=== PATIENT | male | born 1960 | race American Indian/Alaskan Native ===

== ENCOUNTER 2016-12-24 23:03 | Emergency (ER) | payer MEDICAID ==
[2016-12-24 23:25] VITALS: BP 157/84
== END 2016-12-25 01:58 | disposition left against medical advice (07) ==
LOC: DL.ED 23:03
DX: Z53.21 Procedure and treatment not carried out due to patient leaving prior to being seen by health care provider (principal)

== ENCOUNTER 2017-05-01 16:17 | Emergency (ER) | payer MEDICAID ==
[2017-05-01 17:50] VITALS: BP 141/90
[2017-05-01] MEDS ORDERED: Doxycycline 100 MG Cap PO ONE (19:47)
--- NOTE | 2017-05-01 19:51 | EDM.PDOC ---
ED HPI GENERAL MEDICAL PROBLEM - General Chief Complaint: Upper Extremity Injury/Pain Stated Complaint: POSSIBLE BROKEN FINGERS [id number] Time Seen by Provider: 05/01/17 19:15 Source of Information: Reports: Patient - History of Present Illness INITIAL COMMENTS - FREE TEXT/NARRATIVE: hit end of right 3rd finger with hammer 4 days ago and has increased swelling and redness, poked with tack today and "got a lot of fluid from finger". Right 3-Middle finger Pain Score (Numeric/FACES): 8 - Related Data Allergies Allergy/AdvReac Type Severity Reaction Status Date / Time No Known Allergies Allergy Verified 07/22/16 02:54 Home Meds: Home Meds Diclofenac Sodium [Voltaren 1% Gel] 100 gm TOP BID 03/13/15 [History] Ibuprofen 800 mg PO ASDIRECTED 03/13/15 [History] Insuln Asp Prot/Insulin Aspart [NovoLOG Mix 70-30] 30 unit SUBCUT TIDMEALS 03/13 [History] Lisinopril 5 mg PO DAILY 03/13/15 [History] atorvaSTATin [Lipitor] 10 mg PO DAILY 03/13/15 [History] glyBURIDE [Glyburide] 5 mg PO DAILY 03/13/15 [History] Past Medical History Cardiovascular History: Reports: High Cholesterol, Hypertension Genitourinary History: Reports: Diabetic Nephropathy Musculoskeletal History: Reports: Arthritis, Back Pain, Chronic Endocrine/Metabolic History: Reports: Diabetes, Type II, IDDM Dermatologic History: Reports: Cellulitis - Infectious Disease History Infectious Disease History: Reports: Chicken Pox, Measles, Mumps Social & Family History - Family History Family Medical History: Noncontributory - Tobacco Use Smoking Status *Q: Current Every Day Smoker Years of Tobacco use: 30 Packs/Tins Daily: 0.2 Used Tobacco, but Quit: Yes Month Tobacco Last Used: May, Second Hand Smoke Exposure: Yes - Caffeine Use Caffeine Use: Reports: None - Alcohol Use Days Per Week of Alcohol Use: 1 Number of Drinks Per Day: 1 Total Drinks Per Week: 1 - Recreational Drug Use Recreational Drug Use: Yes Drug Use in Last 12 Months: Yes Recreational Drug Type: Reports: Methamphetamine Recreational Drug Use Frequency: Weekly Review of Systems - Review of Systems Review Of Systems: ROS reveals no pertinent complaints other than HPI. Constitutional: Denies: Chills Skin: Reports: Erythema ED EXAM, GENERAL - Physical Exam Exam: See Below Exam Limited By: No Limitations General Appearance: Alert, No Apparent Distress Eye Exam: Bilateral Eye: EOMI Ears: Normal External Exam Nose: Normal Inspection Throat/Mouth: Other (poor dentation) Respiratory/Chest: No Respiratory Distress, Lungs Clear Cardiovascular: Normal Peripheral Pulses, Regular Rate, Rhythm Extremities: Increased Warmth, Redness, Other (right 3rd finger, crusted area distal DIP proximal redness, swelling, tender to palpation) Neurological: Alert, Oriented Psychiatric: Normal Affect Skin Exam: Warm, Dry, Erythema, Increased Warmth Course - Vital Signs Last Recorded V/S: Last Vital Signs Temp 97.8 F 05/01/17 17:23 Pulse 99 05/01/17 17:23 Resp 16 05/01/17 17:23 BP 141/90 H 05/01/17 17:23 Pulse Ox 99 05/01/17 17:23 - Orders/Labs/Meds Meds: Medications Discontinued Medications Generic Name Dose Route Start Last Admin Trade Name Freq PRN Reason Stop Dose Admin Doxycycline Hyclate 100 mg 05/01/17 19:47 05/01/17 19:53 Vibramycin PO 05/01/17 19:48 100 mg ONETIME ONE Administration - Radiology Interpretation Free Text/Narrative:: right 3rd finger negative for fracture. Departure - Departure Time of Disposition: 19:49 Disposition: Home, Self-Care 01 Condition: Fair Clinical Impression: Cellulitis Qualifiers: Site of cellulitis: extremity Site of cellulitis of extremity: finger Laterality: right Qualified Code(s): L03.011 - Cellulitis of right finger - Discharge Information Instructions: Cellulitis, Adult, [id number] Forms: ED Department Discharge Additional Instructions: warm soak to finger 4 times daily elevate doxycycline 100mg one twice daily for one week recheck in clinic in one week, sooner if increased redness and swelling
== END 2017-05-01 19:57 | disposition home or self-care (01) ==
LOC: DL.ED 16:17
DX: L03.011 Cellulitis of right finger (principal); I10 Essential (primary) hypertension; E78.00 Pure hypercholesterolemia, unspecified; E11.40 Type 2 diabetes mellitus with diabetic neuropathy, unspecified; F17.210 Nicotine dependence, cigarettes, uncomplicated; Z79.4 Long term (current) use of insulin; Z79.899 Other long term (current) drug therapy
CPT/HCPCS: 73140; 99283; A9270

== ENCOUNTER 2017-06-27 12:03 | Inpatient (IN) | payer MEDICAID ==
[2017-06-27] MEDS ORDERED: Sodium Chloride 0.9% 1,000 ML IV ONE ×3 (12:05→14:27)
[2017-06-27] MEDS: Sodium Chloride 0.9% 10 ML Syringe FLUSH PRN (12:20)
--- NOTE | 2017-06-27 12:44 | CR ---
Clinical history: 56-year-old diabetic male (glucose in the 500's) with fever and cough. Interpretation: Abnormal. *Dense left parahilar and lingular pneumonic consolidation (infiltrate/atelectasis) new since Apr comparison. Chronic bronchitic "cuffing". Normal cardiac silhouette without signs of alveolar edema or dependent effusion. No lung mass or other focal lobar consolidation. CONCLUSION: Lingular and left upper lobe pneumonia.
--- NOTE | 2017-06-27 13:16 | EDM.PDOC ---
ED HPI GENERAL MEDICAL PROBLEM - General Chief Complaint: Fever Stated Complaint: FROM CLINIC ELEVATED BLOOD SUGAR AND WHITE COUNT Time Seen by Provider: 06/27/17 12:20 Source of Information: Reports: Patient, RN, RN Notes Reviewed History Limitations: Reports: Other (patient very sleepy, arouses easily) - History of Present Illness INITIAL COMMENTS - FREE TEXT/NARRATIVE: Pt presents to the ER from [facility]. Pt states he was to see Ry Fragoso NP today for a "check-up". He had labs completed, in which many were abnormal and he was sent to the ER. Pt states he has not been feeling well for the past few days. Admits to fever, chills, generalized weakness, cough for the past "couple of weeks". He states he has not been taking his medication for "quite some time", including his insulin. Onset: Gradual, Unknown/Unsure (Pt states he began not feeling well "a few weeks ago") Duration: Getting Worse headache Pain Score (Numeric/FACES): 5 - Related Data Allergies Allergy/AdvReac Type Severity Reaction Status Date / Time No Known Allergies Allergy Verified 06/27/17 15:19 Home Meds: Home Meds Ibuprofen 800 mg PO ASDIRECTED PRN 03/13/15 [History] Insuln Asp Prot/Insulin Aspart [NovoLOG Mix 70-30] 40 unit SUBCUT BID 03/13/15 [ History] Acetaminophen [Tylenol Extra Strength] 2 tab PO TID 06/27/17 [History] Past Medical History Cardiovascular History: Reports: High Cholesterol, Hypertension Genitourinary History: Reports: Diabetic Nephropathy Musculoskeletal History: Reports: Arthritis, Back Pain, Chronic Endocrine/Metabolic History: Reports: Diabetes, Type II, IDDM Dermatologic History: Reports: Cellulitis - Infectious Disease History Infectious Disease History: Reports: Chicken Pox, Measles, Mumps Social & Family History - Family History Family Medical History: Noncontributory - Tobacco Use Smoking Status *Q: Current Every Day Smoker Years of Tobacco use: 30 Packs/Tins Daily: 0.2 Used Tobacco, but Quit: Yes Month Tobacco Last Used: May, Second Hand Smoke Exposure: Yes - Caffeine Use Caffeine Use: Reports: None - Alcohol Use Days Per Week of Alcohol Use: 1 Number of Drinks Per Day: 1 Total Drinks Per Week: 1 - Recreational Drug Use Recreational Drug Use: Yes Drug Use in Last 12 Months: Yes Recreational Drug Type: Reports: Methamphetamine Recreational Drug Use Frequency: Weekly ED ROS GENERAL - Review of Systems Review Of Systems: ROS reveals no pertinent complaints other than HPI. ED EXAM, SEPSIS - Physical Exam Exam: See Below Exam Limited By: Other (lethargic) General Appearance: WD/WN, Lethargic, Mild Distress Eye Exam: Bilateral Eye: EOMI, Normal Inspection Ears: Normal External Exam, Hearing Grossly Normal Nose: Nasal Deformity Throat/Mouth: Normal Inspection, Normal Voice, No Airway Compromise Head: Atraumatic, Normocephalic Neck: Normal Inspection, Supple, Non-Tender, Full Range of Motion Respiratory/Chest: No Respiratory Distress, No Accessory Muscle Use, Chest Non- Tender, Crackles (throughout) Cardiovascular: Normal Peripheral Pulses, Regular Rate, Rhythm, No Edema, No Gallop, No JVD, No Murmur, No Rub Peripheral Pulses: 2+: Radial (L), Radial (R) GI/Abdominal Exam: Normal Bowel Sounds, Soft, Non-Tender, No Organomegaly, No Distention, No Abnormal Bruit, No Mass (Male) Exam: Deferred Rectal (Males) Exam: Deferred Back: Normal Inspection, Full Range of Motion Extremities: Normal Inspection, Normal Range of Motion, Non-Tender, No Pedal Edema, Normal Capillary Refill Neurological: Alert, Oriented, Slow to Respond Psychiatric: Flat Affect Skin: Warm, Dry, Intact, Normal Color Lymphatic: Bilateral: No Adenopathy Course - Vital Signs Last Recorded V/S: Last Vital Signs Temp 99.2 F 06/28/17 07:59 Pulse 90 06/28/17 07:59 Resp 20 06/28/17 07:59 BP 121/61 06/28/17 07:59 Pulse Ox 96 06/28/17 07:59 - Orders/Labs/Meds Orders: Active Orders 24 hr Category Date Time Status CULTURE BLOOD [BC] Stat Lab 06/27/17 12:24 Received CULTURE BLOOD [BC] Stat Lab 06/27/17 12:29 Received Sodium Chloride 0.9% [Saline Flush] Med 06/27/17 12:03 Active 10 ml FLUSH ASDIRECTED PRN Blood Culture x2 Reflex Set [OM.PC] Stat Oth 06/27/17 12:03 Ordered Peripheral IV Insertion Adult [OM.PC] Stat Oth 06/27/17 12:03 Ordered Medication Orders Acetaminophen (Tylenol) 650 mg PO Q4H PRN PRN Reason: Pain (mild 1-3 )/fever Last Admin: 06/28/17 07:02 Dose: 650 mg Admin: 06/27/17 20:14 Dose: 650 mg Bisacodyl (Dulcolax) 10 mg RECTAL DAILY PRN PRN Reason: Constipation Enoxaparin Sodium (Lovenox) 40 mg SUBCUT DAILY COUNT INCLUDES THE [facility] Last Admin: 06/28/17 09:05 Dose: 40 mg Azithromycin 500 mg/ Sodium (Chloride) 250 mls @ 250 mls/hr IV Q24H COUNT INCLUDES THE [facility] Last Admin: 06/27/17 18:23 Dose: 250 mls/hr Ceftriaxone Sodium 1 gm/ (Sodium Chloride) 50 mls @ 100 mls/hr IV Q24H COUNT INCLUDES THE [facility] Last Admin: 06/28/17 09:05 Dose: 100 mls/hr Insulin Aspart (Novolog) 0 unit SUBCUT QID COUNT INCLUDES THE [facility] PRN Reason: Protocol Last Admin: 06/28/17 08:55 Dose: Admin: 06/27/17 22:17 Dose: 2 units Admin: 06/27/17 18:22 Dose: 4 units Insulin Human Isoph/Insulin Regular (Novolin 70-30) 40 unit SUBCUT 0730,1700 COUNT INCLUDES THE [facility] Last Admin: 06/28/17 08:15 Dose: 40 units Magnesium Hydroxide (Milk Of Magnesia) 30 ml PO DAILY PRN PRN Reason: Constipation Sodium Chloride (Saline Flush) 10 ml FLUSH ASDIRECTED PRN PRN Reason: Keep Vein Open Last Admin: 06/28/17 09:06 Dose: 10 ml Admin: 06/27/17 12:20 Dose: 10 ml Labs: Laboratory Tests 06/27/17 06/27/17 06/27/17 Range/Units 12:24 12:24 14:00 POC Glucose 319 H (70-105) mg/dl Lactic Acid 1.7 (0.5-2.2) mmol/L Magnesium 1.8 (1.8-2.5) mg/dL Urine Color (YELLOW) Urine Appearance (CLEAR) Urine pH (5.0-9.0) Ur Specific Tillman (1.005-1.030) Urine Protein (NEGATIVE) Urine Glucose (UA) (NEGATIVE) Urine Ketones (NEGATIVE) Urine Occult Blood (NEGATIVE) Urine Nitrite (NEGATIVE) Urine Bilirubin (NEGATIVE) Urine Urobilinogen (0.2-1.0) mg/dL Ur Leukocyte Esterase (NEGATIVE) Urine RBC /HPF Urine WBC (0-5/HPF) /HPF Ur Epithelial Cells /HPF Urine Mucus /LPF Urine Yeast (0/HPF) /HPF Urine Opiates Screen (NEGATIVE) Ur Oxycodone Screen (NEGATIVE) Urine Methadone Screen (NEGATIVE) Ur Barbiturates Screen (NEGATIVE) U Tricyclic Antidepress (NEGATIVE) Ur Phencyclidine Scrn (NEGATIVE) Ur Amphetamine Screen (NEGATIVE) U Methamphetamines Scrn (NEGATIVE) Urine MDMA Screen (NEGATIVE) U Benzodiazepines Scrn (NEGATIVE) Urine Cocaine Screen (NEGATIVE) U Marijuana (THC) Screen (NEGATIVE) Ethyl Alcohol < 5 mg/dL Ketones Negative 06/27/17 06/27/17 Range/Units 14:40 14:40 POC Glucose (70-105) mg/dl Lactic Acid (0.5-2.2) mmol/L Magnesium (1.8-2.5) mg/dL Urine Color Dark yellow (YELLOW) Urine Appearance Cloudy (CLEAR) Urine pH 6.0 (5.0-9.0) Ur Specific Tillman 1.020 (1.005-1.030) Urine Protein >=300 H (NEGATIVE) Urine Glucose (UA) 500 H (NEGATIVE) Urine Ketones Negative (NEGATIVE) Urine Occult Blood Moderate H (NEGATIVE) Urine Nitrite Negative (NEGATIVE) Urine Bilirubin Negative (NEGATIVE) Urine Urobilinogen 1.0 (0.2-1.0) mg/dL Ur Leukocyte Esterase Negative (NEGATIVE) Urine RBC 5-10 H /HPF Urine WBC 0-5 (0-5/HPF) /HPF Ur Epithelial Cells Rare /HPF Urine Mucus Rare /LPF Urine Yeast Rare H (0/HPF) /HPF Urine Opiates Screen Negative (NEGATIVE) Ur Oxycodone Screen Negative (NEGATIVE) Urine Methadone Screen Negative (NEGATIVE) Ur Barbiturates Screen Negative (NEGATIVE) U Tricyclic Antidepress Negative (NEGATIVE) Ur Phencyclidine Scrn Negative (NEGATIVE) Ur Amphetamine Screen Negative (NEGATIVE) U Methamphetamines Scrn Positive H (NEGATIVE) Urine MDMA Screen Negative (NEGATIVE) U Benzodiazepines Scrn Negative (NEGATIVE) Urine Cocaine Screen Negative (NEGATIVE) U Marijuana (THC) Screen Negative (NEGATIVE) Ethyl Alcohol mg/dL Ketones Meds: Medications Generic Name Dose Route Start Last Admin Trade Name Freq PRN Reason Stop Dose Admin Acetaminophen 650 mg 06/27/17 16:19 06/28/17 07:02 Tylenol PO 650 mg Q4H PRN Administration Pain (mild 1-3 )/fever Bisacodyl 10 mg 06/27/17 16:19 Dulcolax RECTAL DAILY PRN Constipation Enoxaparin Sodium 40 mg 06/28/17 09:00 06/28/17 09:05 Lovenox SUBCUT 40 mg DAILY MEGHAN Administration Azithromycin 500 mg/ Sodium 250 mls @ 250 mls/hr 06/27/17 18:00 06/27/17 18: 23 Chloride IV 250 mls/hr Q24H MEGHAN Administration Ceftriaxone Sodium 1 gm/ 50 mls @ 100 mls/hr 06/28/17 09:00 06/28/17 09:05 Sodium Chloride IV 100 mls/hr Q24H MEGHAN Administration Insulin Aspart 0 unit 06/27/17 17:00 06/28/17 08:55 Novolog SUBCUT Not Given QID COUNT INCLUDES THE [facility] Protocol Insulin Human Isoph/Insulin Regular 40 unit 06/28/17 07:30 06/28/17 08:15 Novolin 70-30 SUBCUT 40 units 0730,1700 COUNT INCLUDES THE [facility] Administration Magnesium Hydroxide 30 ml 06/27/17 16:19 Milk Of Magnesia PO DAILY PRN Constipation Sodium Chloride 10 ml 06/27/17 12:03 06/28/17 09:06 Saline Flush FLUSH 10 ml ASDIRECTED PRN Administration Keep Vein Open Discontinued Medications Generic Name Dose Route Start Last Admin Trade Name Jenny PRN Reason Stop Dose Admin Acetaminophen 650 mg 06/27/17 13:32 06/27/17 13:56 Tylenol PO 06/27/17 13:33 650 mg NOW ONE Administration Furosemide 20 mg 06/27/17 18:00 06/27/17 18:23 Lasix IVPUSH 06/27/17 18:01 20 mg ONETIME ONE Administration Sodium Chloride 1,000 mls @ 999 mls/hr 06/27/17 12:05 06/27/17 12:31 Normal Saline IV 06/27/17 13:05 999 mls/hr .BOLUS ONE Administration Sodium Chloride 1,000 mls @ 999 mls/hr 06/27/17 13:26 06/27/17 13:30 Normal Saline IV 06/27/17 14:26 999 mls/hr .BOLUS ONE Administration Sodium Chloride 1,000 mls @ 100 mls/hr 06/27/17 14:27 06/27/17 14:43 Normal Saline IV 06/28/17 00:26 100 mls/hr .BOLUS ONE Administration Ceftriaxone Sodium 1 gm/ 50 mls @ 100 mls/hr 06/27/17 14:47 06/27/17 14:58 Sodium Chloride IV 06/27/17 15:16 100 mls/hr ONETIME ONE Administration Insulin Human Isoph/Insulin Regular 40 unit 06/27/17 17:00 06/27/17 18:21 Novolin 70-30 SUBCUT 40 units BIDAC MEGHAN Administration - Radiology Interpretation Free Text/Narrative:: chest xray: Lingular and left upper lobe pneumonia See rad report Departure - Departure Time of Disposition: 15:00 Disposition: Admitted As Inpatient 66 Condition: Poor Clinical Impression: Pneumonia Qualifiers: Pneumonia type: due to unspecified organism Laterality: right Lung location: upper lobe of lung Qualified Code(s): J18.9 - Pneumonia, unspecified organism - Discharge Information - My Orders Last 24 Hours: My Active Orders 06/27/17 12:03 Sodium Chloride 0.9% [Saline Flush] 10 ml FLUSH ASDIRECTED PRN Blood Culture x2 Reflex Set [OM.PC] Stat Peripheral IV Insertion Adult [OM.PC] Stat 06/27/17 12:24 CULTURE BLOOD [BC] Stat 06/27/17 12:29 CULTURE BLOOD [BC] Stat - Assessment/Plan Last 24 Hours: My Active Orders 06/27/17 12:03 Sodium Chloride 0.9% [Saline Flush] 10 ml FLUSH ASDIRECTED PRN Blood Culture x2 Reflex Set [OM.PC] Stat Peripheral IV Insertion Adult [OM.PC] Stat 06/27/17 12:24 CULTURE BLOOD [BC] Stat 06/27/17 12:29 CULTURE BLOOD [BC] Stat
[2017-06-27] MEDS ORDERED: Acetaminophen 325 MG Tab PO ONE (13:32)
[2017-06-27] MEDS ORDERED: cefTRIAXone 1 GM in Sodium Chloride 0.9% 50 ML IV ONE (14:47)
[2017-06-27] MEDS ORDERED: Magnesium Hydroxide 400 MG/5 ML Susp 30 ML Cup PO PRN (16:19)
[2017-06-27] MEDS ORDERED: Bisacodyl 10 MG Supp RECTAL PRN (16:19)
[2017-06-27] MEDS ORDERED: Insulin NPH/Insulin Regular,Human 70-30 100 Units/ML 10 ML Vial SUBCUT SCH (17:00)
[2017-06-27] MEDS ORDERED: Furosemide 20 MG/2 ML VIAL IVPUSH ONE (18:00)
[2017-06-27] MEDS: Insulin Aspart 100 Units/ML 3 ML Pen SUBCUT SCH ×2 (18:22→22:17)
[2017-06-27] MEDS: Azithromycin 500 MG in Sodium Chloride 0.9% 250 ML IV SCH (18:23)
[2017-06-27] MEDS: Acetaminophen 325 MG Tab PO PRN (20:14)
[2017-06-28] MEDS: Acetaminophen 325 MG Tab PO PRN ×2 (07:02→15:48)
[2017-06-28] MEDS: Insulin NPH/Insulin Regular,Human 70-30 100 Units/ML 10 ML Vial SUBCUT SCH ×2 (08:15→17:23)
[2017-06-28] MEDS: Insulin Aspart 100 Units/ML 3 ML Pen SUBCUT SCH ×4 (08:55→21:30)
[2017-06-28] MEDS: cefTRIAXone 1 GM in Sodium Chloride 0.9% 50 ML IV SCH (09:05)
[2017-06-28] MEDS: Enoxaparin 40 MG/0.4 ML Syringe SUBCUT SCH (09:05)
[2017-06-28] MEDS: Sodium Chloride 0.9% 10 ML Syringe FLUSH PRN ×2 (09:06→17:44)
[2017-06-28 11:18] LABS: CHLORIDE,CL 99 mmol/L (101-111); SODIUM,NA 132 mmol/L (135-145)
--- NOTE | 2017-06-28 12:57 | HP ---
REASON FOR ADMISSION: Fever and cough as well as hyperglycemia. BRIEF HISTORY OF PRESENT ILLNESS: Mr. Vargas is a 56-year-old male, who was due to be seen in clinic yesterday. Apparently, he had lab work done and based on lab work alone the provider called the ER for potential admission. Mr. Vargas's blood sugar was 511. Hemoglobin A1c was 11.7%. Sodium was 123. BUN and creatinine 18 and 1.4. White count was 22,600 with left shift, and he was referred to the ER. In the Emergency Department, he was found to have an abnormal chest x-ray with infiltrate in the lingular and left upper lobe, and he was admitted for further management. PAST MEDICAL HISTORY: 1. Type 2 diabetes with poor compliance. 2. Degenerative disc disease of the lumbosacral spine with compression fractures and disc disease as well as mild lumbar stenosis. 3. Peripheral neuropathy. 4. Chronic hepatitis C. 5. Essential hypertension. PAST SURGICAL HISTORY: Appendectomy. SOCIAL HISTORY: He is current smoker, who started smoking at the age of 15 to 16 years old, and smokes at least a half a pack of cigarettes a day, for an approximate 20-pack year history of smoking. He also drinks alcohol. He is a daily smoker, and occasional drinker. He is unemployed. FAMILY HISTORY: He has a brother and a sister, who are both diabetics. He has a strong family history of diabetes. He has 5 children, one of his son is diabetic. IMMUNIZATION HISTORY: He did not have this year's flu vaccine. PCV13; 03/17/2011. PPV23; 06/30/2016. Tdap; 02/08/2017. REVIEW OF SYSTEMS: He said he has been sick for the last 2 weeks. Blood sugars have been high "400, 500, 600." He ran out of insulin 2 weeks ago and has not gone to get more. He also missed an appointment that he had in clinic. He states he has been coughing for about a week. He has had chills. No vomiting or diarrhea. Family members are well and he has been exposed to any illness. He denies any recent falls or injuries. No blood by mouth or rectum. No change in bowel or bladder habits. No change in appetite or weight. He has never had a heart attack or a stroke. Denies any head injury. MEDICATIONS: Reviewed. At this time, he takes; 1. Novolin 70/30, 4 units twice a day. 2. Ibuprofen 800 mg p.r.n. 3. Tylenol Extra Strength tabs 3 times a day. We will check with pharmacy, no other prescriptions have been filled. He had been on multiple other medications including; JASSI inhibitor, gabapentin, simvastatin, aspirin, glyburide and he has taken none of these medications for some time now. ALLERGIES: No known allergies. PHYSICAL EXAMINATION: General: He is lying in bed, huddled deeply under blankets stating that it was cold. He was a poor historian. Vital Signs: Blood pressure 106/70 on the left, 102/62 on the right, pulse 104, respiratory rate 20, oxygen saturation is 96% on room air, and temperature was 97.7. Temperature had been 101.6 in the Emergency Department. HEENT: Unremarkable. No JVDs or bruits. Chest: Showed diminished bilateral breath sounds with coarse wheezes. Heart: Showed regular rate and rhythm. Abdomen: Benign. Extremities: Showed the calves to be soft and nontender. Neurological: He is intact. LABORATORY DATA: Initial labs have been performed in clinic. BUN and creatinine were 18 and 1.4 with a GFR of 52. Sodium was 123, glucose 511. Hemoglobin A1c was 11.7%. CBC showed a white count of 22.6 with a left shift. Hemoglobin and hematocrit 14 and 42. Additional labs were performed in the Emergency Department. Lactic acid was normal at 1.7. Magnesium was normal at 1.8. Repeat blood sugar was 327. Urinalysis showed a large amount of protein, 5 to 10 rbc's, 0 to 5 wbc's, and no bacteria. Urine toxicology was performed and was positive for methamphetamines. Blood alcohol was not detected and serum ketones were negative. IMPRESSION: 1. A 56-year-old diabetic with history of noncompliance, now presents with acute respiratory illness. He is admitted for further management. Chest x- ray shows lingular and left upper lobe pneumonia. He was started on IV Rocephin and IV azithromycin. He was also placed on IV fluids. In the Emergency Department, he had been given 3 of normal saline in a short amount of time, and he was given 20 mg of IV Lasix when he reached the floor. 2. Type 2 diabetes, uncontrolled. He was placed back on his Novolin 70/30, as well as a low dose on NovoLog sliding scale. 3. He is placed on enoxaparin and MILANA hose for VTE prophylaxis. 4. Two sets of blood cultures were drawn in the ER will be followed. 5. Methamphetamine abuse. He admits to smoking methamphetamine. He also has a history of being positive for hepatitis C. 6. Voluntary medical noncompliance. The patient was strongly urged to stay on his medications and avoid complications and hospitalizations due to consequences of not dealing with his diabetes. CONDITION AT TIME OF ADMISSION: Stable. CODE STATUS: Full code. [facility] /[id number] MTDD
[2017-06-28] MEDS ORDERED: Potassium Chloride 10 MEQ Tab.ER PO ONE (14:36)
[2017-06-28] MEDS: Azithromycin 500 MG in Sodium Chloride 0.9% 250 ML IV SCH (17:44)
--- NOTE | 2017-06-28 18:07 | PCM.PN ---
- General Info Date of Service: 06/28/17 Subjective Update: Patient is a 56 year old male admitted because of left sided pneumonia. able to tolerate diet, no nausea nor vomiting; feeling sleepy this morning. this afternoon, was eating take out fries from a local fast food. denies any pain. complaining of headache whenever he has the fever. - Patient Data Vitals - Most Recent: Last Vital Signs Temp 98.6 F 06/28/17 16:44 Pulse 87 06/28/17 15:37 Resp 20 06/28/17 15:37 BP 127/66 06/28/17 15:37 Pulse Ox 99 06/28/17 15:37 Weight - Most Recent: 150 lb 2 oz I&O - Last 24 Hours: Intake & Output 06/28/17 06/28/17 06/28/17 06:59 14:59 22:59 Intake Total 75 464 700 Balance 75 464 700 Lab Results Last 24 Hours: Laboratory Results - last 24 hr 06/27/17 06/28/17 06/28/17 Range/Units 20:50 07:44 10:50 WBC 13.5 H (5.0-10.0) 10^3/uL RBC 4.70 (4.6-6.2) 10^6/uL Hgb 11.8 L D (14.0-18.0) g/dL Hct 34.5 L (40.0-54.0) % MCV 73.4 L (80-100) fL MCH 25.1 L (27.0-34.0) pg MCHC 34.2 (33.0-35.0) g/dL Plt Count 155 D (150-450) 10^3/uL Neut % (Auto) 78.0 H (42.2-75.2) % Lymph % (Auto) 14.5 L (20.5-50.1) % [place] % (Auto) 6.6 (2-8) % Eos % (Auto) 0.7 L (1.0-3.0) % Baso % (Auto) 0.2 (0.0-1.0) % Sodium (135-145) mmol/L Potassium (3.6-5.0) mmol/L Chloride (101-111) mmol/L Carbon Dioxide (21.0-31.0) mmol/L Anion Gap BUN (7-18) mg/dL Creatinine (0.6-1.3) mg/dL Est Cr Clr Drug Dosing mL/min Estimated GFR (MDRD) Glucose (74-105) mg/dL POC Glucose 201 H 126 H (70-105) mg/dl Calcium (8.4-10.2) mg/dl 06/28/17 06/28/17 06/28/17 Range/Units 10:50 11:24 16:51 WBC (5.0-10.0) 10^3/uL RBC (4.6-6.2) 10^6/uL Hgb (14.0-18.0) g/dL Hct (40.0-54.0) % MCV (80-100) fL MCH (27.0-34.0) pg MCHC (33.0-35.0) g/dL Plt Count (150-450) 10^3/uL Neut % (Auto) (42.2-75.2) % Lymph % (Auto) (20.5-50.1) % [place] % (Auto) (2-8) % Eos % (Auto) (1.0-3.0) % Baso % (Auto) (0.0-1.0) % Sodium 132 L (135-145) mmol/L Potassium 3.2 L (3.6-5.0) mmol/L Chloride 99 L (101-111) mmol/L Carbon Dioxide 27.0 (21.0-31.0) mmol/L Anion Gap 9.2 BUN 20 H (7-18) mg/dL Creatinine 0.7 (0.6-1.3) mg/dL Est Cr Clr Drug Dosing 110.17 mL/min Estimated GFR (MDRD) > 60 Glucose 126 H (74-105) mg/dL POC Glucose 98 253 H (70-105) mg/dl Calcium 8.5 (8.4-10.2) mg/dl Med Orders - Current: Current Medications Acetaminophen (Tylenol) 650 mg PO Q4H PRN PRN Reason: Pain (mild 1-3 )/fever Last Admin: 06/28/17 15:48 Dose: 650 mg Bisacodyl (Dulcolax) 10 mg RECTAL DAILY PRN PRN Reason: Constipation Enoxaparin Sodium (Lovenox) 40 mg SUBCUT DAILY [facility] Last Admin: 06/28/17 09:05 Dose: 40 mg Azithromycin 500 mg/ Sodium (Chloride) 250 mls @ 250 mls/hr IV Q24H [facility] Last Admin: 06/28/17 17:44 Dose: 250 mls/hr Ceftriaxone Sodium 1 gm/ (Sodium Chloride) 50 mls @ 100 mls/hr IV Q24H [facility] Last Admin: 06/28/17 09:05 Dose: 100 mls/hr Insulin Aspart (Novolog) 0 unit SUBCUT QID [facility] PRN Reason: Protocol Last Admin: 06/28/17 17:22 Dose: 3 units Insulin Human Isoph/Insulin Regular (Novolin 70-30) 40 unit SUBCUT 0730,1700 [facility] Last Admin: 06/28/17 17:23 Dose: 40 units Magnesium Hydroxide (Milk Of Magnesia) 30 ml PO DAILY PRN PRN Reason: Constipation Sodium Chloride (Saline Flush) 10 ml FLUSH ASDIRECTED PRN PRN Reason: Keep Vein Open Last Admin: 06/28/17 17:44 Dose: 10 ml Discontinued Medications Acetaminophen (Tylenol) 650 mg PO NOW ONE Stop: 06/27/17 13:33 Last Admin: 06/27/17 13:56 Dose: 650 mg Furosemide (Lasix) 20 mg IVPUSH ONETIME ONE Stop: 06/27/17 18:01 Last Admin: 06/27/17 18:23 Dose: 20 mg Sodium Chloride (Normal Saline) 1,000 mls @ 999 mls/hr IV .BOLUS ONE Stop: 06/27/17 13:05 Last Admin: 06/27/17 12:31 Dose: 999 mls/hr Sodium Chloride (Normal Saline) 1,000 mls @ 999 mls/hr IV .BOLUS ONE Stop: 06/27/17 14:26 Last Admin: 06/27/17 13:30 Dose: 999 mls/hr Sodium Chloride (Normal Saline) 1,000 mls @ 100 mls/hr IV .BOLUS ONE Stop: 06/28/17 00:26 Last Admin: 06/27/17 14:43 Dose: 100 mls/hr Ceftriaxone Sodium 1 gm/ (Sodium Chloride) 50 mls @ 100 mls/hr IV ONETIME ONE Stop: 06/27/17 15:16 Last Admin: 06/27/17 14:58 Dose: 100 mls/hr Insulin Human Isoph/Insulin Regular (Novolin 70-30) 40 unit SUBCUT [facility]IDAC MEGHAN Last Admin: 06/27/17 18:21 Dose: 40 units Potassium Chloride (Klor-Con 10) 40 meq PO ONETIME ONE Stop: 06/28/17 14:37 Last Admin: 06/28/17 15:26 Dose: 40 meq - Exam Lungs: Normal Respiratory Effort Cardiovascular: Regular Rate, Regular Rhythm GI/Abdominal Exam: Normal Bowel Sounds, Soft, Non-Tender Extremities: No Pedal Edema - Problem List Review Problem List Initiated/Reviewed/Updated: Yes - My Orders Last 24 Hours: My Active Orders 06/28/17 14:36 Intake and Output Strict [RC] ASDIRECTED 06/29/17 06:00 BASIC METABOLIC PANEL,BMP [CHEM] Routine CBC WITH AUTO DIFF [HEME] Routine - Plan Plan:: 1. community acquired pneumonia, left sided. - await blood cultures. - on Azithromycin and Ceftriaxone - still having episodes of fever, consider repeat CXR or Ct scan if with persistent fever. 2. hypokalemia - replaced - repeat BMP 3. hyponatremia - improving 4. DIabetes mellitus, uncontrolled - sugars not better due to non compliant with diabetic diet - on novolin BID and sliding scale - continue checking sugars premeals and at bedtime 5. DVT prophylaxis
[2017-06-28] MEDS ORDERED: Ibuprofen 600 MG Tab PO PRN (18:39)
[2017-06-29 07:05] LABS: CHLORIDE,CL 101 mmol/L (101-111); SODIUM,NA 133 mmol/L (135-145)
[2017-06-29] MEDS: Insulin NPH/Insulin Regular,Human 70-30 100 Units/ML 10 ML Vial SUBCUT SCH (07:48)
[2017-06-29] MEDS: cefTRIAXone 1 GM in Sodium Chloride 0.9% 50 ML IV SCH (08:00)
[2017-06-29] MEDS: Enoxaparin 40 MG/0.4 ML Syringe SUBCUT SCH (08:02)
[2017-06-29] MEDS: Insulin Aspart 100 Units/ML 3 ML Pen SUBCUT SCH (08:12)
[2017-06-29] MEDS ORDERED: FLU VAC QS 17-18(4YR UP)CEL/PF 60 MCG/0.5 ML Syringe IM ONE (10:53)
[2017-06-29 11:09] VITALS: BP 130/74
[2017-06-29] MEDS ORDERED: Insulin NPH/Insulin Regular,Human 70-30 100 Units/ML 10 ML Vial SUBCUT SCH (17:00)
--- NOTE | 2017-06-30 08:03 | DISCH ---
FINAL DIAGNOSES: 1. Community-acquired pneumonia. 2. Hypokalemia. 3. Hyponatremia. 4. Type 2 diabetes mellitus. 5. Hepatitis C. 6. Hypertension. SUMMARY OF HOSPITAL COURSE: Mr. Prabhu Vargas is a 56-year-old man who presented with cough, shortness of breath, and weakness. His serum sodium was found to be low at 123. Creatinine up to 1.4. Blood sugar was elevated at 511. He is known to have hepatitis C as well. The patient had an x-ray that suggested left upper lobe pneumonia. There is also pneumonia in the left lingular lobe. He was on intravenous Rocephin and azithromycin. With that, his symptoms improved. He is afebrile. Electrolyte abnormality has improved. Serum sodium is at 133 now. Blood sugar remains suboptimal and controlled. He is feeling better and will be discharged home. PHYSICAL EXAMINATION AT DISCHARGE: General: The patient is alert and oriented to place, time, and person. Head: Atraumatic and normocephalic. Ear, Nose, and Throat: Unremarkable. Neck: Supple. Chest: Clear to auscultation. Cardiovascular System: Regular rate and rhythm. Abdomen: Soft and nontender. Extremities: No pedal edema. No finger clubbing. [facility] /[id number]
== END 2017-06-29 11:04 | disposition home or self-care (01) | DRG 194 ==
LOC: DL.ED 12:03 → UNDOADMIN 15:05 → DL.MS 15:05
PROVIDERS: ADMIT Internal Medicine; ATTEND Internal Medicine
DX: J18.9 Pneumonia, unspecified organism (principal); E87.1 Hypo-osmolality and hyponatremia; E78.00 Pure hypercholesterolemia, unspecified; E87.6 Hypokalemia; E11.65 Type 2 diabetes mellitus with hyperglycemia; M19.90 Unspecified osteoarthritis, unspecified site; G89.29 Other chronic pain; M54.9 Dorsalgia, unspecified; E11.21 Type 2 diabetes mellitus with diabetic nephropathy; E11.42 Type 2 diabetes mellitus with diabetic polyneuropathy; Z79.4 Long term (current) use of insulin; M51.37 Other intervertebral disc degeneration, lumbosacral region; B18.2 Chronic viral hepatitis C; I10 Essential (primary) hypertension; F17.210 Nicotine dependence, cigarettes, uncomplicated; Z91.19 Patient's noncompliance with other medical treatment and regimen; F15.10 Other stimulant abuse, uncomplicated
CPT/HCPCS: 36415; 71020; 80305; 81001; 82009; 82962; 83605; 83735; 87040 ×2; 87081; 87430; 87804 ×2; 96361; 96365; 99285; A9270; G0480; J0696; J7030 ×3; J7050 ×2; 80048; 85025; 90674; J0456; J1650; J1815-GY; J1940

== ENCOUNTER 2017-10-24 19:38 | Emergency (ER) | payer MEDICAID ==
[2017-10-24 19:47] VITALS: BP 153/83
[2017-10-24] MEDS ORDERED: Sodium Chloride 0.9% 1,000 ML IV ONE ×2 (20:05→22:51)
[2017-10-24] MEDS ORDERED: Insulin Regular, Human 100 Units/ML 3 ML Vial IV ONE ×2 (20:05→22:51)
--- NOTE | 2017-10-24 20:07 | EDM.PDOC ---
ED HPI GENERAL MEDICAL PROBLEM - General Chief Complaint: General Stated Complaint: BY AMBULANCE Time Seen by Provider: 10/24/17 20:06 Source of Information: Reports: Patient History Limitations: Reports: No Limitations - History of Present Illness INITIAL COMMENTS - FREE TEXT/NARRATIVE: ran out of insulin past few days not feeling good dizziness weak no appetite nausea on-off. - Related Data Allergies Allergy/AdvReac Type Severity Reaction Status Date / Time No Known Allergies Allergy Verified 10/24/17 19:47 Home Meds: Home Meds Ibuprofen 800 mg PO ASDIRECTED PRN 03/13/15 [History] Acetaminophen [Tylenol Extra Strength] 2 tab PO TID 06/27/17 [History] Azithromycin 500 mg PO DAILY #5 tablet 06/29/17 [Rx] Cefdinir [Omnicef] 300 mg PO BID #20 cap 06/29/17 [Rx] Insuln Asp Prot/Insulin Aspart [NovoLOG Mix 70-30] 45 unit SUBCUT BID #1 pen [Rx] Past Medical History Cardiovascular History: Reports: High Cholesterol, Hypertension Other Gastrointestinal History: Spouse states client used to take medication for his stomach, but cannot recall why and cannot recall which medication. Genitourinary History: Reports: Diabetic Nephropathy Musculoskeletal History: Reports: Arthritis, Back Pain, Chronic Psychiatric History: Reports: Anxiety Endocrine/Metabolic History: Reports: Diabetes, Type II, IDDM Dermatologic History: Reports: Cellulitis - Infectious Disease History Infectious Disease History: Reports: Chicken Pox, Measles, Mumps Other Infectious Disease History: states client has hepatitis, but unable to recall which type. - Past Surgical History GI Surgical History: Reports: Appendectomy Social & Family History - Family History Family Medical History: Noncontributory Endocrine/Metabolic: Reports: Diabetes, type II Oncologic: Reports: Other (See Below) Other Oncologic Family History: spouse states HX of cancer in family, but unable to recall which type - Tobacco Use Smoking Status *Q: Current Every Day Smoker Years of Tobacco use: 25 Packs/Tins Daily: 20 Used Tobacco, but Quit: Yes Month/Year Tobacco Last Used: May, Second Hand Smoke Exposure: Yes - Caffeine Use Caffeine Use: Reports: Coffee, Soda - Alcohol Use Days Per Week of Alcohol Use: 1 Number of Drinks Per Day: 1 Total Drinks Per Week: 1 Date of Last Drink: 10/17/17 - Recreational Drug Use Recreational Drug Use: Yes Drug Use in Last 12 Months: Yes Recreational Drug Type: Reports: Methamphetamine Recreational Drug Use Frequency: Weekly ED ROS GENERAL - Review of Systems Review Of Systems: ROS reveals no pertinent complaints other than HPI. ED EXAM, GENERAL - Physical Exam Exam: See Below Exam Limited By: No Limitations General Appearance: Alert, WD/WN, Mild Distress, Other (general discomfort) Eye Exam: Bilateral Eye: PERRL (pupils ess ER @ 4mm) Ears: Hearing Grossly Normal Throat/Mouth: Normal Voice, No Airway Compromise Head: Atraumatic Neck: Non-Tender, Full Range of Motion Respiratory/Chest: No Respiratory Distress Cardiovascular: Regular Rate, Rhythm GI/Abdominal: Soft, Non-Tender Neurological: Alert, Oriented, Normal Cognition, Normal Gait, No Motor/Sensory Deficits Psychiatric: Normal Affect, Normal Mood Skin Exam: Warm, Dry, Normal Color Lymphatic: No Adenopathy Course - Vital Signs Last Recorded V/S: Last Vital Signs Temp 37.1 C 10/24/17 19:38 Pulse 90 10/24/17 19:38 Resp 18 10/24/17 19:38 BP 153/83 H 10/24/17 19:38 Pulse Ox 100 10/24/17 19:38 - Orders/Labs/Meds Orders: Active Orders 24 hr Category Date Time Status Blood Glucose Check, Bedside [RC] ONETIME Care 10/24/17 22:16 Active CULTURE BLOOD [BC] Stat Lab 10/24/17 20:02 Results Sodium Chloride 0.9% [Normal Saline] 1,000 ml Med 10/24/17 22:51 Active IV .BOLUS Medication Orders Sodium Chloride (Normal Saline) 1,000 mls @ 999 mls/hr IV .BOLUS ONE Stop: 10/24/17 23:51 Last Admin: 10/24/17 23:00 Dose: 999 mls/hr Labs: Laboratory Tests 10/24/17 10/24/17 10/24/17 Range/Units 20:01 20:02 20:02 WBC 6.5 (5.0-10.0) 10^3/uL RBC 5.39 (4.6-6.2) 10^6/uL Hgb 13.7 L D (14.0-18.0) g/dL Hct 40.3 (40.0-54.0) % MCV 74.8 L (80-100) fL MCH 25.4 L (27.0-34.0) pg MCHC 34.0 (33.0-35.0) g/dL Plt Count 232 (150-450) 10^3/uL Neut % (Auto) 51.4 (42.2-75.2) % Lymph % (Auto) 34.8 (20.5-50.1) % [place] % (Auto) 9.6 H (2-8) % Eos % (Auto) 3.6 H (1.0-3.0) % Baso % (Auto) 0.6 (0.0-1.0) % ABG pH (7.35-7.45) ABG pCO2 (35-45) mmHg ABG pO2 (70-100) mmHg ABG HCO3 (22-26) mmol/L ABG O2 Saturation (95-100) % ABG Base Excess ((-2)-(+3)) mmol/L Sarmad Test O2 Delivery Device Oxygen Flow Rate Sodium 121 L D (135-145) mmol/L Potassium 4.6 (3.6-5.0) mmol/L Chloride 89 L D (101-111) mmol/L Carbon Dioxide 23.0 (21.0-31.0) mmol/L Anion Gap 13.6 BUN 21 H (7-18) mg/dL Creatinine 0.9 (0.6-1.3) mg/dL Est Cr Clr Drug Dosing 85.69 mL/min Estimated GFR (MDRD) > 60 BUN/Creatinine Ratio 23.33 Glucose 780 H* (74-105) mg/dL POC Glucose > 500 H* (70-105) mg/dl Lactic Acid (0.5-2.2) mmol/L Calcium 8.5 (8.4-10.2) mg/dl Total Bilirubin 0.4 (0.2-1.0) mg/dL AST 73 H (10-42) IU/L ALT 97 H (10-60) IU/L Alkaline Phosphatase 161 H (42-121) IU/L Troponin I 0.02 (0.00-0.02) ng/ml Total Protein 6.9 (6.7-8.2) g/dl Albumin 2.8 L (3.2-5.5) g/dl Globulin 4.1 Albumin/Globulin Ratio 0.68 Urine Color (YELLOW) Urine Appearance (CLEAR) Urine pH (5.0-9.0) Ur Specific [place] (1.005-1.030) Urine Protein (NEGATIVE) Urine Glucose (UA) (NEGATIVE) Urine Ketones (NEGATIVE) Urine Occult Blood (NEGATIVE) Urine Nitrite (NEGATIVE) Urine Bilirubin (NEGATIVE) Urine Urobilinogen (0.2-1.0) mg/dL Ur Leukocyte Esterase (NEGATIVE) Urine RBC /HPF Urine WBC (0-5/HPF) /HPF Ur Epithelial Cells /HPF Urine Bacteria (0-FEW/HPF) /HPF Urine Mucus /LPF Urine Opiates Screen (NEGATIVE) Ur Oxycodone Screen (NEGATIVE) Urine Methadone Screen (NEGATIVE) Ur Barbiturates Screen (NEGATIVE) U Tricyclic Antidepress (NEGATIVE) Ur Phencyclidine Scrn (NEGATIVE) Ur Amphetamine Screen (NEGATIVE) U Methamphetamines Scrn (NEGATIVE) Urine MDMA Screen (NEGATIVE) U Benzodiazepines Scrn (NEGATIVE) Urine Cocaine Screen (NEGATIVE) U Marijuana (THC) Screen (NEGATIVE) Ketones Negative 10/24/17 10/24/17 10/24/17 Range/Units 20:02 20:05 20:11 WBC (5.0-10.0) 10^3/uL RBC (4.6-6.2) 10^6/uL Hgb (14.0-18.0) g/dL Hct (40.0-54.0) % MCV (80-100) fL MCH (27.0-34.0) pg MCHC (33.0-35.0) g/dL Plt Count (150-450) 10^3/uL Neut % (Auto) (42.2-75.2) % Lymph % (Auto) (20.5-50.1) % [place] % (Auto) (2-8) % Eos % (Auto) (1.0-3.0) % Baso % (Auto) (0.0-1.0) % ABG pH 7.38 (7.35-7.45) ABG pCO2 40 (35-45) mmHg ABG pO2 130 H (70-100) mmHg ABG HCO3 23.0 (22-26) mmol/L ABG O2 Saturation 97 (95-100) % ABG Base Excess -2 ((-2)-(+3)) mmol/L Sarmad Test rb O2 Delivery Device Room air Oxygen Flow Rate 0 Sodium (135-145) mmol/L Potassium (3.6-5.0) mmol/L Chloride (101-111) mmol/L Carbon Dioxide (21.0-31.0) mmol/L Anion Gap BUN (7-18) mg/dL Creatinine (0.6-1.3) mg/dL Est Cr Clr Drug Dosing mL/min Estimated GFR (MDRD) BUN/Creatinine Ratio Glucose (74-105) mg/dL POC Glucose (70-105) mg/dl Lactic Acid 3.5 H (0.5-2.2) mmol/L Calcium (8.4-10.2) mg/dl Total Bilirubin (0.2-1.0) mg/dL AST (10-42) IU/L ALT (10-60) IU/L Alkaline Phosphatase (42-121) IU/L Troponin I (0.00-0.02) ng/ml Total Protein (6.7-8.2) g/dl Albumin (3.2-5.5) g/dl Globulin Albumin/Globulin Ratio Urine Color Light yellow (YELLOW) Urine Appearance Clear (CLEAR) Urine pH 5.5 (5.0-9.0) Ur Specific [place] <= 1.005 (1.005-1.030) Urine Protein 100 H (NEGATIVE) Urine Glucose (UA) 500 H (NEGATIVE) Urine Ketones Negative (NEGATIVE) Urine Occult Blood Trace-intact H (NEGATIVE) Urine Nitrite Negative (NEGATIVE) Urine Bilirubin Negative (NEGATIVE) Urine Urobilinogen 0.2 (0.2-1.0) mg/dL Ur Leukocyte Esterase Negative (NEGATIVE) Urine RBC 0-5 /HPF Urine WBC 0-5 (0-5/HPF) /HPF Ur Epithelial Cells Rare /HPF Urine Bacteria Rare (0-FEW/HPF) /HPF Urine Mucus Rare /LPF Urine Opiates Screen (NEGATIVE) Ur Oxycodone Screen (NEGATIVE) Urine Methadone Screen (NEGATIVE) Ur Barbiturates Screen (NEGATIVE) U Tricyclic Antidepress (NEGATIVE) Ur Phencyclidine Scrn (NEGATIVE) Ur Amphetamine Screen (NEGATIVE) U Methamphetamines Scrn (NEGATIVE) Urine MDMA Screen (NEGATIVE) U Benzodiazepines Scrn (NEGATIVE) Urine Cocaine Screen (NEGATIVE) U Marijuana (THC) Screen (NEGATIVE) Ketones 03/26/18 03/26/18 03/26/18 Range/Units 20:11 20:59 22:28 WBC (5.0-10.0) 10^3/uL RBC (4.6-6.2) 10^6/uL Hgb (14.0-18.0) g/dL Hct (40.0-54.0) % MCV (80-100) fL MCH (27.0-34.0) pg MCHC (33.0-35.0) g/dL Plt Count (150-450) 10^3/uL Neut % (Auto) (42.2-75.2) % Lymph % (Auto) (20.5-50.1) % [place] % (Auto) (2-8) % Eos % (Auto) (1.0-3.0) % Baso % (Auto) (0.0-1.0) % ABG pH (7.35-7.45) ABG pCO2 (35-45) mmHg ABG pO2 (70-100) mmHg ABG HCO3 (22-26) mmol/L ABG O2 Saturation (95-100) % ABG Base Excess ((-2)-(+3)) mmol/L Sarmad Test O2 Delivery Device Oxygen Flow Rate Sodium (135-145) mmol/L Potassium (3.6-5.0) mmol/L Chloride (101-111) mmol/L Carbon Dioxide (21.0-31.0) mmol/L Anion Gap BUN (7-18) mg/dL Creatinine (0.6-1.3) mg/dL Est Cr Clr Drug Dosing mL/min Estimated GFR (MDRD) BUN/Creatinine Ratio Glucose (74-105) mg/dL POC Glucose 475 H* 415 H* (70-105) mg/dl Lactic Acid (0.5-2.2) mmol/L Calcium (8.4-10.2) mg/dl Total Bilirubin (0.2-1.0) mg/dL AST (10-42) IU/L ALT (10-60) IU/L Alkaline Phosphatase (42-121) IU/L Troponin I (0.00-0.02) ng/ml Total Protein (6.7-8.2) g/dl Albumin (3.2-5.5) g/dl Globulin Albumin/Globulin Ratio Urine Color (YELLOW) Urine Appearance (CLEAR) Urine pH (5.0-9.0) Ur Specific [place] (1.005-1.030) Urine Protein (NEGATIVE) Urine Glucose (UA) (NEGATIVE) Urine Ketones (NEGATIVE) Urine Occult Blood (NEGATIVE) Urine Nitrite (NEGATIVE) Urine Bilirubin (NEGATIVE) Urine Urobilinogen (0.2-1.0) mg/dL Ur Leukocyte Esterase (NEGATIVE) Urine RBC /HPF Urine WBC (0-5/HPF) /HPF Ur Epithelial Cells /HPF Urine Bacteria (0-FEW/HPF) /HPF Urine Mucus /LPF Urine Opiates Screen Negative (NEGATIVE) Ur Oxycodone Screen Negative (NEGATIVE) Urine Methadone Screen Negative (NEGATIVE) Ur Barbiturates Screen Negative (NEGATIVE) U Tricyclic Antidepress Negative (NEGATIVE) Ur Phencyclidine Scrn Negative (NEGATIVE) Ur Amphetamine Screen Negative (NEGATIVE) U Methamphetamines Scrn Negative (NEGATIVE) Urine MDMA Screen Negative (NEGATIVE) U Benzodiazepines Scrn Negative (NEGATIVE) Urine Cocaine Screen Negative (NEGATIVE) U Marijuana (THC) Screen Negative (NEGATIVE) Ketones 10/24/17 Range/Units 23:39 WBC (5.0-10.0) 10^3/uL RBC (4.6-6.2) 10^6/uL Hgb (14.0-18.0) g/dL Hct (40.0-54.0) % MCV (80-100) fL MCH (27.0-34.0) pg MCHC (33.0-35.0) g/dL Plt Count (150-450) 10^3/uL Neut % (Auto) (42.2-75.2) % Lymph % (Auto) (20.5-50.1) % [place] % (Auto) (2-8) % Eos % (Auto) (1.0-3.0) % Baso % (Auto) (0.0-1.0) % ABG pH (7.35-7.45) ABG pCO2 (35-45) mmHg ABG pO2 (70-100) mmHg ABG HCO3 (22-26) mmol/L ABG O2 Saturation (95-100) % ABG Base Excess ((-2)-(+3)) mmol/L Sramad Test O2 Delivery Device Oxygen Flow Rate Sodium (135-145) mmol/L Potassium (3.6-5.0) mmol/L Chloride (101-111) mmol/L Carbon Dioxide (21.0-31.0) mmol/L Anion Gap BUN (7-18) mg/dL Creatinine (0.6-1.3) mg/dL Est Cr Clr Drug Dosing mL/min Estimated GFR (MDRD) BUN/Creatinine Ratio Glucose (74-105) mg/dL POC Glucose 220 H (70-105) mg/dl Lactic Acid (0.5-2.2) mmol/L Calcium (8.4-10.2) mg/dl Total Bilirubin (0.2-1.0) mg/dL AST (10-42) IU/L ALT (10-60) IU/L Alkaline Phosphatase (42-121) IU/L Troponin I (0.00-0.02) ng/ml Total Protein (6.7-8.2) g/dl Albumin (3.2-5.5) g/dl Globulin Albumin/Globulin Ratio Urine Color (YELLOW) Urine Appearance (CLEAR) Urine pH (5.0-9.0) Ur Specific [place] (1.005-1.030) Urine Protein (NEGATIVE) Urine Glucose (UA) (NEGATIVE) Urine Ketones (NEGATIVE) Urine Occult Blood (NEGATIVE) Urine Nitrite (NEGATIVE) Urine Bilirubin (NEGATIVE) Urine Urobilinogen (0.2-1.0) mg/dL Ur Leukocyte Esterase (NEGATIVE) Urine RBC /HPF Urine WBC (0-5/HPF) /HPF Ur Epithelial Cells /HPF Urine Bacteria (0-FEW/HPF) /HPF Urine Mucus /LPF Urine Opiates Screen (NEGATIVE) Ur Oxycodone Screen (NEGATIVE) Urine Methadone Screen (NEGATIVE) Ur Barbiturates Screen (NEGATIVE) U Tricyclic Antidepress (NEGATIVE) Ur Phencyclidine Scrn (NEGATIVE) Ur Amphetamine Screen (NEGATIVE) U Methamphetamines Scrn (NEGATIVE) Urine MDMA Screen (NEGATIVE) U Benzodiazepines Scrn (NEGATIVE) Urine Cocaine Screen (NEGATIVE) U Marijuana (THC) Screen (NEGATIVE) Ketones Meds: Medications Generic Name Dose Route Start Last Admin Trade Name Freq PRN Reason Stop Dose Admin Sodium Chloride 1,000 mls @ 999 mls/hr 10/24/17 22:51 10/24/17 23:00 Normal Saline IV 10/24/17 23:51 999 mls/hr .BOLUS ONE Administration Discontinued Medications Generic Name Dose Route Start Last Admin Trade Name Freq PRN Reason Stop Dose Admin Sodium Chloride 1,000 mls @ 999 mls/hr 10/24/17 20:05 10/24/17 20:19 Normal Saline IV 10/24/17 21:05 999 mls/hr .BOLUS ONE Administration Insulin Human Regular 5 unit 10/24/17 20:05 10/24/17 20:18 Humulin R IV 10/24/17 20:06 5 unit ONETIME ONE Administration Insulin Human Regular 5 unit 10/24/17 22:51 10/24/17 23:00 Humulin R IV 10/24/17 22:52 5 unit ONETIME ONE Administration - Re-Assessments/Exams Free Text/Narrative Re-Assessment/Exam: 10/24/17 22:52 results discussed with pt who is feeling better presently 10/24/17 23:42 re-exam; feels fine ready to go home. Departure - Departure Time of Disposition: 23:43 Disposition: Home, Self-Care 01 Condition: Good Clinical Impression: Hyperglycemia - Discharge Information Instructions: Hyperglycemia, [id number] Forms: ED Department Discharge Additional Instructions: 1) monitor your blood sugar more closely 2) see clinic tomorrow for med refill - My Orders Last 24 Hours: My Active Orders 10/24/17 20:02 CULTURE BLOOD [BC] Stat 10/24/17 22:16 Blood Glucose Check, Bedside [RC] ONETIME 10/24/17 22:51 Sodium Chloride 0.9% [Normal Saline] 1,000 ml IV .BOLUS - Assessment/Plan Last 24 Hours: My Active Orders 10/24/17 20:02 CULTURE BLOOD [BC] Stat 10/24/17 22:16 Blood Glucose Check, Bedside [RC] ONETIME 10/24/17 22:51 Sodium Chloride 0.9% [Normal Saline] 1,000 ml IV .BOLUS
[2017-10-24 20:29] LABS: CHLORIDE,CL 89 mmol/L (101-111); SODIUM,NA 121 mmol/L (135-145)
[2017-10-24 21:10] LABS: BASE EXCESS ARTERIAL -2 mmol/L ((-2)-(+3)); O2 DELIVERY DEVICE ROOM AIR; O2 SATURATION ARTERIAL 97 % (95-100); PCO2 ARTERIAL 40 mmHg (35-45); PO2 ARTERIAL 130 mmHg (70-100)
[2017-10-24 21:12] LABS: ALLEN TEST rb
[2017-10-24 21:13] LABS: O2 FLOW RATE 0
== END 2017-10-24 23:55 | disposition home or self-care (01) ==
LOC: DL.ED 19:38
DX: E11.65 Type 2 diabetes mellitus with hyperglycemia (principal); E78.00 Pure hypercholesterolemia, unspecified; I10 Essential (primary) hypertension; E11.21 Type 2 diabetes mellitus with diabetic nephropathy; F17.210 Nicotine dependence, cigarettes, uncomplicated; Z79.899 Other long term (current) drug therapy; Z79.4 Long term (current) use of insulin
CPT/HCPCS: 36415; 36600; 80053; 80305; 81001; 82009; 82803; 82962; 83605; 84484; 85025; 87040; 96361; 96374; 96376; 99285; J1815; J7030

== ENCOUNTER 2017-12-11 20:44 | Emergency (ER) | payer MEDICAID, SELFPAY ==
--- NOTE | 2017-12-11 21:42 | EDM.PDOC ---
ED HPI GENERAL MEDICAL PROBLEM - General Chief Complaint: General Stated Complaint: [id number] NOT FEELING GOOD FOR ABOUT A WEEK Time Seen by Provider: 12/11/17 21:32 Source of Information: Reports: Patient History Limitations: Reports: No Limitations - History of Present Illness INITIAL COMMENTS - FREE TEXT/NARRATIVE: This 57 yo male patient reports to the ED with a 1 week history of increased weakness and shortness of breath. The patient report that last week he had nausea/vomiting and diarrhea and has been feeling weak since that time. The patient reports he sleeps a lot and just does not have the energy to get up. The patient reports his last normal meal was 1 1/2 days ago due to not feeling well. The patient denies any drug or ETOH use. The patient reports he gets short of breath with any exertion. Duration: Week(s): (1), Constant Location: Reports: Generalized Quality: Reports: Other Severity: Moderate Improves with: Reports: None Worsens with: Reports: None Associated Symptoms: Reports: Shortness of Breath, Weakness Right Shoulder Pain Score (Numeric/FACES): 5 - Related Data Allergies Allergy/AdvReac Type Severity Reaction Status Date / Time No Known Allergies Allergy Verified 10/24/17 19:47 Home Meds: Home Meds Ibuprofen 800 mg PO ASDIRECTED PRN 03/13/15 [History] Acetaminophen [Tylenol Extra Strength] 2 tab PO Q4H PRN 06/27/17 [History] Insuln Asp Prot/Insulin Aspart [NovoLOG Mix 70-30] 45 unit SUBCUT BID #1 pen [Rx] Past Medical History Cardiovascular History: Reports: High Cholesterol, Hypertension Other Gastrointestinal History: Spouse states client used to take medication for his stomach, but cannot recall why and cannot recall which medication. Genitourinary History: Reports: Diabetic Nephropathy Musculoskeletal History: Reports: Arthritis, Back Pain, Chronic Psychiatric History: Reports: Anxiety Endocrine/Metabolic History: Reports: Diabetes, Type II, IDDM Dermatologic History: Reports: Cellulitis - Infectious Disease History Infectious Disease History: Reports: Chicken Pox, Measles, Mumps Other Infectious Disease History: states client has hepatitis, but unable to recall which type. - Past Surgical History GI Surgical History: Reports: Appendectomy Social & Family History - Family History Family Medical History: Noncontributory Endocrine/Metabolic: Reports: Diabetes, type II Oncologic: Reports: Other (See Below) Other Oncologic Family History: spouse states HX of cancer in family, but unable to recall which type - Tobacco Use Smoking Status *Q: Current Some Day Smoker Years of Tobacco use: 20 Packs/Tins Daily: 0.5 - Caffeine Use Caffeine Use: Reports: Coffee - Recreational Drug Use Recreational Drug Use: No ED ROS GENERAL - Review of Systems Review Of Systems: ROS reveals no pertinent complaints other than HPI. ED EXAM, GENERAL - Physical Exam Exam: See Below Exam Limited By: No Limitations General Appearance: Alert, WD/WN, Moderate Distress Eye Exam: Bilateral Eye: EOMI, Normal Inspection, PERRL Ears: Normal External Exam, Normal Canal, Hearing Grossly Normal, Normal TMs Nose: Normal Inspection, Normal Mucosa, No Blood Throat/Mouth: Normal Inspection, Normal Lips, Normal Teeth, Normal Gums, Normal Oropharynx, Normal Voice, No Airway Compromise Head: Atraumatic, Normocephalic Neck: Normal Inspection, Supple, Non-Tender, Full Range of Motion Respiratory/Chest: No Respiratory Distress, Lungs Clear, Normal Breath Sounds, No Accessory Muscle Use, Chest Non-Tender Cardiovascular: Normal Peripheral Pulses, Regular Rate, Rhythm, No Edema, No Gallop, No JVD, No Murmur, No Rub GI/Abdominal: Normal Bowel Sounds, Soft, Non-Tender, No Organomegaly, No Distention, No Abnormal Bruit, No Mass (Male) Exam: Deferred Rectal (Males) Exam: Deferred Back Exam: Normal Inspection, Full Range of Motion, NT Extremities: Normal Inspection, Normal Range of Motion, Non-Tender, Normal Capillary Refill, No Pedal Edema Neurological: Alert, Oriented, CN II-XII Intact, Normal Cognition, Normal Gait, Normal Reflexes, No Motor/Sensory Deficits Psychiatric: Normal Affect, Normal Mood Skin Exam: Warm, Dry, Intact, Normal Color, No Rash Lymphatic: No Adenopathy Course - Vital Signs Last Recorded V/S: Last Vital Signs Temp 37.8 C 12/11/17 21:08 Pulse 87 12/11/17 21:08 Resp 12 12/11/17 21:08 BP 158/85 H 12/11/17 21:08 Pulse Ox 99 12/11/17 21:08 - Orders/Labs/Meds Orders: Active Orders 24 hr Category Date Time Status Chest 2V [CR] Urgent Exams 12/11/17 21:30 Taken Fingers Thumb Lt FA [CR] Urgent Exams 12/11/17 22:16 Stop Req DRUG SCREEN URINE BIORAD [URCHEM] Stat Lab 12/11/17 21:38 Ordered INFLUENZA A+B AG SCREEN [RM] Stat Lab 12/11/17 21:43 Ordered Sodium Chloride 0.9% [Normal Saline] 1,000 ml Med 12/11/17 21:45 Active IV ASDIRECTED Medication Orders Sodium Chloride (Normal Saline) 1,000 mls @ 125 mls/hr IV ASDIRECTED MEGHAN Last Admin: 12/11/17 22:02 Dose: 125 mls/hr Labs: Laboratory Tests 12/11/17 12/11/17 12/11/17 Range/Units 21:35 21:35 21:35 WBC 7.2 (5.0-10.0) 10^3/uL RBC 5.04 (4.6-6.2) 10^6/uL Hgb 12.8 L (14.0-18.0) g/dL Hct 37.3 L (40.0-54.0) % MCV 74.0 L (80-100) fL MCH 25.4 L (27.0-34.0) pg MCHC 34.3 (33.0-35.0) g/dL Plt Count 207 (150-450) 10^3/uL Neut % (Auto) 55.1 (42.2-75.2) % Lymph % (Auto) 29.1 (20.5-50.1) % [place] % (Auto) 11.6 H (2-8) % Eos % (Auto) 3.2 H (1.0-3.0) % Baso % (Auto) 1.0 (0.0-1.0) % PT 10.1 (9.0-12.0) SEC INR 1.0 (0.9-1.2) D-Dimer, Quantitative 126 (0-400) ng/mL Sodium 122 L (135-145) mmol/L Potassium 4.2 (3.6-5.0) mmol/L Chloride 90 L (101-111) mmol/L Carbon Dioxide 24.0 (21.0-31.0) mmol/L Anion Gap 12.2 BUN 16 (7-18) mg/dL Creatinine 1.0 (0.6-1.3) mg/dL Est Cr Clr Drug Dosing 76.20 mL/min Estimated GFR (MDRD) > 60 BUN/Creatinine Ratio 16.00 Glucose 461 H* (74-105) mg/dL Calcium 8.6 (8.4-10.2) mg/dl Total Bilirubin 0.4 (0.2-1.0) mg/dL AST 47 H (10-42) IU/L ALT 61 H (10-60) IU/L Alkaline Phosphatase 192 H (42-121) IU/L Troponin I 0.02 (0.00-0.02) ng/ml B-Natriuretic Peptide 26 (0-100) pg/ml Total Protein 6.8 (6.7-8.2) g/dl Albumin 2.6 L (3.2-5.5) g/dl Globulin 4.2 Albumin/Globulin Ratio 0.62 Urine Opiates Screen (NEGATIVE) Ur Oxycodone Screen (NEGATIVE) Urine Methadone Screen (NEGATIVE) Ur Barbiturates Screen (NEGATIVE) U Tricyclic Antidepress (NEGATIVE) Ur Phencyclidine Scrn (NEGATIVE) Ur Amphetamine Screen (NEGATIVE) U Methamphetamines Scrn (NEGATIVE) Urine MDMA Screen (NEGATIVE) U Benzodiazepines Scrn (NEGATIVE) Urine Cocaine Screen (NEGATIVE) U Marijuana (THC) Screen (NEGATIVE) Ethyl Alcohol < 5 mg/dL Ketones 12/11/17 12/11/17 Range/Units 21:35 21:38 WBC (5.0-10.0) 10^3/uL RBC (4.6-6.2) 10^6/uL Hgb (14.0-18.0) g/dL Hct (40.0-54.0) % MCV (80-100) fL MCH (27.0-34.0) pg MCHC (33.0-35.0) g/dL Plt Count (150-450) 10^3/uL Neut % (Auto) (42.2-75.2) % Lymph % (Auto) (20.5-50.1) % [place] % (Auto) (2-8) % Eos % (Auto) (1.0-3.0) % Baso % (Auto) (0.0-1.0) % PT (9.0-12.0) SEC INR (0.9-1.2) D-Dimer, Quantitative (0-400) ng/mL Sodium (135-145) mmol/L Potassium (3.6-5.0) mmol/L Chloride (101-111) mmol/L Carbon Dioxide (21.0-31.0) mmol/L Anion Gap BUN (7-18) mg/dL Creatinine (0.6-1.3) mg/dL Est Cr Clr Drug Dosing mL/min Estimated GFR (MDRD) BUN/Creatinine Ratio Glucose (74-105) mg/dL Calcium (8.4-10.2) mg/dl Total Bilirubin (0.2-1.0) mg/dL AST (10-42) IU/L ALT (10-60) IU/L Alkaline Phosphatase (42-121) IU/L Troponin I (0.00-0.02) ng/ml B-Natriuretic Peptide (0-100) pg/ml Total Protein (6.7-8.2) g/dl Albumin (3.2-5.5) g/dl Globulin Albumin/Globulin Ratio Urine Opiates Screen Negative (NEGATIVE) Ur Oxycodone Screen Negative (NEGATIVE) Urine Methadone Screen Negative (NEGATIVE) Ur Barbiturates Screen Negative (NEGATIVE) U Tricyclic Antidepress Negative (NEGATIVE) Ur Phencyclidine Scrn Negative (NEGATIVE) Ur Amphetamine Screen Negative (NEGATIVE) U Methamphetamines Scrn Negative (NEGATIVE) Urine MDMA Screen Negative (NEGATIVE) U Benzodiazepines Scrn Negative (NEGATIVE) Urine Cocaine Screen Negative (NEGATIVE) U Marijuana (THC) Screen Negative (NEGATIVE) Ethyl Alcohol mg/dL Ketones Negative Meds: Medications Generic Name Dose Route Start Last Admin Trade Name Freq PRN Reason Stop Dose Admin Sodium Chloride 1,000 mls @ 125 mls/hr 12/11/17 21:45 12/11/17 22:02 Normal Saline IV 125 mls/hr ASDIRECTED MEGHAN Administration Departure - Departure Time of Disposition: 23:00 Disposition: Home, Self-Care 01 Condition: Fair Clinical Impression: Dehydration, Hyponatremia - Discharge Information Instructions: Hyponatremia, Dehydration, Adult, [id number] Referrals: PCP,None [Primary Care Provider] - Forms: ED Department Discharge Care Plan Goals: The patient was advised of the examination, lab, EKG and x-ray results during the visit. The patient was given a liter of IV fluids while in the ED. The patient was encouraged to eat a well balanced diet and take his insulin as directed. If the patient has any additional symptoms or concerns, the patient should follow-up with his primary care facility or return to the emergency department. - My Orders Last 24 Hours: My Active Orders 12/11/17 21:30 Chest 2V [CR] Urgent 12/11/17 21:38 DRUG SCREEN URINE BIORAD [URCHEM] Stat 12/11/17 21:43 INFLUENZA A+B AG SCREEN [RM] Stat 12/11/17 21:45 Sodium Chloride 0.9% [Normal Saline] 1,000 ml IV ASDIRECTED 12/11/17 22:16 Fingers Thumb Lt FA [CR] Urgent - Assessment/Plan Last 24 Hours: My Active Orders 12/11/17 21:30 Chest 2V [CR] Urgent 12/11/17 21:38 DRUG SCREEN URINE BIORAD [URCHEM] Stat 12/11/17 21:43 INFLUENZA A+B AG SCREEN [RM] Stat 12/11/17 21:45 Sodium Chloride 0.9% [Normal Saline] 1,000 ml IV ASDIRECTED 12/11/17 22:16 Fingers Thumb Lt FA [CR] Urgent
[2017-12-11] MEDS ORDERED: Sodium Chloride 0.9% 1,000 ML IV SCH (21:45)
[2017-12-11 22:02] LABS: CHLORIDE,CL 90 mmol/L (101-111); SODIUM,NA 122 mmol/L (135-145)
[2017-12-11 23:32] VITALS: BP 157/80
--- NOTE | 2017-12-13 14:03 | EKG ---
12/11/2017 - ABHILASH SAHA - FINDINGS: A 12-lead EKG shows normal sinus rhythm with heart rate of 83, OH interval of 180. No significant ST elevation or ST depression noted on this 12- lead EKG except for nonspecific ST-T wave changes noted on leads V1, V2, and V3. [facility] /[id number]
== END 2017-12-11 23:16 | disposition home or self-care (01) ==
LOC: DL.ED 20:44
DX: E87.1 Hypo-osmolality and hyponatremia (principal); E86.0 Dehydration; E78.00 Pure hypercholesterolemia, unspecified; I10 Essential (primary) hypertension; E11.21 Type 2 diabetes mellitus with diabetic nephropathy; F17.210 Nicotine dependence, cigarettes, uncomplicated; Z79.4 Long term (current) use of insulin
CPT/HCPCS: 36415; 71046; 80053; 80305; 82009; 83880; 84484; 85025; 85379; 85610; 87804; 93005; 99284; G0480; J7030

== ENCOUNTER 2018-01-09 22:42 | Emergency (ER) | payer MEDICAID ==
[2018-01-09 21:24] VITALS: BP 140/88
[2018-01-09 21:46] LABS: BASE EXCESS ARTERIAL 1 mmol/L ((-2)-(+3)); BICARBONATE,ARTERIAL 25.5 mmol/L (22-26); O2 DELIVERY DEVICE ROOM AIR; O2 SATURATION ARTERIAL 99 % (95-100); PCO2 ARTERIAL 42 mmHg (35-45); PO2 ARTERIAL 92 mmHg (70-100)
[2018-01-09 22:00] LABS: CHLORIDE,CL 92 mmol/L (101-111); SODIUM,NA 128 mmol/L (135-145)
[~2018-01-09 22:42] MED LIST: Insulin Regular, Human 100 Units/ML 3 ML Vial IV ONE; Sodium Chloride 0.9% 1,000 ML IV ONE
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
== END 2018-01-09 23:42 | disposition home or self-care (01) ==
LOC: DL.ED 22:42
DX: E11.65 Type 2 diabetes mellitus with hyperglycemia (principal); E11.21 Type 2 diabetes mellitus with diabetic nephropathy; F17.210 Nicotine dependence, cigarettes, uncomplicated; E78.00 Pure hypercholesterolemia, unspecified; I10 Essential (primary) hypertension; Z79.4 Long term (current) use of insulin
CPT/HCPCS: 36415; 36600; 80053; 80305; 81001; 82009; 82803; 82962; 85025; 96365; 96375; 99285; G0480; J1815; J7030

== ENCOUNTER 2018-03-29 18:33 | Emergency (ER) | payer MEDICAID ==
[2018-03-29 18:48] VITALS: BP 158/81
[2018-03-29 19:30] LABS: ANION GAP 9.4; CHLORIDE,CL 96 mmol/L (101-111); SODIUM,NA 129 mmol/L (135-145)
--- NOTE | 2018-03-29 20:17 | EDM.PDOC ---
ED HPI GENERAL MEDICAL PROBLEM - General Chief Complaint: General Stated Complaint: LEG SWOLLEN [id number] Time Seen by Provider: 03/29/18 20:09 Source of Information: Reports: Patient History Limitations: Reports: No Limitations - History of Present Illness INITIAL COMMENTS - FREE TEXT/NARRATIVE: right leg swollen past week and left finger red and swollen x 3 days from a wire brush. also BS been high in the 400s. Right Leg Pain Score (Numeric/FACES): 8 - Related Data Allergies Allergy/AdvReac Type Severity Reaction Status Date / Time No Known Allergies Allergy Verified 03/29/18 18:53 Home Meds: Home Meds Ibuprofen 800 mg PO ASDIRECTED PRN 03/13/15 [History] Acetaminophen [Tylenol Extra Strength] 2 tab PO Q4H PRN 06/27/17 [History] Insuln Asp Prot/Insulin Aspart [NovoLOG Mix 70-30] 45 unit SUBCUT BID #1 pen [Rx] Past Medical History Cardiovascular History: Reports: High Cholesterol, Hypertension Other Gastrointestinal History: Spouse states client used to take medication for his stomach, but cannot recall why and cannot recall which medication. Genitourinary History: Reports: Diabetic Nephropathy Musculoskeletal History: Reports: Arthritis, Back Pain, Chronic Psychiatric History: Reports: Addiction, Anxiety Endocrine/Metabolic History: Reports: Diabetes, Type II, IDDM Dermatologic History: Reports: Cellulitis - Infectious Disease History Infectious Disease History: Reports: Chicken Pox, Measles, Mumps Other Infectious Disease History: states client has hepatitis, but unable to recall which type. - Past Surgical History GI Surgical History: Reports: Appendectomy Social & Family History - Family History Family Medical History: Noncontributory Endocrine/Metabolic: Reports: Diabetes, type II Oncologic: Reports: Other (See Below) Other Oncologic Family History: spouse states HX of cancer in family, but unable to recall which type - Tobacco Use Smoking Status *Q: Current Every Day Smoker Years of Tobacco use: 45 Packs/Tins Daily: 0.5 - Caffeine Use Caffeine Use: Reports: Coffee, Soda - Recreational Drug Use Recreational Drug Use: No ED ROS GENERAL - Review of Systems Review Of Systems: ROS reveals no pertinent complaints other than HPI. ED EXAM, GENERAL - Physical Exam Exam: See Below Exam Limited By: No Limitations General Appearance: Alert, WD/WN, No Apparent Distress Ears: Hearing Grossly Normal Throat/Mouth: Normal Voice, No Airway Compromise Neck: Non-Tender, Full Range of Motion Respiratory/Chest: No Respiratory Distress Cardiovascular: Regular Rate, Rhythm GI/Abdominal: Soft, Non-Tender Extremities: Other (right leg swollen mildly tender non erythematous no lymphangitis, NV wnl. left finger swollen erythematous) Neurological: Alert, Oriented, Normal Cognition, No Motor/Sensory Deficits Psychiatric: Normal Affect, Normal Mood Skin Exam: Warm, Dry, Normal Color Lymphatic: No Adenopathy Course - Vital Signs Last Recorded V/S: Last Vital Signs Temp 37.4 C 03/29/18 18:46 Pulse 92 03/29/18 18:46 Resp 15 03/29/18 18:46 BP 158/81 H 03/29/18 18:46 Pulse Ox 98 03/29/18 18:46 - Orders/Labs/Meds Orders: Active Orders 24 hr Category Date Time Status Blood Glucose Check, Bedside [RC] ONETIME Care 03/29/18 21:32 Active Hand 2V Lt [CR] Urgent Exams 03/29/18 20:46 Taken Tibia Fibula Rt [CR] Urgent Exams 03/29/18 20:46 Taken CULTURE BLOOD [BC] Stat Lab 03/29/18 19:03 Received Labs: Laboratory Tests 03/29/18 03/29/18 03/29/18 Range/Units 19:03 19:03 19:03 WBC 10.3 H (5.0-10.0) 10^3/uL RBC 4.46 L (4.6-6.2) 10^6/uL Hgb 10.8 L D (14.0-18.0) g/dL Hct 32.7 L (40.0-54.0) % MCV 73.3 L (80-100) fL MCH 24.2 L (27.0-34.0) pg MCHC 33.0 (33.0-35.0) g/dL Plt Count 266 (150-450) 10^3/uL Neut % (Auto) 66.1 (42.2-75.2) % Lymph % (Auto) 20.7 (20.5-50.1) % [place] % (Auto) 10.4 H (2-8) % Eos % (Auto) 2.4 (1.0-3.0) % Baso % (Auto) 0.4 (0.0-1.0) % Sodium 129 L (135-145) mmol/L Potassium 3.4 L (3.6-5.0) mmol/L Chloride 96 L (101-111) mmol/L Carbon Dioxide 27.0 (21.0-31.0) mmol/L Anion Gap 9.4 BUN 22 H (7-18) mg/dL Creatinine 1.0 (0.6-1.3) mg/dL Est Cr Clr Drug Dosing 67.98 mL/min Estimated GFR (MDRD) > 60 BUN/Creatinine Ratio 22.00 Glucose 412 H* (74-105) mg/dL POC Glucose (70-105) mg/dl Lactic Acid 1.8 (0.5-2.2) mmol/L Calcium 8.0 L (8.4-10.2) mg/dl Total Bilirubin 0.2 (0.2-1.0) mg/dL AST 36 (10-42) IU/L ALT 35 (10-60) IU/L Alkaline Phosphatase 153 H (42-121) IU/L Total Protein 6.9 (6.7-8.2) g/dl Albumin 2.2 L (3.2-5.5) g/dl Globulin 4.7 Albumin/Globulin Ratio 0.47 08/29/18 Range/Units 21:27 WBC (5.0-10.0) 10^3/uL RBC (4.6-6.2) 10^6/uL Hgb (14.0-18.0) g/dL Hct (40.0-54.0) % MCV (80-100) fL MCH (27.0-34.0) pg MCHC (33.0-35.0) g/dL Plt Count (150-450) 10^3/uL Neut % (Auto) (42.2-75.2) % Lymph % (Auto) (20.5-50.1) % [place] % (Auto) (2-8) % Eos % (Auto) (1.0-3.0) % Baso % (Auto) (0.0-1.0) % Sodium (135-145) mmol/L Potassium (3.6-5.0) mmol/L Chloride (101-111) mmol/L Carbon Dioxide (21.0-31.0) mmol/L Anion Gap BUN (7-18) mg/dL Creatinine (0.6-1.3) mg/dL Est Cr Clr Drug Dosing mL/min Estimated GFR (MDRD) BUN/Creatinine Ratio Glucose (74-105) mg/dL POC Glucose 144 H (70-105) mg/dl Lactic Acid (0.5-2.2) mmol/L Calcium (8.4-10.2) mg/dl Total Bilirubin (0.2-1.0) mg/dL AST (10-42) IU/L ALT (10-60) IU/L Alkaline Phosphatase (42-121) IU/L Total Protein (6.7-8.2) g/dl Albumin (3.2-5.5) g/dl Globulin Albumin/Globulin Ratio Meds: Medications Discontinued Medications Generic Name Dose Route Start Last Admin Trade Name Freq PRN Reason Stop Dose Admin Sodium Chloride 1,000 mls @ 500 mls/hr 03/29/18 20:30 03/29/18 20:28 Normal Saline IV 500 mls/hr ASDIRECTED MEGHAN Administration Clindamycin Phosphate 900 mg/ 106 mls @ 200 mls/hr 03/29/18 21:53 03/29/18 22 :04 Sodium Chloride IV 03/29/18 22:24 200 mls/hr ONETIME ONE Administration Insulin Human Regular 10 unit 03/29/18 20:11 03/29/18 20:29 Humulin R IV 03/29/18 20:12 10 units ONETIME ONE Administration - Re-Assessments/Exams Free Text/Narrative Re-Assessment/Exam: 03/29/18 21:54 results discussed with pt who prefers to go home and care for his grand- daughter. Departure - Departure Time of Disposition: 22:40 Disposition: Home, Self-Care 01 Condition: Fair Clinical Impression: Cellulitis Qualifiers: Site of cellulitis: extremity Site of cellulitis of extremity: lower extremity Laterality: right Qualified Code(s): L03.115 - Cellulitis of right lower limb - Discharge Information Instructions: Cellulitis, Adult, [id number] Forms: ED Department Discharge Additional Instructions: 1) elevate leg as much as possible 2) follow up at clinic rx given; clindamycin 150mg qid x 40 - My Orders Last 24 Hours: My Active Orders 03/29/18 20:46 Hand 2V Lt [CR] Urgent Tibia Fibula Rt [CR] Urgent 03/29/18 21:32 Blood Glucose Check, Bedside [RC] ONETIME - Assessment/Plan Last 24 Hours: My Active Orders 03/29/18 20:46 Hand 2V Lt [CR] Urgent Tibia Fibula Rt [CR] Urgent 03/29/18 21:32 Blood Glucose Check, Bedside [RC] ONETIME
[2018-03-29] MEDS: Sodium Chloride 0.9% 1,000 ML IV SCH (20:28)
[2018-03-29] MEDS: Insulin Regular, Human 100 Units/ML 3 ML Vial IV ONE (20:29)
[2018-03-29] MEDS: Clindamycin Phosphate 900 MG in Sodium Chloride 0.9% 100 ML IV ONE (22:04)
== END 2018-03-29 22:41 | disposition home or self-care (01) ==
LOC: DL.ED 18:33
DX: L03.115 Cellulitis of right lower limb (principal); I10 Essential (primary) hypertension; F17.210 Nicotine dependence, cigarettes, uncomplicated; E11.9 Type 2 diabetes mellitus without complications
CPT/HCPCS: 36415; 73120; 73590; 80053; 82962; 83605; 85025; 87040; 96365; 96366; 96368; 99283; J1815; J3490; J7030; J7050

== ENCOUNTER 2018-04-21 20:22 | Inpatient (IN) | payer MEDICAID ==
[2018-04-21] MEDS ORDERED: Sodium Chloride 0.9% 1,000 ML IV ONE (20:41)
[2018-04-21] MEDS ORDERED: Ketorolac 30 MG/ML SDV IVPUSH ONE (20:41)
--- NOTE | 2018-04-21 20:41 | EDM.PDOC ---
ED HPI GENERAL MEDICAL PROBLEM - General Chief Complaint: General Stated Complaint: BY AMBULANCE Time Seen by Provider: 04/21/18 20:40 Source of Information: Reports: Patient History Limitations: Reports: No Limitations - History of Present Illness INITIAL COMMENTS - FREE TEXT/NARRATIVE: c/o F/C past 2 days, coughing too. Treatments RAT POISONER: Reports: Acetaminophen Right Chest Pain Score (Numeric/FACES): 4 - Related Data Allergies Allergy/AdvReac Type Severity Reaction Status Date / Time No Known Allergies Allergy Verified 04/21/18 20:39 Home Meds: Home Meds Ibuprofen 800 mg PO ASDIRECTED PRN 03/13/15 [History] Acetaminophen [Tylenol Extra Strength] 2 tab PO Q4H PRN 06/27/17 [History] Insuln Asp Prot/Insulin Aspart [NovoLOG Mix 70-30] 45 unit SUBCUT BID #1 pen [Rx] Past Medical History Cardiovascular History: Reports: High Cholesterol, Hypertension Other Gastrointestinal History: Spouse states client used to take medication for his stomach, but cannot recall why and cannot recall which medication. Genitourinary History: Reports: Diabetic Nephropathy Musculoskeletal History: Reports: Arthritis, Back Pain, Chronic Psychiatric History: Reports: Addiction, Anxiety Endocrine/Metabolic History: Reports: Diabetes, Type II, IDDM Dermatologic History: Reports: Cellulitis - Infectious Disease History Infectious Disease History: Reports: Chicken Pox, Measles, Mumps Other Infectious Disease History: states client has hepatitis, but unable to recall which type. - Past Surgical History GI Surgical History: Reports: Appendectomy Social & Family History - Family History Family Medical History: Noncontributory Endocrine/Metabolic: Reports: Diabetes, type II Oncologic: Reports: Other (See Below) Other Oncologic Family History: spouse states HX of cancer in family, but unable to recall which type - Tobacco Use Smoking Status *Q: Current Every Day Smoker Years of Tobacco use: 40 Packs/Tins Daily: 4 - Caffeine Use Caffeine Use: Reports: Soda - Recreational Drug Use Recreational Drug Use: Yes Drug Use in Last 12 Months: Yes Recreational Drug Type: Reports: Methamphetamine Recreational Drug Use Frequency: Weekly ED ROS GENERAL - Review of Systems Review Of Systems: ROS reveals no pertinent complaints other than HPI. ED EXAM, GENERAL - Physical Exam Exam: See Below Exam Limited By: No Limitations General Appearance: Alert, WD/WN, Mild Distress, Other (DSICOMFORT) Ears: Hearing Grossly Normal Throat/Mouth: Normal Voice, No Airway Compromise Head: Atraumatic Neck: Non-Tender, Full Range of Motion Respiratory/Chest: No Respiratory Distress, No Accessory Muscle Use, Rhonchi Cardiovascular: Regular Rate, Rhythm GI/Abdominal: Soft, Non-Tender Neurological: Alert, Oriented, Normal Cognition, No Motor/Sensory Deficits Psychiatric: Flat Affect Skin Exam: Warm, Dry, Normal Color Lymphatic: No Adenopathy Course - Vital Signs Last Recorded V/S: Last Vital Signs Temp 38.4 C H 04/21/18 20:28 Pulse 111 H 04/21/18 20:28 Resp 21 H 04/21/18 20:28 BP 98/62 04/21/18 20:28 Pulse Ox 95 04/21/18 20:28 - Orders/Labs/Meds Orders: Active Orders 24 hr Category Date Time Status CULTURE BLOOD [BC] Stat Lab 04/21/18 20:30 Received Sodium Chloride 0.9% [Normal Saline] 1,000 ml Med 04/21/18 20:41 Active IV .BOLUS Medication Orders Sodium Chloride (Normal Saline) 1,000 mls @ 999 mls/hr IV .BOLUS ONE Stop: 04/21/18 21:41 Last Admin: 04/21/18 20:48 Dose: 999 mls/hr Labs: Laboratory Tests 04/21/18 04/21/18 04/21/18 Range/Units 20:30 20:30 20:30 WBC 24.7 H (5.0-10.0) 10^3/uL RBC 4.66 (4.6-6.2) 10^6/uL Hgb 11.5 L (14.0-18.0) g/dL Hct 33.9 L (40.0-54.0) % MCV 72.7 L (80-100) fL MCH 24.7 L (27.0-34.0) pg MCHC 33.9 (33.0-35.0) g/dL Plt Count 230 (150-450) 10^3/uL Neut % (Auto) 88.3 H (42.2-75.2) % Lymph % (Auto) 3.4 L (20.5-50.1) % [place] % (Auto) 8.1 H (2-8) % Eos % (Auto) 0.0 L (1.0-3.0) % Baso % (Auto) 0.2 (0.0-1.0) % Add Manual Diff Yes Neutrophils % (Manual) 65 (42-75) % Band Neutrophils % 20 % Lymphocytes % (Manual) 6 L (20-50) % Atypical Lymphs % 0 % Monocytes % (Manual) 7 (2-8) % Eosinophils % (Manual) 2 (1-3) % Basophils % (Manual) 0 Sodium 126 L (135-145) mmol/L Potassium 4.5 (3.6-5.0) mmol/L Chloride 93 L (101-111) mmol/L Carbon Dioxide 26.0 (21.0-31.0) mmol/L Anion Gap 11.5 BUN 18 (7-18) mg/dL Creatinine 1.2 (0.6-1.3) mg/dL Est Cr Clr Drug Dosing 63.50 mL/min Estimated GFR (MDRD) > 60 BUN/Creatinine Ratio 15.00 Glucose 390 H (74-105) mg/dL Lactic Acid 1.6 (0.5-2.2) mmol/L Calcium 8.2 L (8.4-10.2) mg/dl Total Bilirubin 1.0 (0.2-1.0) mg/dL AST 47 H (10-42) IU/L ALT 46 (10-60) IU/L Alkaline Phosphatase 103 (42-121) IU/L Total Protein 6.5 L (6.7-8.2) g/dl Albumin 2.3 L (3.2-5.5) g/dl Globulin 4.2 Albumin/Globulin Ratio 0.55 Ethyl Alcohol < 5 mg/dL Meds: Medications Generic Name Dose Route Start Last Admin Trade Name Freq PRN Reason Stop Dose Admin Sodium Chloride 1,000 mls @ 999 mls/hr 04/21/18 20:41 04/21/18 20:48 Normal Saline IV 04/21/18 21:41 999 mls/hr .BOLUS ONE Administration Discontinued Medications Generic Name Dose Route Start Last Admin Trade Name Freq PRN Reason Stop Dose Admin Ceftriaxone Sodium 1 gm 04/21/18 21:13 04/21/18 21:29 Rocephin IVPUSH 04/21/18 21:14 1 gm ONETIME ONE Administration Ketorolac Tromethamine 15 mg 04/21/18 20:41 04/21/18 20:48 Toradol IVPUSH 04/21/18 20:42 15 mg ONETIME ONE Administration - Re-Assessments/Exams Free Text/Narrative Re-Assessment/Exam: 04/21/18 21:[address] Martinez who kindly admitted pt. Departure - Departure Time of Disposition: 21:30 Disposition: Admitted As Inpatient 66 Condition: Fair Clinical Impression: Pneumonia - Discharge Information Forms: ED Department Discharge - My Orders Last 24 Hours: My Active Orders 04/21/18 20:30 CULTURE BLOOD [BC] Stat 04/21/18 20:41 Sodium Chloride 0.9% [Normal Saline] 1,000 ml IV .BOLUS - Assessment/Plan Last 24 Hours: My Active Orders 04/21/18 20:30 CULTURE BLOOD [BC] Stat 04/21/18 20:41 Sodium Chloride 0.9% [Normal Saline] 1,000 ml IV .BOLUS
[2018-04-21 20:57] LABS: ANION GAP 11.5; CHLORIDE,CL 93 mmol/L (101-111); SODIUM,NA 126 mmol/L (135-145)
[2018-04-21] MEDS ORDERED: cefTRIAXone 1 GM Vial IVPUSH ONE (21:13)
[2018-04-21] MEDS ORDERED: diphenhydrAMINE 25 MG Tab PO PRN (22:17)
[2018-04-21] MEDS ORDERED: Docusate Sodium 100 MG Cap PO PRN (22:18)
[2018-04-21] MEDS ORDERED: Ondansetron 4 MG/2 ML SDV IVPUSH PRN (22:18)
[2018-04-21] MEDS ORDERED: Sodium Chloride 0.9% 10 ML Syringe FLUSH PRN (22:18)
[2018-04-21] MEDS ORDERED: Insulin Aspart 100 Units/ML 3 ML Pen SUBCUT SCH (22:30)
[2018-04-21] MEDS: Azithromycin 500 MG in Sodium Chloride 0.9% 250 ML IV SCH (22:56)
[2018-04-21] MEDS: Sodium Chloride 0.9% 1,000 ML IV SCH (22:58)
[2018-04-21] MEDS ORDERED: INSULIN ASPART SUBCUT SCH (23:00)
[2018-04-21] MEDS ORDERED: INSULN ASP PROT SUBCUT SCH (23:00)
[2018-04-21] MEDS ORDERED: [UNRECOGNIZED DRUG - OTHER] SUBCUT SCH (23:00)
[2018-04-21] MEDS ORDERED: Insulin Aspart 100 Units/ML 3 ML Pen SUBCUT ONE (23:03)
--- NOTE | 2018-04-21 23:08 | PCM.HP ---
H&P History of Present Illness - General Date of Service: 04/21/18 Admit Problem/Dx: Admission Diagnosis/Problem Admission Diagnosis/Problem Pneumonia Source of Information: Patient - History of Present Illness Initial Comments - Free Text/Narative: She is a 57-year-old gentleman with a history of diabetes. His blood sugars are usually not well controlled at the run in the 3-400 range. The patient has no sick contact. The patient developed cough associated with right sided pleuritic chest pain. The cough is mostly dry very red that he has a secretions coming up. This is associated with fever at home he measured 100.8. He reports no diarrhea, abdominal pain, urinary burning. Right Chest Pain Score (Numeric/FACES): 4 - Related Data Allergies/Adverse Reactions: Allergies Allergy/AdvReac Type Severity Reaction Status Date / Time No Known Allergies Allergy Verified 04/21/18 21:55 Home Medications: Home Meds Ibuprofen 800 mg PO ASDIRECTED PRN 03/13/15 [History] Acetaminophen [Tylenol Extra Strength] 2 tab PO Q4H PRN 06/27/17 [History] Insuln Asp Prot/Insulin Aspart [NovoLOG Mix 70-30] 45 unit SUBCUT BID #1 pen [Rx] diphenhydrAMINE [Benadryl] 25 mg PO BEDTIME 04/21/18 [History] Past Medical History Cardiovascular History: Reports: High Cholesterol, Hypertension Other Gastrointestinal History: Spouse states client used to take medication for his stomach, but cannot recall why and cannot recall which medication. Genitourinary History: Reports: Diabetic Nephropathy Musculoskeletal History: Reports: Arthritis, Back Pain, Chronic Psychiatric History: Reports: Addiction, Anxiety Endocrine/Metabolic History: Reports: Diabetes, Type II, IDDM Dermatologic History: Reports: Cellulitis - Infectious Disease History Infectious Disease History: Reports: Chicken Pox, Measles, Mumps Other Infectious Disease History: states client has hepatitis, but unable to recall which type. - Past Surgical History GI Surgical History: Reports: Appendectomy Social & Family History - Family History Family Medical History: Noncontributory Endocrine/Metabolic: Reports: Diabetes, type II Oncologic: Reports: Other (See Below) Other Oncologic Family History: spouse states HX of cancer in family, but unable to recall which type - Tobacco Use Smoking Status *Q: Current Every Day Smoker Years of Tobacco use: 40 Packs/Tins Daily: 4 - Caffeine Use Caffeine Use: Reports: Soda - Recreational Drug Use Recreational Drug Use: Yes Drug Use in Last 12 Months: Yes Recreational Drug Type: Reports: Methamphetamine Recreational Drug Use Frequency: Weekly H&P Review of Systems - Review of Systems: Review Of Systems: See Below General: Reports: Fever, Chills Pulmonary: Reports: Pleuritic Chest Pain, Cough, Sputum (Occasional). Denies: Shortness of Breath, Wheezing Cardiovascular: Reports: Chest Pain (Right-sided with cough) Gastrointestinal: Denies: Abdominal Pain Genitourinary: Denies: Dysuria Musculoskeletal: Denies: Neck Pain Neurological: Denies: Confusion Exam - Exam Exam: See Below - Vital Signs Vital Signs: Last Vital Signs Temp 37.3 C 04/21/18 21:49 Pulse 97 04/21/18 21:49 Resp 18 04/21/18 21:49 BP 98/54 L 04/21/18 21:49 Pulse Ox 97 04/21/18 21:49 Weight: 66.769 kg - Exam Quality Assessment: No: Supplemental Oxygen General: Alert, Oriented Neck: Supple, Trachea Midline Lungs: Clear to Auscultation, Normal Respiratory Effort Cardiovascular: Regular Rate, Regular Rhythm, Tachycardia GI/Abdominal Exam: Normal Bowel Sounds, Soft, Non-Tender Extremities: No Pedal Edema Neuro Extensive - Mental Status: Alert, Oriented x3, Normal Mood/Affect - Patient Data Lab Results Last 24 hrs: Laboratory Results - last 24 hr 04/21/18 04/21/18 04/21/18 Range/Units 20:30 20:30 20:30 WBC 24.7 H (5.0-10.0) 10^3/uL RBC 4.66 (4.6-6.2) 10^6/uL Hgb 11.5 L (14.0-18.0) g/dL Hct 33.9 L (40.0-54.0) % MCV 72.7 L (80-100) fL MCH 24.7 L (27.0-34.0) pg MCHC 33.9 (33.0-35.0) g/dL Plt Count 230 (150-450) 10^3/uL Neut % (Auto) 88.3 H (42.2-75.2) % Lymph % (Auto) 3.4 L (20.5-50.1) % [place] % (Auto) 8.1 H (2-8) % Eos % (Auto) 0.0 L (1.0-3.0) % Baso % (Auto) 0.2 (0.0-1.0) % Add Manual Diff Yes Neutrophils % (Manual) 65 (42-75) % Band Neutrophils % 20 % Lymphocytes % (Manual) 6 L (20-50) % Atypical Lymphs % 0 % Monocytes % (Manual) 7 (2-8) % Eosinophils % (Manual) 2 (1-3) % Basophils % (Manual) 0 Sodium 126 L (135-145) mmol/L Potassium 4.5 (3.6-5.0) mmol/L Chloride 93 L (101-111) mmol/L Carbon Dioxide 26.0 (21.0-31.0) mmol/L Anion Gap 11.5 BUN 18 (7-18) mg/dL Creatinine 1.2 (0.6-1.3) mg/dL Est Cr Clr Drug Dosing 63.50 mL/min Estimated GFR (MDRD) > 60 BUN/Creatinine Ratio 15.00 Glucose 390 H (74-105) mg/dL Lactic Acid 1.6 (0.5-2.2) mmol/L Calcium 8.2 L (8.4-10.2) mg/dl Total Bilirubin 1.0 (0.2-1.0) mg/dL AST 47 H (10-42) IU/L ALT 46 (10-60) IU/L Alkaline Phosphatase 103 (42-121) IU/L Total Protein 6.5 L (6.7-8.2) g/dl Albumin 2.3 L (3.2-5.5) g/dl Globulin 4.2 Albumin/Globulin Ratio 0.55 Ethyl Alcohol < 5 mg/dL Result Diagrams: 04/21/18 20:30 04/21/18 20:30 [place] Results Last 24 hrs: Microbiology 04/21/18 20:35 Influenza Type A Antigen Screen - Final Nasal, Left NEGATIVE INFLUENZA A VIRUS AG Influenza Type B Antigen Screen - Final NEGATIVE INFLUENZA B VIRUS AG - Problem List (1) Diabetes SNOMED Code(s): 61678744 ICD Code: E11.9 - TYPE 2 DIABETES MELLITUS WITHOUT COMPLICATIONS Status: Acute Current Visit: Yes (2) Pneumonia SNOMED Code(s): 769272554 ICD Code: J18.9 - PNEUMONIA, UNSPECIFIED ORGANISM Status: Acute Current Visit: No Problem List Initiated/Reviewed/Updated: Yes Orders Last 24hrs: Active Orders 24 hr Category Date Time Status Patient Status [ADT] Routine ADT 04/21/18 22:18 Active Glucose [Blood Glucose Check, Bedside] [RC] QIDACANDBED Care 04/21/18 22:15 Active Oxygen Therapy [RC] PRN Care 04/21/18 22:18 Active Peripheral IV Care [RC] . DIRECTED Care 04/21/18 22:20 Active Up ad Olga [RC] ASDIRECTED Care 04/21/18 22:18 Active VTE/DVT Education [RC] PER UNIT ROUTINE Care 04/21/18 22:18 Active Vital Signs [RC] Q4H Care 04/21/18 22:18 Active Consistent Carbohydrate Diet [DIET] Diet 04/21/18 Breakfast Active BASIC METABOLIC PANEL,BMP [CHEM] AM Lab 04/22/18 05:15 Ordered CBC WITH AUTO DIFF [HEME] AM Lab 04/22/18 05:15 Ordered CULTURE BLOOD [BC] Stat Lab 04/21/18 20:30 Received CULTURE SPUTUM + SMEAR [RM] Routine Lab 04/21/18 22:15 Ordered Acetaminophen [Tylenol] Med 04/21/18 22:18 Active 650 mg PO Q4H PRN Azithromycin [Zithromax] 500 mg Med 04/21/18 23:00 Active Sodium Chloride 0.9% [Normal Saline] 250 ml IV Q24H Docusate Sodium [Colace] Med 04/21/18 22:18 Active 100 mg PO BID PRN Heparin Sodium Med 04/22/18 06:00 Active 5,000 units SUBCUT Q8HR Ibuprofen [Motrin] Med 04/21/18 22:18 Active 400 mg PO Q6H PRN Insulin Aspart [NovoLOG] Med 04/22/18 07:00 Active 0 unit SUBCUT QIDACANDBED Insulin Aspart [NovoLOG] Med 04/21/18 23:03 Once 15 unit SUBCUT ONETIME ONE Insulin NPH/Insulin Reg,Human [NovoLIN 70-30] Med 04/21/18 23:30 Ordered 30 unit SUBCUT BIDAC Ondansetron [Zofran] Med 04/21/18 22:18 Active 4 mg IVPUSH Q6H PRN Sodium Chloride 0.9% [Normal Saline] 1,000 ml Med 04/21/18 22:30 Active IV ASDIRECTED Sodium Chloride 0.9% [Saline Flush] Med 04/21/18 22:18 Active 10 ml FLUSH ASDIRECTED PRN cefTRIAXone [Rocephin] Med 04/22/18 22:30 Active 1 gm IVPUSH Q24H diphenhydrAMINE [Benadryl] Med 04/21/18 22:17 Active 25 mg PO BEDTIME PRN Antiembolic Hose [OM.PC] Per Unit Routine Oth 04/21/18 22:19 Ordered Peripheral IV Insertion Adult [OM.PC] Routine Oth 04/21/18 22:18 Ordered Resuscitation Status Routine Resus Stat 04/21/18 22:18 Ordered Medication Orders Acetaminophen (Tylenol) 650 mg PO Q4H PRN PRN Reason: Pain (Mild 1-3)/fever Ceftriaxone Sodium (Rocephin) 1 gm IVPUSH Q24H MEGHAN Diphenhydramine HCl (Benadryl) 25 mg PO BEDTIME PRN PRN Reason: Sleep Docusate Sodium (Colace) 100 mg PO BID PRN PRN Reason: Constipation Heparin Sodium (Porcine) (Heparin Sodium) 5,000 units SUBCUT Q8HR [facility] Azithromycin 500 mg/ Sodium (Chloride) 250 mls @ 250 mls/hr IV Q24H [facility] Last Admin: 04/21/18 22:56 Dose: 250 mls/hr Sodium Chloride (Normal Saline) 1,000 mls @ 100 mls/hr IV ASDIRECTED MEGHAN Last Admin: 04/21/18 22:58 Dose: 100 mls/hr Ibuprofen (Motrin) 400 mg PO Q6H PRN PRN Reason: Pain (Moderate) / fever Insulin Aspart (Novolog) 0 unit SUBCUT QIDACANDBED MEGHAN; Protocol Insulin Aspart (Novolog) 15 unit SUBCUT ONETIME ONE Stop: 04/21/18 23:04 Insulin Human Isoph/Insulin Regular (Novolin 70-30) 30 unit SUBCUT BIDAC MEGHAN Ondansetron HCl (Zofran) 4 mg IVPUSH Q6H PRN PRN Reason: Nausea/Vomiting Sodium Chloride (Saline Flush) 10 ml FLUSH ASDIRECTED PRN PRN Reason: Keep Vein Open Assessment/Plan Comment:: The patient is a 57-year-old gentleman who presented with cough, fever. The patient has a history of diabetes which is poorly controlled at home Pneumonia Obtain blood culture, sputum culture This appears community-acquired The patient received Rocephin in the emergency room, I will continue that daily. Will start on azithromycin as well Uncontrolled diabetes The patient has been using insulin 70/30 insulin at home. We will use NPH twice a day Add supplemental insulin short-acting as needed Pseudohyponatremia We'll controlled the elevated blood sugars IV hydration DVT prophylaxis with subcutaneous heparin .
[2018-04-21] MEDS ORDERED: Insulin NPH/Insulin Regular,Human 70-30 100 Units/ML 10 ML Vial SUBCUT SCH (23:30)
[2018-04-21] MEDS: Ibuprofen 400 MG Tab PO PRN (23:49)
[2018-04-22] MEDS: Ibuprofen 400 MG Tab PO PRN (06:06)
[2018-04-22] MEDS: Acetaminophen 325 MG Tab PO PRN ×2 (06:06→15:13)
[2018-04-22] MEDS: Heparin Sodium 5,000 Units/ML Vial SUBCUT SCH ×3 (06:14→21:57)
[2018-04-22 06:58] LABS: ANION GAP 8.8
[2018-04-22] MEDS: Insulin Aspart 100 Units/ML 3 ML Pen SUBCUT SCH ×4 (08:22→20:46)
[2018-04-22] MEDS: Sodium Chloride 0.9% 1,000 ML IV SCH ×2 (08:41→18:55)
[2018-04-22] MEDS: Insulin NPH/Insulin Regular,Human 70-30 100 Units/ML 10 ML Vial SUBCUT SCH ×2 (09:47→18:11)
--- NOTE | 2018-04-22 12:26 | PCM.PN ---
- General Info Date of Service: 04/22/18 Admission Dx/Problem (Free Text): Admission Diagnosis/Problem Admission Diagnosis/Problem Pneumonia Subjective Update: Remained stable overnight. Still has some cough with right-sided pleuritic Chest pain. No shortness of breath. Feeling better. Has remained on IV fluids. Had low-grade fever overnight. - Review of Systems General: Reports: Weakness Cardiovascular: Denies: Palpitations, Edema Gastrointestinal: Denies: Abdominal Pain Genitourinary: Denies: Dysuria Musculoskeletal: Denies: Neck Pain - Patient Data Vitals - Most Recent: Last Vital Signs Temp 36.9 C 04/22/18 06:11 Pulse 92 04/22/18 06:11 Resp 16 04/22/18 06:11 BP 95/72 04/22/18 06:11 Pulse Ox 98 04/22/18 06:11 Weight - Most Recent: 66.769 kg I&O - Last 24 Hours: Intake & Output 04/21/18 04/22/18 04/22/18 22:59 06:59 14:59 Intake Total 250 237 Balance 250 237 Lab Results Last 24 Hours: Laboratory Results - last 24 hr 04/21/18 04/21/18 04/21/18 Range/Units 20:30 20:30 20:30 WBC 24.7 H (5.0-10.0) 10^3/uL RBC 4.66 (4.6-6.2) 10^6/uL Hgb 11.5 L (14.0-18.0) g/dL Hct 33.9 L (40.0-54.0) % MCV 72.7 L (80-100) fL MCH 24.7 L (27.0-34.0) pg MCHC 33.9 (33.0-35.0) g/dL Plt Count 230 (150-450) 10^3/uL Neut % (Auto) 88.3 H (42.2-75.2) % Lymph % (Auto) 3.4 L (20.5-50.1) % [place] % (Auto) 8.1 H (2-8) % Eos % (Auto) 0.0 L (1.0-3.0) % Baso % (Auto) 0.2 (0.0-1.0) % Add Manual Diff Yes Neutrophils % (Manual) 65 (42-75) % Band Neutrophils % 20 % Lymphocytes % (Manual) 6 L (20-50) % Atypical Lymphs % 0 % Monocytes % (Manual) 7 (2-8) % Eosinophils % (Manual) 2 (1-3) % Basophils % (Manual) 0 Sodium 126 L (135-145) mmol/L Potassium 4.5 (3.6-5.0) mmol/L Chloride 93 L (101-111) mmol/L Carbon Dioxide 26.0 (21.0-31.0) mmol/L Anion Gap 11.5 BUN 18 (7-18) mg/dL Creatinine 1.2 (0.6-1.3) mg/dL Est Cr Clr Drug Dosing 63.50 mL/min Estimated GFR (MDRD) > 60 BUN/Creatinine Ratio 15.00 Glucose 390 H (74-105) mg/dL POC Glucose (70-105) mg/dl Lactic Acid 1.6 (0.5-2.2) mmol/L Calcium 8.2 L (8.4-10.2) mg/dl Total Bilirubin 1.0 (0.2-1.0) mg/dL AST 47 H (10-42) IU/L ALT 46 (10-60) IU/L Alkaline Phosphatase 103 (42-121) IU/L Total Protein 6.5 L (6.7-8.2) g/dl Albumin 2.3 L (3.2-5.5) g/dl Globulin 4.2 Albumin/Globulin Ratio 0.55 Ethyl Alcohol < 5 mg/dL 04/21/18 04/22/18 04/22/18 Range/Units 22:09 05:45 05:45 WBC 24.8 H (5.0-10.0) 10^3/uL RBC 4.79 (4.6-6.2) 10^6/uL Hgb 11.7 L (14.0-18.0) g/dL Hct 35.1 L (40.0-54.0) % MCV 73.3 L (80-100) fL MCH 24.4 L (27.0-34.0) pg MCHC 33.3 (33.0-35.0) g/dL Plt Count 234 (150-450) 10^3/uL Neut % (Auto) 89.3 H (42.2-75.2) % Lymph % (Auto) 4.2 L (20.5-50.1) % [place] % (Auto) 6.4 (2-8) % Eos % (Auto) 0.0 L (1.0-3.0) % Baso % (Auto) 0.1 (0.0-1.0) % Add Manual Diff Yes Neutrophils % (Manual) 83 H (42-75) % Band Neutrophils % % Lymphocytes % (Manual) 8 L (20-50) % Atypical Lymphs % % Monocytes % (Manual) 9 H (2-8) % Eosinophils % (Manual) (1-3) % Basophils % (Manual) Sodium 131 L (135-145) mmol/L Potassium 3.8 (3.6-5.0) mmol/L Chloride 100 L (101-111) mmol/L Carbon Dioxide 26.0 (21.0-31.0) mmol/L Anion Gap 8.8 BUN 26 H (7-18) mg/dL Creatinine 1.7 H (0.6-1.3) mg/dL Est Cr Clr Drug Dosing 44.82 mL/min Estimated GFR (MDRD) 42 BUN/Creatinine Ratio Glucose 93 (74-105) mg/dL POC Glucose 367 H (70-105) mg/dl Lactic Acid (0.5-2.2) mmol/L Calcium 7.9 L (8.4-10.2) mg/dl Total Bilirubin (0.2-1.0) mg/dL AST (10-42) IU/L ALT (10-60) IU/L Alkaline Phosphatase (42-121) IU/L Total Protein (6.7-8.2) g/dl Albumin (3.2-5.5) g/dl Globulin Albumin/Globulin Ratio Ethyl Alcohol mg/dL 04/22/18 Range/Units 07:37 WBC (5.0-10.0) 10^3/uL RBC (4.6-6.2) 10^6/uL Hgb (14.0-18.0) g/dL Hct (40.0-54.0) % MCV (80-100) fL MCH (27.0-34.0) pg MCHC (33.0-35.0) g/dL Plt Count (150-450) 10^3/uL Neut % (Auto) (42.2-75.2) % Lymph % (Auto) (20.5-50.1) % [place] % (Auto) (2-8) % Eos % (Auto) (1.0-3.0) % Baso % (Auto) (0.0-1.0) % Add Manual Diff Neutrophils % (Manual) (42-75) % Band Neutrophils % % Lymphocytes % (Manual) (20-50) % Atypical Lymphs % % Monocytes % (Manual) (2-8) % Eosinophils % (Manual) (1-3) % Basophils % (Manual) Sodium (135-145) mmol/L Potassium (3.6-5.0) mmol/L Chloride (101-111) mmol/L Carbon Dioxide (21.0-31.0) mmol/L Anion Gap BUN (7-18) mg/dL Creatinine (0.6-1.3) mg/dL Est Cr Clr Drug Dosing mL/min Estimated GFR (MDRD) BUN/Creatinine Ratio Glucose (74-105) mg/dL POC Glucose 104 (70-105) mg/dl Lactic Acid (0.5-2.2) mmol/L Calcium (8.4-10.2) mg/dl Total Bilirubin (0.2-1.0) mg/dL AST (10-42) IU/L ALT (10-60) IU/L Alkaline Phosphatase (42-121) IU/L Total Protein (6.7-8.2) g/dl Albumin (3.2-5.5) g/dl Globulin Albumin/Globulin Ratio Ethyl Alcohol mg/dL [place] Results Last 24 Hours: Microbiology 04/21/18 20:35 Influenza Type A Antigen Screen - Final Nasal, Left NEGATIVE INFLUENZA A VIRUS AG Influenza Type B Antigen Screen - Final NEGATIVE INFLUENZA B VIRUS AG Med Orders - Current: Current Medications Acetaminophen (Tylenol) 650 mg PO Q4H PRN PRN Reason: Pain (Mild 1-3)/fever Last Admin: 04/22/18 06:06 Dose: 650 mg Ceftriaxone Sodium (Rocephin) 1 gm IVPUSH Q24H [facility] Diphenhydramine HCl (Benadryl) 25 mg PO BEDTIME PRN PRN Reason: Sleep Last Admin: 04/21/18 23:49 Dose: 25 mg Docusate Sodium (Colace) 100 mg PO BID PRN PRN Reason: Constipation Heparin Sodium (Porcine) (Heparin Sodium) 5,000 units SUBCUT Q8HR [facility] Last Admin: 04/22/18 06:14 Dose: Not Given Azithromycin 500 mg/ Sodium (Chloride) 250 mls @ 250 mls/hr IV Q24H [facility] Last Admin: 04/21/18 22:56 Dose: 250 mls/hr Sodium Chloride (Normal Saline) 1,000 mls @ 100 mls/hr IV ASDIRECTED [facility] Last Admin: 04/22/18 08:41 Dose: 100 mls/hr Ibuprofen (Motrin) 400 mg PO Q6H PRN PRN Reason: Pain (Moderate) / fever Last Admin: 04/22/18 06:06 Dose: 400 mg Insulin Aspart (Novolog) 0 unit SUBCUT QIDACANDBED [facility]; Protocol Last Admin: 04/22/18 12:04 Dose: Not Given Insulin Human Isoph/Insulin Regular (Novolin 70-30) 30 unit SUBCUT BID@0800, 1800 [facility] Last Admin: 04/22/18 09:47 Dose: 30 units Ondansetron HCl (Zofran) 4 mg IVPUSH Q6H PRN PRN Reason: Nausea/Vomiting Sodium Chloride (Saline Flush) 10 ml FLUSH ASDIRECTED PRN PRN Reason: Keep Vein Open Discontinued Medications Ceftriaxone Sodium (Rocephin) 1 gm IVPUSH ONETIME ONE Stop: 04/21/18 21:14 Last Admin: 04/21/18 21:29 Dose: 1 gm Sodium Chloride (Normal Saline) 1,000 mls @ 999 mls/hr IV .BOLUS ONE Stop: 04/21/18 21:41 Last Admin: 04/21/18 20:48 Dose: 999 mls/hr Insulin Aspart (Novolog) 0 unit SUBCUT .QAC+HS [facility]; Protocol Insulin Aspart (Novolog) 15 unit SUBCUT ONETIME ONE Stop: 04/21/18 23:04 Last Admin: 04/21/18 23:41 Dose: 15 units Insulin Human Isoph/Insulin Regular (Novolin 70-30) 30 unit SUBCUT BIDAC [facility] Last Admin: 04/21/18 23:42 Dose: 30 units Ketorolac Tromethamine (Toradol) 15 mg IVPUSH ONETIME ONE Stop: 04/21/18 20:42 Last Admin: 04/21/18 20:48 Dose: 15 mg Non-Formulary Medication (Insuln Asp Prot/Insulin Aspart [Novolog Mix 70-30]) 45 unit SUBCUT BID [facility] Last Admin: 04/22/18 00:25 Dose: Not Given - Exam General: Alert, Oriented Neck: Supple Lungs: Rhonchi (Right sided) Cardiovascular: Regular Rate, Regular Rhythm GI/Abdominal Exam: Normal Bowel Sounds, Soft, Non-Tender Extremities: No Pedal Edema Skin: Warm Neurological: No New Focal Deficit Psy/Mental Status: Alert, Normal Affect, Normal Mood - Problem List & Annotations (1) Diabetes SNOMED Code(s): 52009051 Code(s): E11.9 - TYPE 2 DIABETES MELLITUS WITHOUT COMPLICATIONS Status: Acute Current Visit: Yes (2) Pneumonia SNOMED Code(s): 929692191 Code(s): J18.9 - PNEUMONIA, UNSPECIFIED ORGANISM Status: Acute Current Visit: No - Problem List Review Problem List Initiated/Reviewed/Updated: Yes - My Orders Last 24 Hours: My Active Orders 04/21/18 22:15 Glucose [Blood Glucose Check, Bedside] [RC] QIDACANDBED CULTURE SPUTUM + SMEAR [RM] Routine 04/21/18 22:17 diphenhydrAMINE [Benadryl] 25 mg PO BEDTIME PRN 04/21/18 22:18 Patient Status [ADT] Routine Oxygen Therapy [RC] PRN Up ad Olga [RC] ASDIRECTED VTE/DVT Education [RC] PER UNIT ROUTINE Vital Signs [RC] Q4H Acetaminophen [Tylenol] 650 mg PO Q4H PRN Docusate Sodium [Colace] 100 mg PO BID PRN Ibuprofen [Motrin] 400 mg PO Q6H PRN Ondansetron [Zofran] 4 mg IVPUSH Q6H PRN Sodium Chloride 0.9% [Saline Flush] 10 ml FLUSH ASDIRECTED PRN Peripheral IV Insertion Adult [OM.PC] Routine Resuscitation Status Routine 04/21/18 22:19 Antiembolic Hose [OM.PC] Per Unit Routine 04/21/18 22:20 Peripheral IV Care [RC] 08,20 04/21/18 22:30 Sodium Chloride 0.9% [Normal Saline] 1,000 ml IV ASDIRECTED 04/21/18 23:00 Azithromycin [Zithromax] 500 mg Sodium Chloride 0.9% [Normal Saline] 250 ml IV Q24H 04/22/18 06:00 Heparin Sodium 5,000 units SUBCUT Q8HR 04/22/18 07:00 Insulin Aspart [NovoLOG] 0 unit SUBCUT QIDACANDBED 04/22/18 08:00 Insulin NPH/Insulin Reg,Human [NovoLIN 70-30] 30 unit SUBCUT BID@0800,1800 04/22/18 22:30 cefTRIAXone [Rocephin] 1 gm IVPUSH Q24H 04/23/18 05:15 BASIC METABOLIC PANEL,BMP [CHEM] AM CBC WITH AUTO DIFF [HEME] AM - Plan Plan:: The patient is a 57-year-old gentleman who presented with cough, fever. The patient has a history of diabetes which is poorly controlled at home Pneumonia Pending blood culture, sputum culture This appears community-acquired pneumonia Treat with azithromycin and Rocephin Uncontrolled diabetes The patient has been using insulin 70/30 insulin at home. We will use NPH twice a day Add supplemental insulin short-acting as needed Pseudohyponatremia Improved Acute renal failure Likely secondary to dehydration with high blood sugars Continue IV hydration DVT prophylaxis with subcutaneous heparin .
[2018-04-22] MEDS ORDERED: Ondansetron 4 MG/2 ML SDV IV PRN (14:32)
[2018-04-22] MEDS ORDERED: cefTRIAXone 1 GM Vial IVPUSH SCH (22:30)
[2018-04-22] MEDS: Azithromycin 500 MG in Sodium Chloride 0.9% 250 ML IV SCH (23:14)
[2018-04-23] MEDS: Heparin Sodium 5,000 Units/ML Vial SUBCUT SCH ×2 (05:35→14:43)
[2018-04-23] MEDS: Sodium Chloride 0.9% 1,000 ML IV SCH ×2 (05:38→15:42)
[2018-04-23 06:57] LABS: ANION GAP 9.6
[2018-04-23] MEDS: Insulin Aspart 100 Units/ML 3 ML Pen SUBCUT SCH ×2 (08:55→12:47)
[2018-04-23] MEDS: Insulin NPH/Insulin Regular,Human 70-30 100 Units/ML 10 ML Vial SUBCUT SCH (09:19)
[2018-04-23] MEDS: Ibuprofen 400 MG Tab PO PRN (09:29)
[2018-04-23] MEDS ORDERED: guaiFENesin/Dextromethorphan 100-10 MG/5 ML Soln 5 ML Cup PO PRN (10:38)
--- NOTE | 2018-04-23 10:41 | PCM.PN ---
- General Info Date of Service: 04/23/18 Admission Dx/Problem (Free Text): Admission Diagnosis/Problem Admission Diagnosis/Problem Pneumonia Subjective Update: Remained stable overnight. Still has some cough with right-sided pleuritic Chest pain. non productive No shortness of breath. Has remained on IV fluids. Had low-grade fever only. no diarrhea Functional Status: Reports: Tolerating Diet - Review of Systems General: Reports: Fever (low grade), Weakness Pulmonary: Denies: Shortness of Breath Cardiovascular: Reports: Chest Pain (pleuritic right sided) Gastrointestinal: Denies: Abdominal Pain Neurological: Denies: Confusion - Patient Data Vitals - Most Recent: Last Vital Signs Temp 37.8 C 04/23/18 07:00 Pulse 87 04/23/18 07:00 Resp 20 04/23/18 07:00 BP 135/70 04/23/18 07:00 Pulse Ox 96 04/23/18 07:00 Weight - Most Recent: 66.769 kg I&O - Last 24 Hours: Intake & Output 04/22/18 04/23/18 04/23/18 22:59 06:59 14:59 Intake Total 2600 1213 Balance 2600 1213 Lab Results Last 24 Hours: Laboratory Results - last 24 hr 04/22/18 04/22/18 04/22/18 Range/Units 11:53 16:54 20:26 WBC (5.0-10.0) 10^3/uL RBC (4.6-6.2) 10^6/uL Hgb (14.0-18.0) g/dL Hct (40.0-54.0) % MCV (80-100) fL MCH (27.0-34.0) pg MCHC (33.0-35.0) g/dL Plt Count (150-450) 10^3/uL Neut % (Auto) (42.2-75.2) % Lymph % (Auto) (20.5-50.1) % [place] % (Auto) (2-8) % Eos % (Auto) (1.0-3.0) % Baso % (Auto) (0.0-1.0) % Sodium (135-145) mmol/L Potassium (3.6-5.0) mmol/L Chloride (101-111) mmol/L Carbon Dioxide (21.0-31.0) mmol/L Anion Gap BUN (7-18) mg/dL Creatinine (0.6-1.3) mg/dL Est Cr Clr Drug Dosing mL/min Estimated GFR (MDRD) Glucose (74-105) mg/dL POC Glucose 122 H 163 H 165 H (70-105) mg/dl Calcium (8.4-10.2) mg/dl 04/23/18 04/23/18 04/23/18 Range/Units 05:45 05:45 07:39 WBC 24.0 H (5.0-10.0) 10^3/uL RBC 4.37 L (4.6-6.2) 10^6/uL Hgb 10.6 L (14.0-18.0) g/dL Hct 32.7 L (40.0-54.0) % MCV 74.8 L (80-100) fL MCH 24.3 L (27.0-34.0) pg MCHC 32.4 L (33.0-35.0) g/dL Plt Count 206 (150-450) 10^3/uL Neut % (Auto) 80.0 H (42.2-75.2) % Lymph % (Auto) 13.2 L (20.5-50.1) % [place] % (Auto) 5.8 (2-8) % Eos % (Auto) 0.7 L (1.0-3.0) % Baso % (Auto) 0.3 (0.0-1.0) % Sodium 133 L (135-145) mmol/L Potassium 3.6 (3.6-5.0) mmol/L Chloride 106 (101-111) mmol/L Carbon Dioxide 21.0 (21.0-31.0) mmol/L Anion Gap 9.6 BUN 34 H (7-18) mg/dL Creatinine 1.7 H (0.6-1.3) mg/dL Est Cr Clr Drug Dosing 44.82 mL/min Estimated GFR (MDRD) 42 Glucose 106 H (74-105) mg/dL POC Glucose 92 (70-105) mg/dl Calcium 7.4 L (8.4-10.2) mg/dl [place] Results Last 24 Hours: Microbiology 04/21/18 20:30 Aerobic Blood Culture - Preliminary Blood NO GROWTH AFTER 1 DAY Anaerobic Blood Culture - Preliminary NO GROWTH AFTER 1 DAY Med Orders - Current: Current Medications Acetaminophen (Tylenol) 650 mg PO Q4H PRN PRN Reason: Pain (Mild 1-3)/fever Last Admin: 04/22/18 15:13 Dose: 650 mg Ceftriaxone Sodium (Rocephin) 1 gm IVPUSH Q24H [facility] Last Admin: 04/22/18 21:58 Dose: 1 gm Diphenhydramine HCl (Benadryl) 25 mg PO BEDTIME PRN PRN Reason: Sleep Last Admin: 04/21/18 23:49 Dose: 25 mg Docusate Sodium (Colace) 100 mg PO BID PRN PRN Reason: Constipation Guaifenesin/Phenylephrine HCl (Robitussin Dm) 10 ml PO Q6H PRN PRN Reason: Cough Heparin Sodium (Porcine) (Heparin Sodium) 5,000 units SUBCUT Q8HR [facility] Last Admin: 04/23/18 05:35 Dose: 5,000 units Azithromycin 500 mg/ Sodium (Chloride) 250 mls @ 250 mls/hr IV Q24H [facility] Last Infusion: 04/23/18 00:29 Dose: Infused Sodium Chloride (Normal Saline) 1,000 mls @ 100 mls/hr IV ASDIRECTED [facility] Last Admin: 04/23/18 05:38 Dose: 100 mls/hr Insulin Aspart (Novolog) 0 unit SUBCUT QIDACANDBED [facility]; Protocol Last Admin: 04/23/18 08:55 Dose: Not Given Insulin Human Isoph/Insulin Regular (Novolin 70-30) 30 unit SUBCUT BID@0800, 1800 [facility] Last Admin: 04/23/18 09:19 Dose: 30 units Ondansetron HCl (Zofran) 4 mg IVPUSH Q6H PRN PRN Reason: Nausea/Vomiting Sodium Chloride (Saline Flush) 10 ml FLUSH ASDIRECTED PRN PRN Reason: Keep Vein Open Discontinued Medications Ceftriaxone Sodium (Rocephin) 1 gm IVPUSH ONETIME ONE Stop: 04/21/18 21:14 Last Admin: 04/21/18 21:29 Dose: 1 gm Sodium Chloride (Normal Saline) 1,000 mls @ 999 mls/hr IV .BOLUS ONE Stop: 04/21/18 21:41 Last Admin: 04/21/18 20:48 Dose: 999 mls/hr Ibuprofen (Motrin) 400 mg PO Q6H PRN PRN Reason: Pain (Moderate) / fever Last Admin: 04/23/18 09:29 Dose: 400 mg Insulin Aspart (Novolog) 0 unit SUBCUT .QAC+HS [facility]; Protocol Insulin Aspart (Novolog) 15 unit SUBCUT ONETIME ONE Stop: 04/21/18 23:04 Last Admin: 04/21/18 23:41 Dose: 15 units Insulin Human Isoph/Insulin Regular (Novolin 70-30) 30 unit SUBCUT BIDAC [facility] Last Admin: 04/21/18 23:42 Dose: 30 units Ketorolac Tromethamine (Toradol) 15 mg IVPUSH ONETIME ONE Stop: 04/21/18 20:42 Last Admin: 04/21/18 20:48 Dose: 15 mg Non-Formulary Medication (Insuln Asp Prot/Insulin Aspart [Novolog Mix 70-30]) 45 unit SUBCUT BID [facility] Last Admin: 04/22/18 00:25 Dose: Not Given - Exam Quality Assessment: No: Supplemental Oxygen General: Alert, Oriented Neck: Supple Lungs: Rhonchi (right) Cardiovascular: Regular Rate, Regular Rhythm GI/Abdominal Exam: Normal Bowel Sounds, Soft, Non-Tender Extremities: No Pedal Edema Skin: Warm, Dry Neurological: No New Focal Deficit Psy/Mental Status: Alert, Normal Affect - Problem List & Annotations (1) Diabetes SNOMED Code(s): 79793729 Code(s): E11.9 - TYPE 2 DIABETES MELLITUS WITHOUT COMPLICATIONS Status: Acute Current Visit: Yes (2) Pneumonia SNOMED Code(s): 744042312 Code(s): J18.9 - PNEUMONIA, UNSPECIFIED ORGANISM Status: Acute Current Visit: No - Problem List Review Problem List Initiated/Reviewed/Updated: Yes - My Orders Last 24 Hours: My Active Orders 04/22/18 22:30 cefTRIAXone [Rocephin] 1 gm IVPUSH Q24H 04/23/18 10:38 Dextromethorphan/guaiFENesin [Robitussin DM] 10 ml PO Q6H PRN 04/24/18 05:15 BASIC METABOLIC PANEL,BMP [CHEM] AM CBC WITH AUTO DIFF [HEME] AM - Plan Plan:: The patient is a 57-year-old gentleman who presented with cough, fever. The patient has a history of diabetes which is poorly controlled at home Pneumonia Pending blood culture, sputum culture This appears community-acquired pneumonia continue to Treat with azithromycin and Rocephin add robitussin Uncontrolled diabetes The patient has been using insulin 70/30 insulin at home. We will use NPH twice a day Add supplemental insulin short-acting as needed Pseudohyponatremia Improved Acute renal failure Likely secondary to dehydration with high blood sugars stable Continue IV hydration DVT prophylaxis with subcutaneous heparin
[2018-04-23 12:00] VITALS: BP 136/67
--- NOTE | 2018-04-23 16:23 | PCM.DCSUM1 ---
Discharge Summary - Hospital Course Free Text/Narrative:: The patient is a 57-year-old gentleman who presented with cough, fever. The patient has a history of diabetes which is poorly controlled at home Pneumonia Pending blood culture, sputum culture This appears community-acquired pneumonia Treated with azithromycin and Rocephin, robitussin he called that he would like to be discharged will transition to PO Augmentin Uncontrolled diabetes The patient has been using insulin 70/30 insulin at home. Pseudohyponatremia Improved Acute renal failure Likely secondary to dehydration with high blood sugars, infection encouraged PO hydration Diagnosis: Stroke: No - Discharge Data Discharge Date: 04/23/18 Discharge Disposition: Home, Self-Care 01 Condition: Fair - Discharge Diagnosis/Problem(s) (1) Diabetes SNOMED Code(s): 82122667 ICD Code: E11.9 - TYPE 2 DIABETES MELLITUS WITHOUT COMPLICATIONS Status: Acute Current Visit: Yes (2) Pneumonia SNOMED Code(s): 980881353 ICD Code: J18.9 - PNEUMONIA, UNSPECIFIED ORGANISM Status: Acute Current Visit: No - Patient Instructions Diet: Diabetic Diet Activity: As Tolerated - Discharge Plan *PRESCRIPTION DRUG MONITORING PROGRAM REVIEWED*: Not Applicable *COPY OF PRESCRIPTION DRUG MONITORING REPORT IN PATIENT LUIS: Not Applicable Prescriptions/Med Rec: Amoxicillin/Potassium Clav [Augmentin 500-125 Tablet] 1 each PO TID #21 tablet guaiFENesin [Robitussin] 200 mg PO Q6H PRN #100 ml PRN Reason: Cough Home Medications: Home Meds Ibuprofen 800 mg PO ASDIRECTED PRN 03/13/15 [History] Insuln Asp Prot/Insulin Aspart [NovoLOG Mix 70-30] 45 unit SUBCUT BID #1 pen [Rx] diphenhydrAMINE [Benadryl] 25 mg PO BEDTIME 04/21/18 [History] Acetaminophen [Tylenol] 650 mg PO Q4H PRN tablet 04/23/18 [Rx] Amoxicillin/Potassium Clav [Augmentin 500-125 Tablet] 1 each PO TID #21 tablet 04/23/18 [Rx] guaiFENesin [Robitussin] 200 mg PO Q6H PRN #100 ml 04/23/18 [Rx] Forms: ED Department Discharge Referrals: PCP,None [Primary Care Provider] - - General Info Date of Service: 04/23/18 - Patient Data Vitals - Most Recent: Last Vital Signs Temp 37.0 C 04/23/18 11:59 Pulse 89 04/23/18 11:59 Resp 16 04/23/18 11:59 BP 136/67 04/23/18 11:59 Pulse Ox 94 L 04/23/18 11:59 Weight - Most Recent: 66.769 kg I&O - Last 24 hours: Intake & Output 04/23/18 04/23/18 04/23/18 06:59 14:59 22:59 Intake Total 1233 1004 Balance 1233 1004 Lab Results - Last 24 hrs: Laboratory Results - last 24 hr 04/22/18 04/22/18 04/22/18 Range/Units 11:53 16:54 20:26 WBC (5.0-10.0) 10^3/uL RBC (4.6-6.2) 10^6/uL Hgb (14.0-18.0) g/dL Hct (40.0-54.0) % MCV (80-100) fL MCH (27.0-34.0) pg MCHC (33.0-35.0) g/dL Plt Count (150-450) 10^3/uL Neut % (Auto) (42.2-75.2) % Lymph % (Auto) (20.5-50.1) % [place] % (Auto) (2-8) % Eos % (Auto) (1.0-3.0) % Baso % (Auto) (0.0-1.0) % Sodium (135-145) mmol/L Potassium (3.6-5.0) mmol/L Chloride (101-111) mmol/L Carbon Dioxide (21.0-31.0) mmol/L Anion Gap BUN (7-18) mg/dL Creatinine (0.6-1.3) mg/dL Est Cr Clr Drug Dosing mL/min Estimated GFR (MDRD) Glucose (74-105) mg/dL POC Glucose 122 H 163 H 165 H (70-105) mg/dl Calcium (8.4-10.2) mg/dl 04/23/18 04/23/18 04/23/18 Range/Units 05:45 05:45 07:39 WBC 24.0 H (5.0-10.0) 10^3/uL RBC 4.37 L (4.6-6.2) 10^6/uL Hgb 10.6 L (14.0-18.0) g/dL Hct 32.7 L (40.0-54.0) % MCV 74.8 L (80-100) fL MCH 24.3 L (27.0-34.0) pg MCHC 32.4 L (33.0-35.0) g/dL Plt Count 206 (150-450) 10^3/uL Neut % (Auto) 80.0 H (42.2-75.2) % Lymph % (Auto) 13.2 L (20.5-50.1) % [place] % (Auto) 5.8 (2-8) % Eos % (Auto) 0.7 L (1.0-3.0) % Baso % (Auto) 0.3 (0.0-1.0) % Sodium 133 L (135-145) mmol/L Potassium 3.6 (3.6-5.0) mmol/L Chloride 106 (101-111) mmol/L Carbon Dioxide 21.0 (21.0-31.0) mmol/L Anion Gap 9.6 BUN 34 H (7-18) mg/dL Creatinine 1.7 H (0.6-1.3) mg/dL Est Cr Clr Drug Dosing 44.82 mL/min Estimated GFR (MDRD) 42 Glucose 106 H (74-105) mg/dL POC Glucose 92 (70-105) mg/dl Calcium 7.4 L (8.4-10.2) mg/dl 04/23/18 Range/Units 11:57 WBC (5.0-10.0) 10^3/uL RBC (4.6-6.2) 10^6/uL Hgb (14.0-18.0) g/dL Hct (40.0-54.0) % MCV (80-100) fL MCH (27.0-34.0) pg MCHC (33.0-35.0) g/dL Plt Count (150-450) 10^3/uL Neut % (Auto) (42.2-75.2) % Lymph % (Auto) (20.5-50.1) % [place] % (Auto) (2-8) % Eos % (Auto) (1.0-3.0) % Baso % (Auto) (0.0-1.0) % Sodium (135-145) mmol/L Potassium (3.6-5.0) mmol/L Chloride (101-111) mmol/L Carbon Dioxide (21.0-31.0) mmol/L Anion Gap BUN (7-18) mg/dL Creatinine (0.6-1.3) mg/dL Est Cr Clr Drug Dosing mL/min Estimated GFR (MDRD) Glucose (74-105) mg/dL POC Glucose 159 H (70-105) mg/dl Calcium (8.4-10.2) mg/dl [facility]USI Results - Last 24 hrs: Microbiology 04/21/18 20:30 Aerobic Blood Culture - Preliminary Blood NO GROWTH AFTER 1 DAY Anaerobic Blood Culture - Preliminary NO GROWTH AFTER 1 DAY Med Orders - Current: Current Medications Acetaminophen (Tylenol) 650 mg PO Q4H PRN PRN Reason: Pain (Mild 1-3)/fever Last Admin: 04/22/18 15:13 Dose: 650 mg Amoxicillin/Clavulanate Potassium (Augmentin 875 Mg/125 Mg) 1 tab PO Q12HR [facility] Diphenhydramine HCl (Benadryl) 25 mg PO BEDTIME PRN PRN Reason: Sleep Last Admin: 04/21/18 23:49 Dose: 25 mg Docusate Sodium (Colace) 100 mg PO BID PRN PRN Reason: Constipation Guaifenesin/Phenylephrine HCl (Robitussin Dm) 10 ml PO Q6H PRN PRN Reason: Cough Last Admin: 04/23/18 14:45 Dose: 10 ml Heparin Sodium (Porcine) (Heparin Sodium) 5,000 units SUBCUT Q8HR [facility] Last Admin: 04/23/18 14:43 Dose: 5,000 units Sodium Chloride (Normal Saline) 1,000 mls @ 100 mls/hr IV ASDIRECTED [facility] Last Admin: 04/23/18 15:42 Dose: 100 mls/hr Insulin Aspart (Novolog) 0 unit SUBCUT QIDACANDBED [facility]; Protocol Last Admin: 04/23/18 12:47 Dose: 2 units Insulin Human Isoph/Insulin Regular (Novolin 70-30) 30 unit SUBCUT BID@0800, 1800 [facility] Last Admin: 04/23/18 09:19 Dose: 30 units Ondansetron HCl (Zofran) 4 mg IVPUSH Q6H PRN PRN Reason: Nausea/Vomiting Sodium Chloride (Saline Flush) 10 ml FLUSH ASDIRECTED PRN PRN Reason: Keep Vein Open Discontinued Medications Ceftriaxone Sodium (Rocephin) 1 gm IVPUSH ONETIME ONE Stop: 04/21/18 21:14 Last Admin: 04/21/18 21:29 Dose: 1 gm Ceftriaxone Sodium (Rocephin) 1 gm IVPUSH Q24H [facility] Last Admin: 04/22/18 21:58 Dose: 1 gm Sodium Chloride (Normal Saline) 1,000 mls @ 999 mls/hr IV .BOLUS ONE Stop: 04/21/18 21:41 Last Admin: 04/21/18 20:48 Dose: 999 mls/hr Azithromycin 500 mg/ Sodium (Chloride) 250 mls @ 250 mls/hr IV Q24H [facility] Last Infusion: 04/23/18 00:29 Dose: Infused Ibuprofen (Motrin) 400 mg PO Q6H PRN PRN Reason: Pain (Moderate) / fever Last Admin: 04/23/18 09:29 Dose: 400 mg Insulin Aspart (Novolog) 0 unit SUBCUT .QAC+HS [facility]; Protocol Insulin Aspart (Novolog) 15 unit SUBCUT ONETIME ONE Stop: 04/21/18 23:04 Last Admin: 04/21/18 23:41 Dose: 15 units Insulin Human Isoph/Insulin Regular (Novolin 70-30) 30 unit SUBCUT BIDAC [facility] Last Admin: 04/21/18 23:42 Dose: 30 units Ketorolac Tromethamine (Toradol) 15 mg IVPUSH ONETIME ONE Stop: 04/21/18 20:42 Last Admin: 04/21/18 20:48 Dose: 15 mg Non-Formulary Medication (Insuln Asp Prot/Insulin Aspart [Novolog Mix 70-30]) 45 unit SUBCUT BID [facility] Last Admin: 04/22/18 00:25 Dose: Not Given - Exam General: Reports: Alert, Oriented Lungs: Reports: Rhonchi (r. side) GI/Abdominal Exam: Normal Bowel Sounds, Soft, Non-Tender Extremities: No Pedal Edema
[2018-04-23] MEDS ORDERED: Amoxicillin/Clavulanate K 875-125 MG Tab PO SCH (16:45)
== END 2018-04-23 17:10 | disposition home or self-care (01) | DRG 194 ==
LOC: DL.ED 20:22 → DL.MS 21:45 → UNDOADMIN 21:45 → DL.MS 22:18
PROVIDERS: ADMIT Internal Medicine; ATTEND Internal Medicine
DX: J18.9 Pneumonia, unspecified organism (principal); E87.1 Hypo-osmolality and hyponatremia; N17.9 Acute kidney failure, unspecified; E86.0 Dehydration; I10 Essential (primary) hypertension; E78.00 Pure hypercholesterolemia, unspecified; E11.21 Type 2 diabetes mellitus with diabetic nephropathy; E11.65 Type 2 diabetes mellitus with hyperglycemia; M19.90 Unspecified osteoarthritis, unspecified site; G89.29 Other chronic pain; M54.9 Dorsalgia, unspecified; F41.9 Anxiety disorder, unspecified; F17.210 Nicotine dependence, cigarettes, uncomplicated; K75.9 Inflammatory liver disease, unspecified; F15.90 Other stimulant use, unspecified, uncomplicated; Z79.4 Long term (current) use of insulin; Z79.899 Other long term (current) drug therapy
CPT/HCPCS: 36415; 71045; 80053; 82962; 83605; 85025; 87040; 87804 ×2; 96361; 96374; 96375; 99285; G0480; J0696; J1885; J7030; 80048; A9270-GY; J0456; J1644; J1815-GY; J7050

== ENCOUNTER 2018-08-22 10:45 | Inpatient (IN) | payer MEDICAID ==
[2018-08-22] MEDS ORDERED: Albuterol/Ipratropium 3.0-0.5 MG/3 ML Neb Soln NEB ONE (11:07)
--- NOTE | 2018-08-22 11:07 | EDM.PDOC ---
ED HPI GENERAL MEDICAL PROBLEM - General Chief Complaint: Respiratory Problem Stated Complaint: TROUBLE BREATHING [id number] Time Seen by Provider: 08/22/18 10:58 Source of Information: Reports: Patient History Limitations: Reports: No Limitations - History of Present Illness INITIAL COMMENTS - FREE TEXT/NARRATIVE: This 57 yo male patient was brought to the ED by his family due to increased shortness of breath. The patient reports his symptoms have been getting worse over the past 4 days, but much worse today. The patient reports that he was transferred to [facility] in [place] at the beginning of this month, but he left against medical advice. The patient reports that they did start him on "10 medicines". The patient reports he has been taking his medications as prescribed , but the patient's family reports the patient has not been taking his medications as he has not seen a primary care provider. The patient does not have any idea of what medications he is supposed to be on at this time. Onset: Gradual Duration: Day(s):, Constant, Getting Worse Location: Reports: Chest Quality: Reports: Other Severity: Moderate Improves with: Reports: None Worsens with: Reports: None Context: Reports: Other Associated Symptoms: Reports: Shortness of Breath, Weakness - Related Data Allergies Allergy/AdvReac Type Severity Reaction Status Date / Time No Known Allergies Allergy Verified 08/22/18 10:50 Home Meds: Home Meds Insuln Asp Prot/Insulin Aspart [NovoLOG Mix 70-30] 45 unit SUBCUT BID #1 pen [Rx] Past Medical History Cardiovascular History: Reports: High Cholesterol, Hypertension Respiratory History: Reports: PE Other Gastrointestinal History: Spouse states client used to take medication for his stomach, but cannot recall why and cannot recall which medication. Genitourinary History: Reports: Diabetic Nephropathy Musculoskeletal History: Reports: Arthritis, Back Pain, Chronic Psychiatric History: Reports: Addiction, Anxiety Endocrine/Metabolic History: Reports: Diabetes, Type II, IDDM Dermatologic History: Reports: Cellulitis - Infectious Disease History Infectious Disease History: Reports: Chicken Pox, Measles, Mumps Other Infectious Disease History: states client has hepatitis, but unable to recall which type. - Past Surgical History GI Surgical History: Reports: Appendectomy Social & Family History - Family History Family Medical History: Noncontributory Endocrine/Metabolic: Reports: Diabetes, type II Oncologic: Reports: Other (See Below) Other Oncologic Family History: spouse states HX of cancer in family, but unable to recall which type - Tobacco Use Smoking Status *Q: Former Smoker Used Tobacco, but Quit: Yes Month/Year Tobacco Last Used: Jul 2018 - Caffeine Use Caffeine Use: Reports: Soda - Recreational Drug Use Recreational Drug Use: No ED ROS GENERAL - Review of Systems Review Of Systems: ROS reveals no pertinent complaints other than HPI. ED EXAM, GENERAL - Physical Exam Exam: See Below Exam Limited By: No Limitations General Appearance: Alert, WD/WN, No Apparent Distress Eye Exam: Bilateral Eye: EOMI, Normal Inspection, PERRL Ears: Normal External Exam, Normal Canal, Hearing Grossly Normal, Normal TMs Nose: Normal Inspection, Normal Mucosa, No Blood Throat/Mouth: Normal Inspection, Normal Lips, Normal Teeth, Normal Gums, Normal Oropharynx, Normal Voice, No Airway Compromise Head: Atraumatic, Normocephalic Neck: Normal Inspection, Supple, Non-Tender, Full Range of Motion Respiratory/Chest: Decreased Breath Sounds, Rhonchi Cardiovascular: Normal Peripheral Pulses, Regular Rate, Rhythm, No Edema, No Gallop, No JVD, No Murmur, No Rub GI/Abdominal: Normal Bowel Sounds, Soft, Non-Tender, No Organomegaly, No Distention, No Abnormal Bruit, No Mass (Male) Exam: Deferred Rectal (Males) Exam: Deferred Back Exam: Normal Inspection, Full Range of Motion, NT Extremities: Pedal Edema Neurological: Alert, Oriented, CN II-XII Intact, Normal Cognition Psychiatric: Normal Affect, Normal Mood Skin Exam: Warm, Dry, Intact, Normal Color, No Rash Lymphatic: No Adenopathy Course - Vital Signs Last Recorded V/S: Last Vital Signs Temp 36.7 C 08/22/18 12:23 Pulse 92 08/22/18 11:15 Resp 23 H 08/22/18 12:23 BP 149/67 H 08/22/18 12:23 Pulse Ox 99 08/22/18 12:23 - Orders/Labs/Meds Orders: Active Orders 24 hr Category Date Time Status EKG Documentation Completion [RC] URGENT Care 08/22/18 10:49 Ordered RT Aerosol Therapy [RC] ASDIRECTED Care 08/22/18 11:08 Ordered CULTURE BLOOD [BC] Stat Lab 08/22/18 10:49 Ordered DRUG SCREEN URINE BIORAD [URCHEM] Stat Lab 08/22/18 10:49 Ordered UA RFX SUSI AND CULT IF INDIC [URIN] Urgent Lab 08/22/18 10:49 Ordered Labs: Laboratory Tests 08/22/18 08/22/18 08/22/18 Range/Units 11:03 11:03 11:03 WBC 6.5 (5.0-10.0) 10^3/uL RBC 4.62 (4.6-6.2) 10^6/uL Hgb 11.0 L (14.0-18.0) g/dL Hct 34.0 L (40.0-54.0) % MCV 73.6 L (80-100) fL MCH 23.8 L (27.0-34.0) pg MCHC 32.4 L (33.0-35.0) g/dL Plt Count 225 (150-450) 10^3/uL Neut % (Auto) 62.8 (42.2-75.2) % Lymph % (Auto) 20.8 (20.5-50.1) % Jackson % (Auto) 11.5 H (2-8) % Eos % (Auto) 4.3 H (1.0-3.0) % Baso % (Auto) 0.6 (0.0-1.0) % Sodium (135-145) mmol/L Potassium (3.6-5.0) mmol/L Chloride (101-111) mmol/L Carbon Dioxide (21.0-31.0) mmol/L Anion Gap BUN (7-18) mg/dL Creatinine (0.6-1.3) mg/dL Est Cr Clr Drug Dosing mL/min Estimated GFR (MDRD) BUN/Creatinine Ratio Glucose (74-105) mg/dL Lactic Acid 1.0 (0.5-2.2) mmol/L Calcium (8.4-10.2) mg/dl Total Bilirubin (0.2-1.0) mg/dL AST (10-42) IU/L ALT (10-60) IU/L Alkaline Phosphatase (42-121) IU/L Troponin I (0.00-0.02) ng/ml B-Natriuretic Peptide 1120 H (0-100) pg/ml Total Protein (6.7-8.2) g/dl Albumin (3.2-5.5) g/dl Globulin Albumin/Globulin Ratio 08/22/18 Range/Units 11:03 WBC (5.0-10.0) 10^3/uL RBC (4.6-6.2) 10^6/uL Hgb (14.0-18.0) g/dL Hct (40.0-54.0) % MCV (80-100) fL MCH (27.0-34.0) pg MCHC (33.0-35.0) g/dL Plt Count (150-450) 10^3/uL Neut % (Auto) (42.2-75.2) % Lymph % (Auto) (20.5-50.1) % Jackson % (Auto) (2-8) % Eos % (Auto) (1.0-3.0) % Baso % (Auto) (0.0-1.0) % Sodium 133 L (135-145) mmol/L Potassium 3.6 (3.6-5.0) mmol/L Chloride 102 (101-111) mmol/L Carbon Dioxide 21.0 (21.0-31.0) mmol/L Anion Gap 13.6 BUN 22 H (7-18) mg/dL Creatinine 1.0 (0.6-1.3) mg/dL Est Cr Clr Drug Dosing 76.20 mL/min Estimated GFR (MDRD) > 60 BUN/Creatinine Ratio 22.00 Glucose 263 H (74-105) mg/dL Lactic Acid (0.5-2.2) mmol/L Calcium 8.0 L (8.4-10.2) mg/dl Total Bilirubin 0.6 (0.2-1.0) mg/dL AST 40 (10-42) IU/L ALT 40 (10-60) IU/L Alkaline Phosphatase 100 (42-121) IU/L Troponin I 0.03 H* (0.00-0.02) ng/ml B-Natriuretic Peptide (0-100) pg/ml Total Protein 6.6 L (6.7-8.2) g/dl Albumin 2.5 L (3.2-5.5) g/dl Globulin 4.1 Albumin/Globulin Ratio 0.61 Meds: Medications Discontinued Medications Generic Name Dose Route Start Last Admin Trade Name Freq PRN Reason Stop Dose Admin Albuterol/Ipratropium 3 ml 08/22/18 11:07 08/22/18 11:36 Duoneb 3.0-0.5 Mg/3 Ml NEB 08/22/18 11:08 3 ml ONETIME ONE Administration Furosemide 40 mg 08/22/18 12:18 Lasix IVPUSH 08/22/18 12:19 NOW ONE Departure - Departure Time of Disposition: 12:24 Disposition: Home, Self-Care 01 Condition: Fair Clinical Impression: CHF (congestive heart failure) Qualifiers: Heart failure type: unspecified Heart failure chronicity: acute on chronic Qualified Code(s): I50.9 - Heart failure, unspecified - Discharge Information *PRESCRIPTION DRUG MONITORING PROGRAM REVIEWED*: Not Applicable *COPY OF PRESCRIPTION DRUG MONITORING REPORT IN PATIENT LUIS: Not Applicable Care Plan Goals: Discussed the patient's history, examination, lab and x-ray results with Dr. Abreu. Dr. Abreu accepted the patient for continued evaluation and further management as an inpatient at [facility]. - My Orders Last 24 Hours: My Active Orders 08/22/18 10:49 EKG Documentation Completion [RC] URGENT CULTURE BLOOD [BC] Stat DRUG SCREEN URINE BIORAD [URCHEM] Stat UA RFX SUSI AND CULT IF INDIC [URIN] Urgent 08/22/18 11:08 RT Aerosol Therapy [RC] ASDIRECTED - Assessment/Plan Last 24 Hours: My Active Orders 08/22/18 10:49 EKG Documentation Completion [RC] URGENT CULTURE BLOOD [BC] Stat DRUG SCREEN URINE BIORAD [URCHEM] Stat UA RFX SUSI AND CULT IF INDIC [URIN] Urgent 08/22/18 11:08 RT Aerosol Therapy [RC] ASDIRECTED
[2018-08-22 11:43] LABS: ANION GAP 13.6; CHLORIDE,CL 102 mmol/L (101-111); SODIUM,NA 133 mmol/L (135-145)
--- NOTE | 2018-08-22 11:54 | CR ---
Clinical history: 57-year-old male diabetic male smoker and drug user recently diagnosed with "florid" perihilar pulmonary edema/large right pleural effusion (02 August 2018) who presents now "short of breath". Interpretation: Upright AP portable chest film abnormal but dramatically improved compared to 02 August 2018 exam. Persistent mild pulmonary venous congestion with cephalization of flow and apparent bibasilar dependent subpulmonic pleural effusions but definite interval radiographic improvement. No new lung mass or underlying lobar pneumonia. CONCLUSION: Abnormal (see above).
[2018-08-22] MEDS ORDERED: Furosemide 40 MG/4 ML VIAL IVPUSH ONE (12:18)
[2018-08-22] MEDS ORDERED: Zolpidem 5 MG Tab PO PRN (14:24)
[2018-08-22] MEDS ORDERED: Docusate Sodium 100 MG Cap PO PRN (14:24)
[2018-08-22] MEDS ORDERED: Acetaminophen 325 MG Tab PO PRN (14:24)
[2018-08-22] MEDS ORDERED: Magnesium Hydroxide 400 MG/5 ML Susp 30 ML Cup PO PRN (14:24)
[2018-08-22] MEDS ORDERED: Ondansetron 4 MG Tab.DIS PO PRN (14:24)
[2018-08-22] MEDS ORDERED: Furosemide 40 MG/4 ML VIAL IVPUSH SCH (14:29)
[2018-08-22] MEDS ORDERED: 50% Dextrose in Water 50 ML Syringe IVPUSH PRN (14:30)
[2018-08-22] MEDS: Furosemide 40 MG/4 ML VIAL IVPUSH SCH (15:21)
--- NOTE | 2018-08-22 16:29 | HP ---
CHIEF COMPLAINT: Increasing shortness of breath. HISTORY OF PRESENTING ILLNESS: Mr. Prabhu Vargas Junior is a 57-year-old male with a medical history significant for hypertension, hyperlipidemia, type 2 diabetes mellitus, chronic congestive heart failure with systolic dysfunction, history of recent diagnosis of ARDS, and was admitted to the hospital earlier this month at [facility] and got signed out AMA, presented to the ER today with complaints of having increasing shortness of breath and noted to have acute- on-chronic congestive heart failure, needing admission to the hospital. At this time, the patient says that he has been short of breath for the last 3 to 4 days which has been progressively getting worse. He grades the shortness of breath as 5 to 6/10 in intensity which gets aggravated on exertion, relieved with rest, associated with cough with sputum which is yellow in color, not associated with any chest pains. Denies any abdominal pain. No nausea. No vomiting. No diarrhea. No fevers. No chills in the last few days. Also noted to have increased edema to the lower extremities. The patient denied any history of chest pains on exertion but has dyspnea on exertion. No history of orthopnea or paroxysmal nocturnal dyspnea. The patient denied any history of hematemesis, hematochezia, or melenic stools. Normal bowel and bladder habits, otherwise. REVIEW OF SYSTEMS: A complete review of systems including skin; ear, nose, and throat; cardiovascular system; respiratory system; gastrointestinal system; genitourinary system; hematology; oncology; neurology; allergy; immunology; constitutional; and endocrinology were all evaluated and were negative except for the above-said notes. PAST MEDICAL HISTORY: Significant for: 1. Hypertension. 2. Hyperlipidemia. 3. Type 2 diabetes mellitus. 4. Chronic congestive heart failure with systolic dysfunction, ejection fraction 25%. 5. Chronic history of hepatitis C. 6. Degenerative disk disease at L3-L4 and L4-L5. 7. Gastroesophageal reflux disease. 8. Mild lumbar stenosis. 9. Compression fracture of L1 vertebra. 10.Chronic bronchitis. PAST SURGICAL HISTORY: Significant for appendicectomy and coronary angiogram. FAMILY HISTORY: Significant for diabetes in his father, substance abuse in his father and mother, diabetes in his sister, substance abuse in the family members, and hypertension and diabetes in his brother. SOCIAL HISTORY: The patient had history of smoking in the past but says that he quit smoking in the last 1 month. History of alcohol intake, but says that he had quit drinking alcohol. History of substance abuse in the past, but the patient says that he is not taking any medications. His last methamphetamine use was last year. ALLERGIES: Allergic history: No known drug allergies. MEDICATIONS: Home medications include: 1. Glyburide 5 mg twice a day. 2. Simvastatin 10 mg at bedtime. 3. Omeprazole 20 mg daily. 4. Novolin 70/30, 45 units subcutaneous twice a day. 5. Neurontin 300 mg 3 times a day. 6. Carvedilol 6.25 mg twice a day. 7. Aspirin 81 mg daily. PHYSICAL EXAMINATION: Vital Signs: Temperature of 97.7, pulse of 92, blood pressure 150/84, respiratory rate of 20, and saturating at 98% on 1 L of oxygen. General Appearance: The patient is well oriented to time, place, and person. Follows commands spontaneously. Cardiovascular System: S1 and S2 heard with normal intensity. Respiratory System: Bilateral crepitations positive. No wheeze. Abdomen: Soft. Bowel sounds positive. Nontender. No rigidity. Extremities: Edema of 2 to 3+ noted in the bilateral lower extremities along with venous stasis dermatitis. Neurology: No gross focal neurological deficit. LABORATORY DATA: Labs reviewed. 1. WBC 6.5, hemoglobin 11, hematocrit 34, and platelet count 225. 2. Sodium 133, potassium 3.6, chloride 102, bicarb 21, BUN 22, creatinine 1, glucose 263, lactic acid 1, total bilirubin 0.6, AST 40, ALT 40, alkaline phosphorous 100, troponin 0.03, and B-natriuretic peptide 1120. 3. Urine toxicology screen positive for methamphetamine. 4. Urinalysis negative for leukocyte esterase and negative for nitrites. ASSESSMENT: 1. Yrbvy-rq-yhtqzat congestive heart failure with systolic dysfunction, ejection fraction of 25%. 2. Substance abuse. Urine toxicology screen positive for methamphetamine. 3. Hypertension. 4. Type 2 diabetes mellitus. 5. Hyperlipidemia. 6. Nonischemic cardiomyopathy. 7. Chronic history of alcohol use and tobacco use. PLAN: 1. Dhfjq-nv-dstutcc congestive heart failure. The patient had a recent echocardiogram and also a coronary angiogram at [facility] earlier this month which showed an ejection fraction of 25%, consistent with systolic dysfunction. The patient will be admitted to the hospital. Start him on IV Lasix 40 mg q.12 hourly. Closely monitor input, output, and daily weights. 2. Substance use. The patient denies any use of substance recently, but his urine toxicology screen is positive for methamphetamine. We will closely follow the patient. We will have him on CIWA protocol while in the hospital. We will get a blood alcohol level at this time. 3. Hypertension. The patient's blood pressure seems to be in acceptable range. Avoid any hypotensive episode. Continue with carvedilol for now. 4. Type 2 diabetes mellitus. The patient is on insulin regimen and glyburide. Continue the same. Check his fingersticks with each meals and have him on supplemental scale insulin as needed for additional coverage of his blood glucose. 5. Hyperlipidemia. The patient is currently on simvastatin at 10 mg at bedtime. Continue the same. 6. DVT prophylaxis. We will have him on Lovenox for DVT prophylaxis. 7. Code status. The patient wants to be DNR/DNI. Discussed with Dave Jj PA-C, ER staff, regarding the plan of care. Reviewed the labs and medications. Reviewed the old charts. [facility] /[id number]
[2018-08-22] MEDS: Insulin Lispro 100 Units/ML 3 ML Vial SUBCUT SCH ×2 (17:11→20:57)
[2018-08-22] MEDS: Carvedilol 6.25 MG Tab PO SCH (17:23)
[2018-08-22] MEDS: glyBURIDE 5 MG Tab PO SCH (17:23)
[2018-08-22] MEDS ORDERED: Insulin NPH/Insulin Regular,Human 70-30 100 Units/ML 10 ML Vial SUBCUT ONE (21:00)
[2018-08-22] MEDS ORDERED: Insulin NPH/Insulin Regular,Human 70-30 100 Units/ML 10 ML Vial SUBCUT SCH (21:00)
[2018-08-22] MEDS: Gabapentin 300 MG Cap PO SCH (21:19)
[2018-08-22] MEDS: Simvastatin 10 MG Tab PO SCH (21:19)
[2018-08-22] MEDS: Insulin NPH/Insulin Regular,Human 70-30 100 Units/ML 10 ML Vial SUBCUT SCH (21:31)
[2018-08-23] MEDS: LORazepam 1 MG Tab PO PRN ×3 (00:16→13:24)
[2018-08-23] MEDS: Omeprazole 20 MG Cap.CR PO SCH (05:48)
[2018-08-23 07:02] LABS: ANION GAP 13.4; CHLORIDE,CL 102 mmol/L (101-111); SODIUM,NA 136 mmol/L (135-145)
[2018-08-23] MEDS: Insulin Lispro 100 Units/ML 3 ML Vial SUBCUT SCH ×4 (07:53→21:28)
[2018-08-23] MEDS: Carvedilol 6.25 MG Tab PO SCH ×2 (09:00→17:22)
[2018-08-23] MEDS: Gabapentin 300 MG Cap PO SCH ×3 (09:00→20:33)
[2018-08-23] MEDS: glyBURIDE 5 MG Tab PO SCH ×2 (09:01→17:22)
[2018-08-23] MEDS: Furosemide 40 MG/4 ML VIAL IVPUSH SCH (09:01)
[2018-08-23] MEDS: Aspirin 81 MG Tab.EC PO SCH (09:01)
[2018-08-23] MEDS: Enoxaparin 40 MG/0.4 ML Syringe SUBCUT SCH (09:05)
[2018-08-23] MEDS: Insulin NPH/Insulin Regular,Human 70-30 100 Units/ML 10 ML Vial SUBCUT SCH ×2 (09:42→21:45)
--- NOTE | 2018-08-23 12:34 | PN ---
DATE: 08/23/2018 SUBJECTIVE: Mr. Prabhu Vargas Junior is a 57-year-old male with medical history significant for hypertension, hyperlipidemia, type 2 diabetes mellitus, chronic congestive heart failure with systolic dysfunction with recent echocardiogram showing ejection fraction of 25%, admitted to the hospital with complaints of increasing shortness of breath and noted to be in [id number] congestive heart failure with systolic dysfunction. For the last 24 hours, he was continued on IV Lasix. He denies any ongoing chest pains. He is noted to have lower blood sugars earlier this morning and also last night. He denied any abdominal pain. No nausea. No vomiting. No diarrhea. REVIEW OF SYSTEMS: Cardiovascular, respiratory, gastrointestinal, neurology, constitutional were all evaluated. PHYSICAL EXAMINATION: Vital Signs: Temperature of 98.6, pulse of 81, blood pressure of 142/80, respiratory rate of 20, and saturating at 97%. General Appearance: The patient is well oriented to time, place, and person. Follows commands spontaneously. Cardiovascular System: S1 and S2 heard with normal intensity. No gallops. Respiratory System: Clear to auscultation bilaterally. No wheeze. No crepitations. Abdomen: Soft. Bowel sounds positive. Nontender. No rigidity. Extremities: Mild edema in bilateral lower extremities. MEDICATIONS: Reviewed. Continue with: 1. Tylenol 650 every 4 hours as needed for pain. 2. Aspirin 81 mg daily. 3. Coreg 6.25 mg twice a day. 4. Lovenox 40 mg subcutaneous daily. 5. Lasix 40 mg IV q.12 hourly. 6. Glyburide 5 mg twice a day. 7. Novolin 70/30, decreased to 10 units. One might consider holding it off. 8. Omeprazole 20 mg daily. ASSESSMENT: 1. Qtivd-tb-gydejfj congestive heart failure, secondary to systolic dysfunction. 2. Type 2 diabetes mellitus, uncontrolled. 3. Substance abuse. 4. Hypertension. 5. Hyperlipidemia. 6. Nonischemic cardiomyopathy. 7. Chronic history of alcohol use and tobacco use in the past. PLAN: 1. Xspnj-em-fitwick congestive heart failure. Recent angiogram showed no evidence of obstructive coronary artery disease. He is noted to have ejection fraction of 25%. He is currently on Lasix 40 mg q.12 hourly IV. We will switch him to oral Lasix as he has responded well to the treatment. We will closely follow input, output, and daily weights. 2. Type 2 diabetes mellitus, uncontrolled. The patient is noted to have lower blood sugars. He is noted to be on glyburide and 70/30 insulin. Secondary to low blood sugars, we will hold off his insulin regimen. Continue with glyburide. Have him on supplemental scale insulin if needed. Have him on hypoglycemic protocol. 3. Hypertension. The patient's blood pressure seems to be in acceptable range. Continue with Coreg for now. 4. DVT prophylaxis. Continue with Lovenox for DVT prophylaxis. [facility] /[id number]
[2018-08-23] MEDS: Furosemide 40 MG Tab PO SCH (13:25)
[2018-08-23] MEDS: Simvastatin 10 MG Tab PO SCH (20:33)
[2018-08-24] MEDS: Omeprazole 20 MG Cap.CR PO SCH (05:43)
[2018-08-24 07:18] LABS: ANION GAP 11.4; CHLORIDE,CL 102 mmol/L (101-111); SODIUM,NA 135 mmol/L (135-145)
[2018-08-24] MEDS: glyBURIDE 5 MG Tab PO SCH (09:08)
[2018-08-24] MEDS: Carvedilol 6.25 MG Tab PO SCH (09:09)
[2018-08-24] MEDS: Gabapentin 300 MG Cap PO SCH ×2 (09:09→15:36)
[2018-08-24] MEDS: Aspirin 81 MG Tab.EC PO SCH (09:09)
[2018-08-24] MEDS: Furosemide 40 MG Tab PO SCH ×2 (09:09→15:36)
[2018-08-24] MEDS: Enoxaparin 40 MG/0.4 ML Syringe SUBCUT SCH (09:11)
[2018-08-24] MEDS: Insulin Lispro 100 Units/ML 3 ML Vial SUBCUT SCH ×2 (09:12→12:39)
[2018-08-24] MEDS: Insulin NPH/Insulin Regular,Human 70-30 100 Units/ML 10 ML Vial SUBCUT SCH (09:19)
[2018-08-24] MEDS ORDERED: Potassium Chloride 10 MEQ Tab.ER PO ONE (10:03)
[2018-08-24 12:15] VITALS: BP 132/76
--- NOTE | 2018-08-24 15:50 | PCM.DCSUM1 ---
Discharge Summary - Hospital Course Free Text/Narrative:: Mr. Vargas is a 57 y.o male with medical history significant for HTN, DM II, NICM, systolic dysfunction, and polysubstance use disorder who was admitted for acute on chronic congestive heart failure. recent angiogram with EF of 25%. He was started on IV lasix with good response. Switched to oral lasix. Diuresed well. Lost 13 lbs compared to presentation. He was discharged home to continue lasix PO. He was instructed to observe low Na diet. He is to follow up with his PCP. Diagnosis: Stroke: No - Discharge Data Discharge Date: 08/24/18 Discharge Disposition: Home, Self-Care 01 Condition: Good - Discharge Plan *PRESCRIPTION DRUG MONITORING PROGRAM REVIEWED*: Not Applicable *COPY OF PRESCRIPTION DRUG MONITORING REPORT IN PATIENT LUIS: Not Applicable Prescriptions/Med Rec: Furosemide [Lasix] 40 mg PO BIDDIURETIC #30 tablet Home Medications: Home Meds Aspirin [Lo-Dose Aspirin EC] 81 mg PO DAILY 08/22/18 [History] Carvedilol 6.25 mg PO BIDMEALS 08/22/18 [History] Gabapentin [Neurontin] 300 mg PO TID 08/22/18 [History] Insulin NPH/Insulin Reg,Human [Novolin 70-30] 45 units SQ BID 08/22/18 [History] Omeprazole 20 mg PO DAILY 08/22/18 [History] Simvastatin 10 mg PO BEDTIME 08/22/18 [History] glyBURIDE [Glyburide] 5 mg PO BID 08/22/18 [History] Furosemide [Lasix] 40 mg PO BIDDIURETIC #30 tablet 08/24/18 [Rx] Patient Handouts: Fluid Restriction, Heart Failure, [id number], Diabetes Mellitus and Nutrition - Discharge Summary/Plan Comment DC Time >30 min.: Yes - General Info Date of Service: 08/24/18 Admission Dx/Problem (Free Text: Acute on chronic systolic heart failure Functional Status: Reports: Pain Controlled - Review of Systems General: Reports: No Symptoms HEENT: Reports: No Symptoms Pulmonary: Reports: No Symptoms Cardiovascular: Reports: No Symptoms Gastrointestinal: Reports: No Symptoms Genitourinary: Reports: No Symptoms Musculoskeletal: Reports: No Symptoms Skin: Reports: No Symptoms Neurological: Reports: No Symptoms Psychiatric: Reports: No Symptoms - Patient Data Vitals - Most Recent: Last Vital Signs Temp 98.8 F 08/24/18 12:14 Pulse 83 08/24/18 12:14 Resp 20 08/24/18 12:14 BP 132/76 08/24/18 12:14 Pulse Ox 96 08/24/18 12:14 Weight - Most Recent: 150 lb 12.8 oz I&O - Last 24 hours: Intake & Output 08/24/18 08/24/18 08/24/18 06:59 14:59 22:59 Intake Total 300 300 Output Total 500 Balance -200 300 Lab Results - Last 24 hrs: Laboratory Results - last 24 hr 08/23/18 08/23/18 08/23/18 Range/Units 06:05 16:57 20:46 WBC (5.0-10.0) 10^3/uL RBC (4.6-6.2) 10^6/uL Hgb (14.0-18.0) g/dL Hct (40.0-54.0) % MCV (80-100) fL MCH (27.0-34.0) pg MCHC (33.0-35.0) g/dL Plt Count (150-450) 10^3/uL Sodium (135-145) mmol/L Potassium (3.6-5.0) mmol/L Chloride (101-111) mmol/L Carbon Dioxide (21.0-31.0) mmol/L Anion Gap BUN (7-18) mg/dL Creatinine (0.6-1.3) mg/dL Est Cr Clr Drug Dosing mL/min Estimated GFR (MDRD) Glucose (74-105) mg/dL POC Glucose 133 H 131 H (70-105) mg/dl Estimat Average Glucose 171 mg/dl Hemoglobin A1c 7.6 H (4.4-6.3) % Calcium (8.4-10.2) mg/dl B-Natriuretic Peptide (0-100) pg/ml 08/24/18 08/24/18 08/24/18 Range/Units 06:42 06:42 07:35 WBC 6.8 (5.0-10.0) 10^3/uL RBC 4.58 L (4.6-6.2) 10^6/uL Hgb 11.0 L (14.0-18.0) g/dL Hct 33.8 L (40.0-54.0) % MCV 73.8 L (80-100) fL MCH 24.0 L (27.0-34.0) pg MCHC 32.5 L (33.0-35.0) g/dL Plt Count 207 (150-450) 10^3/uL Sodium 135 (135-145) mmol/L Potassium 3.4 L (3.6-5.0) mmol/L Chloride 102 (101-111) mmol/L Carbon Dioxide 25.0 (21.0-31.0) mmol/L Anion Gap 11.4 BUN 23 H (7-18) mg/dL Creatinine 1.2 (0.6-1.3) mg/dL Est Cr Clr Drug Dosing 63.50 mL/min Estimated GFR (MDRD) > 60 Glucose 89 (74-105) mg/dL POC Glucose 67 L (70-105) mg/dl Estimat Average Glucose mg/dl Hemoglobin A1c (4.4-6.3) % Calcium 7.7 L (8.4-10.2) mg/dl B-Natriuretic Peptide 939 H (0-100) pg/ml 08/24/18 08/24/18 Range/Units 08:56 11:11 WBC (5.0-10.0) 10^3/uL RBC (4.6-6.2) 10^6/uL Hgb (14.0-18.0) g/dL Hct (40.0-54.0) % MCV (80-100) fL MCH (27.0-34.0) pg MCHC (33.0-35.0) g/dL Plt Count (150-450) 10^3/uL Sodium (135-145) mmol/L Potassium (3.6-5.0) mmol/L Chloride (101-111) mmol/L Carbon Dioxide (21.0-31.0) mmol/L Anion Gap BUN (7-18) mg/dL Creatinine (0.6-1.3) mg/dL Est Cr Clr Drug Dosing mL/min Estimated GFR (MDRD) Glucose (74-105) mg/dL POC Glucose 188 H 147 H (70-105) mg/dl Estimat Average Glucose mg/dl Hemoglobin A1c (4.4-6.3) % Calcium (8.4-10.2) mg/dl B-Natriuretic Peptide (0-100) pg/ml SUSI Results - Last 24 hrs: Microbiology 08/22/18 11:03 Aerobic Blood Culture - Preliminary Blood NO GROWTH AFTER 2 DAYS Anaerobic Blood Culture - Preliminary NO GROWTH AFTER 2 DAYS Med Orders - Current: Current Medications Acetaminophen (Tylenol) 650 mg PO Q4H PRN PRN Reason: Pain (Mild 1-3)/fever Last Admin: 08/22/18 17:23 Dose: 650 mg Aspirin (Halfprin) 81 mg PO DAILY [facility] Last Admin: 08/24/18 09:09 Dose: 81 mg Carvedilol (Coreg) 6.25 mg PO BIDMEALS [facility] Last Admin: 08/24/18 09:09 Dose: 6.25 mg Dextrose/Water (Dextrose 50% In Water) 50 ml IVPUSH ONETIME PRN PRN Reason: Hypoglycemia Docusate Sodium (Colace) 100 mg PO BID PRN PRN Reason: Constipation Enoxaparin Sodium (Lovenox) 40 mg SUBCUT DAILY [facility] Last Admin: 08/24/18 09:11 Dose: 40 mg Furosemide (Lasix) 40 mg PO BIDDIURETIC [facility] Last Admin: 08/24/18 15:36 Dose: 40 mg Gabapentin (Neurontin) 300 mg PO TID [facility] Last Admin: 08/24/18 15:36 Dose: 300 mg Glyburide (Micronase) 5 mg PO BIDMEALS [facility] Last Admin: 08/24/18 09:08 Dose: 5 mg Insulin Human Isoph/Insulin Regular (Novolin 70-30) 10 unit SUBCUT BID [facility] Last Admin: 08/24/18 09:19 Dose: 10 units Insulin Human Lispro (Humalog) 0 unit SUBCUT ACBED [facility]; Protocol Last Admin: 08/24/18 12:39 Dose: Not Given Lorazepam (Ativan) 0 mg PO Q1H PRN; Protocol PRN Reason: Agitation Last Admin: 08/23/18 13:24 Dose: 1 mg Magnesium Hydroxide (Milk Of Magnesia) 30 ml PO Q12H PRN PRN Reason: Constipation Omeprazole (Omeprazole) 20 mg PO ACBRK [facility] Last Admin: 08/24/18 05:43 Dose: 20 mg Ondansetron HCl (Zofran Odt) 4 mg PO Q4H PRN PRN Reason: nausea, able to take PO Simvastatin (Zocor) 10 mg PO BEDTIME [facility] Last Admin: 08/23/18 20:33 Dose: 10 mg Zolpidem Tartrate (Ambien) 5 mg PO BEDTIME PRN PRN Reason: Sleep Discontinued Medications Albuterol/Ipratropium (Duoneb 3.0-0.5 Mg/3 Ml) 3 ml NEB ONETIME ONE Stop: 08/22/18 11:08 Last Admin: 08/22/18 11:36 Dose: 3 ml Furosemide (Lasix) 40 mg IVPUSH NOW ONE Stop: 08/22/18 12:19 Last Admin: 08/22/18 12:24 Dose: 40 mg Furosemide (Lasix) 40 mg IVPUSH BID [facility] Last Admin: 08/22/18 15:42 Dose: Not Given Furosemide (Lasix) 40 mg IVPUSH BIDDIURETIC [facility] Last Admin: 08/23/18 09:01 Dose: 40 mg Insulin Human Isoph/Insulin Regular (Novolin 70-30) 45 unit SUBCUT BID [facility] Insulin Human Isoph/Insulin Regular (Novolin 70-30) 10 unit SUBCUT ONETIME ONE Stop: 08/22/18 21:01 Last Admin: 08/22/18 21:20 Dose: 10 units Insulin Human Isoph/Insulin Regular (Novolin 70-30) 45 unit SUBCUT BID [facility] Last Admin: 08/23/18 09:42 Dose: Not Given Potassium Chloride (Klor-Con 10) 40 meq PO ONETIME ONE Stop: 08/24/18 10:04 Last Admin: 08/24/18 12:46 Dose: 40 meq - Exam General: Reports: Alert, Oriented HEENT: Reports: Pupils Equal, Pupils Reactive, Mucous Membr. Moist/[place] Neck: Reports: Supple Lungs: Reports: Clear to Auscultation, Normal Respiratory Effort Cardiovascular: Reports: Regular Rate, Regular Rhythm GI/Abdominal Exam: Normal Bowel Sounds, Soft, Non-Tender, No Distention Extremities: Normal Inspection, Normal Range of Motion, Non-Tender, No Pedal Edema Skin: Reports: Warm, Dry, Intact Neurological: Reports: No New Focal Deficit Psy/Mental Status: Reports: Alert, Normal Affect, Normal Mood
== END 2018-08-24 15:30 | disposition home or self-care (01) | DRG 293 ==
LOC: DL.ED 10:45 → DL.MS 12:54 → UNDOADMIN 12:54 → DL.MS 14:24
PROVIDERS: ADMIT Internal Medicine; ATTEND Internal Medicine
DX: I11.0 Hypertensive heart disease with heart failure (principal); I50.9 Heart failure, unspecified; E78.00 Pure hypercholesterolemia, unspecified; E11.21 Type 2 diabetes mellitus with diabetic nephropathy; M19.90 Unspecified osteoarthritis, unspecified site; G89.29 Other chronic pain; M54.9 Dorsalgia, unspecified; F41.9 Anxiety disorder, unspecified; I50.23 Acute on chronic systolic (congestive) heart failure; Z83.3 Family history of diabetes mellitus; E11.65 Type 2 diabetes mellitus with hyperglycemia; Z66 Do not resuscitate; I42.9 Cardiomyopathy, unspecified; B18.2 Chronic viral hepatitis C; F15.10 Other stimulant abuse, uncomplicated; E78.5 Hyperlipidemia, unspecified; K21.9 Gastro-esophageal reflux disease without esophagitis; M48.061 Spinal stenosis, lumbar region without neurogenic claudication; M51.36 Other intervertebral disc degeneration, lumbar region; Z87.891 Personal history of nicotine dependence; Z79.899 Other long term (current) drug therapy; Z79.82 Long term (current) use of aspirin; Z86.711 Personal history of pulmonary embolism; Z79.4 Long term (current) use of insulin
CPT/HCPCS: 36415; 71045; 80053; 80305; 81001; 83605; 83880; 84484; 85025; 87040; 93005; 94640; 96374; 99285; J1940; 80048; 82962; 83036; 83735; 85027; A9270-GY; J1650; J1815-GY; J7620-GY

== ENCOUNTER 2018-10-08 10:18 | Inpatient (IN) | payer MEDICAID ==
[2018-10-08] MEDS ORDERED: Furosemide 20 MG/2 ML VIAL IVPUSH ONE (10:49)
--- NOTE | 2018-10-08 10:50 | EDM.PDOC ---
ED HPI GENERAL MEDICAL PROBLEM - General Chief Complaint: Respiratory Problem Stated Complaint: UNKNOWN Time Seen by Provider: 10/08/18 10:50 Source of Information: Reports: Patient History Limitations: Reports: No Limitations - History of Present Illness INITIAL COMMENTS - FREE TEXT/NARRATIVE: c/o 3 days h/o sob thought was anxiety but out of Rx so called EMS. - Related Data Allergies Allergy/AdvReac Type Severity Reaction Status Date / Time No Known Allergies Allergy Verified 08/22/18 13:22 Home Meds: Home Meds Aspirin [Lo-Dose Aspirin EC] 81 mg PO DAILY 08/22/18 [History] Carvedilol 6.25 mg PO BIDMEALS 08/22/18 [History] Gabapentin [Neurontin] 300 mg PO TID 08/22/18 [History] Insulin NPH/Insulin Reg,Human [Novolin 70-30] 45 units SQ BID 08/22/18 [History] Omeprazole 20 mg PO DAILY 08/22/18 [History] Simvastatin 10 mg PO BEDTIME 08/22/18 [History] glyBURIDE [Glyburide] 5 mg PO BID 08/22/18 [History] Furosemide [Lasix] 40 mg PO BIDDIURETIC #30 tablet 08/24/18 [Rx] Past Medical History HEENT History: Reports: None Cardiovascular History: Reports: Heart Failure, High Cholesterol, Hypertension, Other (See Below) Other Cardiovascular History: non-ischemic cardiomyopathy Respiratory History: Reports: Bronchitis, Recurrent, PE, Other (See Below) Other Respiratory History: ARDS (acute respiratory distress syndrome) Gastrointestinal History: Reports: GERD Other Gastrointestinal History: Spouse states client used to take medication for his stomach, but cannot recall why and cannot recall which medication. Genitourinary History: Reports: Diabetic Nephropathy, Other (See Below) Other Genitourinary History: Acute kidney injury Musculoskeletal History: Reports: Arthritis, Back Pain, Chronic, Fracture, Other (See Below) Other Musculoskeletal History: "Multiple fractures" Neurological History: Reports: Head Trauma, Other (See Below) Other Neuro History: fractured jody Psychiatric History: Reports: Addiction, Anxiety Endocrine/Metabolic History: Reports: Diabetes, Type II, IDDM Hematologic History: Reports: None Immunologic History: Reports: None Oncologic (Cancer) History: Reports: None Dermatologic History: Reports: Cellulitis - Infectious Disease History Infectious Disease History: Reports: Hepatitis C Other Infectious Disease History: states client has hepatitis, but unable to recall which type. - Past Surgical History Head Surgeries/Procedures: Reports: None Cardiovascular Surgical History: Reports: None, Other (See Below) Respiratory Surgical History: Reports: Thoracentesis GI Surgical History: Reports: Appendectomy Endocrine Surgical History: Reports: None Neurological Surgical History: Reports: None Musculoskeletal Surgical History: Reports: None Dermatological Surgical History: Reports: None Social & Family History - Family History Family Medical History: Noncontributory Endocrine/Metabolic: Reports: Diabetes, type II Oncologic: Reports: Other (See Below) Other Oncologic Family History: spouse states HX of cancer in family, but unable to recall which type - Tobacco Use Smoking Status *Q: Current Every Day Smoker Years of Tobacco use: 20 Packs/Tins Daily: 1 - Caffeine Use Caffeine Use: Reports: Coffee, Soda - Recreational Drug Use Recreational Drug Use: No ED ROS GENERAL - Review of Systems Review Of Systems: ROS reveals no pertinent complaints other than HPI. ED EXAM, GENERAL - Physical Exam Exam: See Below Exam Limited By: No Limitations General Appearance: Alert, WD/WN, Anxious, Mild Distress Ears: Hearing Grossly Normal Throat/Mouth: Normal Voice, No Airway Compromise Head: Atraumatic Neck: Non-Tender, Full Range of Motion Respiratory/Chest: No Respiratory Distress, No Accessory Muscle Use, Decreased Breath Sounds, Rales, Rhonchi Cardiovascular: Regular Rate, Rhythm GI/Abdominal: Soft, Non-Tender Extremities: Pedal Edema, Other (3+ bilateral) Neurological: Alert, Oriented, Normal Cognition, Normal Gait, No Motor/Sensory Deficits Psychiatric: Normal Affect, Normal Mood Skin Exam: Warm, Dry, Normal Color Lymphatic: No Adenopathy Course - Vital Signs Last Recorded V/S: Last Vital Signs Temp 36.3 C 10/08/18 10:23 Pulse 90 10/08/18 10:23 Resp 20 10/08/18 10:23 BP 138/78 10/08/18 10:23 Pulse Ox 95 10/08/18 10:23 - Orders/Labs/Meds Orders: Active Orders 24 hr Category Date Time Status EKG 12 Lead [EKG Documentation Completion] [RC] STAT Care 10/08/18 10:33 Active Chest 1V Frontal [CR] Urgent Exams 10/08/18 10:47 Taken CULTURE BLOOD [BC] Stat Lab 10/08/18 10:40 Received Labs: Laboratory Tests 10/08/18 10/08/18 10/08/18 Range/Units 10:40 10:40 10:40 WBC 6.1 (5.0-10.0) 10^3/uL RBC 4.47 L (4.6-6.2) 10^6/uL Hgb 10.4 L (14.0-18.0) g/dL Hct 32.6 L (40.0-54.0) % MCV 72.9 L (80-100) fL MCH 23.3 L (27.0-34.0) pg MCHC 31.9 L (33.0-35.0) g/dL Plt Count 206 (150-450) 10^3/uL Neut % (Auto) 57.1 (42.2-75.2) % Lymph % (Auto) 23.0 (20.5-50.1) % Grand % (Auto) 12.5 H (2-8) % Eos % (Auto) 6.7 H (1.0-3.0) % Baso % (Auto) 0.7 (0.0-1.0) % Sodium 136 (135-145) mmol/L Potassium 3.9 (3.6-5.0) mmol/L Chloride 108 (101-111) mmol/L Carbon Dioxide 22.0 (21.0-31.0) mmol/L Anion Gap 9.9 BUN 35 H (7-18) mg/dL Creatinine 1.5 H (0.6-1.3) mg/dL Est Cr Clr Drug Dosing 50.80 mL/min Estimated GFR (MDRD) 48 BUN/Creatinine Ratio 23.33 Glucose 203 H (74-105) mg/dL Lactic Acid 1.4 (0.5-2.2) mmol/L Calcium 8.0 L (8.4-10.2) mg/dl Total Bilirubin 0.5 (0.2-1.0) mg/dL AST 49 H (10-42) IU/L ALT 40 (10-60) IU/L Alkaline Phosphatase 136 H (42-121) IU/L Troponin I 0.03 H* (0.00-0.02) ng/ml B-Natriuretic Peptide 1920 H (0-100) pg/ml Total Protein 6.6 L (6.7-8.2) g/dl Albumin 2.4 L (3.2-5.5) g/dl Globulin 4.2 Albumin/Globulin Ratio 0.57 Meds: Medications Discontinued Medications Generic Name Dose Route Start Last Admin Trade Name Jenny PRN Reason Stop Dose Admin Furosemide 20 mg 10/08/18 10:49 10/08/18 10:54 Lasix IVPUSH 10/08/18 10:50 20 mg ONETIME ONE Administration - Re-Assessments/Exams Free Text/Narrative Re-Assessment/Exam: 10/08/18 11:[address] Tong who kindly admitted pt. Departure - Departure Time of Disposition: 11:46 Disposition: Admitted As Inpatient 66 Condition: Fair Clinical Impression: Elevated brain natriuretic peptide (BNP) level CHF (congestive heart failure) Qualifiers: Heart failure type: unspecified Heart failure chronicity: acute on chronic Qualified Code(s): I50.9 - Heart failure, unspecified Diabetes Qualifiers: Diabetes mellitus type: type 2 Diabetes mellitus adjunct faculty for medical terminology insulin use: unspecified adjunct faculty for medical terminology insulin use status Diabetes mellitus complication status: with unspecified complications Qualified Code(s): E11.8 - Type 2 diabetes mellitus with unspecified complications - Discharge Information Forms: ED Department Discharge - My Orders Last 24 Hours: My Active Orders 10/08/18 10:33 EKG 12 Lead [EKG Documentation Completion] [RC] STAT 10/08/18 10:40 CULTURE BLOOD [BC] Stat 10/08/18 10:47 Chest 1V Frontal [CR] Urgent - Assessment/Plan Last 24 Hours: My Active Orders 10/08/18 10:33 EKG 12 Lead [EKG Documentation Completion] [RC] STAT 10/08/18 10:40 CULTURE BLOOD [BC] Stat 10/08/18 10:47 Chest 1V Frontal [CR] Urgent
[2018-10-08 11:06] LABS: ANION GAP 9.9
[2018-10-08] MEDS ORDERED: Acetaminophen 325 MG Tab PO PRN (13:43)
[2018-10-08] MEDS ORDERED: Docusate Sodium 100 MG Cap PO PRN (13:43)
[2018-10-08] MEDS ORDERED: Magnesium Hydroxide 400 MG/5 ML Susp 30 ML Cup PO PRN (13:43)
[2018-10-08] MEDS ORDERED: Zolpidem 5 MG Tab PO PRN (13:43)
[2018-10-08] MEDS ORDERED: Ondansetron 4 MG Tab.DIS PO PRN (13:43)
[2018-10-08] MEDS ORDERED: 50% Dextrose in Water 50 ML Syringe IVPUSH PRN (13:56)
--- NOTE | 2018-10-08 14:43 | HP ---
CHIEF COMPLAINT: Increasing shortness of breath. HISTORY OF PRESENTING ILLNESS: Mr. Alicia Pelletier is a 57-year-old male with a medical history significant for hypertension, hyperlipidemia, type 2 diabetes mellitus, nonischemic cardiomyopathy, chronic congestive heart failure with systolic dysfunction of ejection fraction of 25%, history of pneumonia and pleural effusions in the past presented to the ER with complaints of increasing shortness of breath and noted to be in acute on chronic congestive heart failure requiring admission to the hospital. At this time, the patient says that the shortness of breath has been progressively getting worse in the last 3 days. He grades the shortness of breath as 5 to 6/10 in intensity, gets aggravated on exertion, relieved with rest. Not associated with any chest pain. Denies any cough with sputum. Denies any fevers or chills in the last few days. No complaints of abdominal pain. No complaints of diarrhea. The patient denied any history of chest pains on exertion, but has mild dyspnea on exertion. No history of orthopnea or paroxysmal nocturnal dyspnea. The patient denied any history of hematemesis, hematochezia, or melenic stools. Normal bowel and bladder habits otherwise. REVIEW OF SYSTEMS: A complete review of system including skin, ear, nose, and throat, cardiovascular system, respiratory system, gastrointestinal system, genitourinary system, hematology, oncology, neurology, allergy, immunology, constitutional were all evaluated and were negative except for the above-said notes. PAST MEDICAL HISTORY: Significant for: 1. Hypertension. 2. Hyperlipidemia. 3. Type 2 diabetes mellitus. 4. Nonischemic cardiomyopathy. 5. Chronic congestive heart failure with systolic dysfunction, ejection fraction of 25%. 6. Chronic tobacco use. 7. Alcohol use. 8. History of pneumonia. 9. Pleural effusions. 10.Gastroesophageal reflux disease. 11.Chronic bronchitis. 12.Chronic hepatitis C. PAST SURGICAL HISTORY: Significant for appendicectomy and left heart catheterization. FAMILY HISTORY: Significant for substance abuse in his mother. Diabetes and substance abuse in his father. Diabetes and substance abuse in his sisters. Diabetes, hypertension, and hyperlipidemia in his brother. ALLERGIES: No known drug allergies. SOCIAL HISTORY: The patient currently smokes 1 cigarette per day. History of occasional alcohol intake. HOME MEDICATIONS: Include: 1. Coreg 6.25 mg twice a day. 2. Glyburide 5 mg twice a day. 3. NPH insulin 70/30, 45 units subcu twice a day. 4. Neurontin 300 mg 3 times a day. 5. Lasix 40 mg twice a day. 6. Aspirin 81 mg daily. 7. Omeprazole 20 mg daily. 8. Simvastatin 10 mg at bedtime. PHYSICAL EXAMINATION: Vital Signs: Temperature of 98.2, pulse of 91, blood pressure of 131/79, respiratory rate 16, and saturating at 97% on room air. General Appearance: The patient is well oriented to time, place, and person. Follows commands spontaneously. Cardiovascular System. S1 and S2 heard with normal intensity. No gallops. Respiratory System: Bilateral crepitations noted, mostly at the bases. No wheeze. Abdomen: Soft. Bowel sounds positive. Nontender. No rigidity. Extremities: 3+ pitting edema noted bilateral lower extremities. Neurology: No gross focal neurological deficit. LABORATORY DATA: WBC 6.1, hemoglobin 10.4, hematocrit 32.6, and platelet count 206. Sodium 136, potassium 3.9, chloride 108, bicarb 22, BUN 35, creatinine 1.5, glucose 203, AST 49, ALT 40, and alkaline phosphatase 136. Troponin 0.03. BNP 1920. Total protein 6.6. ASSESSMENT: 1. Acute on chronic congestive heart failure secondary to systolic dysfunction, ejection fraction 25%. 2. Hypertension. 3. Hyperlipidemia. 4. Nonobstructive coronary artery disease. 5. Nonischemic cardiomyopathy. 6. Hyperlipidemia. 7. History of hepatitis C. PLAN: 1. Acute on chronic congestive heart failure. The patient presents with increasing shortness of breath. Noted to have elevated JVD and crepitations to the lung exam and chest x-ray consistent with congestion. The patient will be started on IV Lasix, we will have him on 60 mg of IV Lasix twice a day. Closely monitor input, output, and daily weights and recheck a basic metabolic panel in a.m. His BNP is also elevated up to 1920. We will closely monitor on the Telemetry Unit. 2. Hypertension. The patient's blood pressure seems to be in acceptable range. He is currently on Coreg, continue with the beta-ney at this time. 3. Type 2 diabetes mellitus. The patient noted to be on insulin regimen as well as oral medication. Continue the same. Check his fingersticks with each meals, have him on supplemental scale insulin as needed for additional coverage of his blood glucose. His blood glucose is uncontrolled at this time at 203. We will get a hemoglobin A1c. 4. Hyperlipidemia. Continue with statin. 5. Chronic tobacco use. The patient is educated about tobacco cessation. Strongly encouraged him to quit drinking and smoking which he understands, agrees with the same. 6. DVT prophylaxis. We will have him on heparin for DVT prophylaxis. 7. Chronic kidney disease, remains stable. Try to avoid any nephrotoxic agents. Dose adjust medications for renal function. Be cautious regarding diuresis. Closely monitor input and output. 8. Code status, the patient wants to be full code. 9. Discussed with Dr. Montes, ER doctor regarding the plan of care. Reviewed the labs and medications. Reviewed the old charts. [facility] /[id number]
[2018-10-08] MEDS: Gabapentin 300 MG Cap PO SCH ×2 (15:26→22:20)
[2018-10-08] MEDS: Heparin Sodium 5,000 Units/ML Vial SUBCUT SCH ×2 (15:26→22:22)
[2018-10-08] MEDS: Furosemide 100 MG/10 ML SDV IVPUSH SCH (15:26)
[2018-10-08] MEDS: Permethrin 59 ML Bottle ONE ×2 (15:37→18:01)
[2018-10-08] MEDS: Carvedilol 6.25 MG Tab PO SCH (17:52)
[2018-10-08] MEDS: Insulin Lispro 100 Units/ML 3 ML Vial SUBCUT SCH ×3 (17:53→22:18)
[2018-10-08] MEDS ORDERED: Albuterol/Ipratropium 3.0-0.5 MG/3 ML Neb Soln NEB ONE (22:00)
[2018-10-08] MEDS: Insulin NPH/Insulin Regular,Human 70-30 100 Units/ML 10 ML Vial SUBCUT SCH (22:20)
[2018-10-08] MEDS: glyBURIDE 5 MG Tab PO SCH (22:20)
[2018-10-08] MEDS: Simvastatin 10 MG Tab PO SCH (22:20)
[2018-10-09 06:43] LABS: ANION GAP 14.8
[2018-10-09] MEDS: Heparin Sodium 5,000 Units/ML Vial SUBCUT SCH ×3 (07:14→22:38)
[2018-10-09] MEDS: Insulin Lispro 100 Units/ML 3 ML Vial SUBCUT SCH ×4 (08:35→22:36)
[2018-10-09] MEDS ORDERED: Aspirin 81 MG Tab.EC PO SCH (09:00)
[2018-10-09] MEDS ORDERED: Omeprazole 20 MG Cap.CR PO SCH (09:00)
[2018-10-09] MEDS: glyBURIDE 5 MG Tab PO SCH ×2 (09:25→22:37)
[2018-10-09] MEDS: Carvedilol 6.25 MG Tab PO SCH ×2 (09:25→18:17)
[2018-10-09] MEDS: Furosemide 100 MG/10 ML SDV IVPUSH SCH ×2 (09:25→14:48)
[2018-10-09] MEDS: Insulin NPH/Insulin Regular,Human 70-30 100 Units/ML 10 ML Vial SUBCUT SCH ×2 (09:26→22:37)
[2018-10-09] MEDS: Gabapentin 300 MG Cap PO SCH ×3 (09:26→22:37)
--- NOTE | 2018-10-09 16:10 | PN ---
DATE: 10/09/2018 SUBJECTIVE: Mr. Alicia Pelletier is a 57-year-old male with a medical history significant for hypertension, hyperlipidemia, type 2 diabetes mellitus, nonischemic cardiomyopathy, chronic congestive heart failure with systolic dysfunction, ejection fraction of 25%, history of pneumonia and pleural effusion, presented to the hospital with complaints of increasing shortness of breath and noted to be in acute on chronic congestive heart failure with systolic dysfunction. For the last 24 hours, the patient was started on high-dose Lasix at 60 mg q.12 hourly. He denies any ongoing chest pains. His shortness of breath seems to be slightly improved. He continues to have edema to the lower extremities though improved. He was noted to have lice to his head, so we kept him on contact isolation and treated with permethrin. He denies any nausea or vomiting. No diarrhea. REVIEW OF SYSTEMS: Cardiovascular, respiratory, gastrointestinal, neurology, constitutional were all evaluated. OBJECTIVE: Vital Signs: Temperature of 97.6, pulse of 94, blood pressure 133/72, respiratory rate of 18, and saturating at 99% on room air. General Appearance: The patient is well oriented to time, place, and person, follows commands spontaneously. Cardiovascular: S1 and S2 heard with normal intensity. Respiratory: Clear to auscultation bilaterally except for mild crepitations at the base. No wheeze. Abdomen: Soft. Bowel sounds positive. Nontender. No rigidity. Extremities: 2+ edema to bilateral lower extremities. Neurologic: No gross focal neurological deficits. MEDICATIONS: Reviewed. Continue with: 1. Aspirin 81 mg daily. 2. Coreg 6.25 mg twice a day. 3. Lasix 60 mg IV q.12 hourly. 4. Neurontin 300 mg 3 times a day. 5. Heparin 5000 subcu q.8 hourly. 6. Novolin 70/30, 45 units twice a day. 7. Humalog as needed supplemental scale. 8. Zocor 10 mg at bedtime. 9. Ambien as needed at bedtime for sleep. LABORATORY DATA: Labs reviewed. Sodium 138, potassium 3.8, chloride 105, bicarb 22, BUN 35, creatinine 1.4, glucose 120, and troponin 0.03. ASSESSMENT: 1. Acute on chronic congestive heart failure with systolic dysfunction. Ejection fraction of 25%. 2. Hypertension. 3. Hyperlipidemia. 4. Nonobstructive coronary artery disease. 5. Nonischemic cardiomyopathy. 6. Chronic kidney disease. PLAN: 1. Acute on chronic congestive heart failure. The patient is started on IV Lasix. Continue the same. Continue with 60 mg. He had a net negative balance of 1.5 L. Closely, monitor input output and daily weights. We will recheck a BNP in a.m. He was noted to have elevated BNP at the time of admission. 2. Hypertension, stable. Continue with current antihypertensive medication. 3. Type 2 diabetes mellitus. His blood sugar seems to be in acceptable range. Continue with current treatment plan. Have him on supplemental scale insulin as needed for additional coverage of his blood glucose. 4. Chronic kidney disease, remains stable. Try to avoid nephrotoxic agents. Dose adjust medications for renal function. Recheck a BMP in a.m. Be cautious regarding diuresis. [facility] /[id number]
[2018-10-09 16:13] VITALS: BP 144/72
[2018-10-09] MEDS: Simvastatin 10 MG Tab PO SCH (22:37)
--- NOTE | 2018-10-10 02:40 | DISCH ---
Patient left AMA: HISTORY OF PRESENTING ILLNESS: Mr. Prabhu Vargas is a 57-year-old male with medical history significant for hypertension, hyperlipidemia, chronic congestive heart failure with systolic dysfunction, nonischemic cardiomyopathy, admitted to the hospital with acute on chronic congestive heart failure with systolic dysfunction. EF 25%. The patient was started on IV Lasix and he responded well to the treatment. The patient signed out AMA from this hospital at this time even after explaining the risks, complications of his treatment and leaving the hospital soon, he left against medical advice and please review my progress notes and H and P for further details on this hospitalization. He is advised to follow with the primary care physician as soon as possible. [facility] /[id number] MTDIsadora
== END 2018-10-09 19:49 | disposition left against medical advice (07) | DRG 291 ==
LOC: DL.ED 10:18 → DL.MS 11:52 → UNDOADMIN 11:52 → DL.MS 13:43
PROVIDERS: ADMIT Internal Medicine; ATTEND Internal Medicine
DX: I13.0 Hypertensive heart and chronic kidney disease with heart failure and stage 1 through stage 4 chronic kidney disease, or unspecified chronic kidney disease (principal); I50.23 Acute on chronic systolic (congestive) heart failure; I42.9 Cardiomyopathy, unspecified; E78.5 Hyperlipidemia, unspecified; K21.9 Gastro-esophageal reflux disease without esophagitis; N18.9 Chronic kidney disease, unspecified; E11.22 Type 2 diabetes mellitus with diabetic chronic kidney disease; J42 Unspecified chronic bronchitis; B18.2 Chronic viral hepatitis C; F17.210 Nicotine dependence, cigarettes, uncomplicated; I25.10 Atherosclerotic heart disease of native coronary artery without angina pectoris; M19.90 Unspecified osteoarthritis, unspecified site; F41.9 Anxiety disorder, unspecified; Z90.49 Acquired absence of other specified parts of digestive tract; Z79.899 Other long term (current) drug therapy; Z79.4 Long term (current) use of insulin; Z79.82 Long term (current) use of aspirin; Z71.6 Tobacco abuse counseling
CPT/HCPCS: 36415; 71045; 80048; 80053; 82962; 83605; 83735; 83880; 84484; 85025; 85027; 87040; 93005; 94640; 96374; 99285-25; A9270-GY; J1644; J1815; J1815-GY; J1940; J7620-GY

== ENCOUNTER 2018-11-02 00:10 | Emergency (ER) | payer MEDICAID ==
[2018-11-02] MEDS ORDERED: Furosemide 40 MG/4 ML VIAL IVPUSH ONE (00:26)
[2018-11-02] MEDS ORDERED: Acetaminophen 325 MG Tab PO ONE (00:31)
--- NOTE | 2018-11-02 00:31 | EDM.PDOC ---
ED HPI GENERAL MEDICAL PROBLEM - General Chief Complaint: Cardiovascular Problem Stated Complaint: AMBULANCE-DIFFICULTY BREATHING Time Seen by Provider: 11/02/18 00:11 Source of Information: Reports: Patient, EMS History Limitations: Reports: No Limitations - History of Present Illness INITIAL COMMENTS - FREE TEXT/NARRATIVE: Increasing SOB past 2 days, worse tonight after being outside this afternoon. Chills tonight. Hx IDDM, CHF, COPD. Does not require home oxygen. Nebulizer prior to EMS arrival. EMS reported initial sat 90's dropped to 84% with exertion moving to cot. Temp for EMS 101. Edema to lower extremities past couple of days. States better than last week when swollen up to waist. Unable to sleep flat in bed has been sleeping upright on couch, noted 3 nights ago tried laying in bed and woke very SOB. - Related Data Allergies Allergy/AdvReac Type Severity Reaction Status Date / Time No Known Allergies Allergy Verified 08/22/18 13:22 Home Meds: Home Meds Aspirin [Lo-Dose Aspirin EC] 81 mg PO DAILY 08/22/18 [History] Carvedilol 6.25 mg PO BIDMEALS 08/22/18 [History] Gabapentin [Neurontin] 300 mg PO TID 08/22/18 [History] Insulin NPH/Insulin Reg,Human [Novolin 70-30] 45 units SQ BID 08/22/18 [History] Omeprazole 20 mg PO DAILY 08/22/18 [History] Simvastatin 10 mg PO BEDTIME 08/22/18 [History] glyBURIDE [Glyburide] 5 mg PO BID 08/22/18 [History] Furosemide [Lasix] 40 mg PO BIDDIURETIC #30 tablet 08/24/18 [Rx] Past Medical History HEENT History: Reports: None Cardiovascular History: Reports: Heart Failure, High Cholesterol, Hypertension, Other (See Below) Other Cardiovascular History: non-ischemic cardiomyopathy Respiratory History: Reports: Bronchitis, Recurrent, PE, Other (See Below) Other Respiratory History: ARDS (acute respiratory distress syndrome) Gastrointestinal History: Reports: GERD Other Gastrointestinal History: Spouse states client used to take medication for his stomach, but cannot recall why and cannot recall which medication. Genitourinary History: Reports: Diabetic Nephropathy, Other (See Below) Other Genitourinary History: Acute kidney injury Musculoskeletal History: Reports: Arthritis, Back Pain, Chronic, Fracture, Other (See Below) Other Musculoskeletal History: "Multiple fractures" Neurological History: Reports: Head Trauma, Other (See Below) Other Neuro History: fractured jody Psychiatric History: Reports: Addiction, Anxiety Endocrine/Metabolic History: Reports: Diabetes, Type II, IDDM Hematologic History: Reports: None Immunologic History: Reports: None Oncologic (Cancer) History: Reports: None Dermatologic History: Reports: Cellulitis - Infectious Disease History Infectious Disease History: Reports: Hepatitis C Other Infectious Disease History: states client has hepatitis, but unable to recall which type. - Past Surgical History Head Surgeries/Procedures: Reports: None Cardiovascular Surgical History: Reports: None, Other (See Below) Respiratory Surgical History: Reports: Thoracentesis GI Surgical History: Reports: Appendectomy Endocrine Surgical History: Reports: None Neurological Surgical History: Reports: None Musculoskeletal Surgical History: Reports: None Dermatological Surgical History: Reports: None Social & Family History - Family History Family Medical History: Noncontributory Endocrine/Metabolic: Reports: Diabetes, type II Oncologic: Reports: Other (See Below) Other Oncologic Family History: spouse states HX of cancer in family, but unable to recall which type - Caffeine Use Caffeine Use: Reports: Coffee, Soda ED ROS GENERAL - Review of Systems Review Of Systems: ROS reveals no pertinent complaints other than HPI. ED EXAM, GENERAL - Physical Exam Exam: See Below Exam Limited By: No Limitations General Appearance: Alert, Moderate Distress (2-3 word sentences frequent dry cough) Eye Exam: Bilateral Eye: EOMI Ears: Normal External Exam Nose: Normal Inspection Throat/Mouth: Normal Inspection Head: Atraumatic, Normocephalic Respiratory/Chest: No Accessory Muscle Use, Crackles (bilateral mid to base greater right) Cardiovascular: Normal Peripheral Pulses, JVD, Tachycardia. No: No Edema (3+ mid calf) Extremities: Pedal Edema Neurological: Alert, Oriented, Normal Cognition Psychiatric: Normal Affect Skin Exam: Warm, Dry, Intact. No: Normal Color (face flushed) Course - Vital Signs Last Recorded V/S: Last Vital Signs Temp 100.8 F H 11/02/18 01:39 Pulse 108 H 11/02/18 01:39 Resp 20 11/02/18 01:39 BP 142/83 H 11/02/18 01:39 Pulse Ox 99 11/02/18 01:39 - Orders/Labs/Meds Orders: Active Orders 24 hr Category Date Time Status EKG Documentation Completion [RC] URGENT Care 11/02/18 00:15 Active Glucose [Blood Glucose Check, Bedside] [RC] ONETIME Care 11/02/18 00:15 Active CXR [Chest 1V Frontal] [CR] Urgent Exams 11/02/18 00:14 Taken CULTURE BLOOD [BC] Stat Lab 11/02/18 00:30 Received CULTURE BLOOD [BC] Stat Lab 11/02/18 00:38 Received Blood Culture x2 Reflex Set [OM.PC] Stat Oth 11/02/18 00:17 Ordered Labs: Laboratory Tests 11/02/18 11/02/18 11/02/18 Range/Units 00:30 00:30 00:30 WBC 11.3 H (5.0-10.0) 10^3/uL RBC 4.72 (4.6-6.2) 10^6/uL Hgb 10.9 L (14.0-18.0) g/dL Hct 34.3 L (40.0-54.0) % MCV 72.7 L (80-100) fL MCH 23.1 L (27.0-34.0) pg MCHC 31.8 L (33.0-35.0) g/dL Plt Count 243 (150-450) 10^3/uL Neut % (Auto) 91.8 H (42.2-75.2) % Lymph % (Auto) 5.3 L (20.5-50.1) % [place] % (Auto) 1.0 L (2-8) % Eos % (Auto) 1.5 (1.0-3.0) % Baso % (Auto) 0.4 (0.0-1.0) % D-Dimer, Quantitative 1550 H (0-400) ng/mL Sodium 136 (135-145) mmol/L Potassium 4.0 (3.6-5.0) mmol/L Chloride 105 (101-111) mmol/L Carbon Dioxide 23.0 (21.0-31.0) mmol/L Anion Gap 12.0 BUN 28 H (7-18) mg/dL Creatinine 1.4 H (0.6-1.3) mg/dL Est Cr Clr Drug Dosing 54.43 mL/min Estimated GFR (MDRD) 52 BUN/Creatinine Ratio 20.00 Glucose 150 H (74-105) mg/dL POC Glucose (70-105) mg/dl Lactic Acid (0.5-2.2) mmol/L Calcium 7.9 L (8.4-10.2) mg/dl Magnesium 1.9 (1.8-2.5) mg/dL Total Bilirubin 0.3 (0.2-1.0) mg/dL AST 50 H (10-42) IU/L ALT 28 (10-60) IU/L Alkaline Phosphatase 107 (42-121) IU/L Troponin I 0.03 H* (0.00-0.02) ng/ml B-Natriuretic Peptide 3310 H (0-100) pg/ml Total Protein 7.1 (6.7-8.2) g/dl Albumin 2.4 L (3.2-5.5) g/dl Globulin 4.7 Albumin/Globulin Ratio 0.51 Urine Color (YELLOW) Urine Appearance (CLEAR) Urine pH (5.0-9.0) Ur Specific [place] (1.005-1.030) Urine Protein (NEGATIVE) Urine Glucose (UA) (NEGATIVE) Urine Ketones (NEGATIVE) Urine Occult Blood (NEGATIVE) Urine Nitrite (NEGATIVE) Urine Bilirubin (NEGATIVE) Urine Urobilinogen (0.2-1.0) mg/dL Ur Leukocyte Esterase (NEGATIVE) Urine RBC /HPF Urine WBC (0-5/HPF) /HPF Ur Epithelial Cells /HPF Amorphous Sediment (0/HPF) /HPF Urine Bacteria (0-FEW/HPF) /HPF Urine Mucus /LPF Urine Opiates Screen (NEGATIVE) Ur Oxycodone Screen (NEGATIVE) Urine Methadone Screen (NEGATIVE) Ur Barbiturates Screen (NEGATIVE) U Tricyclic Antidepress (NEGATIVE) Ur Phencyclidine Scrn (NEGATIVE) Ur Amphetamine Screen (NEGATIVE) U Methamphetamines Scrn (NEGATIVE) Urine MDMA Screen (NEGATIVE) U Benzodiazepines Scrn (NEGATIVE) Urine Cocaine Screen (NEGATIVE) U Marijuana (THC) Screen (NEGATIVE) Ethyl Alcohol < 5 mg/dL 11/02/18 11/02/18 11/02/18 Range/Units 00:30 00:45 01:29 WBC (5.0-10.0) 10^3/uL RBC (4.6-6.2) 10^6/uL Hgb (14.0-18.0) g/dL Hct (40.0-54.0) % MCV (80-100) fL MCH (27.0-34.0) pg MCHC (33.0-35.0) g/dL Plt Count (150-450) 10^3/uL Neut % (Auto) (42.2-75.2) % Lymph % (Auto) (20.5-50.1) % [place] % (Auto) (2-8) % Eos % (Auto) (1.0-3.0) % Baso % (Auto) (0.0-1.0) % D-Dimer, Quantitative (0-400) ng/mL Sodium (135-145) mmol/L Potassium (3.6-5.0) mmol/L Chloride (101-111) mmol/L Carbon Dioxide (21.0-31.0) mmol/L Anion Gap BUN (7-18) mg/dL Creatinine (0.6-1.3) mg/dL Est Cr Clr Drug Dosing mL/min Estimated GFR (MDRD) BUN/Creatinine Ratio Glucose (74-105) mg/dL POC Glucose 148 H (70-105) mg/dl Lactic Acid 1.9 (0.5-2.2) mmol/L Calcium (8.4-10.2) mg/dl Magnesium (1.8-2.5) mg/dL Total Bilirubin (0.2-1.0) mg/dL AST (10-42) IU/L ALT (10-60) IU/L Alkaline Phosphatase (42-121) IU/L Troponin I (0.00-0.02) ng/ml B-Natriuretic Peptide (0-100) pg/ml Total Protein (6.7-8.2) g/dl Albumin (3.2-5.5) g/dl Globulin Albumin/Globulin Ratio Urine Color (YELLOW) Urine Appearance (CLEAR) Urine pH (5.0-9.0) Ur Specific [place] (1.005-1.030) Urine Protein (NEGATIVE) Urine Glucose (UA) (NEGATIVE) Urine Ketones (NEGATIVE) Urine Occult Blood (NEGATIVE) Urine Nitrite (NEGATIVE) Urine Bilirubin (NEGATIVE) Urine Urobilinogen (0.2-1.0) mg/dL Ur Leukocyte Esterase (NEGATIVE) Urine RBC /HPF Urine WBC (0-5/HPF) /HPF Ur Epithelial Cells /HPF Amorphous Sediment (0/HPF) /HPF Urine Bacteria (0-FEW/HPF) /HPF Urine Mucus /LPF Urine Opiates Screen Negative (NEGATIVE) Ur Oxycodone Screen Negative (NEGATIVE) Urine Methadone Screen Negative (NEGATIVE) Ur Barbiturates Screen Negative (NEGATIVE) U Tricyclic Antidepress Negative (NEGATIVE) Ur Phencyclidine Scrn Negative (NEGATIVE) Ur Amphetamine Screen Positive H (NEGATIVE) U Methamphetamines Scrn Positive H (NEGATIVE) Urine MDMA Screen Negative (NEGATIVE) U Benzodiazepines Scrn Negative (NEGATIVE) Urine Cocaine Screen Negative (NEGATIVE) U Marijuana (THC) Screen Negative (NEGATIVE) Ethyl Alcohol mg/dL 11/02/18 Range/Units 01:29 WBC (5.0-10.0) 10^3/uL RBC (4.6-6.2) 10^6/uL Hgb (14.0-18.0) g/dL Hct (40.0-54.0) % MCV (80-100) fL MCH (27.0-34.0) pg MCHC (33.0-35.0) g/dL Plt Count (150-450) 10^3/uL Neut % (Auto) (42.2-75.2) % Lymph % (Auto) (20.5-50.1) % [place] % (Auto) (2-8) % Eos % (Auto) (1.0-3.0) % Baso % (Auto) (0.0-1.0) % D-Dimer, Quantitative (0-400) ng/mL Sodium (135-145) mmol/L Potassium (3.6-5.0) mmol/L Chloride (101-111) mmol/L Carbon Dioxide (21.0-31.0) mmol/L Anion Gap BUN (7-18) mg/dL Creatinine (0.6-1.3) mg/dL Est Cr Clr Drug Dosing mL/min Estimated GFR (MDRD) BUN/Creatinine Ratio Glucose (74-105) mg/dL POC Glucose (70-105) mg/dl Lactic Acid (0.5-2.2) mmol/L Calcium (8.4-10.2) mg/dl Magnesium (1.8-2.5) mg/dL Total Bilirubin (0.2-1.0) mg/dL AST (10-42) IU/L ALT (10-60) IU/L Alkaline Phosphatase (42-121) IU/L Troponin I (0.00-0.02) ng/ml B-Natriuretic Peptide (0-100) pg/ml Total Protein (6.7-8.2) g/dl Albumin (3.2-5.5) g/dl Globulin Albumin/Globulin Ratio Urine Color Yellow (YELLOW) Urine Appearance Clear (CLEAR) Urine pH 5.5 (5.0-9.0) Ur Specific [place] 1.025 (1.005-1.030) Urine Protein >=300 H (NEGATIVE) Urine Glucose (UA) 100 H (NEGATIVE) Urine Ketones Negative (NEGATIVE) Urine Occult Blood Moderate H (NEGATIVE) Urine Nitrite Negative (NEGATIVE) Urine Bilirubin Negative (NEGATIVE) Urine Urobilinogen 0.2 (0.2-1.0) mg/dL Ur Leukocyte Esterase Negative (NEGATIVE) Urine RBC 10-20 H /HPF Urine WBC 5-10 H (0-5/HPF) /HPF Ur Epithelial Cells Rare /HPF Amorphous Sediment Rare (0/HPF) /HPF Urine Bacteria Rare (0-FEW/HPF) /HPF Urine Mucus Rare /LPF Urine Opiates Screen (NEGATIVE) Ur Oxycodone Screen (NEGATIVE) Urine Methadone Screen (NEGATIVE) Ur Barbiturates Screen (NEGATIVE) U Tricyclic Antidepress (NEGATIVE) Ur Phencyclidine Scrn (NEGATIVE) Ur Amphetamine Screen (NEGATIVE) U Methamphetamines Scrn (NEGATIVE) Urine MDMA Screen (NEGATIVE) U Benzodiazepines Scrn (NEGATIVE) Urine Cocaine Screen (NEGATIVE) U Marijuana (THC) Screen (NEGATIVE) Ethyl Alcohol mg/dL Meds: Medications Discontinued Medications Generic Name Dose Route Start Last Admin Trade Name Jenny PRN Reason Stop Dose Admin Acetaminophen 650 mg 11/02/18 00:31 11/02/18 00:56 Tylenol PO 11/02/18 00:32 650 mg NOW ONE Administration Furosemide 40 mg 11/02/18 00:26 11/02/18 00:55 Lasix IVPUSH 11/02/18 00:27 40 mg NOW ONE Administration Ceftriaxone Sodium 1,000 mg/ 100 mls @ 200 mls/hr 11/02/18 01:27 11/02/18 01: 37 Sodium Chloride IV 11/02/18 01:56 200 mls/hr ONETIME ONE Administration - Radiology Interpretation Free Text/Narrative:: Name: ABHILASH SAHA Age: 57Years M Date: 11/02/2018 SSN: -- : [id number] Study: XR CHEST 1 VIEW Requesting Physician: EMILE BARRIGA Images: 1 Addl Studies: Provided Clinical History: Contrast: Contrast Medium: Contrast Amount: Contrast Method: CONFIDENTIALITY STATEMENT This report is intended only for use by the referring physician, and only in accordance with law. If you received this in error, call [phone]. Page 1 of 1 EXAM: XR Chest, 1 View EXAM DATE/TIME: 11/02/2018 12:23 AM CLINICAL HISTORY: 57 years old, male; Signs and symptoms; Dyspnea and fever and other: Edema TECHNIQUE: Imaging protocol: XR of the chest, 1 view. COMPARISON: CR Chest 1V Frontal 10/08/2018 10:53 AM FINDINGS: Lungs: Mild pulmonary vascular congestion. Pleural space: No pneumothorax. No sizable pleural effusion. Heart/Mediastinum: Cardiomegaly. Bones/joints: Unremarkable. IMPRESSION: Mild pulmonary vascular congestion. Thank you for allowing us to participate in the care of your patient. Dictated and Authenticated by: Juan Law MD 11/02/2018 1:18 AM Central Time ([place] & [place]) - Re-Assessments/Exams Free Text/Narrative Re-Assessment/Exam: 11/02/18 01:36 TC Zohaib Oates, accepting of patient. Tx via [facility]. Departure - Departure Time of Disposition: 02:05 Disposition: DC/Tfer to Acute Hospital 02 Reason for Transfer *Q: Other Condition: Fair Clinical Impression: Elevated brain natriuretic peptide (BNP) level, Methamphetamine abuse Diabetes Qualifiers: Diabetes mellitus type: type 2 Diabetes mellitus halfway insulin use: unspecified halfway insulin use status Diabetes mellitus complication status: with unspecified complications Qualified Code(s): E11.8 - Type 2 diabetes mellitus with unspecified complications CHF (congestive heart failure) Qualifiers: Heart failure type: unspecified Heart failure chronicity: acute on chronic Qualified Code(s): I50.9 - Heart failure, unspecified Forms: ED Department Discharge - My Orders Last 24 Hours: My Active Orders 11/02/18 00:14 CXR [Chest 1V Frontal] [CR] Urgent 11/02/18 00:15 EKG Documentation Completion [RC] URGENT Glucose [Blood Glucose Check, Bedside] [RC] ONETIME 11/02/18 00:17 Blood Culture x2 Reflex Set [OM.PC] Stat 11/02/18 00:30 CULTURE BLOOD [BC] Stat 11/02/18 00:38 CULTURE BLOOD [BC] Stat - Assessment/Plan Last 24 Hours: My Active Orders 11/02/18 00:14 CXR [Chest 1V Frontal] [CR] Urgent 11/02/18 00:15 EKG Documentation Completion [RC] URGENT Glucose [Blood Glucose Check, Bedside] [RC] ONETIME 11/02/18 00:17 Blood Culture x2 Reflex Set [OM.PC] Stat 11/02/18 00:30 CULTURE BLOOD [BC] Stat 11/02/18 00:38 CULTURE BLOOD [BC] Stat
[2018-11-02 01:04] LABS: CHLORIDE,CL 105 mmol/L (101-111); SODIUM,NA 136 mmol/L (135-145)
[2018-11-02 01:40] VITALS: BP 142/83
== END 2018-11-02 02:05 ==
LOC: DL.ED 00:10
DX: I11.0 Hypertensive heart disease with heart failure (principal); I50.9 Heart failure, unspecified; R79.89 Other specified abnormal findings of blood chemistry; E11.8 Type 2 diabetes mellitus with unspecified complications; E11.21 Type 2 diabetes mellitus with diabetic nephropathy; Z79.82 Long term (current) use of aspirin
CPT/HCPCS: 36415; 71045; 80053; 80305; 81001; 82962; 83605; 83735; 83880; 84484; 85025; 85379; 87040; 93005; 99285; A9270; G0480; J0696; J1940; J7050

== ENCOUNTER 2018-11-08 08:54 | Inpatient (IN) | payer MEDICAID ==
--- NOTE | 2018-11-08 09:13 | EDM.PDOC ---
ED HPI GENERAL MEDICAL PROBLEM - General Chief Complaint: Respiratory Problem Stated Complaint: TROUBLE BREATHING Time Seen by Provider: 11/08/18 09:00 Source of Information: Reports: Patient History Limitations: Reports: No Limitations - History of Present Illness INITIAL COMMENTS - FREE TEXT/NARRATIVE: Comes emergency Department today with complaints of difficulty breathing as well as swelling in his legs. He has been struggling with this over the past couple weeks. He is a rather poor historian at best. He was seen in the emergency department on 11/02/18 and sent to [place] due to an elevated BNP. He was sent home on Lasix 40 mg twice a day. He has been urinating quite a bit more but he still notes quite a bit of swelling in his lower extremities and he still short of breath. His shortness of breath has improved since his hospitalization although the swelling in his legs has gotten much worse. He has had a dry hacking nonproductive cough. A subjective fever. No chills. No weakness dizziness lightheadedness. No syncope. No abdominal pain. No nausea no vomiting. No diarrhea. His legs are very sore and tender. HE is suppose to be weighing himself daily at home although he hasn't been doing that and feels that he has lost about 2 lbs since his hospitalization in [place]. Leg Pain Score (Numeric/FACES): 7 - Related Data Allergies Allergy/AdvReac Type Severity Reaction Status Date / Time No Known Allergies Allergy Verified 11/08/18 09:07 Home Meds: Home Meds Aspirin [Lo-Dose Aspirin EC] 81 mg PO DAILY 08/22/18 [History] Carvedilol 6.25 mg PO BIDMEALS 08/22/18 [History] Gabapentin [Neurontin] 600 mg PO TID 08/22/18 [History] Insulin NPH/Insulin Reg,Human [Novolin 70-30] 45 units SQ BID 08/22/18 [History] Omeprazole 20 mg PO DAILY 08/22/18 [History] Simvastatin 10 mg PO BEDTIME 08/22/18 [History] glyBURIDE [Glyburide] 5 mg PO BID 08/22/18 [History] Furosemide [Lasix] 40 mg PO BIDDIURETIC #30 tablet 08/24/18 [Rx] Past Medical History HEENT History: Reports: None Cardiovascular History: Reports: Heart Failure, High Cholesterol, Hypertension, Other (See Below) Other Cardiovascular History: non-ischemic cardiomyopathy Respiratory History: Reports: Bronchitis, Recurrent, PE, Other (See Below) Other Respiratory History: ARDS (acute respiratory distress syndrome) Gastrointestinal History: Reports: GERD Other Gastrointestinal History: Spouse states client used to take medication for his stomach, but cannot recall why and cannot recall which medication. Genitourinary History: Reports: Diabetic Nephropathy, Other (See Below) Other Genitourinary History: Acute kidney injury Musculoskeletal History: Reports: Arthritis, Back Pain, Chronic, Fracture, Other (See Below) Other Musculoskeletal History: "Multiple fractures" Neurological History: Reports: Head Trauma, Other (See Below) Other Neuro History: fractured jody Psychiatric History: Reports: Addiction, Anxiety Endocrine/Metabolic History: Reports: Diabetes, Type II, IDDM Hematologic History: Reports: None Immunologic History: Reports: None Oncologic (Cancer) History: Reports: None Dermatologic History: Reports: Cellulitis - Infectious Disease History Infectious Disease History: Reports: Hepatitis C Other Infectious Disease History: states client has hepatitis, but unable to recall which type. - Past Surgical History Head Surgeries/Procedures: Reports: None Cardiovascular Surgical History: Reports: None, Other (See Below) Respiratory Surgical History: Reports: Thoracentesis GI Surgical History: Reports: Appendectomy Endocrine Surgical History: Reports: None Neurological Surgical History: Reports: None Musculoskeletal Surgical History: Reports: None Dermatological Surgical History: Reports: None Social & Family History - Family History Family Medical History: Noncontributory Endocrine/Metabolic: Reports: Diabetes, type II Oncologic: Reports: Other (See Below) Other Oncologic Family History: spouse states HX of cancer in family, but unable to recall which type - Caffeine Use Caffeine Use: Reports: Coffee, Soda ED ROS GENERAL - Review of Systems Review Of Systems: ROS reveals no pertinent complaints other than HPI. ED EXAM, GENERAL - Physical Exam Exam: See Below Exam Limited By: No Limitations General Appearance: Alert, WD/WN, No Apparent Distress Eye Exam: Bilateral Eye: Normal Inspection Ears: Normal External Exam Nose: Normal Inspection Throat/Mouth: Normal Inspection, Normal Lips, Normal Teeth, Normal Voice, No Airway Compromise Head: Atraumatic, Normocephalic Neck: Normal Inspection, Supple Respiratory/Chest: No Respiratory Distress, No Accessory Muscle Use, Chest Non- Tender, Crackles (Findings inspiratory crackles bilaterally). No: Lungs Clear, Normal Breath Sounds, Respiratory Distress, Rales, Rhonchi, Wheezing, Accessory Muscle Use Cardiovascular: Normal Peripheral Pulses, Regular Rate, Rhythm Peripheral Pulses: 1+: Posterior Tibial (L), Posterior Tibial (R), Dorsalis Pedis (L), Dorsalis Pedis (R), 2+: Radial (L), Radial (R), Popliteal (L), Popliteal (R) GI/Abdominal: Normal Bowel Sounds, Soft, Non-Tender Back Exam: Normal Inspection Extremities: Normal Range of Motion, Normal Capillary Refill, Pedal Edema ( There is 2-3+ pitting edema bilateral lower extremities up to the knees.) Neurological: Alert, Oriented, Normal Cognition, No Motor/Sensory Deficits Psychiatric: Normal Affect, Normal Mood Skin Exam: Warm, Dry, Intact, Normal Color, No Rash EKG INTERPRETATION EKG Date: 11/08/18 Time: 09:12 Rhythm: NSR Rate (Beats/Min): 85 [place]: Normal P-Wave: Present QRS: Normal ST-T: Normal QT: Normal Comparison: No Change Course - Vital Signs Last Recorded V/S: Last Vital Signs Temp 36.6 C 11/08/18 08:59 Pulse 88 11/08/18 08:59 Resp 18 11/08/18 08:59 BP 127/78 11/08/18 08:59 Pulse Ox 100 11/08/18 08:59 - Orders/Labs/Meds Orders: Active Orders 24 hr Category Date Time Status EKG 12 Lead [EKG Documentation Completion] [RC] URGENT Care 11/08/18 09:08 Active Peripheral IV Care [RC] . DIRECTED Care 11/08/18 09:09 Active UA W/MICROSCOPIC [URIN] Stat Lab 11/08/18 09:20 Results Sodium Chloride 0.9% [Saline Flush] Med 11/08/18 09:08 Active 10 ml FLUSH ASDIRECTED PRN Peripheral IV Insertion Adult [OM.PC] Stat Oth 11/08/18 09:08 Ordered Medication Orders Sodium Chloride (Saline Flush) 10 ml FLUSH ASDIRECTED PRN PRN Reason: Keep Vein Open Last Admin: 11/08/18 09:17 Dose: 10 ml Labs: Laboratory Tests 11/08/18 11/08/18 11/08/18 Range/Units 09:05 09:05 09:20 WBC 6.3 (5.0-10.0) 10^3/uL RBC 5.24 (4.6-6.2) 10^6/uL Hgb 12.0 L (14.0-18.0) g/dL Hct 38.2 L (40.0-54.0) % MCV 72.9 L (80-100) fL MCH 22.9 L (27.0-34.0) pg MCHC 31.4 L (33.0-35.0) g/dL Plt Count 258 (150-450) 10^3/uL Neut % (Auto) 54.7 (42.2-75.2) % Lymph % (Auto) 26.7 (20.5-50.1) % [place] % (Auto) 12.2 H (2-8) % Eos % (Auto) 5.6 H (1.0-3.0) % Baso % (Auto) 0.8 (0.0-1.0) % Sodium 132 L (135-145) mmol/L Potassium 4.3 (3.6-5.0) mmol/L Chloride 100 L (101-111) mmol/L Carbon Dioxide 23.0 (21.0-31.0) mmol/L Anion Gap 13.3 BUN 32 H (7-18) mg/dL Creatinine 1.7 H (0.6-1.3) mg/dL Est Cr Clr Drug Dosing 44.82 mL/min Estimated GFR (MDRD) 42 BUN/Creatinine Ratio 18.82 Glucose 213 H (74-105) mg/dL Calcium 8.2 L (8.4-10.2) mg/dl Total Bilirubin 0.2 (0.2-1.0) mg/dL AST 43 H (10-42) IU/L ALT 33 (10-60) IU/L Alkaline Phosphatase 169 H (42-121) IU/L Troponin I 0.03 H* (0.00-0.02) ng/ml B-Natriuretic Peptide 3670 H (0-100) pg/ml Total Protein 7.9 (6.7-8.2) g/dl Albumin 2.7 L (3.2-5.5) g/dl Globulin 5.2 Albumin/Globulin Ratio 0.52 Urine Color Yellow (YELLOW) Urine Appearance Clear (CLEAR) Urine pH 5.5 (5.0-9.0) Ur Specific [place] >= 1.030 (1.005-1.030) Urine Protein >=300 H (NEGATIVE) Urine Glucose (UA) 100 H (NEGATIVE) Urine Ketones Negative (NEGATIVE) Urine Occult Blood Small H (NEGATIVE) Urine Nitrite Negative (NEGATIVE) Urine Bilirubin Negative (NEGATIVE) Urine Urobilinogen 0.2 (0.2-1.0) mg/dL Ur Leukocyte Esterase Negative (NEGATIVE) Meds: Medications Generic Name Dose Route Start Last Admin Trade Name Freq PRN Reason Stop Dose Admin Sodium Chloride 10 ml 11/08/18 09:08 11/08/18 09:17 Saline Flush FLUSH 10 ml ASDIRECTED PRN Administration Keep Vein Open Discontinued Medications Generic Name Dose Route Start Last Admin Trade Name Freq PRN Reason Stop Dose Admin Furosemide 40 mg 11/08/18 09:51 Lasix IVPUSH 11/08/18 09:52 NOW ONE - Radiology Interpretation Free Text/Narrative:: CXR per radiology showing CHF> - Re-Assessments/Exams Free Text/Narrative Re-Assessment/Exam: 11/08/18 09:58 I did review the outside records from [facility]. His medication list and they [facility] did not have the Lasix 40 mg twice a day that he has been taking at home. He was started on 20 mg of Lasix daily as well as potassium when he was sent home. His weight when he was discharged was 184 pounds. He is 195 pounds today. He was given 40 mg of Lasix in the emergency department. His creatinine level is slightly elevated from last time. With his 10 pound weight gain and is elevating creatinine I feel that he needs some monitored diuresis and ensuring medication compliance. I spoke with Dr. Gonzalez and he accepted the patient in transfer at this time. 11/08/18 10:06 Departure - Departure Time of Disposition: 10:05 Disposition: Admitted As Inpatient 66 Clinical Impression: Elevated serum creatinine CHF (congestive heart failure) Qualifiers: Heart failure type: unspecified Heart failure chronicity: acute on chronic Qualified Code(s): I50.9 - Heart failure, unspecified - Discharge Information Referrals: Ry Fragoso, [facility] MAN [Primary Care Provider] - Forms: ED Department Discharge - My Orders Last 24 Hours: My Active Orders 11/08/18 09:08 EKG 12 Lead [EKG Documentation Completion] [RC] URGENT Sodium Chloride 0.9% [Saline Flush] 10 ml FLUSH ASDIRECTED PRN Peripheral IV Insertion Adult [OM.PC] Stat 11/08/18 09:09 Peripheral IV Care [RC] . DIRECTED 11/08/18 09:20 UA W/MICROSCOPIC [URIN] Stat - Assessment/Plan Last 24 Hours: My Active Orders 11/08/18 09:08 EKG 12 Lead [EKG Documentation Completion] [RC] URGENT Sodium Chloride 0.9% [Saline Flush] 10 ml FLUSH ASDIRECTED PRN Peripheral IV Insertion Adult [OM.PC] Stat 11/08/18 09:09 Peripheral IV Care [RC] . DIRECTED 11/08/18 09:20 UA W/MICROSCOPIC [URIN] Stat Assessment:: CHF with recent hospitalization with a 10# weight gain since hospitalization. Elevating serum creatinine.
[2018-11-08] MEDS: Sodium Chloride 0.9% 10 ML Syringe FLUSH PRN ×2 (09:17→09:59)
[2018-11-08 09:37] LABS: ANION GAP 13.3
--- NOTE | 2018-11-08 09:43 | CR ---
Clinical history: 57-year-old male complaining of shortness of breath (significantly the patient has been diagnosed with "CHF" 2 times in the recent past i.e. 08 October and 02 November CXR). Interpretation: PA lateral chest abnormal. Enlarged cardiac silhouette and generalized pulmonary venous congestion with cephalization of flow. No alveolar fluid however there is evidence of bibasilar dependent subpulmonic pleural fluid accumulation with fluid extending into the fissures.. Right heart border partially silhouetted suggesting patchy middle lobe atelectasis or developing infiltrate. Clinical? No new lung mass hilar lymphadenopathy or other focal lobar consolidation. CONCLUSION: CHF.
[2018-11-08] MEDS ORDERED: Furosemide 40 MG/4 ML VIAL IVPUSH ONE (09:51)
[2018-11-08] MEDS ORDERED: Acetaminophen 325 MG Tab PO PRN (11:07)
[2018-11-08] MEDS ORDERED: 50% Dextrose in Water 50 ML Syringe IVPUSH PRN (11:10)
[2018-11-08] MEDS ORDERED: Albuterol 6.7 GM Inhaler INH PRN (11:30)
--- NOTE | 2018-11-08 11:51 | PCM.HP ---
H&P History of Present Illness - General Date of Service: 11/08/18 Admit Problem/Dx: Admission Diagnosis/Problem Admission Diagnosis/Problem CHF, Congestive heart failure Source of Information: Patient - History of Present Illness Initial Comments - Free Text/Narative: 57-year-old gentleman with a history of congestive heart failure secondary to severe systolic dysfunction with ejection fraction around 25%, diabetes. The patient presented with increasing lower extremity swelling, shortness of breath, worse with laying down and activity. He was recently hospitalized at [facility] and was treated for congestive heart failure. He says he used to take Lasix 40 mg twice a day before the admission and after discharge she was on 20 mg daily. On the day of admission the patient was seen by visiting nurse and note was noted to have significant edema. He was recommended to come to the emergency room. He has a dry cough but no sputum production, no fever associated with this, no sick contact. Leg Pain Score (Numeric/FACES): 7 - Related Data Allergies/Adverse Reactions: Allergies Allergy/AdvReac Type Severity Reaction Status Date / Time No Known Allergies Allergy Verified 11/08/18 11:02 Home Medications: Home Meds Aspirin [Lo-Dose Aspirin EC] 81 mg PO DAILY 08/22/18 [History] Carvedilol 6.25 mg PO BIDMEALS 08/22/18 [History] Gabapentin [Neurontin] 600 mg PO TID 08/22/18 [History] Insulin NPH/Insulin Reg,Human [Novolin 70-30] 50 units SQ BID 08/22/18 [History] Omeprazole 20 mg PO DAILY 08/22/18 [History] Simvastatin 10 mg PO BEDTIME 08/22/18 [History] glyBURIDE [Glyburide] 5 mg PO BID 08/22/18 [History] Furosemide [Lasix] 40 mg PO BIDDIURETIC #30 tablet 08/24/18 [Rx] Albuterol Sulfate [Proair Hfa] 1 puff INH Q6HR PRN 11/08/18 [History] Cetirizine HCl 10 mg PO DAILY PRN 11/08/18 [History] Magnesium Oxide [Magnesium] 400 mg PO DAILY 11/08/18 [History] Tiotropium [Spiriva HandiHaler] 18 mcg INH DAILY 11/08/18 [History] Past Medical History HEENT History: Reports: None Cardiovascular History: Reports: Heart Failure, High Cholesterol, Hypertension, Other (See Below) Other Cardiovascular History: non-ischemic cardiomyopathy Respiratory History: Reports: Bronchitis, Recurrent, PE, Other (See Below) Other Respiratory History: ARDS (acute respiratory distress syndrome) Gastrointestinal History: Reports: GERD Other Gastrointestinal History: Spouse states client used to take medication for his stomach, but cannot recall why and cannot recall which medication. Genitourinary History: Reports: Diabetic Nephropathy, Other (See Below) Other Genitourinary History: Acute kidney injury Musculoskeletal History: Reports: Arthritis, Back Pain, Chronic, Fracture, Other (See Below) Other Musculoskeletal History: "Multiple fractures" Neurological History: Reports: Head Trauma, Other (See Below) Other Neuro History: fractured jody Psychiatric History: Reports: Addiction, Anxiety Endocrine/Metabolic History: Reports: Diabetes, Type II, IDDM Hematologic History: Reports: None Immunologic History: Reports: None Oncologic (Cancer) History: Reports: None Dermatologic History: Reports: Cellulitis - Infectious Disease History Infectious Disease History: Reports: Hepatitis C Other Infectious Disease History: states client has hepatitis, but unable to recall which type. - Past Surgical History Head Surgeries/Procedures: Reports: None Cardiovascular Surgical History: Reports: None, Other (See Below) Respiratory Surgical History: Reports: Thoracentesis GI Surgical History: Reports: Appendectomy Endocrine Surgical History: Reports: None Neurological Surgical History: Reports: None Musculoskeletal Surgical History: Reports: None Dermatological Surgical History: Reports: None Social & Family History - Family History Family Medical History: Noncontributory Endocrine/Metabolic: Reports: Diabetes, type II Oncologic: Reports: Other (See Below) Other Oncologic Family History: spouse states HX of cancer in family, but unable to recall which type - Tobacco Use Smoking Status *Q: Former Smoker Years of Tobacco use: 20 Packs/Tins Daily: 1 Used Tobacco, but Quit: Yes Month/Year Tobacco Last Used: August 2018 Second Hand Smoke Exposure: No - Caffeine Use Caffeine Use: Reports: Coffee, Soda - Recreational Drug Use Recreational Drug Use: No H&P Review of Systems - Review of Systems: Review Of Systems: See Below General: Denies: Fever, Chills Pulmonary: Reports: Shortness of Breath (With activity and laying down), Cough. Denies: Sputum Cardiovascular: Denies: Chest Pain Gastrointestinal: Denies: Abdominal Pain Psychiatric: Denies: Confusion Exam - Exam Exam: See Below - Vital Signs Vital Signs: Last Vital Signs Temp 36.9 C 11/08/18 10:56 Pulse 83 11/08/18 10:56 Resp 18 11/08/18 10:56 BP 132/84 11/08/18 10:56 Pulse Ox 100 11/08/18 11:08 Weight: 88.269 kg - Exam General: Alert, Oriented Neck: Supple Lungs: Decreased Breath Sounds. No: Wheezing Cardiovascular: Regular Rate, Regular Rhythm GI/Abdominal Exam: No Distention, No Abnormal Bruit, No Mass Extremities: Pedal Edema (3+ bilateral) - Patient Data Lab Results Last 24 hrs: Laboratory Results - last 24 hr 11/08/18 11/08/18 11/08/18 Range/Units 09:05 09:05 09:20 WBC 6.3 (5.0-10.0) 10^3/uL RBC 5.24 (4.6-6.2) 10^6/uL Hgb 12.0 L (14.0-18.0) g/dL Hct 38.2 L (40.0-54.0) % MCV 72.9 L (80-100) fL MCH 22.9 L (27.0-34.0) pg MCHC 31.4 L (33.0-35.0) g/dL Plt Count 258 (150-450) 10^3/uL Neut % (Auto) 54.7 (42.2-75.2) % Lymph % (Auto) 26.7 (20.5-50.1) % [place] % (Auto) 12.2 H (2-8) % Eos % (Auto) 5.6 H (1.0-3.0) % Baso % (Auto) 0.8 (0.0-1.0) % Sodium 132 L (135-145) mmol/L Potassium 4.3 (3.6-5.0) mmol/L Chloride 100 L (101-111) mmol/L Carbon Dioxide 23.0 (21.0-31.0) mmol/L Anion Gap 13.3 BUN 32 H (7-18) mg/dL Creatinine 1.7 H (0.6-1.3) mg/dL Est Cr Clr Drug Dosing 44.82 mL/min Estimated GFR (MDRD) 42 BUN/Creatinine Ratio 18.82 Glucose 213 H (74-105) mg/dL POC Glucose (70-105) mg/dl Calcium 8.2 L (8.4-10.2) mg/dl Total Bilirubin 0.2 (0.2-1.0) mg/dL AST 43 H (10-42) IU/L ALT 33 (10-60) IU/L Alkaline Phosphatase 169 H (42-121) IU/L Troponin I 0.03 H* (0.00-0.02) ng/ml B-Natriuretic Peptide 3670 H (0-100) pg/ml Total Protein 7.9 (6.7-8.2) g/dl Albumin 2.7 L (3.2-5.5) g/dl Globulin 5.2 Albumin/Globulin Ratio 0.52 Urine Color Yellow (YELLOW) Urine Appearance Clear (CLEAR) Urine pH 5.5 (5.0-9.0) Ur Specific [place] >= 1.030 (1.005-1.030) Urine Protein >=300 H (NEGATIVE) Urine Glucose (UA) 100 H (NEGATIVE) Urine Ketones Negative (NEGATIVE) Urine Occult Blood Small H (NEGATIVE) Urine Nitrite Negative (NEGATIVE) Urine Bilirubin Negative (NEGATIVE) Urine Urobilinogen 0.2 (0.2-1.0) mg/dL Ur Leukocyte Esterase Negative (NEGATIVE) Urine RBC 5-10 H /HPF Urine WBC 0-5 (0-5/HPF) /HPF Ur Epithelial Cells Few /HPF Amorphous Sediment Few (0/HPF) /HPF Urine Bacteria Moderate H (0-FEW/HPF) /HPF Hyaline Casts Moderate H /LPF Granular Casts Few /LPF Urine Mucus Few H /LPF 11/08/18 Range/Units 11:18 WBC (5.0-10.0) 10^3/uL RBC (4.6-6.2) 10^6/uL Hgb (14.0-18.0) g/dL Hct (40.0-54.0) % MCV (80-100) fL MCH (27.0-34.0) pg MCHC (33.0-35.0) g/dL Plt Count (150-450) 10^3/uL Neut % (Auto) (42.2-75.2) % Lymph % (Auto) (20.5-50.1) % [place] % (Auto) (2-8) % Eos % (Auto) (1.0-3.0) % Baso % (Auto) (0.0-1.0) % Sodium (135-145) mmol/L Potassium (3.6-5.0) mmol/L Chloride (101-111) mmol/L Carbon Dioxide (21.0-31.0) mmol/L Anion Gap BUN (7-18) mg/dL Creatinine (0.6-1.3) mg/dL Est Cr Clr Drug Dosing mL/min Estimated GFR (MDRD) BUN/Creatinine Ratio Glucose (74-105) mg/dL POC Glucose 206 H (70-105) mg/dl Calcium (8.4-10.2) mg/dl Total Bilirubin (0.2-1.0) mg/dL AST (10-42) IU/L ALT (10-60) IU/L Alkaline Phosphatase (42-121) IU/L Troponin I (0.00-0.02) ng/ml B-Natriuretic Peptide (0-100) pg/ml Total Protein (6.7-8.2) g/dl Albumin (3.2-5.5) g/dl Globulin Albumin/Globulin Ratio Urine Color (YELLOW) Urine Appearance (CLEAR) Urine pH (5.0-9.0) Ur Specific [place] (1.005-1.030) Urine Protein (NEGATIVE) Urine Glucose (UA) (NEGATIVE) Urine Ketones (NEGATIVE) Urine Occult Blood (NEGATIVE) Urine Nitrite (NEGATIVE) Urine Bilirubin (NEGATIVE) Urine Urobilinogen (0.2-1.0) mg/dL Ur Leukocyte Esterase (NEGATIVE) Urine RBC /HPF Urine WBC (0-5/HPF) /HPF Ur Epithelial Cells /HPF Amorphous Sediment (0/HPF) /HPF Urine Bacteria (0-FEW/HPF) /HPF Hyaline Casts /LPF Granular Casts /LPF Urine Mucus /LPF Result Diagrams: 11/08/18 09:05 11/08/18 09:05 Imaging Impressions Last 24 hrs: Chest x-ray per my reading shows congestive heart failure, small bilateral pleural effusion - Problem List (1) CHF (congestive heart failure) SNOMED Code(s): 09235340 ICD Code: I50.9 - HEART FAILURE, UNSPECIFIED Status: Acute Current Visit : Yes Qualifiers: Heart failure type: unspecified Heart failure chronicity: acute on chronic Qualified Code(s): I50.9 - Heart failure, unspecified (2) Elevated serum creatinine SNOMED Code(s): 796571160 ICD Code: R79.89 - OTHER SPECIFIED ABNORMAL FINDINGS OF BLOOD CHEMISTRY Status: Acute Current Visit: Yes (3) Diabetes SNOMED Code(s): 12389923 ICD Code: E11.9 - TYPE 2 DIABETES MELLITUS WITHOUT COMPLICATIONS Status: Acute Current Visit: No Qualifiers: Diabetes mellitus type: type 2 Diabetes mellitus correction insulin use: unspecified long term care administrator insulin use status Diabetes mellitus complication status : with unspecified complications Qualified Code(s): E11.8 - Type 2 diabetes mellitus with unspecified complications (4) SOB (shortness of breath) SNOMED Code(s): 764306190 ICD Code: R06.02 - SHORTNESS OF BREATH Status: Acute Current Visit: No Problem List Initiated/Reviewed/Updated: Yes Orders Last 24hrs: Active Orders 24 hr Category Date Time Status Patient Status [ADT] Routine ADT 11/08/18 11:08 Active Antiembolic Devices [RC] PER UNIT ROUTINE Care 11/08/18 11:09 Active Glucose [Blood Glucose Check, Bedside] [RC] QIDACANDBED Care 11/08/18 11:10 Active Oxygen Therapy [RC] PRN Care 11/08/18 11:08 Active Peripheral IV Care [RC] ,21 Care 11/08/18 09:09 Active Up With Assistance [RC] ASDIRECTED Care 11/08/18 11:07 Active VTE/DVT Education [RC] PER UNIT ROUTINE Care 11/08/18 11:08 Active Vital Signs [RC] Q4H Care 11/08/18 11:08 Active 2 Gram Sodium Diet [DIET] Diet 11/08/18 Lunch Active BASIC METABOLIC PANEL,BMP [CHEM] AM Lab 11/09/18 05:11 Ordered CBC WITH AUTO DIFF [HEME] AM Lab 11/09/18 05:11 Ordered TROPONIN I [CHEM] AM Lab 11/09/18 05:11 Ordered Acetaminophen [Tylenol] Med 11/08/18 11:07 Active 650 mg PO Q4HR PRN Albuterol [Proventil HFA] Med 11/08/18 11:11 Ordered DOSE gm INH Q6HR PRN Aspirin [Halfprin] Med 11/09/18 09:00 Active 81 mg PO DAILY Carvedilol [Coreg] Med 11/08/18 18:00 Ordered 6.25 mg PO BIDMEALS Dextrose 50% in Water Med 11/08/18 11:10 Active 25 ml IVPUSH Q1H PRN Furosemide [Lasix] Med 11/08/18 12:00 Active 40 mg IVPUSH 0800,1200,1600 Gabapentin [Neurontin] Med 11/08/18 14:00 Active 100 mg PO TID Heparin Sodium Med 11/08/18 14:00 Active 5,000 units SUBCUT Q8HR Insulin Lispro [HumaLOG] Med 11/08/18 17:00 Active See Protocol SUBCUT ACBED Insulin NPH/Insulin Reg,Human [NovoLIN 70-30] Med 11/08/18 21:00 Active 45 unit SUBCUT BID Magnesium Oxide [Magnesium] Med 11/09/18 09:00 Ordered 400 mg PO DAILY Omeprazole Med 11/09/18 09:00 Ordered 20 mg PO DAILY Simvastatin [Zocor] Med 11/08/18 21:00 Ordered 10 mg PO BEDTIME Sodium Chloride 0.9% [Saline Flush] Med 11/08/18 11:07 Active 10 ml FLUSH ASDIRECTED PRN Tiotropium [Spiriva HandiHaler] Med 11/08/18 11:15 Ordered 18 mcg INH DAILY Zolpidem [Ambien] Med 11/08/18 21:00 Active 5 mg PO BEDTIME PRN glyBURIDE [Micronase] Med 11/08/18 21:00 Ordered 5 mg PO BID Antiembolic Hose [OM.PC] Per Unit Routine Oth 11/08/18 11:08 Ordered Peripheral IV Insertion Adult [OM.PC] Stat Oth 11/08/18 09:08 Ordered Saline Lock Insert [OM.PC] Routine Oth 11/08/18 11:07 Ordered Resuscitation Status Routine Resus Stat 11/08/18 11:07 Ordered Medication Orders Acetaminophen (Tylenol) 650 mg PO Q4HR PRN PRN Reason: Pain (Mild 1-3)/fever Albuterol (Proventil Hfa) 0 gm INH Q6HR PRN PRN Reason: Shortness of Breath Aspirin (Halfprin) 81 mg PO DAILY [facility] Carvedilol (Coreg) 6.25 mg PO BIDMEALS [facility] Dextrose/Water (Dextrose 50% In Water) 25 ml IVPUSH Q1H PRN PRN Reason: blood sugar <70 Furosemide (Lasix) 40 mg IVPUSH 0800,1200,1600 [facility] Gabapentin (Neurontin) 600 mg PO TID [facility] Glyburide (Micronase) 5 mg PO BID [facility] Heparin Sodium (Porcine) (Heparin Sodium) 5,000 units SUBCUT Q8HR [facility] Insulin Human Isoph/Insulin Regular (Novolin 70-30) 45 unit SUBCUT BID [facility] Insulin Human Lispro (Humalog) 0 unit SUBCUT ACBED [facility]; Protocol Magnesium Oxide (Magnesium Oxide) 500 mg PO DAILY [facility] Omeprazole (Omeprazole) 20 mg PO DAILY@0600 [facility] Simvastatin (Zocor) 10 mg PO BEDTIME [facility] Sodium Chloride (Saline Flush) 10 ml FLUSH ASDIRECTED PRN PRN Reason: Keep Vein Open Tiotropium [place] (Spiriva Handihaler) 18 mcg INH DAILY [facility] Zolpidem Tartrate (Ambien) 5 mg PO BEDTIME PRN PRN Reason: Sleep Assessment/Plan Comment:: 57-year-old presented with increasing shortness of breath, lower extremity swelling. Acute systolic congestive heart failure Last ejection fraction was around 25%, history of nonischemic cardiomyopathy The patient was on lower diuretic dose than previously following recent hospital discharge Will start IV diuretic with Lasix 3 times a day Continue Coreg Follow electrolytes and replace them as needed Not starting on JASSI inhibitor, ARB due to renal failure Acute renal failure with a history of chronic kidney disease stage III with fluid overload Monitor with diuretics Diabetes Continue Humulin 70/30, glyburide Use supplemental insulin and hypoglycemia treatment as needed Diabetic neuropathy Continue Neurontin, decreased dose given the renal failure DVT prophylaxis with subcutaneous heparin
[2018-11-08] MEDS: Insulin Lispro 100 Units/ML 3 ML Vial SUBCUT SCH ×3 (12:07→22:20)
[2018-11-08] MEDS: Furosemide 40 MG/4 ML VIAL IVPUSH SCH ×2 (12:07→16:52)
[2018-11-08] MEDS: Gabapentin 300 MG Cap PO SCH ×2 (15:07→22:20)
[2018-11-08] MEDS: Heparin Sodium 5,000 Units/ML Vial SUBCUT SCH ×2 (15:09→22:20)
[2018-11-08] MEDS: glyBURIDE 5 MG Tab PO SCH ×3 (17:28→17:48)
[2018-11-08] MEDS: Carvedilol 6.25 MG Tab PO SCH (17:28)
[2018-11-08] MEDS: Insulin NPH/Insulin Regular,Human 70-30 100 Units/ML 10 ML Vial SUBCUT SCH (17:30)
[2018-11-08] MEDS ORDERED: Zolpidem 5 MG Tab PO PRN (21:00)
[2018-11-08] MEDS ORDERED: Simvastatin 10 MG Tab PO SCH (21:00)
[2018-11-09] MEDS ORDERED: Omeprazole 20 MG Cap.CR PO SCH (06:00)
[2018-11-09] MEDS: Heparin Sodium 5,000 Units/ML Vial SUBCUT SCH ×2 (06:46→13:38)
[2018-11-09 07:08] LABS: ANION GAP 12.4
[2018-11-09] MEDS: Insulin Lispro 100 Units/ML 3 ML Vial SUBCUT SCH ×2 (08:18→12:10)
[2018-11-09] MEDS: Carvedilol 6.25 MG Tab PO SCH (08:57)
[2018-11-09] MEDS: Gabapentin 300 MG Cap PO SCH ×2 (08:57→13:37)
[2018-11-09] MEDS: glyBURIDE 5 MG Tab PO SCH (08:58)
[2018-11-09] MEDS ORDERED: Tiotropium Inhaler 18 MCG Inhalation Powder Cap Kit of 5 INH SCH (09:00)
[2018-11-09] MEDS ORDERED: Aspirin 81 MG Tab.EC PO SCH (09:00)
[2018-11-09] MEDS: Furosemide 40 MG/4 ML VIAL IVPUSH SCH ×2 (09:01→12:17)
[2018-11-09] MEDS: Sodium Chloride 0.9% 10 ML Syringe FLUSH PRN ×2 (09:02→12:17)
--- NOTE | 2018-11-09 11:23 | PCM.PN ---
- General Info Date of Service: 11/09/18 Admission Dx/Problem (Free Text): Admission Diagnosis/Problem Admission Diagnosis/Problem CHF, Congestive heart failure Functional Status: Reports: Pain Controlled - Review of Systems General: Reports: No Symptoms HEENT: Reports: No Symptoms Pulmonary: Reports: No Symptoms Cardiovascular: Reports: No Symptoms Gastrointestinal: Reports: No Symptoms Genitourinary: Reports: No Symptoms Musculoskeletal: Reports: No Symptoms Skin: Reports: No Symptoms Neurological: Reports: No Symptoms Psychiatric: Reports: No Symptoms - Patient Data Vitals - Most Recent: Last Vital Signs Temp 98.1 F 11/09/18 08:00 Pulse 87 11/09/18 08:57 Resp 18 11/09/18 08:00 BP 127/75 11/09/18 08:57 Pulse Ox 99 11/09/18 08:00 Weight - Most Recent: 193 lb I&O - Last 24 Hours: Intake & Output 11/08/18 11/09/18 11/09/18 22:59 06:59 14:59 Intake Total 590 550 560 Output Total 700 650 Balance -110 -100 560 Lab Results Last 24 Hours: Laboratory Results - last 24 hr 11/08/18 11/08/18 11/08/18 Range/Units 11:18 17:02 20:38 WBC (5.0-10.0) 10^3/uL RBC (4.6-6.2) 10^6/uL Hgb (14.0-18.0) g/dL Hct (40.0-54.0) % MCV (80-100) fL MCH (27.0-34.0) pg MCHC (33.0-35.0) g/dL Plt Count (150-450) 10^3/uL Neut % (Auto) (42.2-75.2) % Lymph % (Auto) (20.5-50.1) % [place] % (Auto) (2-8) % Eos % (Auto) (1.0-3.0) % Baso % (Auto) (0.0-1.0) % Sodium (135-145) mmol/L Potassium (3.6-5.0) mmol/L Chloride (101-111) mmol/L Carbon Dioxide (21.0-31.0) mmol/L Anion Gap BUN (7-18) mg/dL Creatinine (0.6-1.3) mg/dL Est Cr Clr Drug Dosing mL/min Estimated GFR (MDRD) Glucose (74-105) mg/dL POC Glucose 206 H 141 H 52 L (70-105) mg/dl Calcium (8.4-10.2) mg/dl Troponin I (0.00-0.02) ng/ml 11/08/18 11/09/18 11/09/18 Range/Units 21:14 01:24 02:34 WBC (5.0-10.0) 10^3/uL RBC (4.6-6.2) 10^6/uL Hgb (14.0-18.0) g/dL Hct (40.0-54.0) % MCV (80-100) fL MCH (27.0-34.0) pg MCHC (33.0-35.0) g/dL Plt Count (150-450) 10^3/uL Neut % (Auto) (42.2-75.2) % Lymph % (Auto) (20.5-50.1) % [place] % (Auto) (2-8) % Eos % (Auto) (1.0-3.0) % Baso % (Auto) (0.0-1.0) % Sodium (135-145) mmol/L Potassium (3.6-5.0) mmol/L Chloride (101-111) mmol/L Carbon Dioxide (21.0-31.0) mmol/L Anion Gap BUN (7-18) mg/dL Creatinine (0.6-1.3) mg/dL Est Cr Clr Drug Dosing mL/min Estimated GFR (MDRD) Glucose (74-105) mg/dL POC Glucose 115 H 57 L 88 (70-105) mg/dl Calcium (8.4-10.2) mg/dl Troponin I (0.00-0.02) ng/ml 11/09/18 11/09/18 11/09/18 Range/Units 06:30 06:30 06:59 WBC 7.1 (5.0-10.0) 10^3/uL RBC 4.38 L (4.6-6.2) 10^6/uL Hgb 10.1 L D (14.0-18.0) g/dL Hct 32.1 L (40.0-54.0) % MCV 73.3 L (80-100) fL MCH 23.1 L (27.0-34.0) pg MCHC 31.5 L (33.0-35.0) g/dL Plt Count 220 (150-450) 10^3/uL Neut % (Auto) 58.8 (42.2-75.2) % Lymph % (Auto) 25.1 (20.5-50.1) % [place] % (Auto) 11.4 H (2-8) % Eos % (Auto) 4.1 H (1.0-3.0) % Baso % (Auto) 0.6 (0.0-1.0) % Sodium 137 (135-145) mmol/L Potassium 4.4 (3.6-5.0) mmol/L Chloride 105 (101-111) mmol/L Carbon Dioxide 24.0 (21.0-31.0) mmol/L Anion Gap 12.4 BUN 36 H (7-18) mg/dL Creatinine 1.6 H (0.6-1.3) mg/dL Est Cr Clr Drug Dosing 44.31 mL/min Estimated GFR (MDRD) 45 Glucose 138 H (74-105) mg/dL POC Glucose 127 H (70-105) mg/dl Calcium 8.0 L (8.4-10.2) mg/dl Troponin I 0.03 H* (0.00-0.02) ng/ml Med Orders - Current: Current Medications Acetaminophen (Tylenol) 650 mg PO Q4HR PRN PRN Reason: Pain (Mild 1-3)/fever Albuterol (Proventil Hfa) 0 gm INH Q6HR PRN PRN Reason: Shortness of Breath Last Admin: 11/08/18 16:58 Dose: 1 puff Aspirin (Halfprin) 81 mg PO DAILY [facility] Last Admin: 11/09/18 08:57 Dose: 81 mg Carvedilol (Coreg) 6.25 mg PO BIDMEALS [facility] Last Admin: 11/09/18 08:57 Dose: 6.25 mg Dextrose/Water (Dextrose 50% In Water) 25 ml IVPUSH Q1H PRN PRN Reason: blood sugar <70 Last Admin: 11/08/18 20:49 Dose: 50 ml Furosemide (Lasix) 40 mg IVPUSH 0800,1200,1600 [facility] Last Admin: 11/09/18 09:01 Dose: 40 mg Gabapentin (Neurontin) 600 mg PO TID [facility] Last Admin: 11/09/18 08:57 Dose: 600 mg Glyburide (Micronase) 5 mg PO BID@0800,1700 [facility] Last Admin: 11/09/18 08:58 Dose: 5 mg Heparin Sodium (Porcine) (Heparin Sodium) 5,000 units SUBCUT Q8HR [facility] Last Admin: 11/09/18 06:46 Dose: 5,000 units Insulin Human Isoph/Insulin Regular (Novolin 70-30) 45 unit SUBCUT BIDMEALS [facility] Last Admin: 11/08/18 17:30 Dose: 45 unit Insulin Human Lispro (Humalog) 0 unit SUBCUT ACBED [facility]; Protocol Last Admin: 11/09/18 08:18 Dose: Not Given Magnesium Oxide (Magnesium Oxide) 500 mg PO DAILY [facility] Last Admin: 11/09/18 08:57 Dose: 500 mg Omeprazole (Omeprazole) 20 mg PO DAILY@0600 [facility] Last Admin: 11/09/18 06:47 Dose: 20 mg Simvastatin (Zocor) 10 mg PO BEDTIME [facility] Last Admin: 11/08/18 22:21 Dose: 10 mg Sodium Chloride (Saline Flush) 10 ml FLUSH ASDIRECTED PRN PRN Reason: Keep Vein Open Last Admin: 11/09/18 09:02 Dose: 10 ml Tiotropium [place] (Spiriva Handihaler) 18 mcg INH DAILY [facility] Last Admin: 11/09/18 09:00 Dose: 18 mg Zolpidem Tartrate (Ambien) 5 mg PO BEDTIME PRN PRN Reason: Sleep Discontinued Medications Furosemide (Lasix) 40 mg IVPUSH NOW ONE Stop: 11/08/18 09:52 Last Admin: 11/08/18 09:59 Dose: 40 mg Glyburide (Micronase) 5 mg PO BID@0800,1700 [facility] Last Admin: 11/08/18 17:48 Dose: Not Given Sodium Chloride (Saline Flush) 10 ml FLUSH ASDIRECTED PRN PRN Reason: Keep Vein Open Last Admin: 11/08/18 09:59 Dose: 10 ml - Exam Quality Assessment: DVT Prophylaxis General: Alert, Oriented HEENT: Pupils Equal, Pupils Reactive, EOMI, Mucous Membr. Moist/[place] Neck: Supple Lungs: Clear to Auscultation, Normal Respiratory Effort Cardiovascular: Regular Rate, Regular Rhythm GI/Abdominal Exam: Normal Bowel Sounds, Soft, Non-Tender, No Organomegaly, No Distention, No Abnormal Bruit, No Mass, Pelvis Stable (Male) Exam: No Hernia, Normal Inspection, Normal Prostate, Circumcised Back Exam: Normal Inspection, Full Range of Motion Extremities: Normal Inspection, Normal Range of Motion, Non-Tender, No Pedal Edema, Normal Capillary Refill Skin: Warm, Dry, Intact Wound/Incisions: Healing Well Neurological: No New Focal Deficit Psy/Mental Status: Alert, Normal Affect, Normal Mood - Problem List Review Problem List Initiated/Reviewed/Updated: Yes - Plan Plan:: 57-year-old presented with increasing shortness of breath, lower extremity swelling. Acute exacerbation of systolic congestive heart failure Last ejection fraction was around 25%, history of nonischemic cardiomyopathy Continue IV Lasix Continue Coreg Follow electrolytes and replace them as needed Hold JASSI inhibitor, ARB due to renal failure Acute renal failure with a history of chronic kidney disease stage III with fluid overload Monitor on diuretics Renally dose all medications Avoid all nephrotoxic agents Diabetes Continue Humulin 70/30, glyburide SSI POC glucose 4x daily Hypoglycemic protocol Diabetic neuropathy Continue Neurontin, decreased dose given the renal failure DVT prophylaxis with subcutaneous heparin Full code
[2018-11-09] MEDS: Insulin NPH/Insulin Regular,Human 70-30 100 Units/ML 10 ML Vial SUBCUT SCH (11:42)
[2018-11-09 15:50] VITALS: BP 101/83; PULSE 87
--- NOTE | 2018-11-10 11:39 | PCM.DCSUM1 ---
Discharge Summary - Hospital Course Free Text/Narrative:: Patient with PMH of CHF, Congestive heart failure who presented with SOB and b/ l leg edema. He was found to have acute systolic HF exacebation. He was responding to treatment but signed out AMA yesterday in the late afternoon. - Discharge Data Discharge Date: 11/10/18 Discharge Disposition: Home, Self-Care 01 Condition: Fair - Discharge Plan Home Medications: Home Meds Aspirin [Lo-Dose Aspirin EC] 81 mg PO DAILY 08/22/18 [History] Carvedilol 6.25 mg PO BIDMEALS 08/22/18 [History] Gabapentin [Neurontin] 600 mg PO TID 08/22/18 [History] Insulin NPH/Insulin Reg,Human [Novolin 70-30] 50 units SQ BID 08/22/18 [History] Omeprazole 20 mg PO DAILY 08/22/18 [History] Simvastatin 10 mg PO BEDTIME 08/22/18 [History] glyBURIDE [Glyburide] 5 mg PO BID 08/22/18 [History] Furosemide [Lasix] 40 mg PO BIDDIURETIC #30 tablet 08/24/18 [Rx] Albuterol Sulfate [Proair Hfa] 1 puff INH Q6HR PRN 11/08/18 [History] Cetirizine HCl 10 mg PO DAILY PRN 11/08/18 [History] Magnesium Oxide [Magnesium] 400 mg PO DAILY 11/08/18 [History] Tiotropium [Spiriva HandiHaler] 18 mcg INH DAILY 11/08/18 [History] Forms: ED Department Discharge Referrals: [facility] [Primary Care Provider] - - Discharge Summary/Plan Comment DC Time >30 min.: Yes - General Info Admission Dx/Problem (Free Text: Admission Diagnosis/Problem Admission Diagnosis/Problem CHF, Congestive heart failure Functional Status: Reports: Pain Controlled - Review of Systems General: Reports: No Symptoms HEENT: Reports: No Symptoms Pulmonary: Reports: No Symptoms Cardiovascular: Reports: No Symptoms Gastrointestinal: Reports: No Symptoms Genitourinary: Reports: No Symptoms Musculoskeletal: Reports: No Symptoms Skin: Reports: No Symptoms Neurological: Reports: No Symptoms Psychiatric: Reports: No Symptoms - Patient Data Vitals - Most Recent: Last Vital Signs Temp 98.8 F 11/09/18 15:49 Pulse 87 11/09/18 15:49 Resp 20 11/09/18 15:49 BP 101/83 11/09/18 15:49 Pulse Ox 99 11/09/18 15:49 Weight - Most Recent: 193 lb Lab Results - Last 24 hrs: Laboratory Results - last 24 hr 11/09/18 Range/Units 11:16 POC Glucose 96 (70-105) mg/dl Med Orders - Current: Current Medications Discontinued Medications Acetaminophen (Tylenol) 650 mg PO Q4HR PRN PRN Reason: Pain (Mild 1-3)/fever Albuterol (Proventil Hfa) 0 gm INH Q6HR PRN PRN Reason: Shortness of Breath Last Admin: 11/08/18 16:58 Dose: 1 puff Aspirin (Halfprin) 81 mg PO DAILY [facility] Last Admin: 11/09/18 08:57 Dose: 81 mg Carvedilol (Coreg) 6.25 mg PO BIDMEALS [facility] Last Admin: 11/09/18 08:57 Dose: 6.25 mg Dextrose/Water (Dextrose 50% In Water) 25 ml IVPUSH Q1H PRN PRN Reason: blood sugar <70 Last Admin: 11/08/18 20:49 Dose: 50 ml Furosemide (Lasix) 40 mg IVPUSH NOW ONE Stop: 11/08/18 09:52 Last Admin: 11/08/18 09:59 Dose: 40 mg Furosemide (Lasix) 40 mg IVPUSH 0800,1200,1600 [facility] Last Admin: 11/09/18 12:17 Dose: 40 mg Gabapentin (Neurontin) 600 mg PO TID [facility] Last Admin: 11/09/18 13:37 Dose: 600 mg Glyburide (Micronase) 5 mg PO BID@0800,1700 [facility] Last Admin: 11/08/18 17:48 Dose: Not Given Glyburide (Micronase) 5 mg PO BID@0800,1700 [facility] Last Admin: 11/09/18 08:58 Dose: 5 mg Heparin Sodium (Porcine) (Heparin Sodium) 5,000 units SUBCUT Q8HR [facility] Last Admin: 11/09/18 13:38 Dose: 5,000 units Insulin Human Isoph/Insulin Regular (Novolin 70-30) 45 unit SUBCUT BIDMEALS [facility] Last Admin: 11/09/18 11:42 Dose: Not Given Insulin Human Lispro (Humalog) 0 unit SUBCUT ACBED [facility]; Protocol Last Admin: 11/09/18 12:10 Dose: Not Given Magnesium Oxide (Magnesium Oxide) 500 mg PO DAILY [facility] Last Admin: 11/09/18 08:57 Dose: 500 mg Omeprazole (Omeprazole) 20 mg PO DAILY@0600 [facility] Last Admin: 11/09/18 06:47 Dose: 20 mg Simvastatin (Zocor) 10 mg PO BEDTIME [facility] Last Admin: 11/08/18 22:21 Dose: 10 mg Sodium Chloride (Saline Flush) 10 ml FLUSH ASDIRECTED PRN PRN Reason: Keep Vein Open Last Admin: 11/08/18 09:59 Dose: 10 ml Sodium Chloride (Saline Flush) 10 ml FLUSH ASDIRECTED PRN PRN Reason: Keep Vein Open Last Admin: 11/09/18 12:17 Dose: 10 ml Tiotropium [place] (Spiriva Handihaler) 18 mcg INH DAILY [facility] Last Admin: 11/09/18 09:00 Dose: 18 mg Zolpidem Tartrate (Ambien) 5 mg PO BEDTIME PRN PRN Reason: Sleep - Exam General: Reports: Alert, Oriented HEENT: Reports: Pupils Equal, Pupils Reactive, EOMI, Mucous Membr. Moist/Secor Neck: Reports: Supple Lungs: Reports: Clear to Auscultation, Normal Respiratory Effort Cardiovascular: Reports: Regular Rate, Regular Rhythm GI/Abdominal Exam: Normal Bowel Sounds, Soft, Non-Tender, No Organomegaly, No Distention, No Abnormal Bruit, No Mass, Pelvis Stable (Male) Exam: No Hernia, Normal Inspection, Normal Prostate, Circumcised Rectal (Males) Exam: Normal Exam, Normal Rectal Tone, Prostate Normal Back Exam: Reports: Normal Inspection, Full Range of Motion Extremities: Normal Inspection, Normal Range of Motion, Non-Tender, No Pedal Edema, Normal Capillary Refill Skin: Reports: Warm, Dry, Intact Wound/Incisions: Reports: Healing Well Neurological: Reports: No New Focal Deficit Psy/Mental Status: Reports: Alert, Normal Affect, Normal Mood
== END 2018-11-09 16:03 | disposition home or self-care (01) | DRG 291 ==
LOC: DL.ED 08:54 → UNDOADMIN 10:16 → DL.MS 10:16 → EEVIPCON 11:08 → DL.MS 11:08
PROVIDERS: ADMIT Internal Medicine; ATTEND Student in an Organized Health Care Education/Training Program
DX: I13.0 Hypertensive heart and chronic kidney disease with heart failure and stage 1 through stage 4 chronic kidney disease, or unspecified chronic kidney disease (principal); I50.21 Acute systolic (congestive) heart failure; N17.9 Acute kidney failure, unspecified; I42.9 Cardiomyopathy, unspecified; E78.00 Pure hypercholesterolemia, unspecified; K21.9 Gastro-esophageal reflux disease without esophagitis; E11.21 Type 2 diabetes mellitus with diabetic nephropathy; M19.91 Primary osteoarthritis, unspecified site; G89.29 Other chronic pain; E11.40 Type 2 diabetes mellitus with diabetic neuropathy, unspecified; E11.22 Type 2 diabetes mellitus with diabetic chronic kidney disease; M54.9 Dorsalgia, unspecified; F41.9 Anxiety disorder, unspecified; B19.20 Unspecified viral hepatitis C without hepatic coma; R79.89 Other specified abnormal findings of blood chemistry; N18.3 Chronic kidney disease, stage 3 (moderate); Z79.82 Long term (current) use of aspirin; Z90.49 Acquired absence of other specified parts of digestive tract; Z87.891 Personal history of nicotine dependence; Z79.4 Long term (current) use of insulin
CPT/HCPCS: 36415; 71046; 80048; 80053; 81001; 82962; 83880; 84484; 85025; 93005; 96374; 99285-25; A9270-GY; J1644; J1815; J1815-GY; J1940

== ENCOUNTER 2018-11-11 00:03 | Inpatient (IN) | payer MEDICAID ==
--- NOTE | 2018-11-10 23:55 | EDM.PDOC ---
ED HPI GENERAL MEDICAL PROBLEM - General Chief Complaint: Lower Extremity Injury/Pain Stated Complaint: UNKNOWN Time Seen by Provider: 11/10/18 23:54 Source of Information: Reports: Patient History Limitations: Reports: No Limitations - History of Present Illness INITIAL COMMENTS - FREE TEXT/NARRATIVE: states his back hurts and legs swollen and now has SOB too. was here 2 days ago for CHF given Rx and d/c. Right Lower Back Pain Score (Numeric/FACES): 8 - Related Data Allergies Allergy/AdvReac Type Severity Reaction Status Date / Time No Known Allergies Allergy Verified 11/10/18 23:58 Home Meds: Home Meds Aspirin [Lo-Dose Aspirin EC] 81 mg PO DAILY 08/22/18 [History] Carvedilol 6.25 mg PO BIDMEALS 08/22/18 [History] Gabapentin [Neurontin] 600 mg PO TID 08/22/18 [History] Insulin NPH/Insulin Reg,Human [Novolin 70-30] 50 units SQ BID 08/22/18 [History] Omeprazole 20 mg PO DAILY 08/22/18 [History] Simvastatin 10 mg PO BEDTIME 08/22/18 [History] glyBURIDE [Glyburide] 5 mg PO BID 08/22/18 [History] Furosemide [Lasix] 40 mg PO BIDDIURETIC #30 tablet 08/24/18 [Rx] Albuterol Sulfate [Proair Hfa] 1 puff INH Q6HR PRN 11/08/18 [History] Cetirizine HCl 10 mg PO DAILY PRN 11/08/18 [History] Magnesium Oxide [Magnesium] 400 mg PO DAILY 11/08/18 [History] Tiotropium [Spiriva HandiHaler] 18 mcg INH DAILY 11/08/18 [History] Past Medical History HEENT History: Reports: None Cardiovascular History: Reports: Heart Failure, High Cholesterol, Hypertension, Other (See Below) Other Cardiovascular History: non-ischemic cardiomyopathy Respiratory History: Reports: Bronchitis, Recurrent, PE, Other (See Below) Other Respiratory History: ARDS (acute respiratory distress syndrome) Gastrointestinal History: Reports: GERD Other Gastrointestinal History: Spouse states client used to take medication for his stomach, but cannot recall why and cannot recall which medication. Genitourinary History: Reports: Diabetic Nephropathy, Other (See Below) Other Genitourinary History: Acute kidney injury Musculoskeletal History: Reports: Arthritis, Back Pain, Chronic, Fracture, Other (See Below) Other Musculoskeletal History: "Multiple fractures" Neurological History: Reports: Head Trauma, Other (See Below) Other Neuro History: fractured jody Psychiatric History: Reports: Addiction, Anxiety Endocrine/Metabolic History: Reports: Diabetes, Type II, IDDM Hematologic History: Reports: None Immunologic History: Reports: None Oncologic (Cancer) History: Reports: None Dermatologic History: Reports: Cellulitis - Infectious Disease History Infectious Disease History: Reports: Hepatitis C Other Infectious Disease History: states client has hepatitis, but unable to recall which type. - Past Surgical History Head Surgeries/Procedures: Reports: None Cardiovascular Surgical History: Reports: None, Other (See Below) Respiratory Surgical History: Reports: Thoracentesis GI Surgical History: Reports: Appendectomy Endocrine Surgical History: Reports: None Neurological Surgical History: Reports: None Musculoskeletal Surgical History: Reports: None Dermatological Surgical History: Reports: None Social & Family History - Family History Family Medical History: Noncontributory Endocrine/Metabolic: Reports: Diabetes, type II Oncologic: Reports: Other (See Below) Other Oncologic Family History: spouse states HX of cancer in family, but unable to recall which type - Caffeine Use Caffeine Use: Reports: Coffee, Soda Review of Systems - Review of Systems Review Of Systems: ROS reveals no pertinent complaints other than HPI. ED EXAM, GENERAL - Physical Exam Exam: See Below Exam Limited By: No Limitations General Appearance: Alert, WD/WN, Mild Distress, Other (LBP) Ears: Hearing Grossly Normal Throat/Mouth: Normal Voice, No Airway Compromise Head: Atraumatic Neck: Non-Tender, Full Range of Motion Respiratory/Chest: No Accessory Muscle Use, Rales, Rhonchi. No: Decreased Breath Sounds Cardiovascular: Regular Rate, Rhythm GI/Abdominal: Soft, Non-Tender Extremities: Pedal Edema, Other (3+ bilateral) Neurological: Alert, Oriented, Normal Cognition, No Motor/Sensory Deficits Psychiatric: Normal Affect, Normal Mood Skin Exam: Warm, Dry, Normal Color Lymphatic: No Adenopathy Course - Vital Signs Last Recorded V/S: Last Vital Signs Temp 36.9 C 11/10/18 23:50 Pulse 94 11/10/18 23:50 Resp 18 11/10/18 23:50 BP 147/83 H 11/10/18 23:50 Pulse Ox 99 11/10/18 23:50 - Orders/Labs/Meds Orders: Active Orders 24 hr Category Date Time Status EKG 12 Lead [EKG Documentation Completion] [RC] STAT Care 11/11/18 00:24 Active DRUG SCREEN URINE BIORAD [URCHEM] Stat Lab 11/11/18 00:40 Received UA RFX SUSI AND CULT IF INDIC [URIN] Stat Lab 11/11/18 00:40 Received Labs: Laboratory Tests 11/10/18 11/10/18 11/10/18 Range/Units 23:55 23:55 23:55 WBC 8.5 (5.0-10.0) 10^3/uL RBC 4.58 L (4.6-6.2) 10^6/uL Hgb 10.6 L (14.0-18.0) g/dL Hct 33.4 L (40.0-54.0) % MCV 72.9 L (80-100) fL MCH 23.1 L (27.0-34.0) pg MCHC 31.7 L (33.0-35.0) g/dL Plt Count 241 (150-450) 10^3/uL Neut % (Auto) 60.6 (42.2-75.2) % Lymph % (Auto) 21.7 (20.5-50.1) % [place] % (Auto) 12.4 H (2-8) % Eos % (Auto) 4.6 H (1.0-3.0) % Baso % (Auto) 0.7 (0.0-1.0) % Sodium 138 (135-145) mmol/L Potassium 4.2 (3.6-5.0) mmol/L Chloride 103 (101-111) mmol/L Carbon Dioxide 28.0 (21.0-31.0) mmol/L Anion Gap 11.2 BUN 36 H (7-18) mg/dL Creatinine 1.5 H (0.6-1.3) mg/dL Est Cr Clr Drug Dosing 50.80 mL/min Estimated GFR (MDRD) 48 BUN/Creatinine Ratio 24.00 Glucose 120 H (74-105) mg/dL Calcium 7.7 L (8.4-10.2) mg/dl Total Bilirubin 0.3 (0.2-1.0) mg/dL AST 43 H (10-42) IU/L ALT 29 (10-60) IU/L Alkaline Phosphatase 123 H (42-121) IU/L Troponin I 0.03 H* (0.00-0.02) ng/ml B-Natriuretic Peptide 3450 H (0-100) pg/ml Total Protein 6.7 (6.7-8.2) g/dl Albumin 2.3 L (3.2-5.5) g/dl Globulin 4.4 Albumin/Globulin Ratio 0.52 Meds: Medications Discontinued Medications Generic Name Dose Route Start Last Admin Trade Name Jenny PRN Reason Stop Dose Admin Furosemide 40 mg 11/11/18 00:00 11/11/18 00:11 Lasix IVPUSH 11/11/18 00:01 40 mg NOW ONE Administration - Re-Assessments/Exams Free Text/Narrative Re-Assessment/Exam: 11/11/18 00:[address] Upton who kindly admitted pt to observation. Departure - Departure Time of Disposition: 00:53 Disposition: Refer to Observation Condition: Fair Clinical Impression: Elevated brain natriuretic peptide (BNP) level, SOB (shortness of breath) CHF (congestive heart failure) Qualifiers: Heart failure type: unspecified Heart failure chronicity: acute on chronic Qualified Code(s): I50.9 - Heart failure, unspecified - Discharge Information Forms: ED Department Discharge - My Orders Last 24 Hours: My Active Orders 11/11/18 00:24 EKG 12 Lead [EKG Documentation Completion] [RC] STAT 11/11/18 00:40 DRUG SCREEN URINE BIORAD [URCHEM] Stat UA RFX SUSI AND CULT IF INDIC [URIN] Stat - Assessment/Plan Last 24 Hours: My Active Orders 11/11/18 00:24 EKG 12 Lead [EKG Documentation Completion] [RC] STAT 11/11/18 00:40 DRUG SCREEN URINE BIORAD [URCHEM] Stat UA RFX SUSI AND CULT IF INDIC [URIN] Stat
[~2018-11-11 00:03] MED LIST changes: +Furosemide 40 MG/4 ML VIAL IVPUSH ONE; -Insulin Regular, Human 100 Units/ML 3 ML Vial IV ONE; -Sodium Chloride 0.9% 1,000 ML IV ONE
[2018-11-11 00:19] LABS: ANION GAP 11.2
[2018-11-11] MEDS ORDERED: Magnesium Hydroxide 400 MG/5 ML Susp 30 ML Cup PO PRN (01:41)
[2018-11-11] MEDS ORDERED: Bisacodyl 10 MG Supp RECTAL PRN (01:41)
[2018-11-11] MEDS ORDERED: CETIRIZINE HCL 10 MG PO PRN (01:45)
[2018-11-11] MEDS ORDERED: Albuterol 6.7 GM Inhaler INH PRN (01:45)
--- NOTE | 2018-11-11 01:48 | PCM.HP ---
H&P History of Present Illness - General Date of Service: 11/11/18 Admit Problem/Dx: Admission Diagnosis/Problem Admission Diagnosis/Problem CHF, Congestive heart failure Source of Information: Patient History Limitations: Reports: No Limitations - History of Present Illness Initial Comments - Free Text/Narative: Alicia is a 57-year-old man with past medical history of nonischemic cardiomyopathy, hypertension, hyperlipidemia, diabetes mellitus type 2 with neuropathy, nonischemic cardiomyopathy, systolic congestive heart failure. The patient presented to the ER complaining of lower back pain, increasing leg swelling, and shortness of breath. Patient's was admitted to the hospital for similar presentation and was found to half acute exacerbation of CHF on 11/07. He signed out AMA on 11/09. He returned to the ER with increasing leg swelling and shortness of breath. He said since discharge he noted his leg swelling has gotten worse. He gets short of breath with minimal exertion. His cough was also gotten worse. Cough is dry with no sputum production. No fever, no chills. He also reports lower back pain. Pain is sharp and nonradiating. He denies any trauma. He denies fever, chills, chest pain, palpitations. The ER his vitals were stable. BNP was elevated. Chest x-ray consistent with pulmonary congestion. Patient is being admitted to the hospital for further management. Onset of Symptoms: Reports: Gradual Duration of Symptoms: Reports: Day(s): Location: Reports: Chest, Back Quality: Reports: Sharp Improves with: Reports: None Worsens with: Reports: None Associated Symptoms: Reports: No Other Symptoms Right Lower Back Pain Score (Numeric/FACES): 8 - Related Data Allergies/Adverse Reactions: Allergies Allergy/AdvReac Type Severity Reaction Status Date / Time No Known Allergies Allergy Verified 11/11/18 02:51 Home Medications: Home Meds Aspirin [Lo-Dose Aspirin EC] 81 mg PO DAILY 08/22/18 [History] Carvedilol 6.25 mg PO BIDMEALS 08/22/18 [History] Gabapentin [Neurontin] 600 mg PO TID 08/22/18 [History] Insulin NPH/Insulin Reg,Human [Novolin 70-30] 50 units SQ BID 08/22/18 [History] Omeprazole 20 mg PO DAILY 08/22/18 [History] Simvastatin 10 mg PO BEDTIME 08/22/18 [History] glyBURIDE [Glyburide] 5 mg PO BID 08/22/18 [History] Furosemide [Lasix] 40 mg PO BIDDIURETIC #30 tablet 08/24/18 [Rx] Albuterol Sulfate [Proair Hfa] 1 puff INH Q6HR PRN 11/08/18 [History] Cetirizine HCl 10 mg PO DAILY PRN 11/08/18 [History] Magnesium Oxide [Magnesium] 400 mg PO DAILY 11/08/18 [History] Tiotropium [Spiriva HandiHaler] 18 mcg INH DAILY 11/08/18 [History] Past Medical History HEENT History: Reports: None Cardiovascular History: Reports: Heart Failure, High Cholesterol, Hypertension, Other (See Below) Other Cardiovascular History: non-ischemic cardiomyopathy Respiratory History: Reports: Bronchitis, Recurrent, PE, Other (See Below) Other Respiratory History: ARDS (acute respiratory distress syndrome) Gastrointestinal History: Reports: GERD Other Gastrointestinal History: Spouse states client used to take medication for his stomach, but cannot recall why and cannot recall which medication. Genitourinary History: Reports: Diabetic Nephropathy, Other (See Below) Other Genitourinary History: Acute kidney injury Musculoskeletal History: Reports: Arthritis, Back Pain, Chronic, Fracture, Other (See Below) Other Musculoskeletal History: "Multiple fractures" Neurological History: Reports: Head Trauma, Other (See Below) Other Neuro History: fractured jody Psychiatric History: Reports: Addiction, Anxiety Endocrine/Metabolic History: Reports: Diabetes, Type II, IDDM Hematologic History: Reports: None Immunologic History: Reports: None Oncologic (Cancer) History: Reports: None Dermatologic History: Reports: Cellulitis - Infectious Disease History Infectious Disease History: Reports: Hepatitis C Other Infectious Disease History: states client has hepatitis, but unable to recall which type. - Past Surgical History Head Surgeries/Procedures: Reports: None Cardiovascular Surgical History: Reports: None, Other (See Below) Respiratory Surgical History: Reports: Thoracentesis GI Surgical History: Reports: Appendectomy Endocrine Surgical History: Reports: None Neurological Surgical History: Reports: None Musculoskeletal Surgical History: Reports: None Dermatological Surgical History: Reports: None Social & Family History - Family History Family Medical History: Noncontributory Endocrine/Metabolic: Reports: Diabetes, type II Oncologic: Reports: Other (See Below) Other Oncologic Family History: spouse states HX of cancer in family, but unable to recall which type - Tobacco Use Smoking Status *Q: Never Smoker - Caffeine Use Caffeine Use: Reports: Coffee, Soda - Recreational Drug Use Recreational Drug Use: Yes Drug Use in Last 12 Months: Yes Recreational Drug Type: Reports: Methamphetamine Recreational Drug Use Frequency: Monthly H&P Review of Systems - Review of Systems: Review Of Systems: See Below General: Reports: No Symptoms HEENT: Reports: No Symptoms Pulmonary: Reports: Shortness of Breath, Cough Cardiovascular: Reports: No Symptoms, Edema Gastrointestinal: Reports: No Symptoms Genitourinary: Reports: No Symptoms Musculoskeletal: Reports: Back Pain Skin: Reports: No Symptoms Psychiatric: Reports: No Symptoms Neurological: Reports: No Symptoms Hematologic/Lymphatic: Reports: No Symptoms Immunologic: Reports: No Symptoms Exam - Exam Exam: See Below - Vital Signs Vital Signs: Last Vital Signs Temp 98.5 F 11/10/18 23:50 Pulse 87 11/11/18 01:07 Resp 18 11/10/18 23:50 BP 111/91 H 11/11/18 01:07 Pulse Ox 100 11/11/18 01:07 Weight: 187 lb 6.4 oz - Exam Quality Assessment: DVT Prophylaxis General: Alert, Oriented, 4 HEENT: PERRLA, Hearing Intact, Mucosa Moist & [place], Nares Patent, Normal Nasal Septum, Posterior Pharynx Clear, Conjunctiva Clear, EOMI, EACs Clear, TMs Clear Neck: Supple, Trachea Midline, 2 Lungs: Normal Respiratory Effort, Crackles Cardiovascular: Regular Rate, Regular Rhythm GI/Abdominal Exam: Normal Bowel Sounds, Soft, Non-Tender, No Organomegaly, No Distention, No Abnormal Bruit, No Mass, Pelvis Stable (Male) Exam: No Hernia, Normal Inspection, Normal Prostate, Circumcised Rectal (Males) Exam: Normal Exam, Normal Rectal Tone, Prostate Normal Back Exam: Normal Inspection, Full Range of Motion, NT Extremities: Normal Range of Motion, Non-Tender, No Pedal Edema, Normal Capillary Refill, Pedal Edema Skin: Warm, Dry, Intact Neurological: Cranial Nerves Intact, Reflexes Equal Bilateral Neuro Extensive - Mental Status: Alert, Oriented x3, Normal Mood/Affect, Normal Cognition Neuro Extensive - Motor, Sensory, Reflexes: CN II-XII Intact, Normal Gait, Normal Reflexes Psychiatric: Alert, Normal Affect, Normal Mood - Patient Data Lab Results Last 24 hrs: Laboratory Results - last 24 hr 11/10/18 11/10/18 11/10/18 Range/Units 23:55 23:55 23:55 WBC 8.5 (5.0-10.0) 10^3/uL RBC 4.58 L (4.6-6.2) 10^6/uL Hgb 10.6 L (14.0-18.0) g/dL Hct 33.4 L (40.0-54.0) % MCV 72.9 L (80-100) fL MCH 23.1 L (27.0-34.0) pg MCHC 31.7 L (33.0-35.0) g/dL Plt Count 241 (150-450) 10^3/uL Neut % (Auto) 60.6 (42.2-75.2) % Lymph % (Auto) 21.7 (20.5-50.1) % Payne % (Auto) 12.4 H (2-8) % Eos % (Auto) 4.6 H (1.0-3.0) % Baso % (Auto) 0.7 (0.0-1.0) % Sodium 138 (135-145) mmol/L Potassium 4.2 (3.6-5.0) mmol/L Chloride 103 (101-111) mmol/L Carbon Dioxide 28.0 (21.0-31.0) mmol/L Anion Gap 11.2 BUN 36 H (7-18) mg/dL Creatinine 1.5 H (0.6-1.3) mg/dL Est Cr Clr Drug Dosing 50.80 mL/min Estimated GFR (MDRD) 48 BUN/Creatinine Ratio 24.00 Glucose 120 H (74-105) mg/dL Calcium 7.7 L (8.4-10.2) mg/dl Total Bilirubin 0.3 (0.2-1.0) mg/dL AST 43 H (10-42) IU/L ALT 29 (10-60) IU/L Alkaline Phosphatase 123 H (42-121) IU/L Troponin I 0.03 H* (0.00-0.02) ng/ml B-Natriuretic Peptide 3450 H (0-100) pg/ml Total Protein 6.7 (6.7-8.2) g/dl Albumin 2.3 L (3.2-5.5) g/dl Globulin 4.4 Albumin/Globulin Ratio 0.52 Urine Color (YELLOW) Urine Appearance (CLEAR) Urine pH (5.0-9.0) Ur Specific [place] (1.005-1.030) Urine Protein (NEGATIVE) Urine Glucose (UA) (NEGATIVE) Urine Ketones (NEGATIVE) Urine Occult Blood (NEGATIVE) Urine Nitrite (NEGATIVE) Urine Bilirubin (NEGATIVE) Urine Urobilinogen (0.2-1.0) mg/dL Ur Leukocyte Esterase (NEGATIVE) Urine RBC /HPF Urine WBC (0-5/HPF) /HPF Ur Epithelial Cells /HPF Amorphous Sediment (0/HPF) /HPF Urine Bacteria (0-FEW/HPF) /HPF Urine Mucus /LPF Urine Opiates Screen (NEGATIVE) Ur Oxycodone Screen (NEGATIVE) Urine Methadone Screen (NEGATIVE) Ur Barbiturates Screen (NEGATIVE) U Tricyclic Antidepress (NEGATIVE) Ur Phencyclidine Scrn (NEGATIVE) Ur Amphetamine Screen (NEGATIVE) U Methamphetamines Scrn (NEGATIVE) Urine MDMA Screen (NEGATIVE) U Benzodiazepines Scrn (NEGATIVE) Urine Cocaine Screen (NEGATIVE) U Marijuana (THC) Screen (NEGATIVE) 11/11/18 11/11/18 Range/Units 00:40 00:40 WBC (5.0-10.0) 10^3/uL RBC (4.6-6.2) 10^6/uL Hgb (14.0-18.0) g/dL Hct (40.0-54.0) % MCV (80-100) fL MCH (27.0-34.0) pg MCHC (33.0-35.0) g/dL Plt Count (150-450) 10^3/uL Neut % (Auto) (42.2-75.2) % Lymph % (Auto) (20.5-50.1) % Payne % (Auto) (2-8) % Eos % (Auto) (1.0-3.0) % Baso % (Auto) (0.0-1.0) % Sodium (135-145) mmol/L Potassium (3.6-5.0) mmol/L Chloride (101-111) mmol/L Carbon Dioxide (21.0-31.0) mmol/L Anion Gap BUN (7-18) mg/dL Creatinine (0.6-1.3) mg/dL Est Cr Clr Drug Dosing mL/min Estimated GFR (MDRD) BUN/Creatinine Ratio Glucose (74-105) mg/dL Calcium (8.4-10.2) mg/dl Total Bilirubin (0.2-1.0) mg/dL AST (10-42) IU/L ALT (10-60) IU/L Alkaline Phosphatase (42-121) IU/L Troponin I (0.00-0.02) ng/ml B-Natriuretic Peptide (0-100) pg/ml Total Protein (6.7-8.2) g/dl Albumin (3.2-5.5) g/dl Globulin Albumin/Globulin Ratio Urine Color Yellow (YELLOW) Urine Appearance Clear (CLEAR) Urine pH 7.0 (5.0-9.0) Ur Specific [place] 1.025 (1.005-1.030) Urine Protein >=300 H (NEGATIVE) Urine Glucose (UA) Negative (NEGATIVE) Urine Ketones Negative (NEGATIVE) Urine Occult Blood Small H (NEGATIVE) Urine Nitrite Negative (NEGATIVE) Urine Bilirubin Negative (NEGATIVE) Urine Urobilinogen 0.2 (0.2-1.0) mg/dL Ur Leukocyte Esterase Negative (NEGATIVE) Urine RBC 10-20 H /HPF Urine WBC 0-5 (0-5/HPF) /HPF Ur Epithelial Cells Rare /HPF Amorphous Sediment Rare (0/HPF) /HPF Urine Bacteria Rare (0-FEW/HPF) /HPF Urine Mucus Rare /LPF Urine Opiates Screen Negative (NEGATIVE) Ur Oxycodone Screen Negative (NEGATIVE) Urine Methadone Screen Negative (NEGATIVE) Ur Barbiturates Screen Negative (NEGATIVE) U Tricyclic Antidepress Negative (NEGATIVE) Ur Phencyclidine Scrn Negative (NEGATIVE) Ur Amphetamine Screen Negative (NEGATIVE) U Methamphetamines Scrn Positive H (NEGATIVE) Urine MDMA Screen Negative (NEGATIVE) U Benzodiazepines Scrn Negative (NEGATIVE) Urine Cocaine Screen Negative (NEGATIVE) U Marijuana (THC) Screen Negative (NEGATIVE) Result Diagrams: 11/10/18 23:55 11/11/18 06:10 - Problem List (1) CHF (congestive heart failure) SNOMED Code(s): 20802898 ICD Code: I50.9 - HEART FAILURE, UNSPECIFIED Status: Acute Current Visit : No Qualifiers: Heart failure type: unspecified Heart failure chronicity: acute on chronic Qualified Code(s): I50.9 - Heart failure, unspecified (2) Diabetes SNOMED Code(s): 18967359 ICD Code: E11.9 - TYPE 2 DIABETES MELLITUS WITHOUT COMPLICATIONS Status: Acute Current Visit: No Qualifiers: Diabetes mellitus type: type 2 Diabetes mellitus trading specialist insulin use: unspecified trading specialist insulin use status Diabetes mellitus complication status : with unspecified complications Qualified Code(s): E11.8 - Type 2 diabetes mellitus with unspecified complications (3) Methamphetamine abuse SNOMED Code(s): 001988171 ICD Code: F15.10 - OTHER STIMULANT ABUSE, UNCOMPLICATED Status: Acute Current Visit: No (4) Musculoskeletal chest pain SNOMED Code(s): 601492846 ICD Code: R07.89 - OTHER CHEST PAIN Status: Acute Current Visit: No (5) SOB (shortness of breath) SNOMED Code(s): 430720200 ICD Code: R06.02 - SHORTNESS OF BREATH Status: Acute Current Visit: No Problem List Initiated/Reviewed/Updated: Yes Orders Last 24hrs: Active Orders 24 hr Category Date Time Status Patient Status [ADT] Routine ADT 11/11/18 01:41 Ordered Ambulate [RC] ASDIRECTED Care 11/11/18 01:41 Ordered Antiembolic Devices [RC] .Routine Care 11/11/18 01:43 Ordered EKG 12 Lead [EKG Documentation Completion] [RC] STAT Care 11/11/18 00:24 Active Height and Weight [RC] DAILY Care 11/11/18 01:41 Ordered Intake and Output [RC] QSHIFT Care 11/11/18 01:42 Ordered Notify Provider Vital Signs [RC] ASDIRECTED Care 11/11/18 01:42 Ordered POC Glucose [Blood Glucose Check, Bedside] [RC] Care 11/11/18 01:47 Ordered QIDACANDBED Pulse Oximetry [RC] PRN Care 11/11/18 01:42 Ordered VTE/DVT Education [RC] PER UNIT ROUTINE Care 11/11/18 01:43 Ordered Vital Signs [RC] Q4H Care 11/11/18 01:41 Ordered 2 Gram Sodium Diet [DIET] Diet 11/11/18 Breakfast Ordered BASIC METABOLIC PANEL,BMP [CHEM] AM Lab 11/11/18 05:11 Ordered Albuterol [Proventil HFA] Med 11/11/18 01:45 Ordered 1 puff INH Q6HR PRN Aspirin [Halfprin] Med 11/11/18 09:00 Ordered 81 mg PO DAILY Bisacodyl [Dulcolax] Med 11/11/18 01:41 Ordered 10 mg RECTAL DAILY PRN Carvedilol [Coreg] Med 11/11/18 08:00 Ordered 6.25 mg PO BIDMEALS Cetirizine HCl [Cetirizine HCl] Med 11/11/18 01:45 Ordered 10 mg PO DAILY PRN Furosemide [Lasix] Med 11/11/18 09:00 Ordered 80 mg IVPUSH BID Gabapentin Med 11/11/18 09:00 Ordered 600 mg PO TID Heparin Sodium Med 11/11/18 01:45 Ordered 5,000 units SUBCUT Q12H Insulin NPH/Insulin Reg,Human [NovoLIN 70-30] Med 11/11/18 09:00 Ordered 50 unit SUBCUT BID Magnesium Hydroxide [Milk of Magnesia] Med 11/11/18 01:41 Ordered 30 ml PO BID PRN Magnesium Oxide [Magnesium] Med 11/11/18 09:00 Ordered 400 mg PO DAILY Omeprazole Med 11/11/18 09:00 Ordered 20 mg PO DAILY Simvastatin [Zocor] Med 11/11/18 21:00 Ordered 10 mg PO BEDTIME Tiotropium [Spiriva HandiHaler] Med 11/11/18 09:00 Ordered 18 mcg INH DAILY glyBURIDE [Micronase] Med 11/11/18 09:00 Ordered 5 mg PO BID DVT/VTE Prophylaxis Reflex [OM.PC] Routine Oth 11/11/18 01:41 Ordered Resuscitation Status Routine Resus Stat 11/11/18 01:41 Ordered Medication Orders Albuterol (Proventil Hfa) gm INH Q6HR PRN PRN Reason: Shortness of Breath Assessment/Plan Comment:: Alicia is a 57-year-old man with past medical history of nonischemic cardiomyopathy, hypertension, hyperlipidemia, diabetes mellitus type 2 with neuropathy, nonischemic cardiomyopathy, systolic congestive heart failure. The patient presented to the ER complaining of lower back pain, increasing leg swelling, and shortness of breath. Patient's was admitted to the hospital for similar presentation and was found to half acute exacerbation of CHF on 11/07. He signed out AMA on 11/09. BNP elevated on admit. Acute exacerbation of chronic systolic CHF This is due to medication noncompliance Resent L Court showed EF of 25% Patient was recently admitted and signed out AGAINST MEDICAL ADVICE Admitted to [facility]. medical floors Monitor vitals IV Lasix 80 mg bid Daily weight Strict I/O Fluid restriction 1.2 l per day Continue carvedilol and ARBs He was strongly advised on medication and treatment compliance Nonischemic cardiomyopathy Continue home medication Dry cough Chest x-ray negative for infiltrates Hold antibiotics for now Hypertension BP within acceptable limits Continue home medications Diabetes type 2 Home medications POC glucose 4 times a day Hypoglycemia protocol Diabetic neuropathy Continue home infection Chronic back pain Continue home medication Diet Consistent carbohydrate diet Full code
[2018-11-11] MEDS: Omeprazole 20 MG Cap.CR PO SCH (05:41)
[2018-11-11] MEDS ORDERED: Furosemide 40 MG/4 ML VIAL IVPUSH SCH ×4 (08:00→14:00)
[2018-11-11] MEDS: Gabapentin 300 MG Cap PO SCH ×3 (09:08→20:32)
[2018-11-11] MEDS: Carvedilol 6.25 MG Tab PO SCH ×2 (09:09→17:52)
[2018-11-11] MEDS: Aspirin 81 MG Tab.EC PO SCH (09:09)
[2018-11-11] MEDS: glyBURIDE 5 MG Tab PO SCH ×2 (09:09→17:52)
[2018-11-11] MEDS: Heparin Sodium 5,000 Units/ML Vial SUBCUT SCH ×2 (09:11→20:31)
[2018-11-11] MEDS: Insulin NPH/Insulin Regular,Human 70-30 100 Units/ML 10 ML Vial SUBCUT SCH ×2 (09:15→17:30)
[2018-11-11] MEDS: Tiotropium Inhaler 18 MCG Inhalation Powder Cap Kit of 5 INH SCH (09:15)
[2018-11-11] MEDS ORDERED: Furosemide 40 MG/4 ML VIAL IVPUSH ONE (12:03)
[2018-11-11] MEDS: Acetaminophen 325 MG Tab PO PRN ×2 (12:21→22:00)
[2018-11-11] MEDS ORDERED: Insulin NPH/Insulin Regular,Human 70-30 100 Units/ML 10 ML Vial SUBCUT ONE ×2 (17:29→18:15)
[2018-11-11] MEDS: Furosemide 40 MG/4 ML VIAL IVPUSH SCH (17:53)
[2018-11-11] MEDS: Simvastatin 10 MG Tab PO SCH (20:32)
[2018-11-12] MEDS: Omeprazole 20 MG Cap.CR PO SCH (05:48)
[2018-11-12 06:41] LABS: ANION GAP 13.9
[2018-11-12] MEDS: Gabapentin 300 MG Cap PO SCH ×3 (08:42→20:46)
[2018-11-12] MEDS: Aspirin 81 MG Tab.EC PO SCH (08:42)
[2018-11-12] MEDS: glyBURIDE 5 MG Tab PO SCH ×2 (08:42→18:03)
[2018-11-12] MEDS: Heparin Sodium 5,000 Units/ML Vial SUBCUT SCH ×2 (08:43→20:45)
[2018-11-12] MEDS: Furosemide 40 MG/4 ML VIAL IVPUSH SCH ×2 (08:43→14:42)
[2018-11-12] MEDS: Carvedilol 6.25 MG Tab PO SCH ×2 (08:43→18:03)
[2018-11-12] MEDS: Tiotropium Inhaler 18 MCG Inhalation Powder Cap Kit of 5 INH SCH (09:18)
[2018-11-12] MEDS: Insulin NPH/Insulin Regular,Human 70-30 100 Units/ML 10 ML Vial SUBCUT SCH ×2 (11:31→18:00)
--- NOTE | 2018-11-12 11:40 | PCM.PN ---
- General Info Date of Service: 11/12/18 Admission Dx/Problem (Free Text): Admission Diagnosis/Problem Admission Diagnosis/Problem CHF, Congestive heart failure Subjective Update: Alicia is a 57-year-old man with past medical history of nonischemic cardiomyopathy, hypertension, hyperlipidemia, diabetes mellitus type 2 with neuropathy, nonischemic cardiomyopathy, systolic congestive heart failure. The patient presented to the ER complaining of lower back pain, increasing leg swelling, and shortness of breath. Patient's was admitted to the hospital for similar presentation and was found to half acute exacerbation of CHF on 11/07. He signed out AMA on 11/09. He was admitted for exacerbation of HFrEF. He was seen and examined today. No complaint. Patient is diuresing well. eight is down 3 Ib this AM. Creatinine trended up to 1.7 from 1.4 today. Otherwise he is feeling well and says leg swelling has improved. No fever, chills, chest pain , SOB. Functional Status: Reports: Pain Controlled - Review of Systems General: Reports: No Symptoms HEENT: Reports: No Symptoms Pulmonary: Reports: No Symptoms Cardiovascular: Reports: No Symptoms Gastrointestinal: Reports: No Symptoms Genitourinary: Reports: No Symptoms Musculoskeletal: Reports: No Symptoms Skin: Reports: No Symptoms Neurological: Reports: No Symptoms Psychiatric: Reports: No Symptoms - Patient Data Vitals - Most Recent: Last Vital Signs Temp 98.8 F 11/12/18 07:28 Pulse 90 11/12/18 08:43 Resp 20 11/12/18 07:28 BP 133/80 11/12/18 08:43 Pulse Ox 98 11/12/18 07:28 Weight - Most Recent: 181 lb 3.2 oz I&O - Last 24 Hours: Intake & Output 11/11/18 11/12/18 11/12/18 22:59 06:59 14:59 Intake Total 900 200 Output Total 1250 Balance -350 200 Lab Results Last 24 Hours: Laboratory Results - last 24 hr 11/11/18 11/11/18 11/11/18 Range/Units 06:10 11:51 17:03 Sodium (135-145) mmol/L Potassium (3.6-5.0) mmol/L Chloride (101-111) mmol/L Carbon Dioxide (21.0-31.0) mmol/L Anion Gap BUN (7-18) mg/dL Creatinine (0.6-1.3) mg/dL Est Cr Clr Drug Dosing mL/min Estimated GFR (MDRD) Glucose (74-105) mg/dL POC Glucose 124 H 161 H (70-105) mg/dl Calcium (8.4-10.2) mg/dl B-Natriuretic Peptide 2810 H (0-100) pg/ml 11/11/18 11/11/18 11/12/18 Range/Units 19:27 21:20 06:15 Sodium (135-145) mmol/L Potassium (3.6-5.0) mmol/L Chloride (101-111) mmol/L Carbon Dioxide (21.0-31.0) mmol/L Anion Gap BUN (7-18) mg/dL Creatinine (0.6-1.3) mg/dL Est Cr Clr Drug Dosing mL/min Estimated GFR (MDRD) Glucose (74-105) mg/dL POC Glucose 122 H 89 (70-105) mg/dl Calcium (8.4-10.2) mg/dl B-Natriuretic Peptide 1610 H (0-100) pg/ml 11/12/18 11/12/18 11/12/18 Range/Units 06:15 07:50 11:08 Sodium 137 (135-145) mmol/L Potassium 4.9 (3.6-5.0) mmol/L Chloride 100 L (101-111) mmol/L Carbon Dioxide 28.0 (21.0-31.0) mmol/L Anion Gap 13.9 BUN 42 H (7-18) mg/dL Creatinine 1.7 H (0.6-1.3) mg/dL Est Cr Clr Drug Dosing 44.82 mL/min Estimated GFR (MDRD) 42 Glucose 214 H (74-105) mg/dL POC Glucose 194 H 170 H (70-105) mg/dl Calcium 7.8 L (8.4-10.2) mg/dl B-Natriuretic Peptide (0-100) pg/ml Med Orders - Current: Current Medications Acetaminophen (Tylenol) 650 mg PO Q6H PRN PRN Reason: Pain Last Admin: 11/11/18 22:00 Dose: 650 mg Albuterol (Proventil Hfa) 0 gm INH Q6HR PRN PRN Reason: Shortness of Breath Aspirin (Halfprin) 81 mg PO DAILY [facility] Last Admin: 11/12/18 08:42 Dose: 81 mg Bisacodyl (Dulcolax) 10 mg RECTAL DAILY PRN PRN Reason: Constipation Carvedilol (Coreg) 6.25 mg PO BIDMEALS [facility] Last Admin: 11/12/18 08:43 Dose: 6.25 mg Furosemide (Lasix) 40 mg IVPUSH BIDDIURETIC [facility] Gabapentin (Neurontin) 600 mg PO TID [facility] Last Admin: 11/12/18 08:42 Dose: 600 mg Glyburide (Micronase) 5 mg PO BID@0800,1800 [facility] Last Admin: 11/12/18 08:42 Dose: 5 mg Heparin Sodium (Porcine) (Heparin Sodium) 5,000 units SUBCUT Q12H [facility] Last Admin: 11/12/18 08:43 Dose: 5,000 units Insulin Human Isoph/Insulin Regular (Novolin 70-30) 50 unit SUBCUT BIDMEALS [facility] Last Admin: 11/12/18 11:31 Dose: Not Given Magnesium Hydroxide (Milk Of Magnesia) 30 ml PO BID PRN PRN Reason: Constipation Magnesium Oxide (Magnesium Oxide) 250 mg PO DAILY [facility] Last Admin: 11/12/18 08:43 Dose: 250 mg Non-Formulary Medication (Cetirizine Hcl [Cetirizine Hcl]) 10 mg PO DAILY PRN PRN Reason: Allergies Omeprazole (Omeprazole) 20 mg PO ACBREAKFAST [facility] Last Admin: 11/12/18 05:48 Dose: 20 mg Simvastatin (Zocor) 10 mg PO BEDTIME [facility] Last Admin: 11/11/18 20:32 Dose: 10 mg Tiotropium [place] (Spiriva Handihaler) 18 mcg INH DAILY [facility] Last Admin: 11/12/18 09:18 Dose: 18 mcg Discontinued Medications Furosemide (Lasix) 40 mg IVPUSH NOW ONE Stop: 11/11/18 00:01 Last Admin: 11/11/18 00:11 Dose: 40 mg Furosemide (Lasix) 80 mg IVPUSH BID [facility] Furosemide (Lasix) 40 mg IVPUSH BID [facility] Furosemide (Lasix) 40 mg IVPUSH BIDDIURETIC [facility] Last Admin: 11/11/18 09:11 Dose: 40 mg Furosemide (Lasix) 40 mg IVPUSH NOW ONE Stop: 11/11/18 12:04 Last Admin: 11/11/18 12:23 Dose: 40 mg Furosemide (Lasix) 80 mg IVPUSH BIDDIURETIC [facility] Furosemide (Lasix) 80 mg IVPUSH BIDDIURETIC [facility] Last Admin: 11/12/18 08:43 Dose: 80 mg Insulin Human Isoph/Insulin Regular (Novolin 70-30) 10 unit SUBCUT ONETIME ONE Stop: 11/11/18 18:16 Last Admin: 11/11/18 18:15 Dose: 10 units - Exam General: Alert, Oriented HEENT: Pupils Equal, Pupils Reactive, EOMI, Mucous Membr. Moist/Ramirez-Perez Neck: Supple Lungs: Normal Respiratory Effort, Crackles Cardiovascular: Regular Rate, Regular Rhythm GI/Abdominal Exam: Normal Bowel Sounds, Soft, Non-Tender, No Organomegaly, No Distention, No Abnormal Bruit, No Mass, Pelvis Stable (Male) Exam: No Hernia, Normal Inspection, Normal Prostate, Circumcised Back Exam: Normal Inspection, Full Range of Motion Extremities: Normal Inspection, Normal Range of Motion, Non-Tender, Normal Capillary Refill, Pedal Edema Skin: Warm, Dry, Intact Wound/Incisions: Healing Well Neurological: No New Focal Deficit Psy/Mental Status: Alert, Normal Affect, Normal Mood - Problem List & Annotations (1) CHF (congestive heart failure) SNOMED Code(s): 22368151 Code(s): I50.9 - HEART FAILURE, UNSPECIFIED Status: Acute Current Visit: No Qualifiers: Heart failure type: unspecified Heart failure chronicity: acute on chronic Qualified Code(s): I50.9 - Heart failure, unspecified (2) Diabetes SNOMED Code(s): 82640237 Code(s): E11.9 - TYPE 2 DIABETES MELLITUS WITHOUT COMPLICATIONS Status: Acute Current Visit: No Qualifiers: Diabetes mellitus type: type 2 Diabetes mellitus fdc insulin use: unspecified fdc insulin use status Diabetes mellitus complication status : with unspecified complications Qualified Code(s): E11.8 - Type 2 diabetes mellitus with unspecified complications (3) Methamphetamine abuse SNOMED Code(s): 491200326 Code(s): F15.10 - OTHER STIMULANT ABUSE, UNCOMPLICATED Status: Acute Current Visit: No (4) Musculoskeletal chest pain SNOMED Code(s): 577871368 Code(s): R07.89 - OTHER CHEST PAIN Status: Acute Current Visit: No (5) SOB (shortness of breath) SNOMED Code(s): 545585911 Code(s): R06.02 - SHORTNESS OF BREATH Status: Acute Current Visit: No (6) ALEC (acute kidney injury) SNOMED Code(s): 86943879 Code(s): N17.9 - ACUTE KIDNEY FAILURE, UNSPECIFIED Status: Acute Current Visit: Yes - Problem List Review Problem List Initiated/Reviewed/Updated: Yes - My Orders Last 24 Hours: My Active Orders 11/11/18 12:01 Acetaminophen [Tylenol] 650 mg PO Q6H PRN 11/11/18 21:00 Simvastatin [Zocor] 10 mg PO BEDTIME 11/12/18 14:00 Furosemide [Lasix] 40 mg IVPUSH BIDDIURETIC 11/13/18 05:00 B-TYPE NATRIURETIC PEPTIDE,BNP [CHEM] DAILY 11/13/18 05:11 BASIC METABOLIC PANEL,BMP [CHEM] AM 11/14/18 05:00 B-TYPE NATRIURETIC PEPTIDE,BNP [CHEM] DAILY 11/14/18 05:11 BASIC METABOLIC PANEL,BMP [CHEM] AM 11/15/18 05:00 B-TYPE NATRIURETIC PEPTIDE,BNP [CHEM] DAILY 11/15/18 05:11 BASIC METABOLIC PANEL,BMP [CHEM] AM 11/16/18 05:11 BASIC METABOLIC PANEL,BMP [CHEM] AM - Plan Plan:: Alicia is a 57-year-old man with past medical history of nonischemic cardiomyopathy, hypertension, hyperlipidemia, diabetes mellitus type 2 with neuropathy, nonischemic cardiomyopathy, systolic congestive heart failure. The patient presented to the ER complaining of lower back pain, increasing leg swelling, and shortness of breath. Patient's was admitted to the hospital for similar presentation and was found to half acute exacerbation of CHF on 11/07. He signed out AMA on 11/09. BNP elevated on admit. Acute exacerbation of chronic systolic CHF This is due to medication noncompliance Resent echo showed EF of 25% Patient was recently admitted and signed out AGAINST MEDICAL ADVICE Monitor vitals Decrease IV Lasix to 40 mg bid in view of ALEC Daily weight Strict I/O Fluid restriction 1.2 L per day Continue carvedilol He was strongly advised on medication and treatment compliance ALEC This is due to pre-renal azotemia from diuretics will decrease Lasix to 40 mg bid Hold other nephrotoxic agents including ARBs given A[facility]C Daily BMP Nonischemic cardiomyopathy Continue home medication Dry cough Improved Chest x-ray negative for infiltrates Continue to Hold antibiotics Hypertension BP within acceptable limits Continue home medications Diabetes type 2 Home medications POC glucose 4 times a day Hypoglycemia protocol Diabetic neuropathy Continue home infection Chronic back pain Continue home medication Diet Consistent carbohydrate diet Full code
[2018-11-12] MEDS: Acetaminophen 325 MG Tab PO PRN (18:06)
[2018-11-12] MEDS: Simvastatin 10 MG Tab PO SCH (20:46)
[2018-11-13] MEDS: Omeprazole 20 MG Cap.CR PO SCH (05:38)
[2018-11-13 06:54] LABS: ANION GAP 11.6
[2018-11-13] MEDS: glyBURIDE 5 MG Tab PO SCH ×2 (08:35→17:52)
[2018-11-13] MEDS: Aspirin 81 MG Tab.EC PO SCH (08:36)
[2018-11-13] MEDS: Carvedilol 6.25 MG Tab PO SCH ×2 (08:36→17:53)
[2018-11-13] MEDS: Tiotropium Inhaler 18 MCG Inhalation Powder Cap Kit of 5 INH SCH (08:37)
[2018-11-13] MEDS: Gabapentin 300 MG Cap PO SCH ×3 (08:37→21:13)
[2018-11-13] MEDS: Heparin Sodium 5,000 Units/ML Vial SUBCUT SCH ×2 (08:39→21:14)
[2018-11-13] MEDS: Insulin NPH HUM/REG Insulin HM 100 UNIT/ML 3 ML Vial SQ SCH ×2 (09:11→17:53)
[2018-11-13] MEDS: Insulin NPH/Insulin Regular,Human 70-30 100 Units/ML 10 ML Vial SUBCUT SCH (09:12)
[2018-11-13] MEDS: Furosemide 40 MG/4 ML VIAL IVPUSH SCH ×2 (09:16→13:29)
[2018-11-13] MEDS: Acetaminophen 325 MG Tab PO PRN ×2 (09:18→22:26)
--- NOTE | 2018-11-13 10:37 | PCM.PN ---
- General Info Date of Service: 11/13/18 Admission Dx/Problem (Free Text): Admission Diagnosis/Problem Admission Diagnosis/Problem CHF, Congestive heart failure Subjective Update: Alicia is a 57-year-old man with past medical history of nonischemic cardiomyopathy, hypertension, hyperlipidemia, diabetes mellitus type 2 with neuropathy, nonischemic cardiomyopathy, systolic congestive heart failure. The patient presented to the ER complaining of lower back pain, increasing leg swelling, and shortness of breath. Patient's was admitted to the hospital for similar presentation and was found to half acute exacerbation of CHF on 11/07. He signed out AMA on 11/09. He was admitted for exacerbation of HFrEF. He was seen and examined today. No complaint.. Creatinine trended up to 1.9 from 1.7. No fever, chills, chest pain, SOB. Patient requesting to be discharged. I advised him to stay till his is well enough to go home. He says he is feeling better and wants to go home. I insisted he stays and he agreed. Functional Status: Reports: Pain Controlled - Review of Systems General: Reports: No Symptoms HEENT: Reports: No Symptoms Pulmonary: Reports: No Symptoms Cardiovascular: Reports: No Symptoms Gastrointestinal: Reports: No Symptoms Genitourinary: Reports: No Symptoms Musculoskeletal: Reports: No Symptoms Skin: Reports: No Symptoms Neurological: Reports: No Symptoms Psychiatric: Reports: No Symptoms - Patient Data Vitals - Most Recent: Last Vital Signs Temp 98.7 F 11/13/18 08:00 Pulse 83 11/13/18 08:36 Resp 16 11/13/18 08:00 BP 130/85 11/13/18 08:36 Pulse Ox 97 11/13/18 08:00 Weight - Most Recent: 181 lb 6.4 oz I&O - Last 24 Hours: Intake & Output 11/12/18 11/13/18 11/13/18 22:59 06:59 14:59 Intake Total 360 510 960 Balance 360 510 960 Lab Results Last 24 Hours: Laboratory Results - last 24 hr 11/12/18 11/12/18 11/12/18 Range/Units 11:08 16:38 20:43 Sodium (135-145) mmol/L Potassium (3.6-5.0) mmol/L Chloride (101-111) mmol/L Carbon Dioxide (21.0-31.0) mmol/L Anion Gap BUN (7-18) mg/dL Creatinine (0.6-1.3) mg/dL Est Cr Clr Drug Dosing mL/min Estimated GFR (MDRD) Glucose (74-105) mg/dL POC Glucose 170 H 145 H 151 H (70-105) mg/dl Calcium (8.4-10.2) mg/dl B-Natriuretic Peptide (0-100) pg/ml 11/13/18 11/13/18 11/13/18 Range/Units 06:18 06:18 06:55 Sodium 136 (135-145) mmol/L Potassium 4.6 (3.6-5.0) mmol/L Chloride 100 L (101-111) mmol/L Carbon Dioxide 29.0 (21.0-31.0) mmol/L Anion Gap 11.6 BUN 42 H (7-18) mg/dL Creatinine 1.9 H (0.6-1.3) mg/dL Est Cr Clr Drug Dosing 40.10 mL/min Estimated GFR (MDRD) 37 Glucose 84 (74-105) mg/dL POC Glucose 85 (70-105) mg/dl Calcium 7.9 L (8.4-10.2) mg/dl B-Natriuretic Peptide 2300 H (0-100) pg/ml Med Orders - Current: Current Medications Acetaminophen (Tylenol) 650 mg PO Q6H PRN PRN Reason: Pain Last Admin: 11/13/18 09:18 Dose: 650 mg Albuterol (Proventil Hfa) 0 gm INH Q6HR PRN PRN Reason: Shortness of Breath Aspirin (Halfprin) 81 mg PO DAILY [facility] Last Admin: 11/13/18 08:36 Dose: 81 mg Bisacodyl (Dulcolax) 10 mg RECTAL DAILY PRN PRN Reason: Constipation Carvedilol (Coreg) 6.25 mg PO BIDMEALS REPL[facility]ED BY [facility] Last Admin: 11/13/18 08:36 Dose: 6.25 mg Furosemide (Lasix) 40 mg IVPUSH BIDDIURETIC REPLACED BY [facility] Last Admin: 11/13/18 09:16 Dose: 40 mg Gabapentin (Neurontin) 600 mg PO TID REPL[facility] Last Admin: 11/13/18 08:37 Dose: 600 mg Glyburide (Micronase) 5 mg PO BID@0800,1800 REPLACED [facility] Last Admin: 11/13/18 08:35 Dose: 5 mg Heparin Sodium (Porcine) (Heparin Sodium) 5,000 units SUBCUT Q12H REPLACED BY [facility] Last Admin: 11/13/18 08:39 Dose: 5,000 units Insulin NPH Beef/Pork (Humulin 70-30) 10 unit SQ BIDMEALS REPLACED BY [facility] Last Admin: 11/13/18 09:11 Dose: 10 unit Magnesium Hydroxide (Milk Of Magnesia) 30 ml PO BID PRN PRN Reason: Constipation Magnesium Oxide (Magnesium Oxide) 250 mg PO DAILY [facility] Last Admin: 11/13/18 08:36 Dose: 250 mg Non-Formulary Medication (Cetirizine Hcl [Cetirizine Hcl]) 10 mg PO DAILY PRN PRN Reason: Allergies Omeprazole (Omeprazole) 20 mg PO ACBREAKFAST REPLACED [facility] Last Admin: 11/13/18 05:38 Dose: 20 mg Simvastatin (Zocor) 10 mg PO BEDTIME REPLACED BY [facility] Last Admin: 11/12/18 20:46 Dose: 10 mg Tiotropium [place] (Spiriva Handihaler) 18 mcg INH DAILY [facility] BY [facility] Last Admin: 11/13/18 08:37 Dose: 18 mcg Discontinued Medications Furosemide (Lasix) 40 mg IVPUSH NOW ONE Stop: 11/11/18 00:01 Last Admin: 11/11/18 00:11 Dose: 40 mg Furosemide (Lasix) 80 mg IVPUSH BID [facility] Furosemide (Lasix) 40 mg IVPUSH BID [facility] Furosemide (Lasix) 40 mg IVPUSH BIDDIURETIC REPLACED BY [facility] Last Admin: 11/11/18 09:11 Dose: 40 mg Furosemide (Lasix) 40 mg IVPUSH NOW ONE Stop: 11/11/18 12:04 Last Admin: 11/11/18 12:23 Dose: 40 mg Furosemide (Lasix) 80 mg IVPUSH BIDDIURETIC [facility] Furosemide (Lasix) 80 mg IVPUSH BIDDIURETIC REPLACED BY [facility] Last Admin: 11/12/18 08:43 Dose: 80 mg Insulin Human Isoph/Insulin Regular (Novolin 70-30) 50 unit SUBCUT BIDMEALS REPLACED BY [facility] Last Admin: 11/12/18 11:31 Dose: Not Given Insulin Human Isoph/Insulin Regular (Novolin 70-30) 10 unit SUBCUT ONETIME ONE Stop: 11/11/18 18:16 Last Admin: 11/11/18 18:15 Dose: 10 units Insulin Human Isoph/Insulin Regular (Novolin 70-30) 10 unit SUBCUT BIDMEALS REPLACED [facility] Last Admin: 11/13/18 09:12 Dose: Not Given - Exam Quality Assessment: DVT Prophylaxis General: Alert, Oriented HEENT: Pupils Equal, Pupils Reactive, EOMI, Mucous Membr. Moist/[place] Neck: Supple Lungs: Clear to Auscultation, Normal Respiratory Effort Cardiovascular: Regular Rate, Regular Rhythm GI/Abdominal Exam: Normal Bowel Sounds, Soft, Non-Tender, No Organomegaly, No Distention, No Abnormal Bruit, No Mass, Pelvis Stable (Male) Exam: No Hernia, Normal Inspection, Normal Prostate, Circumcised Back Exam: Normal Inspection, Full Range of Motion Extremities: Normal Inspection, Normal Range of Motion, Non-Tender, No Pedal Edema, Normal Capillary Refill, Pedal Edema, Other (leg swelling improving) Skin: Warm, Dry, Intact Wound/Incisions: Healing Well Neurological: No New Focal Deficit Psy/Mental Status: Alert, Normal Affect, Normal Mood - Problem List & Annotations (1) CHF (congestive heart failure) SNOMED Code(s): 19925780 Code(s): I50.9 - HEART FAILURE, UNSPECIFIED Status: Acute Current Visit: No Qualifiers: Heart failure type: unspecified Heart failure chronicity: acute on chronic Qualified Code(s): I50.9 - Heart failure, unspecified (2) Diabetes SNOMED Code(s): 48601266 Code(s): E11.9 - TYPE 2 DIABETES MELLITUS WITHOUT COMPLICATIONS Status: Acute Current Visit: No Qualifiers: Diabetes mellitus type: type 2 Diabetes mellitus group home insulin use: unspecified group home insulin use status Diabetes mellitus complication status : with unspecified complications Qualified Code(s): E11.8 - Type 2 diabetes mellitus with unspecified complications (3) Methamphetamine abuse SNOMED Code(s): 210558859 Code(s): F15.10 - OTHER STIMULANT ABUSE, UNCOMPLICATED Status: Acute Current Visit: No (4) Musculoskeletal chest pain SNOMED Code(s): 081107625 Code(s): R07.89 - OTHER CHEST PAIN Status: Acute Current Visit: No (5) SOB (shortness of breath) SNOMED Code(s): 333655607 Code(s): R06.02 - SHORTNESS OF BREATH Status: Acute Current Visit: No (6) ALEC (acute kidney injury) SNOMED Code(s): 98159295 Code(s): N17.9 - ACUTE KIDNEY FAILURE, UNSPECIFIED Status: Acute Current Visit: Yes - Problem List Review Problem List Initiated/Reviewed/Updated: Yes - My Orders Last 24 Hours: My Active Orders 11/12/18 14:00 Furosemide [Lasix] 40 mg IVPUSH BIDDIURETIC 11/13/18 08:00 Insulin NPH Hum/Reg Insulin Hm [Humulin 70-30] 10 unit SQ BIDMEALS 11/13/18 10:23 Patient Status [ADT] Routine 11/14/18 05:00 B-TYPE NATRIURETIC PEPTIDE,BNP [CHEM] DAILY 11/14/18 05:11 BASIC METABOLIC PANEL,BMP [CHEM] AM 11/15/18 05:00 B-TYPE NATRIURETIC PEPTIDE,BNP [CHEM] DAILY 11/15/18 05:11 BASIC METABOLIC PANEL,BMP [CHEM] AM 11/16/18 05:11 BASIC METABOLIC PANEL,BMP [CHEM] AM - Plan Plan:: Alicia is a 57-year-old man with past medical history of nonischemic cardiomyopathy, hypertension, hyperlipidemia, diabetes mellitus type 2 with neuropathy, nonischemic cardiomyopathy, systolic congestive heart failure. The patient presented to the ER complaining of lower back pain, increasing leg swelling, and shortness of breath. Patient's was admitted to the hospital for similar presentation and was found to half acute exacerbation of CHF on 11/07. He signed out AMA on 11/09. BNP elevated on admit. Acute exacerbation of chronic systolic CHF Due to medication noncompliance Resent echo showed EF of 25% Patient was recently admitted and signed out AGAINST MEDICAL ADVICE Monitor vitals IV Lasix to 40 mg bid Daily weight Strict I/O Fluid restriction 1.2 L per day Continue carvedilol He was strongly advised on medication and treatment compliance ALEC This is due to pre-renal azotemia from diuretics Creatinine trended up to 1.9 from 1.7 Continue Lasix to 40 mg bid Hold other nephrotoxic agents including ARBs given [facility] Daily BMP Nonischemic cardiomyopathy Continue home medication Dry cough Improved Chest x-ray negative for infiltrates Continue to Hold antibiotics Hypertension BP within acceptable limits Continue home medications Diabetes type 2 Home medications POC glucose 4 times a day Hypoglycemia protocol Diabetic neuropathy Continue home infection Chronic back pain Continue home medication Diet Consistent carbohydrate diet Full code
[2018-11-13] MEDS ORDERED: Sodium Chloride 0.9% 10 ML Syringe FLUSH PRN (11:15)
[2018-11-13] MEDS: Simvastatin 10 MG Tab PO SCH (21:13)
[2018-11-14] MEDS: Omeprazole 20 MG Cap.CR PO SCH (06:01)
[2018-11-14] MEDS: Acetaminophen 325 MG Tab PO PRN (06:10)
[2018-11-14 07:00] LABS: ANION GAP 12.8
[2018-11-14] MEDS: Heparin Sodium 5,000 Units/ML Vial SUBCUT SCH (08:43)
[2018-11-14] MEDS: Furosemide 40 MG/4 ML VIAL IVPUSH SCH ×2 (08:43→13:50)
[2018-11-14] MEDS: Insulin NPH HUM/REG Insulin HM 100 UNIT/ML 3 ML Vial SQ SCH (08:44)
[2018-11-14] MEDS: Carvedilol 6.25 MG Tab PO SCH (08:44)
[2018-11-14] MEDS: Aspirin 81 MG Tab.EC PO SCH (08:44)
[2018-11-14] MEDS: Gabapentin 300 MG Cap PO SCH ×2 (08:44→13:50)
[2018-11-14] MEDS: glyBURIDE 5 MG Tab PO SCH (08:44)
[2018-11-14] MEDS: Tiotropium Inhaler 18 MCG Inhalation Powder Cap Kit of 5 INH SCH (08:45)
--- NOTE | 2018-11-14 10:04 | PCM.PN ---
- General Info Date of Service: 11/14/18 Admission Dx/Problem (Free Text): Admission Diagnosis/Problem Admission Diagnosis/Problem CHF, Congestive heart failure Subjective Update: Alicia is a 57-year-old man with past medical history of nonischemic cardiomyopathy, hypertension, hyperlipidemia, diabetes mellitus type 2 with neuropathy, nonischemic cardiomyopathy, systolic congestive heart failure. The patient presented to the ER complaining of lower back pain, increasing leg swelling, and shortness of breath. Patient's was admitted to the hospital for similar presentation and was found to half acute exacerbation of CHF on 11/07. He signed out AMA on 11/09. He was admitted for exacerbation of HFrEF. He was seen and examined today. No acute event overnight. Creatinine trended down up, 1.7< 1.9. He denies fever, chills, chest pain, SOB. Functional Status: Reports: Pain Controlled - Review of Systems General: Reports: No Symptoms HEENT: Reports: No Symptoms Pulmonary: Reports: No Symptoms Cardiovascular: Reports: No Symptoms Gastrointestinal: Reports: No Symptoms Genitourinary: Reports: No Symptoms Musculoskeletal: Reports: No Symptoms Skin: Reports: No Symptoms Neurological: Reports: No Symptoms Psychiatric: Reports: No Symptoms - Patient Data Vitals - Most Recent: Last Vital Signs Temp 98.1 F 11/14/18 07:51 Pulse 81 11/14/18 08:44 Resp 20 11/14/18 07:51 BP 135/78 11/14/18 08:44 Pulse Ox 100 11/14/18 07:51 Weight - Most Recent: 182 lb 6.4 oz I&O - Last 24 Hours: Intake & Output 11/13/18 11/14/18 11/14/18 22:59 06:59 14:59 Intake Total 350 360 Balance 350 360 Lab Results Last 24 Hours: Laboratory Results - last 24 hr 11/13/18 11/13/18 11/13/18 Range/Units 11:09 16:37 20:41 Sodium (135-145) mmol/L Potassium (3.6-5.0) mmol/L Chloride (101-111) mmol/L Carbon Dioxide (21.0-31.0) mmol/L Anion Gap BUN (7-18) mg/dL Creatinine (0.6-1.3) mg/dL Est Cr Clr Drug Dosing mL/min Estimated GFR (MDRD) Glucose (74-105) mg/dL POC Glucose 84 123 H 77 (70-105) mg/dl Calcium (8.4-10.2) mg/dl B-Natriuretic Peptide (0-100) pg/ml 11/14/18 11/14/18 11/14/18 Range/Units 06:34 06:34 07:41 Sodium 137 (135-145) mmol/L Potassium 4.8 (3.6-5.0) mmol/L Chloride 100 L (101-111) mmol/L Carbon Dioxide 29.0 (21.0-31.0) mmol/L Anion Gap 12.8 BUN 44 H (7-18) mg/dL Creatinine 1.7 H (0.6-1.3) mg/dL Est Cr Clr Drug Dosing 44.82 mL/min Estimated GFR (MDRD) 42 Glucose 126 H (74-105) mg/dL POC Glucose 90 (70-105) mg/dl Calcium 7.8 L (8.4-10.2) mg/dl B-Natriuretic Peptide 1370 H (0-100) pg/ml Med Orders - Current: Current Medications Acetaminophen (Tylenol) 650 mg PO Q6H PRN PRN Reason: Pain Last Admin: 11/14/18 06:10 Dose: 650 mg Albuterol (Proventil Hfa) 0 gm INH Q6HR PRN PRN Reason: Shortness of Breath Aspirin (Halfprin) 81 mg PO DAILY [facility] Last Admin: 11/14/18 08:44 Dose: 81 mg Bisacodyl (Dulcolax) 10 mg RECTAL DAILY PRN PRN Reason: Constipation Carvedilol (Coreg) 6.25 mg PO BIDMEALS [facility] Last Admin: 11/14/18 08:44 Dose: 6.25 mg Furosemide (Lasix) 40 mg IVPUSH BIDDIURETIC [facility] Last Admin: 11/14/18 08:43 Dose: 40 mg Gabapentin (Neurontin) 600 mg PO TID [facility] Last Admin: 11/14/18 08:44 Dose: 600 mg Glyburide (Micronase) 5 mg PO BID@0800,1800 [facility] Last Admin: 11/14/18 08:44 Dose: 5 mg Heparin Sodium (Porcine) (Heparin Sodium) 5,000 units SUBCUT Q12H [facility] Last Admin: 11/14/18 08:43 Dose: 5,000 units Insulin NPH Beef/Pork (Humulin 70-30) 10 unit SQ BIDMEALS [facility] Last Admin: 11/14/18 08:44 Dose: 10 unit Magnesium Hydroxide (Milk Of Magnesia) 30 ml PO BID PRN PRN Reason: Constipation Magnesium Oxide (Magnesium Oxide) 250 mg PO DAILY [facility] Last Admin: 11/14/18 08:44 Dose: 250 mg Omeprazole (Omeprazole) 20 mg PO ACBREAKFAST [facility] Last Admin: 11/14/18 06:01 Dose: 20 mg Simvastatin (Zocor) 10 mg PO BEDTIME [facility] Last Admin: 11/13/18 21:13 Dose: 10 mg Sodium Chloride (Saline Flush) 10 ml FLUSH ASDIRECTED PRN PRN Reason: Keep Vein Open Last Admin: 11/13/18 22:28 Dose: 10 ml Tiotropium [place] (Spiriva Handihaler) 18 mcg INH DAILY [facility] Last Admin: 11/14/18 08:45 Dose: 18 mcg Discontinued Medications Furosemide (Lasix) 40 mg IVPUSH NOW ONE Stop: 11/11/18 00:01 Last Admin: 11/11/18 00:11 Dose: 40 mg Furosemide (Lasix) 80 mg IVPUSH BID [facility] Furosemide (Lasix) 40 mg IVPUSH BID [facility] Furosemide (Lasix) 40 mg IVPUSH BIDDIURETIC [facility] Last Admin: 11/11/18 09:11 Dose: 40 mg Furosemide (Lasix) 40 mg IVPUSH NOW ONE Stop: 11/11/18 12:04 Last Admin: 11/11/18 12:23 Dose: 40 mg Furosemide (Lasix) 80 mg IVPUSH BIDDIURETIC [facility] Furosemide (Lasix) 80 mg IVPUSH BIDDIURETIC [facility] Last Admin: 11/12/18 08:43 Dose: 80 mg Insulin Human Isoph/Insulin Regular (Novolin 70-30) 50 unit SUBCUT BIDMEALS [facility] Last Admin: 11/12/18 11:31 Dose: Not Given Insulin Human Isoph/Insulin Regular (Novolin 70-30) 10 unit SUBCUT ONETIME ONE Stop: 11/11/18 18:16 Last Admin: 11/11/18 18:15 Dose: 10 units Insulin Human Isoph/Insulin Regular (Novolin 70-30) 10 unit SUBCUT BIDMEALS [facility] Last Admin: 11/13/18 09:12 Dose: Not Given - Exam Quality Assessment: DVT Prophylaxis General: Alert, Oriented HEENT: Pupils Equal, Pupils Reactive, EOMI, Mucous Membr. Moist/[place] Neck: Supple Lungs: Crackles Cardiovascular: Regular Rate, Regular Rhythm GI/Abdominal Exam: Normal Bowel Sounds, Soft, Non-Tender, No Organomegaly, No Distention, No Abnormal Bruit, No Mass, Pelvis Stable (Male) Exam: No Hernia, Normal Inspection, Normal Prostate, Circumcised Back Exam: Normal Inspection, Full Range of Motion Extremities: Pedal Edema Skin: Warm, Dry, Intact Wound/Incisions: Healing Well Neurological: No New Focal Deficit Psy/Mental Status: Alert, Normal Affect, Normal Mood - Problem List & Annotations (1) CHF (congestive heart failure) SNOMED Code(s): 06045326 Code(s): I50.9 - HEART FAILURE, UNSPECIFIED Status: Acute Current Visit: No Qualifiers: Heart failure type: unspecified Heart failure chronicity: acute on chronic Qualified Code(s): I50.9 - Heart failure, unspecified (2) Diabetes SNOMED Code(s): 09833703 Code(s): E11.9 - TYPE 2 DIABETES MELLITUS WITHOUT COMPLICATIONS Status: Acute Current Visit: No Qualifiers: Diabetes mellitus type: type 2 Diabetes mellitus termination clerk insulin use: unspecified senior care insulin use status Diabetes mellitus complication status : with unspecified complications Qualified Code(s): E11.8 - Type 2 diabetes mellitus with unspecified complications (3) Methamphetamine abuse SNOMED Code(s): 982908025 Code(s): F15.10 - OTHER STIMULANT ABUSE, UNCOMPLICATED Status: Acute Current Visit: No (4) Musculoskeletal chest pain SNOMED Code(s): 516391472 Code(s): R07.89 - OTHER CHEST PAIN Status: Acute Current Visit: No (5) SOB (shortness of breath) SNOMED Code(s): 371834338 Code(s): R06.02 - SHORTNESS OF BREATH Status: Acute Current Visit: No (6) ALEC (acute kidney injury) SNOMED Code(s): 35475394 Code(s): N17.9 - ACUTE KIDNEY FAILURE, UNSPECIFIED Status: Acute Current Visit: Yes - Problem List Review Problem List Initiated/Reviewed/Updated: Yes - My Orders Last 24 Hours: My Active Orders 11/13/18 10:23 Patient Status [ADT] Routine 11/13/18 11:15 Sodium Chloride 0.9% [Saline Flush] 10 ml FLUSH ASDIRECTED PRN Saline Lock Insert [OM.PC] Routine 11/15/18 05:00 B-TYPE NATRIURETIC PEPTIDE,BNP [CHEM] DAILY 11/15/18 05:11 BASIC METABOLIC PANEL,BMP [CHEM] AM 11/16/18 05:11 BASIC METABOLIC PANEL,BMP [CHEM] AM 11/17/18 05:11 BASIC METABOLIC PANEL,BMP [CHEM] AM - Plan Plan:: Assessment and Plan Alicia is a 57-year-old man with past medical history of nonischemic cardiomyopathy, hypertension, hyperlipidemia, diabetes mellitus type 2 with neuropathy, nonischemic cardiomyopathy, systolic congestive heart failure. The patient presented to the ER complaining of lower back pain, increasing leg swelling, and shortness of breath. Patient's was admitted to the hospital for similar presentation and was found to half acute exacerbation of CHF on 11/07. He signed out AMA on 11/09. BNP elevated on admit. Acute exacerbation of chronic systolic CHF Due to medication noncompliance Resent echo showed EF of 25% Patient was recently admitted and signed out AGAINST MEDICAL ADVICE Monitor vitals IV Lasix to 40 mg bid Daily weight Strict I/O Fluid restriction 1.2 L per day Continue carvedilol Advised on medication and treatment compliance ALEC This is due to pre-renal azotemia from diuresis Creatinine trended down to 1.7 Continue Lasix to 40 mg bid Hold other nephrotoxic agents including ARBs given ALEC Daily BMP Nonischemic cardiomyopathy Continue home medication Dry cough Improved Chest x-ray negative for infiltrates Hypertension BP within acceptable limits Continue home medications Diabetes type 2 Continue current care POC glucose 4 times a day Hypoglycemia protocol Diabetic neuropathy Continue home infection Chronic back pain Continue home medication Diet Consistent carbohydrate diet Full code
[2018-11-14] MEDS ORDERED: 50% Dextrose in Water 50 ML Syringe IVPUSH ONE (11:28)
[2018-11-14 11:47] VITALS: BP 151/86
--- NOTE | 2018-11-14 18:56 | PCM.DCSUM1 ---
Discharge Summary - Hospital Course Free Text/Narrative:: Alicia is a 57-year-old man with past medical history of nonischemic cardiomyopathy, hypertension, hyperlipidemia, diabetes mellitus type 2 with neuropathy, nonischemic cardiomyopathy, systolic congestive heart failure. The patient presented to the ER complaining of lower back pain, increasing leg swelling, and shortness of breath. Patient's was admitted to the hospital for similar presentation and was found to half acute exacerbation of CHF on 11/07. He signed out AMA on 11/09. He was admitted for exacerbation of HFrEF. He was seen and examined today. No acute event overnight. Creatinine trended down up, 1.7< 1.9. He denies fever, chills, chest pain, SOB. Overall he has been doing well and responding to IV diuretics. Patient however decided to sigh out later in the day AMA. He was advised on the risk of signing out AMA including worsening of condition and . He verbalized understanding but still insist to sign out against medical advise. Diagnosis: Stroke: No - Discharge Data Discharge Date: 11/14/18 Discharge Disposition: Against Medical Advice 07 Condition: Good - Discharge Diagnosis/Problem(s) (1) CHF (congestive heart failure) SNOMED Code(s): 58468808 ICD Code: I50.9 - HEART FAILURE, UNSPECIFIED Status: Acute Qualifiers: Heart failure type: unspecified Heart failure chronicity: acute on chronic Qualified Code(s): I50.9 - Heart failure, unspecified (2) Diabetes SNOMED Code(s): 88814669 ICD Code: E11.9 - TYPE 2 DIABETES MELLITUS WITHOUT COMPLICATIONS Status: Acute Qualifiers: Diabetes mellitus type: type 2 Diabetes mellitus 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 insulin use: unspecified 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 insulin use status Diabetes mellitus complication status : with unspecified complications Qualified Code(s): E11.8 - Type 2 diabetes mellitus with unspecified complications (3) Methamphetamine abuse SNOMED Code(s): 210842689 ICD Code: F15.10 - OTHER STIMULANT ABUSE, UNCOMPLICATED Status: Acute (4) Musculoskeletal chest pain SNOMED Code(s): 371794872 ICD Code: R07.89 - OTHER CHEST PAIN Status: Acute (5) SOB (shortness of breath) SNOMED Code(s): 073611588 ICD Code: R06.02 - SHORTNESS OF BREATH Status: Acute (6) ALEC (acute kidney injury) SNOMED Code(s): 63792336 ICD Code: N17.9 - ACUTE KIDNEY FAILURE, UNSPECIFIED Status: Acute - Patient Instructions Fluid Restriction: 1500 mL Activity: As Tolerated - Discharge Plan Home Medications: Home Meds Aspirin [Lo-Dose Aspirin EC] 81 mg PO DAILY 08/22/18 [History] Carvedilol 6.25 mg PO BIDMEALS 08/22/18 [History] Gabapentin [Neurontin] 600 mg PO TID 08/22/18 [History] Insulin NPH/Insulin Reg,Human [Novolin 70-30] 50 units SQ BID 08/22/18 [History] Omeprazole 20 mg PO DAILY 08/22/18 [History] Simvastatin 10 mg PO BEDTIME 08/22/18 [History] glyBURIDE [Glyburide] 5 mg PO BID 08/22/18 [History] Furosemide [Lasix] 40 mg PO BIDDIURETIC #30 tablet 08/24/18 [Rx] Albuterol Sulfate [Proair Hfa] 1 puff INH Q6HR PRN 11/08/18 [History] Cetirizine HCl 10 mg PO DAILY PRN 11/08/18 [History] Magnesium Oxide [Magnesium] 400 mg PO DAILY 11/08/18 [History] Tiotropium [Spiriva HandiHaler] 18 mcg INH DAILY 11/08/18 [History] Referrals: Ry Fragoso, F[employer] [employer]IER [Primary Care Provider] - - Discharge Summary/Plan Comment DC Time >30 min.: Yes - General Info Date of Service: 11/14/18 Admission Dx/Problem (Free Text: Admission Diagnosis/Problem Admission Diagnosis/Problem CHF, Congestive heart failure Functional Status: Reports: Pain Controlled - Review of Systems General: Reports: No Symptoms HEENT: Reports: No Symptoms Pulmonary: Reports: No Symptoms Cardiovascular: Reports: No Symptoms Gastrointestinal: Reports: No Symptoms Genitourinary: Reports: No Symptoms Musculoskeletal: Reports: No Symptoms Skin: Reports: No Symptoms Neurological: Reports: No Symptoms Psychiatric: Reports: No Symptoms - Patient Data Vitals - Most Recent: Last Vital Signs Temp 96.7 F 11/14/18 11:47 Pulse 81 11/14/18 11:47 Resp 20 11/14/18 11:47 BP 151/86 H 11/14/18 11:47 Pulse Ox 100 11/14/18 13:00 Weight - Most Recent: 182 lb 6.4 oz I&O - Last 24 hours: Intake & Output 11/14/18 11/14/18 11/14/18 06:59 14:59 22:59 Intake Total 350 410 Balance 350 410 Lab Results - Last 24 hrs: Laboratory Results - last 24 hr 11/13/18 11/14/18 11/14/18 Range/Units 20:41 06:34 06:34 Sodium 137 (135-145) mmol/L Potassium 4.8 (3.6-5.0) mmol/L Chloride 100 L (101-111) mmol/L Carbon Dioxide 29.0 (21.0-31.0) mmol/L Anion Gap 12.8 BUN 44 H (7-18) mg/dL Creatinine 1.7 H (0.6-1.3) mg/dL Est Cr Clr Drug Dosing 44.82 mL/min Estimated GFR (MDRD) 42 Glucose 126 H (74-105) mg/dL POC Glucose 77 (70-105) mg/dl Calcium 7.8 L (8.4-10.2) mg/dl B-Natriuretic Peptide 1370 H (0-100) pg/ml 11/14/18 11/14/18 11/14/18 Range/Units 07:41 10:57 11:21 Sodium (135-145) mmol/L Potassium (3.6-5.0) mmol/L Chloride (101-111) mmol/L Carbon Dioxide (21.0-31.0) mmol/L Anion Gap BUN (7-18) mg/dL Creatinine (0.6-1.3) mg/dL Est Cr Clr Drug Dosing mL/min Estimated GFR (MDRD) Glucose (74-105) mg/dL POC Glucose 90 54 L 46 L* (70-105) mg/dl Calcium (8.4-10.2) mg/dl B-Natriuretic Peptide (0-100) pg/ml 11/14/18 Range/Units 11:49 Sodium (135-145) mmol/L Potassium (3.6-5.0) mmol/L Chloride (101-111) mmol/L Carbon Dioxide (21.0-31.0) mmol/L Anion Gap BUN (7-18) mg/dL Creatinine (0.6-1.3) mg/dL Est Cr Clr Drug Dosing mL/min Estimated GFR (MDRD) Glucose (74-105) mg/dL POC Glucose 196 H (70-105) mg/dl Calcium (8.4-10.2) mg/dl B-Natriuretic Peptide (0-100) pg/ml Med Orders - Current: Current Medications Discontinued Medications Acetaminophen (Tylenol) 650 mg PO Q6H PRN PRN Reason: Pain Last Admin: 11/14/18 06:10 Dose: 650 mg Albuterol (Proventil Hfa) 0 gm INH Q6HR PRN PRN Reason: Shortness of Breath Aspirin (Halfprin) 81 mg PO DAILY [facility] Last Admin: 11/14/18 08:44 Dose: 81 mg Bisacodyl (Dulcolax) 10 mg RECTAL DAILY PRN PRN Reason: Constipation Carvedilol (Coreg) 6.25 mg PO BIDMEALS [facility] Last Admin: 11/14/18 08:44 Dose: 6.25 mg Dextrose/Water (Dextrose 50% In Water) 50 ml IVPUSH ONETIME ONE Stop: 11/14/18 11:29 Last Admin: 11/14/18 11:33 Dose: 50 ml Furosemide (Lasix) 40 mg IVPUSH NOW ONE Stop: 11/11/18 00:01 Last Admin: 11/11/18 00:11 Dose: 40 mg Furosemide (Lasix) 80 mg IVPUSH BID [facility] Furosemide (Lasix) 40 mg IVPUSH BID [facility] Furosemide (Lasix) 40 mg IVPUSH BIDDIURETIC [facility] Last Admin: 11/11/18 09:11 Dose: 40 mg Furosemide (Lasix) 40 mg IVPUSH NOW ONE Stop: 11/11/18 12:04 Last Admin: 11/11/18 12:23 Dose: 40 mg Furosemide (Lasix) 80 mg IVPUSH BIDDIURETIC [facility] Furosemide (Lasix) 80 mg IVPUSH BIDDIURETIC [facility] Last Admin: 11/12/18 08:43 Dose: 80 mg Furosemide (Lasix) 40 mg IVPUSH BIDDIURETIC [facility] Last Admin: 11/14/18 13:50 Dose: 40 mg Gabapentin (Neurontin) 600 mg PO TID [facility] Last Admin: 11/14/18 13:50 Dose: 600 mg Glyburide (Micronase) 5 mg PO BID@0800,1800 [facility] Last Admin: 11/14/18 08:44 Dose: 5 mg Heparin Sodium (Porcine) (Heparin Sodium) 5,000 units SUBCUT Q12H [facility] Last Admin: 11/14/18 08:43 Dose: 5,000 units Insulin Human Isoph/Insulin Regular (Novolin 70-30) 50 unit SUBCUT BIDMEALS [facility] Last Admin: 11/12/18 11:31 Dose: Not Given Insulin Human Isoph/Insulin Regular (Novolin 70-30) 10 unit SUBCUT ONETIME ONE Stop: 11/11/18 18:16 Last Admin: 11/11/18 18:15 Dose: 10 units Insulin Human Isoph/Insulin Regular (Novolin 70-30) 10 unit SUBCUT BIDMEALS [facility] Last Admin: 11/13/18 09:12 Dose: Not Given Insulin NPH Beef/Pork (Humulin 70-30) 10 unit SQ BIDMEALS [facility] Last Admin: 11/14/18 08:44 Dose: 10 unit Magnesium Hydroxide (Milk Of Magnesia) 30 ml PO BID PRN PRN Reason: Constipation Magnesium Oxide (Magnesium Oxide) 250 mg PO DAILY [facility] Last Admin: 11/14/18 08:44 Dose: 250 mg Omeprazole (Omeprazole) 20 mg PO ACBREAKFAST [facility] Last Admin: 11/14/18 06:01 Dose: 20 mg Simvastatin (Zocor) 10 mg PO BEDTIME [facility] Last Admin: 11/13/18 21:13 Dose: 10 mg Sodium Chloride (Saline Flush) 10 ml FLUSH ASDIRECTED PRN PRN Reason: Keep Vein Open Last Admin: 11/13/18 22:28 Dose: 10 ml Tiotropium [place] (Spiriva Handihaler) 18 mcg INH DAILY [facility] Last Admin: 11/14/18 08:45 Dose: 18 mcg - Exam Quality Assessment: Reports: DVT Prophylaxis General: Reports: Alert, Oriented HEENT: Reports: Pupils Equal, Pupils Reactive, EOMI, Mucous Membr. Moist/[place] Neck: Reports: Supple Lungs: Reports: Clear to Auscultation, Normal Respiratory Effort Cardiovascular: Reports: Regular Rate, Regular Rhythm GI/Abdominal Exam: Normal Bowel Sounds, Soft, Non-Tender, No Organomegaly, No Distention, No Abnormal Bruit, No Mass, Pelvis Stable (Male) Exam: No Hernia, Normal Inspection, Normal Prostate, Circumcised Rectal (Males) Exam: Normal Exam, Normal Rectal Tone, Prostate Normal Back Exam: Reports: Normal Inspection, Full Range of Motion Extremities: Normal Inspection, Normal Range of Motion, Non-Tender, No Pedal Edema, Normal Capillary Refill Skin: Reports: Warm, Dry, Intact Wound/Incisions: Reports: Healing Well Neurological: Reports: No New Focal Deficit Psy/Mental Status: Reports: Alert, Normal Affect, Normal Mood
== END 2018-11-14 15:03 | disposition left against medical advice (07) | DRG 292 ==
LOC: DL.ED 00:03 → UNDOADMOB 01:04 → DL.MS 01:04 → UNDOADMOB 01:41 → DL.MS 01:41 → OBSVTOIN 11-13 10:23 → DL.MS 11-13 10:23
PROVIDERS: ADMIT Student in an Organized Health Care Education/Training Program; ATTEND Student in an Organized Health Care Education/Training Program
DX: I11.0 Hypertensive heart disease with heart failure (principal); I50.23 Acute on chronic systolic (congestive) heart failure; N17.9 Acute kidney failure, unspecified; I42.9 Cardiomyopathy, unspecified; E11.40 Type 2 diabetes mellitus with diabetic neuropathy, unspecified; G89.29 Other chronic pain; M54.9 Dorsalgia, unspecified; F15.10 Other stimulant abuse, uncomplicated; R07.89 Other chest pain; E78.00 Pure hypercholesterolemia, unspecified; K21.9 Gastro-esophageal reflux disease without esophagitis; E11.21 Type 2 diabetes mellitus with diabetic nephropathy; M19.91 Primary osteoarthritis, unspecified site; F41.9 Anxiety disorder, unspecified; T50.2X5A Adverse effect of carbonic-anhydrase inhibitors, benzothiadiazides and other diuretics, initial encounter; B19.20 Unspecified viral hepatitis C without hepatic coma; Z86.711 Personal history of pulmonary embolism; Z91.14 Patient's other noncompliance with medication regimen; Z90.49 Acquired absence of other specified parts of digestive tract; Z79.82 Long term (current) use of aspirin; Z79.4 Long term (current) use of insulin; Z79.899 Other long term (current) drug therapy
CPT/HCPCS: 36415; 71045; 80048; 80053; 80305-QW; 81001; 82962; 83880; 84484; 85025; 93005; 96372; 96374; 96376; 99285-25; A9270-GY; G0378; J1644; J1815-GY; J1940; J7060

== ENCOUNTER 2018-11-19 18:14 | Emergency (ER) | payer MEDICAID ==
[2018-11-19] MEDS ORDERED: Albuterol/Ipratropium 3.0-0.5 MG/3 ML Neb Soln NEB ONE (18:59)
[2018-11-19 19:00] VITALS: BP 154/60
--- NOTE | 2018-11-19 19:01 | EDM.PDOC ---
ED HPI GENERAL MEDICAL PROBLEM - General Chief Complaint: Respiratory Problem Stated Complaint: COUGH, COLD Time Seen by Provider: 11/19/18 18:58 Source of Information: Reports: Patient History Limitations: Reports: No Limitations - History of Present Illness INITIAL COMMENTS - FREE TEXT/NARRATIVE: c/o 2 days h/o cough and also has pins needle type pain in his legs again. - Related Data Allergies Allergy/AdvReac Type Severity Reaction Status Date / Time No Known Allergies Allergy Verified 11/11/18 02:51 Home Meds: Home Meds Aspirin [Lo-Dose Aspirin EC] 81 mg PO DAILY 08/22/18 [History] Carvedilol 6.25 mg PO BIDMEALS 08/22/18 [History] Gabapentin [Neurontin] 600 mg PO TID 08/22/18 [History] Insulin NPH/Insulin Reg,Human [Novolin 70-30] 50 units SQ BID 08/22/18 [History] Omeprazole 20 mg PO DAILY 08/22/18 [History] Simvastatin 10 mg PO BEDTIME 08/22/18 [History] glyBURIDE [Glyburide] 5 mg PO BID 08/22/18 [History] Furosemide [Lasix] 40 mg PO BIDDIURETIC #30 tablet 08/24/18 [Rx] Albuterol Sulfate [Proair Hfa] 1 puff INH Q6HR PRN 11/08/18 [History] Cetirizine HCl 10 mg PO DAILY PRN 11/08/18 [History] Magnesium Oxide [Magnesium] 400 mg PO DAILY 11/08/18 [History] Tiotropium [Spiriva HandiHaler] 18 mcg INH DAILY 11/08/18 [History] Past Medical History HEENT History: Reports: None Cardiovascular History: Reports: Heart Failure, High Cholesterol, Hypertension, Other (See Below) Other Cardiovascular History: non-ischemic cardiomyopathy Respiratory History: Reports: Bronchitis, Recurrent, PE, Other (See Below) Other Respiratory History: ARDS (acute respiratory distress syndrome) Gastrointestinal History: Reports: GERD Other Gastrointestinal History: Spouse states client used to take medication for his stomach, but cannot recall why and cannot recall which medication. Genitourinary History: Reports: Diabetic Nephropathy, Other (See Below) Other Genitourinary History: Acute kidney injury Musculoskeletal History: Reports: Arthritis, Back Pain, Chronic, Fracture, Other (See Below) Other Musculoskeletal History: "Multiple fractures" Neurological History: Reports: Head Trauma, Other (See Below) Other Neuro History: fractured jody Psychiatric History: Reports: Addiction, Anxiety Endocrine/Metabolic History: Reports: Diabetes, Type II, IDDM Hematologic History: Reports: None Immunologic History: Reports: None Oncologic (Cancer) History: Reports: None Dermatologic History: Reports: Cellulitis - Infectious Disease History Infectious Disease History: Reports: Hepatitis C Other Infectious Disease History: states client has hepatitis, but unable to recall which type. - Past Surgical History Head Surgeries/Procedures: Reports: None Cardiovascular Surgical History: Reports: None, Other (See Below) Respiratory Surgical History: Reports: Thoracentesis GI Surgical History: Reports: Appendectomy Endocrine Surgical History: Reports: None Neurological Surgical History: Reports: None Musculoskeletal Surgical History: Reports: None Dermatological Surgical History: Reports: None Social & Family History - Family History Family Medical History: Noncontributory Endocrine/Metabolic: Reports: Diabetes, type II Oncologic: Reports: Other (See Below) Other Oncologic Family History: spouse states HX of cancer in family, but unable to recall which type - Caffeine Use Caffeine Use: Reports: Coffee, Soda Caffeine Use Comment: galoon of coffee and 6 pack of pop daily ED ROS GENERAL - Review of Systems Review Of Systems: ROS reveals no pertinent complaints other than HPI. ED EXAM, GENERAL - Physical Exam Exam: See Below Exam Limited By: No Limitations General Appearance: Alert, WD/WN, Mild Distress, Other (cough spasms) Ears: Hearing Grossly Normal Throat/Mouth: Normal Voice, No Airway Compromise Head: Atraumatic Neck: Non-Tender, Full Range of Motion Respiratory/Chest: No Accessory Muscle Use, Rales, Rhonchi Cardiovascular: Regular Rate, Rhythm GI/Abdominal: Soft, Non-Tender Extremities: Pedal Edema, Other (2+ bilateral) Neurological: Alert, Oriented, Normal Cognition, No Motor/Sensory Deficits Psychiatric: Flat Affect Skin Exam: Warm, Dry, Normal Color Lymphatic: No Adenopathy Course - Vital Signs Last Recorded V/S: Last Vital Signs Temp 37.3 C 11/19/18 18:30 Pulse 78 11/19/18 18:30 Resp 18 11/19/18 18:30 BP 154/60 H 11/19/18 18:30 Pulse Ox 97 11/19/18 18:30 - Orders/Labs/Meds Orders: Active Orders 24 hr Category Date Time Status RT Aerosol Therapy [RC] ASDIRECTED Care 11/19/18 19:00 Active Meds: Medications Discontinued Medications Generic Name Dose Route Start Last Admin Trade Name Jenny PRN Reason Stop Dose Admin Albuterol/Ipratropium 3 ml 11/19/18 18:59 11/19/18 19:25 Duoneb 3.0-0.5 Mg/3 Ml NEB 11/19/18 19:00 3 ml ONETIME ONE Administration - Re-Assessments/Exams Free Text/Narrative Re-Assessment/Exam: 11/19/18 19:39 re-exam; s/p duoneb = better, states feels better and wants water. Departure - Departure Time of Disposition: 19:45 Disposition: Home, Self-Care 01 Condition: Fair Clinical Impression: Bronchospasm - Discharge Information Instructions: Bronchospasm, Adult, [id number] Forms: ED Department Discharge Additional Instructions: 1) continue nebs at home 2) fellow up at clinic - My Orders Last 24 Hours: My Active Orders 11/19/18 19:00 RT Aerosol Therapy [RC] ASDIRECTED - Assessment/Plan Last 24 Hours: My Active Orders 11/19/18 19:00 RT Aerosol Therapy [RC] ASDIRECTED
== END 2018-11-19 19:48 | disposition home or self-care (01) ==
LOC: DL.ED 18:14
DX: J98.01 Acute bronchospasm (principal); I11.0 Hypertensive heart disease with heart failure; I50.9 Heart failure, unspecified; E78.00 Pure hypercholesterolemia, unspecified; K21.9 Gastro-esophageal reflux disease without esophagitis; E11.21 Type 2 diabetes mellitus with diabetic nephropathy; F41.9 Anxiety disorder, unspecified; Z79.899 Other long term (current) drug therapy; Z79.82 Long term (current) use of aspirin
CPT/HCPCS: 87804; 99283-25; J7620-GY

== ENCOUNTER 2018-11-20 21:26 | Emergency (ER) | payer MEDICAID ==
[2018-11-20] MEDS ORDERED: LORazepam 2 MG/ML Syringe IVPUSH ONE (21:31)
[2018-11-20] MEDS ORDERED: Albuterol 0.083% 2.5 MG/3 ML Neb Soln NEB ONE (21:31)
[2018-11-20] MEDS ORDERED: Furosemide 40 MG/4 ML VIAL IVPUSH ONE (21:31)
[2018-11-20 22:31] LABS: CHLORIDE,CL 100 mmol/L (101-111); SODIUM,NA 131 mmol/L (135-145)
[2018-11-20 23:08] VITALS: BP 160/80; PULSE 107
[2018-11-20] MEDS ORDERED: Acetaminophen 325 MG Tab PO ONE (23:08)
--- NOTE | 2018-11-20 23:31 | EDM.PDOC ---
ED HPI GENERAL MEDICAL PROBLEM - General Chief Complaint: Respiratory Problem Stated Complaint: AMBULANCE Time Seen by Provider: 11/20/18 21:30 Source of Information: Reports: Patient, EMS History Limitations: Reports: No Limitations - History of Present Illness INITIAL COMMENTS - FREE TEXT/NARRATIVE: ED via [facility] with c/o SOB. Reported started 2 days prior. EMS reported earlier c/ o fever. Patient seen in ED last [place] and given neb treatment then left. Patient admits swelling to lower legs past few days. Stated he was taking his medications. Denied recent meth use reporting last use last week. 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 - Related Data Allergies Allergy/AdvReac Type Severity Reaction Status Date / Time No Known Allergies Allergy Verified 11/11/18 02:51 Home Meds: Home Meds Aspirin [Lo-Dose Aspirin EC] 81 mg PO DAILY 08/22/18 [History] Carvedilol 6.25 mg PO BIDMEALS 08/22/18 [History] Gabapentin [Neurontin] 600 mg PO TID 08/22/18 [History] Insulin NPH/Insulin Reg,Human [Novolin 70-30] 50 units SQ BID 08/22/18 [History] Omeprazole 20 mg PO DAILY 08/22/18 [History] Simvastatin 10 mg PO BEDTIME 08/22/18 [History] glyBURIDE [Glyburide] 5 mg PO BID 08/22/18 [History] Furosemide [Lasix] 40 mg PO BIDDIURETIC #30 tablet 08/24/18 [Rx] Albuterol Sulfate [Proair Hfa] 1 puff INH Q6HR PRN 11/08/18 [History] Cetirizine HCl 10 mg PO DAILY PRN 11/08/18 [History] Magnesium Oxide [Magnesium] 400 mg PO DAILY 11/08/18 [History] Tiotropium [Spiriva HandiHaler] 18 mcg INH DAILY 11/08/18 [History] Past Medical History HEENT History: Reports: None Cardiovascular History: Reports: Heart Failure, High Cholesterol, Hypertension, Other (See Below) Other Cardiovascular History: non-ischemic cardiomyopathy Respiratory History: Reports: Bronchitis, Recurrent, PE, Other (See Below) Other Respiratory History: ARDS (acute respiratory distress syndrome) Gastrointestinal History: Reports: GERD Other Gastrointestinal History: Spouse states client used to take medication for his stomach, but cannot recall why and cannot recall which medication. Genitourinary History: Reports: Diabetic Nephropathy, Other (See Below) Other Genitourinary History: Acute kidney injury Musculoskeletal History: Reports: Arthritis, Back Pain, Chronic, Fracture, Other (See Below) Other Musculoskeletal History: "Multiple fractures" Neurological History: Reports: Head Trauma, Other (See Below) Other Neuro History: fractured jody Psychiatric History: Reports: Addiction, Anxiety Endocrine/Metabolic History: Reports: Diabetes, Type II, IDDM Hematologic History: Reports: None Immunologic History: Reports: None Oncologic (Cancer) History: Reports: None Dermatologic History: Reports: Cellulitis - Infectious Disease History Infectious Disease History: Reports: Hepatitis C Other Infectious Disease History: states client has hepatitis, but unable to recall which type. - Past Surgical History Head Surgeries/Procedures: Reports: None Cardiovascular Surgical History: Reports: None, Other (See Below) Respiratory Surgical History: Reports: Thoracentesis GI Surgical History: Reports: Appendectomy Endocrine Surgical History: Reports: None Neurological Surgical History: Reports: None Musculoskeletal Surgical History: Reports: None Dermatological Surgical History: Reports: None Social & Family History - Family History Family Medical History: Noncontributory Endocrine/Metabolic: Reports: Diabetes, type II Oncologic: Reports: Other (See Below) Other Oncologic Family History: spouse states HX of cancer in family, but unable to recall which type - Tobacco Use Smoking Status *Q: Never Smoker - Caffeine Use Caffeine Use: Reports: Coffee, Soda Caffeine Use Comment: galoon of coffee and 6 pack of pop daily - Recreational Drug Use Recreational Drug Use: Yes Drug Use in Last 12 Months: Yes Recreational Drug Type: Reports: Methamphetamine Recreational Drug Use Frequency: Weekly ED ROS GENERAL - Review of Systems Review Of Systems: See Below Constitutional: Reports: Fever HEENT: Reports: No Symptoms Respiratory: Reports: Shortness of Breath, Wheezing, Cough Cardiovascular: Reports: Orthopnea GI/Abdominal: Reports: No Symptoms Musculoskeletal: Reports: No Symptoms Skin: Reports: No Symptoms Neurological: Reports: No Symptoms ED EXAM, GENERAL - Physical Exam Exam: See Below Exam Limited By: Respiratory Distress General Appearance: Anxious, Mild Distress, Thin Eye Exam: Bilateral Eye: EOMI Ears: Normal External Exam, Hearing Grossly Normal, Normal TMs Nose: Normal Inspection Throat/Mouth: Normal Voice, No Airway Compromise Head: Atraumatic, Normocephalic Respiratory/Chest: Decreased Breath Sounds, Rales (bilateral), Wheezing Cardiovascular: Regular Rate, Rhythm, JVD, Tachycardia, Other (3+ lower bilateral) GI/Abdominal: Normal Bowel Sounds Extremities: Normal Inspection Neurological: Alert, Oriented, Normal Cognition Psychiatric: Anxious Skin Exam: Warm, Dry, Intact, Normal Color Course - Vital Signs Last Recorded V/S: Last Vital Signs Temp 103.2 F H 11/20/18 23:15 Pulse 107 H 11/20/18 23:06 Resp 31 H 11/20/18 23:06 BP 160/80 H 11/20/18 23:06 Pulse Ox 91 L 11/20/18 23:06 - Orders/Labs/Meds Orders: Active Orders 24 hr Category Date Time Status EKG 12 Lead [EKG Documentation Completion] [RC] URGENT Care 11/20/18 22:19 Active EKG Documentation Completion [RC] STAT Care 11/20/18 21:33 Active RT Aerosol Therapy [RC] ASDIRECTED Care 11/20/18 21:33 Active CULTURE BLOOD [] Stat Lab 11/20/18 21:43 Results CULTURE BLOOD [] Stat Lab 11/20/18 22:57 Received Blood Culture x2 Reflex Set [OM.PC] Stat Oth 11/20/18 22:41 Ordered Labs: Laboratory Tests 11/20/18 11/20/18 11/20/18 Range/Units 21:43 21:43 21:43 WBC 12.6 H (5.0-10.0) 10^3/uL RBC 5.13 (4.6-6.2) 10^6/uL Hgb 11.7 L (14.0-18.0) g/dL Hct 36.3 L (40.0-54.0) % MCV 70.8 L (80-100) fL MCH 22.8 L (27.0-34.0) pg MCHC 32.2 L (33.0-35.0) g/dL Plt Count 206 (150-450) 10^3/uL Neut % (Auto) 77.5 H (42.2-75.2) % Lymph % (Auto) 13.0 L (20.5-50.1) % [place] % (Auto) 7.3 (2-8) % Eos % (Auto) 2.0 (1.0-3.0) % Baso % (Auto) 0.2 (0.0-1.0) % Sodium 131 L (135-145) mmol/L Potassium 5.0 (3.6-5.0) mmol/L Chloride 100 L (101-111) mmol/L Carbon Dioxide 18.0 L D (21.0-31.0) mmol/L Anion Gap 18.0 BUN 42 H (7-18) mg/dL Creatinine 1.8 H (0.6-1.3) mg/dL Est Cr Clr Drug Dosing 42.33 mL/min Estimated GFR (MDRD) 39 BUN/Creatinine Ratio 23.33 Glucose 121 H (74-105) mg/dL Lactic Acid 3.0 H (0.5-2.2) mmol/L Calcium 7.8 L (8.4-10.2) mg/dl Total Bilirubin 0.5 (0.2-1.0) mg/dL AST 56 H (10-42) IU/L ALT 24 (10-60) IU/L Alkaline Phosphatase 92 (42-121) IU/L Troponin I 0.03 H* (0.00-0.02) ng/ml B-Natriuretic Peptide 3940 H (0-100) pg/ml Total Protein 6.7 (6.7-8.2) g/dl Albumin 2.2 L (3.2-5.5) g/dl Globulin 4.5 Albumin/Globulin Ratio 0.49 Urine Opiates Screen (NEGATIVE) Ur Oxycodone Screen (NEGATIVE) Urine Methadone Screen (NEGATIVE) Ur Barbiturates Screen (NEGATIVE) U Tricyclic Antidepress (NEGATIVE) Ur Phencyclidine Scrn (NEGATIVE) Ur Amphetamine Screen (NEGATIVE) U Methamphetamines Scrn (NEGATIVE) Urine MDMA Screen (NEGATIVE) U Benzodiazepines Scrn (NEGATIVE) Urine Cocaine Screen (NEGATIVE) U Marijuana (THC) Screen (NEGATIVE) Ethyl Alcohol < 5 mg/dL 11/20/18 Range/Units 21:57 WBC (5.0-10.0) 10^3/uL RBC (4.6-6.2) 10^6/uL Hgb (14.0-18.0) g/dL Hct (40.0-54.0) % MCV (80-100) fL MCH (27.0-34.0) pg MCHC (33.0-35.0) g/dL Plt Count (150-450) 10^3/uL Neut % (Auto) (42.2-75.2) % Lymph % (Auto) (20.5-50.1) % [place] % (Auto) (2-8) % Eos % (Auto) (1.0-3.0) % Baso % (Auto) (0.0-1.0) % Sodium (135-145) mmol/L Potassium (3.6-5.0) mmol/L Chloride (101-111) mmol/L Carbon Dioxide (21.0-31.0) mmol/L Anion Gap BUN (7-18) mg/dL Creatinine (0.6-1.3) mg/dL Est Cr Clr Drug Dosing mL/min Estimated GFR (MDRD) BUN/Creatinine Ratio Glucose (74-105) mg/dL Lactic Acid (0.5-2.2) mmol/L Calcium (8.4-10.2) mg/dl Total Bilirubin (0.2-1.0) mg/dL AST (10-42) IU/L ALT (10-60) IU/L Alkaline Phosphatase (42-121) IU/L Troponin I (0.00-0.02) ng/ml B-Natriuretic Peptide (0-100) pg/ml Total Protein (6.7-8.2) g/dl Albumin (3.2-5.5) g/dl Globulin Albumin/Globulin Ratio Urine Opiates Screen Negative (NEGATIVE) Ur Oxycodone Screen Negative (NEGATIVE) Urine Methadone Screen Negative (NEGATIVE) Ur Barbiturates Screen Negative (NEGATIVE) U Tricyclic Antidepress Negative (NEGATIVE) Ur Phencyclidine Scrn Negative (NEGATIVE) Ur Amphetamine Screen Positive H (NEGATIVE) U Methamphetamines Scrn Positive H (NEGATIVE) Urine MDMA Screen Negative (NEGATIVE) U Benzodiazepines Scrn Negative (NEGATIVE) Urine Cocaine Screen Negative (NEGATIVE) U Marijuana (THC) Screen Negative (NEGATIVE) Ethyl Alcohol mg/dL Meds: Medications Discontinued Medications Generic Name Dose Route Start Last Admin Trade Name Freq PRN Reason Stop Dose Admin Acetaminophen 650 mg 11/20/18 23:08 11/20/18 23:37 Tylenol PO 11/20/18 23:09 650 mg NOW ONE Administration Albuterol 2.5 mg 11/20/18 21:31 11/20/18 22:06 Proventil Neb Soln NEB 11/20/18 21:32 2.5 mg ONETIME ONE Administration Furosemide 40 mg 11/20/18 21:31 11/20/18 22:01 Lasix IVPUSH 11/20/18 21:32 40 mg NOW ONE Administration Ceftriaxone Sodium 1,000 mg/ 100 mls @ 200 mls/hr 11/20/18 22:43 11/20/18 23: 04 Sodium Chloride IV 11/20/18 23:12 200 mls/hr ONETIME ONE Administration Lorazepam 1 mg 11/20/18 21:31 11/20/18 21:59 Ativan IVPUSH 11/20/18 21:32 1 mg ONETIME ONE Administration - Radiology Interpretation Free Text/Narrative:: Name: ABHILASH SAHA Age: 57Years M Date: 11/20/2018 SSN: -- : [id number] Study: XR CHEST 1 VIEW FRONTAL Requesting Physician: EMILE BARRIGA Images: 1 Addl Studies: Provided Clinical History: Contrast: Contrast Medium: Contrast Amount: Contrast Method: CONFIDENTIALITY STATEMENT This report is intended only for use by the referring physician, and only in accordance with law. If you received this in error, call [phone]. Page 1 of 1 EXAM: XR Chest, 1 View EXAM DATE/TIME: 11/20/2018 9:49 PM CLINICAL HISTORY: 57 years old, male; Signs and symptoms; Dyspnea TECHNIQUE: Imaging protocol: XR of the chest, 1 view. COMPARISON: CR Chest 1V Frontal 11/10/2018 11:54 PM FINDINGS: Lungs: Bilateral pulmonary infiltrates, most prominent in the perihilar regions. Pleural space: Unremarkable. No pleural effusion. No pneumothorax. Heart/Mediastinum: Unremarkable. No cardiomegaly. Bones/joints: Unremarkable. IMPRESSION: Bilateral pulmonary infiltrates, most prominent in the perihilar regions. Thank you for allowing us to participate in the care of your patient. Dictated and Authenticated by: Ivan Peterson MD 11/20/2018 10:26 PM Central Time ([place] & [place]) - Re-Assessments/Exams Free Text/Narrative Re-Assessment/Exam: 11/20/18 23:31 Breath sounds/ air exchange improved following neb and lasix. Increased temp, patient under thick fleece blanket paitient and family many redirections to leave blanket off. Frequent request for additional fluids TC Dr Aguayo regarding patient. Recommended tx to [facility] for higher level of care. Dr. Palomino accepting of patient. Tx via [facility]. Patient is agreeable. . Patient status improved from presentation and stable for tx. Departure - Departure Time of Disposition: 23:55 Disposition: DC/Tfer to Acute Hospital 02 Condition: Fair Clinical Impression: Pneumonia, Methamphetamine abuse CHF (congestive heart failure) Qualifiers: Heart failure type: unspecified Heart failure chronicity: acute on chronic Qualified Code(s): I50.9 - Heart failure, unspecified - Discharge Information *PRESCRIPTION DRUG MONITORING PROGRAM REVIEWED*: No *COPY OF PRESCRIPTION DRUG MONITORING REPORT IN PATIENT LUIS: No Referrals: Ry Fragoso NP [Primary Care Provider] - Forms: ED Department Discharge - My Orders Last 24 Hours: My Active Orders 11/20/18 21:33 EKG Documentation Completion [RC] STAT RT Aerosol Therapy [RC] ASDIRECTED 11/20/18 21:43 CULTURE BLOOD [BC] Stat 11/20/18 22:19 EKG 12 Lead [EKG Documentation Completion] [RC] URGENT 11/20/18 22:41 Blood Culture x2 Reflex Set [OM.PC] Stat 11/20/18 22:57 CULTURE BLOOD [BC] Stat - Assessment/Plan Last 24 Hours: My Active Orders 11/20/18 21:33 EKG Documentation Completion [RC] STAT RT Aerosol Therapy [RC] ASDIRECTED 11/20/18 21:43 CULTURE BLOOD [BC] Stat 11/20/18 22:19 EKG 12 Lead [EKG Documentation Completion] [RC] URGENT 11/20/18 22:41 Blood Culture x2 Reflex Set [OM.PC] Stat 11/20/18 22:57 CULTURE BLOOD [BC] Stat
== END 2018-11-20 23:49 ==
LOC: DL.ED 21:26
DX: J18.9 Pneumonia, unspecified organism (principal); F15.10 Other stimulant abuse, uncomplicated; I11.0 Hypertensive heart disease with heart failure; I50.9 Heart failure, unspecified; E78.00 Pure hypercholesterolemia, unspecified; K21.9 Gastro-esophageal reflux disease without esophagitis; F41.9 Anxiety disorder, unspecified; E11.21 Type 2 diabetes mellitus with diabetic nephropathy; Z79.82 Long term (current) use of aspirin; Z79.899 Other long term (current) drug therapy; Z79.84 Long term (current) use of oral hypoglycemic drugs
CPT/HCPCS: 36415; 71045; 80053; 80305; 83605; 83880; 84484; 85025; 87040; 93005; 94640; 96365; 96375; 99285; A9270; G0480; J0696; J1940; J2060; J7050; J7613-GY

== ENCOUNTER 2019-07-30 16:39 | Emergency (ER) | payer MEDICAID ==
[2019-07-30 18:41] LABS: ANION GAP 10.5
[2019-07-30 23:16] VITALS: PULSE 78
[2019-07-30 23:17] VITALS: BP 152/85
--- NOTE | 2019-08-09 14:23 | EDM.PDOC ---
Scribed by Fransisca Watters 07/30/19 1571 for Maria Victoria De Paz NP <Rody Thomas - Last Filed: 07/31/19 01:27> ED HPI GENERAL MEDICAL PROBLEM - General Chief Complaint: Eye Problems Stated Complaint: UNABLE TO SEE OUT OF LEFT EYE. JUST HAPPEND Time Seen by Provider: 07/30/19 18:00 - Related Data Allergies Allergy/AdvReac Type Severity Reaction Status Date / Time No Known Allergies Allergy Verified 08/08/19 08:18 Home Meds: Home Meds Aspirin [Lo-Dose Aspirin EC] 81 mg PO DAILY 08/22/18 [History] Insulin NPH/Insulin Reg,Human [Novolin 70-30] 15 units SQ BID 08/22/18 [History] Omeprazole 20 mg PO DAILY 08/22/18 [History] Simvastatin 10 mg PO BEDTIME 08/22/18 [History] carvediloL [Carvedilol] 6.25 mg PO BIDMEALS 08/22/18 [History] Furosemide [Lasix] 40 mg PO BIDDIURETIC #30 tablet 08/24/18 [Rx] Albuterol Sulfate [Proair Hfa] 1 puff INH Q6HR PRN 11/08/18 [History] Cetirizine HCl 10 mg PO DAILY PRN 11/08/18 [History] Magnesium Oxide [Magnesium] 400 mg PO DAILY 11/08/18 [History] Tiotropium [Spiriva HandiHaler] 18 mcg INH DAILY 11/08/18 [History] Course - Vital Signs Last Recorded V/S: Last Vital Signs Temp 97.9 F 07/30/19 23:16 Pulse 78 07/30/19 23:16 Resp 20 07/30/19 23:16 BP 152/85 H 07/30/19 23:16 Pulse Ox 100 07/30/19 23:16 - Orders/Labs/Meds Labs: Laboratory Tests 07/30/19 07/30/19 07/30/19 Range/Units 18:07 18:07 21:13 WBC 7.3 (5.0-10.0) 10^3/uL RBC 4.80 (4.6-6.2) 10^6/uL Hgb 12.0 L (14.0-18.0) g/dL Hct 36.1 L (40.0-54.0) % MCV 75.2 L D (80-100) fL MCH 25.0 L (27.0-34.0) pg MCHC 33.2 (33.0-35.0) g/dL Plt Count 304 D (150-450) 10^3/uL Neut % (Auto) 63.5 (42.2-75.2) % Lymph % (Auto) 21.4 (20.5-50.1) % [place] % (Auto) 9.3 H (2-8) % Eos % (Auto) 5.3 H (1.0-3.0) % Baso % (Auto) 0.5 (0.0-1.0) % Sodium 134 L (135-145) mmol/L Potassium 5.5 H (3.6-5.0) mmol/L Chloride 104 (101-111) mmol/L Carbon Dioxide 25.0 (21.0-31.0) mmol/L Anion Gap 10.5 BUN 47 H (7-18) mg/dL Creatinine 2.3 H (0.6-1.3) mg/dL Est Cr Clr Drug Dosing 32.73 mL/min Estimated GFR (MDRD) 29 BUN/Creatinine Ratio 20.43 Glucose 114 H (74-105) mg/dL POC Glucose 104 (70-105) mg/dl Calcium 8.2 L (8.4-10.2) mg/dl Total Bilirubin 0.5 (0.2-1.0) mg/dL AST 37 (10-42) IU/L ALT 39 (10-60) IU/L Alkaline Phosphatase 86 (42-121) IU/L Total Protein 7.0 (6.7-8.2) g/dl Albumin 2.4 L (3.2-5.5) g/dl Globulin 4.6 Albumin/Globulin Ratio 0.52 - Re-Assessments/Exams Free Text/Narrative Re-Assessment/Exam: Tx delay due to lack of available ALS service. Departure - Departure Time of Disposition: 23:20 Disposition: DC/Tfer to Acute Hospital 02 Condition: Undetermined Clinical Impression: Loss of vision - Discharge Information *PRESCRIPTION DRUG MONITORING PROGRAM REVIEWED*: No *COPY OF PRESCRIPTION DRUG MONITORING REPORT IN PATIENT LUIS: No Referrals: Ry Fragoso NP [Primary Care Provider] - Forms: ED Department Discharge Sepsis Event Note - Focused Exam Date Exam was Performed: 07/31/19 Time Exam was Performed: 01:27 <Maria Victoria De Paz - Last Filed: 08/09/19 14:23> ED HPI GENERAL MEDICAL PROBLEM - General Source of Information: Reports: Patient, RN, RN Notes Reviewed History Limitations: Reports: No Limitations - History of Present Illness INITIAL COMMENTS - FREE TEXT/NARRATIVE: Patient presents to ER with complaint of loss of vision to the left eye about 4 days ago. States he has had a headache for about 2 days above the left eye. Patient states he is diabetic. Reported to the nurse that his blood pressure have been over 500, but he recently got them lower. States all he can see is red vessels in the left eye. Patient admits to a fall about 1 month ago, but did not hit his head. Onset Date: 07/26/19 Duration: Getting Worse Location: Reports: Other (left eye) Quality: Reports: Ache Severity: Moderate Improves with: Reports: None Worsens with: Reports: None Associated Symptoms: Reports: No Other Symptoms Past Medical History HEENT History: Reports: None Cardiovascular History: Reports: Heart Failure, High Cholesterol, Hypertension, Other (See Below) Other Cardiovascular History: non-ischemic cardiomyopathy Respiratory History: Reports: Bronchitis, Recurrent, PE, Other (See Below) Other Respiratory History: ARDS (acute respiratory distress syndrome) Gastrointestinal History: Reports: GERD Other Gastrointestinal History: Spouse states client used to take medication for his stomach, but cannot recall why and cannot recall which medication. Genitourinary History: Reports: Diabetic Nephropathy, Other (See Below) Other Genitourinary History: Acute kidney injury Musculoskeletal History: Reports: Arthritis, Back Pain, Chronic, Fracture, Other (See Below) Other Musculoskeletal History: "Multiple fractures" Neurological History: Reports: Head Trauma, Other (See Below) Other Neuro History: fractured jody Psychiatric History: Reports: Addiction, Anxiety Endocrine/Metabolic History: Reports: Diabetes, Type II, IDDM Hematologic History: Reports: None Immunologic History: Reports: None Oncologic (Cancer) History: Reports: None Dermatologic History: Reports: Cellulitis - Infectious Disease History Infectious Disease History: Reports: Hepatitis C Other Infectious Disease History: states client has hepatitis, but unable to recall which type. - Past Surgical History Head Surgeries/Procedures: Reports: None Cardiovascular Surgical History: Reports: None, Other (See Below) Respiratory Surgical History: Reports: Thoracentesis GI Surgical History: Reports: Appendectomy Endocrine Surgical History: Reports: None Neurological Surgical History: Reports: None Musculoskeletal Surgical History: Reports: None Dermatological Surgical History: Reports: None Social & Family History - Family History Family Medical History: Noncontributory Endocrine/Metabolic: Reports: Diabetes, type II Oncologic: Reports: Other (See Below) Other Oncologic Family History: spouse states HX of cancer in family, but unable to recall which type - Tobacco Use Smoking Status *Q: Current Every Day Smoker Years of Tobacco use: 20 Packs/Tins Daily: 0.5 Second Hand Smoke Exposure: No - Caffeine Use Caffeine Use: Reports: Coffee, Soda Caffeine Use Comment: galoon of coffee and 6 pack of pop daily - Recreational Drug Use Recreational Drug Use: No ED ROS GENERAL - Review of Systems Review Of Systems: Comprehensive ROS is negative, except as noted in HPI. ED EXAM GENERAL W FULL EYE - Physical Exam Exam: See Below Exam Limited By: No Limitations General Appearance: Alert, WD/WN, No Apparent Distress Eye Exam: Left Eye: Other (left eye has negative light reflex) Ears: Normal External Exam, Normal Canal, Hearing Grossly Normal, Normal TMs Nose: Normal Inspection, Normal Mucosa, No Blood Throat/Mouth: Normal Inspection, Normal Lips, Normal Teeth, Normal Gums, Normal Oropharynx, Normal Voice, No Airway Compromise Head: Atraumatic, Normocephalic Neck: Normal Inspection, Supple, Non-Tender, Full Range of Motion Respiratory/Chest: No Respiratory Distress, Lungs Clear, Normal Breath Sounds, No Accessory Muscle Use, Chest Non-Tender Cardiovascular: Normal Peripheral Pulses, Regular Rate, Rhythm, No Edema, No Gallop, No JVD, No Murmur, No Rub GI/Abdominal: Normal Bowel Sounds, Soft, Non-Tender, No Organomegaly, No Distention, No Abnormal Bruit, No Mass (Male) Exam: Deferred Rectal (Males) Exam: Deferred Back Exam: Normal Inspection, Full Range of Motion, NT Extremities: Normal Inspection, Normal Range of Motion, Non-Tender, Normal Capillary Refill, No Pedal Edema Neurological: Alert, Oriented, CN II-XII Intact, Normal Cognition, Normal Gait, Normal Reflexes, No Motor/Sensory Deficits Psychiatric: Flat Affect Skin Exam: Warm, Dry, Intact, Normal Color, No Rash Lymphatic: No Adenopathy Course - Orders/Labs/Meds Labs: Laboratory Tests 07/30/19 07/30/19 07/30/19 Range/Units 18:07 18:07 21:13 WBC 7.3 (5.0-10.0) 10^3/uL RBC 4.80 (4.6-6.2) 10^6/uL Hgb 12.0 L (14.0-18.0) g/dL Hct 36.1 L (40.0-54.0) % MCV 75.2 L D (80-100) fL MCH 25.0 L (27.0-34.0) pg MCHC 33.2 (33.0-35.0) g/dL Plt Count 304 D (150-450) 10^3/uL Neut % (Auto) 63.5 (42.2-75.2) % Lymph % (Auto) 21.4 (20.5-50.1) % [place] % (Auto) 9.3 H (2-8) % Eos % (Auto) 5.3 H (1.0-3.0) % Baso % (Auto) 0.5 (0.0-1.0) % Sodium 134 L (135-145) mmol/L Potassium 5.5 H (3.6-5.0) mmol/L Chloride 104 (101-111) mmol/L Carbon Dioxide 25.0 (21.0-31.0) mmol/L Anion Gap 10.5 BUN 47 H (7-18) mg/dL Creatinine 2.3 H (0.6-1.3) mg/dL Est Cr Clr Drug Dosing 32.73 mL/min Estimated GFR (MDRD) 29 BUN/Creatinine Ratio 20.43 Glucose 114 H (74-105) mg/dL POC Glucose 104 (70-105) mg/dl Calcium 8.2 L (8.4-10.2) mg/dl Total Bilirubin 0.5 (0.2-1.0) mg/dL AST 37 (10-42) IU/L ALT 39 (10-60) IU/L Alkaline Phosphatase 86 (42-121) IU/L Total Protein 7.0 (6.7-8.2) g/dl Albumin 2.4 L (3.2-5.5) g/dl Globulin 4.6 Albumin/Globulin Ratio 0.52 - Radiology Interpretation Free Text/Narrative:: Head CT wo contrast: FINDINGS: Brain: Normal. No hemorrhage. Unremarkable white matter. No mass effect. Ventricles: Normal. No ventriculomegaly. Bones/joints: Unremarkable. No acute fracture. Sinuses: Visualized sinuses are unremarkable. No fluid levels. Mastoid air cells: Visualized mastoid air cells are well aerated. Soft tissues: Unremarkable. IMPRESSION: No acute intracranial abnormality. ASSESSMENT: ASPECTS ([place] Stroke Program Early CT Score) is 10 Thank you for allowing us to participate in the care of your patient. Dictated and Authenticated by: Ivan Peterson MD 07/30/2019 5:33 PM Central Time ([place] & [place]) See Rad report - Re-Assessments/Exams Free Text/Narrative Re-Assessment/Exam: Vision exam, right eye 20/400, left eye states he can only see red vessels. Departure - Departure Condition: Undetermined Sepsis Event Note - Evaluation Sepsis Screening Result: No Definite Risk - Focused Exam Date Exam was Performed: 08/09/19 Time Exam was Performed: 14:22 I have read and agree with the documentation that has been completed regarding this visit. By signing this record, I attest that the documentation was completed in my physical presence and is an accurate record of the encounter.
== END 2019-07-30 23:23 ==
LOC: DL.ED 16:39
DX: H54.7 Unspecified visual loss (principal); I11.0 Hypertensive heart disease with heart failure; I50.9 Heart failure, unspecified; E78.00 Pure hypercholesterolemia, unspecified; E11.21 Type 2 diabetes mellitus with diabetic nephropathy; K21.9 Gastro-esophageal reflux disease without esophagitis; F17.210 Nicotine dependence, cigarettes, uncomplicated; Z79.82 Long term (current) use of aspirin; Z79.4 Long term (current) use of insulin; Z79.899 Other long term (current) drug therapy
CPT/HCPCS: 36415; 70450; 80053; 82962; 85025; 99285-25

== ENCOUNTER 2019-08-08 08:02 | Emergency (ER) | payer MEDICAID ==
[2019-08-08 08:16] VITALS: BP 156/82; PULSE 83
--- NOTE | 2019-08-08 08:51 | EDM.PDOC ---
ED HPI GENERAL MEDICAL PROBLEM - General Chief Complaint: Cardiovascular Problem Stated Complaint: AMBULANCE Time Seen by Provider: 08/08/19 08:47 Source of Information: Reports: Patient History Limitations: Reports: No Limitations - History of Present Illness INITIAL COMMENTS - FREE TEXT/NARRATIVE: states was here few days ago and was transf to [facility]. just got back and started SOB past few days. states not taken his Rx since d/c. states nobody told him to continue. - Related Data Allergies Allergy/AdvReac Type Severity Reaction Status Date / Time No Known Allergies Allergy Verified 08/08/19 08:18 Home Meds: Home Meds Aspirin [Lo-Dose Aspirin EC] 81 mg PO DAILY 08/22/18 [History] Insulin NPH/Insulin Reg,Human [Novolin 70-30] 15 units SQ BID 08/22/18 [History] Omeprazole 20 mg PO DAILY 08/22/18 [History] Simvastatin 10 mg PO BEDTIME 08/22/18 [History] carvediloL [Carvedilol] 6.25 mg PO BIDMEALS 08/22/18 [History] Furosemide [Lasix] 40 mg PO BIDDIURETIC #30 tablet 08/24/18 [Rx] Albuterol Sulfate [Proair Hfa] 1 puff INH Q6HR PRN 11/08/18 [History] Cetirizine HCl 10 mg PO DAILY PRN 11/08/18 [History] Magnesium Oxide [Magnesium] 400 mg PO DAILY 11/08/18 [History] Tiotropium [Spiriva HandiHaler] 18 mcg INH DAILY 11/08/18 [History] Past Medical History HEENT History: Reports: None Cardiovascular History: Reports: Heart Failure, High Cholesterol, Hypertension, Other (See Below) Other Cardiovascular History: non-ischemic cardiomyopathy Respiratory History: Reports: Bronchitis, Recurrent, PE, Other (See Below) Other Respiratory History: ARDS (acute respiratory distress syndrome) Gastrointestinal History: Reports: GERD Other Gastrointestinal History: Spouse states client used to take medication for his stomach, but cannot recall why and cannot recall which medication. Genitourinary History: Reports: Diabetic Nephropathy, Other (See Below) Other Genitourinary History: Acute kidney injury Musculoskeletal History: Reports: Arthritis, Back Pain, Chronic, Fracture, Other (See Below) Other Musculoskeletal History: "Multiple fractures" Neurological History: Reports: Head Trauma, Other (See Below) Other Neuro History: fractured jody Psychiatric History: Reports: Addiction, Anxiety Endocrine/Metabolic History: Reports: Diabetes, Type II, IDDM Hematologic History: Reports: None Immunologic History: Reports: None Oncologic (Cancer) History: Reports: None Dermatologic History: Reports: Cellulitis - Infectious Disease History Infectious Disease History: Reports: Hepatitis C Other Infectious Disease History: states client has hepatitis, but unable to recall which type. - Past Surgical History Head Surgeries/Procedures: Reports: None Cardiovascular Surgical History: Reports: None, Other (See Below) Respiratory Surgical History: Reports: Thoracentesis GI Surgical History: Reports: Appendectomy Endocrine Surgical History: Reports: None Neurological Surgical History: Reports: None Musculoskeletal Surgical History: Reports: None Dermatological Surgical History: Reports: None Social & Family History - Family History Family Medical History: Noncontributory Endocrine/Metabolic: Reports: Diabetes, type II Oncologic: Reports: Other (See Below) Other Oncologic Family History: spouse states HX of cancer in family, but unable to recall which type - Tobacco Use Smoking Status *Q: Current Every Day Smoker Years of Tobacco use: 20 Packs/Tins Daily: 0.5 - Caffeine Use Caffeine Use: Reports: Soda Caffeine Use Comment: galoon of coffee and 6 pack of pop daily - Recreational Drug Use Recreational Drug Use: Yes Recreational Drug Type: Reports: Marijuana/Hashish ED ROS GENERAL - Review of Systems Review Of Systems: Comprehensive ROS is negative, except as noted in HPI. ED EXAM, GENERAL - Physical Exam Exam: See Below Exam Limited By: No Limitations General Appearance: Alert, WD/WN, No Apparent Distress Ears: Hearing Grossly Normal Throat/Mouth: Normal Voice, No Airway Compromise Head: Atraumatic Neck: Non-Tender, Full Range of Motion Respiratory/Chest: No Respiratory Distress, No Accessory Muscle Use, Rhonchi. No: Decreased Breath Sounds Cardiovascular: Regular Rate, Rhythm GI/Abdominal: Soft, Non-Tender Neurological: Alert, Oriented, Normal Cognition, Normal Gait, No Motor/Sensory Deficits Psychiatric: Flat Affect Skin Exam: Warm, Dry, Normal Color Lymphatic: No Adenopathy Course - Vital Signs Last Recorded V/S: Last Vital Signs Temp 36.9 C 08/08/19 08:12 Pulse 83 08/08/19 08:12 Resp 20 08/08/19 08:12 BP 156/82 H 08/08/19 08:12 Pulse Ox 97 08/08/19 08:12 - Orders/Labs/Meds Orders: Active Orders 24 hr Category Date Time Status Chest 1V Frontal [CR] Urgent Exams 08/08/19 08:33 Taken Labs: Laboratory Tests 08/08/19 08/08/19 Range/Units 08:47 08:47 WBC 8.7 (5.0-10.0) 10^3/uL RBC 3.91 L (4.6-6.2) 10^6/uL Hgb 9.8 L D (14.0-18.0) g/dL Hct 30.2 L (40.0-54.0) % MCV 77.2 L (80-100) fL MCH 25.1 L (27.0-34.0) pg MCHC 32.5 L (33.0-35.0) g/dL Plt Count 220 D (150-450) 10^3/uL Neut % (Auto) 67.8 (42.2-75.2) % Lymph % (Auto) 18.2 L (20.5-50.1) % [place] % (Auto) 9.4 H (2-8) % Eos % (Auto) 4.0 H (1.0-3.0) % Baso % (Auto) 0.6 (0.0-1.0) % Sodium 136 (135-145) mmol/L Potassium 4.4 (3.6-5.0) mmol/L Chloride 108 (101-111) mmol/L Carbon Dioxide 21.0 (21.0-31.0) mmol/L Anion Gap 11.4 BUN 43 H (7-18) mg/dL Creatinine 2.0 H (0.6-1.3) mg/dL Est Cr Clr Drug Dosing 37.64 mL/min Estimated GFR (MDRD) 34 BUN/Creatinine Ratio 21.50 Glucose 105 (74-105) mg/dL Calcium 7.8 L (8.4-10.2) mg/dl Total Bilirubin 0.5 (0.2-1.0) mg/dL AST 38 (10-42) IU/L ALT 40 (10-60) IU/L Alkaline Phosphatase 87 (42-121) IU/L B-Natriuretic Peptide 2490 H (0-100) pg/ml Total Protein 6.3 L (6.7-8.2) g/dl Albumin 2.1 L (3.2-5.5) g/dl Globulin 4.2 Albumin/Globulin Ratio 0.50 Meds: Medications Discontinued Medications Generic Name Dose Route Start Last Admin Trade Name Jenny PRN Reason Stop Dose Admin Furosemide 20 mg 08/08/19 09:26 Lasix IVPUSH 08/08/19 09:27 ONETIME ONE - Re-Assessments/Exams Free Text/Narrative Re-Assessment/Exam: 08/08/19 09:28 results discussed with pt who states he feels ok and wants to go home Departure - Departure Time of Disposition: 09:28 Disposition: Home, Self-Care 01 Condition: Good Clinical Impression: Elevated d-dimer, Poor compliance with medication CHF (congestive heart failure) Qualifiers: Heart failure type: unspecified Heart failure chronicity: acute on chronic Qualified Code(s): I50.9 - Heart failure, unspecified Forms: ED Department Discharge Additional Instructions: 1) take your meds as directed 2) follow up at clinic Sepsis Event Note - Evaluation Sepsis Screening Result: No Definite Risk - Focused Exam Vital Signs: Vital Signs Temp Pulse Resp BP Pulse Ox 08/08/19 08:12 36.9 C 83 20 156/82 H 97 Date Exam was Performed: 08/08/19 Time Exam was Performed: 09:28 - My Orders Last 24 Hours: My Active Orders 08/08/19 08:33 Chest 1V Frontal [CR] Urgent - Assessment/Plan Last 24 Hours: My Active Orders 08/08/19 08:33 Chest 1V Frontal [CR] Urgent
[2019-08-08 09:14] LABS: ANION GAP 11.4
[2019-08-08] MEDS ORDERED: Furosemide 20 MG/2 ML VIAL IVPUSH ONE (09:26)
== END 2019-08-08 09:41 | disposition home or self-care (01) ==
LOC: DL.ED 08:02
DX: I11.0 Hypertensive heart disease with heart failure (principal); I50.9 Heart failure, unspecified; R79.1 Abnormal coagulation profile; E11.21 Type 2 diabetes mellitus with diabetic nephropathy; E78.00 Pure hypercholesterolemia, unspecified; K21.9 Gastro-esophageal reflux disease without esophagitis; F17.210 Nicotine dependence, cigarettes, uncomplicated; Z91.14 Patient's other noncompliance with medication regimen; Z79.82 Long term (current) use of aspirin; Z79.4 Long term (current) use of insulin; Z79.899 Other long term (current) drug therapy
CPT/HCPCS: 36415; 71045; 80053; 83880; 85025; 96374; 99285; J1940

== ENCOUNTER 2019-09-21 00:44 | Emergency (ER) | payer MEDICAID ==
[2019-09-21 00:49] VITALS: BP 174/87; PULSE 103
[2019-09-21] MEDS ORDERED: Acetaminophen 325 MG Tab PO ONE (00:54)
--- NOTE | 2019-09-21 01:02 | EDM.PDOC ---
ED HPI GENERAL MEDICAL PROBLEM - General Chief Complaint: General Stated Complaint: AMBULANCE Time Seen by Provider: 09/21/19 00:45 Source of Information: Reports: Patient, EMS History Limitations: Reports: Altered Mental Status - History of Present Illness INITIAL COMMENTS - FREE TEXT/NARRATIVE: ED via [facility] with report of confusion tonight, decreased hearing, fever 103, sinus congestion and sore throat. No report of vomiting or diarrhea. Onset sx tonight, seemed fine during day. - Related Data Allergies Allergy/AdvReac Type Severity Reaction Status Date / Time No Known Allergies Allergy Verified 09/21/19 00:50 Home Meds: Home Meds Aspirin [Lo-Dose Aspirin EC] 81 mg PO DAILY 08/22/18 [History] Insulin NPH/Insulin Reg,Human [Novolin 70-30] 15 units SQ BID 08/22/18 [History] Omeprazole 20 mg PO DAILY 08/22/18 [History] Simvastatin 10 mg PO BEDTIME 08/22/18 [History] carvediloL [Carvedilol] 6.25 mg PO BIDMEALS 08/22/18 [History] Furosemide [Lasix] 40 mg PO BIDDIURETIC #30 tablet 08/24/18 [Rx] Albuterol Sulfate [Proair Hfa] 1 puff INH Q6HR PRN 11/08/18 [History] Cetirizine HCl 10 mg PO DAILY PRN 11/08/18 [History] Magnesium Oxide [Magnesium] 400 mg PO DAILY 11/08/18 [History] Tiotropium [Spiriva HandiHaler] 18 mcg INH DAILY 11/08/18 [History] Past Medical History HEENT History: Reports: None Cardiovascular History: Reports: Heart Failure, High Cholesterol, Hypertension, Other (See Below) Other Cardiovascular History: non-ischemic cardiomyopathy Respiratory History: Reports: Bronchitis, Recurrent, PE, Other (See Below) Other Respiratory History: ARDS (acute respiratory distress syndrome) Gastrointestinal History: Reports: GERD Other Gastrointestinal History: Spouse states client used to take medication for his stomach, but cannot recall why and cannot recall which medication. Genitourinary History: Reports: Diabetic Nephropathy, Other (See Below) Other Genitourinary History: Acute kidney injury Musculoskeletal History: Reports: Arthritis, Back Pain, Chronic, Fracture, Other (See Below) Other Musculoskeletal History: "Multiple fractures" Neurological History: Reports: Head Trauma, Other (See Below) Other Neuro History: fractured jody Psychiatric History: Reports: Addiction, Anxiety Endocrine/Metabolic History: Reports: Diabetes, Type II, IDDM Hematologic History: Reports: None Immunologic History: Reports: None Oncologic (Cancer) History: Reports: None Dermatologic History: Reports: Cellulitis - Infectious Disease History Infectious Disease History: Reports: Hepatitis C Other Infectious Disease History: states client has hepatitis, but unable to recall which type. - Past Surgical History Head Surgeries/Procedures: Reports: None Cardiovascular Surgical History: Reports: None, Other (See Below) Respiratory Surgical History: Reports: Thoracentesis GI Surgical History: Reports: Appendectomy Endocrine Surgical History: Reports: None Neurological Surgical History: Reports: None Musculoskeletal Surgical History: Reports: None Dermatological Surgical History: Reports: None Social & Family History - Family History Family Medical History: Noncontributory Endocrine/Metabolic: Reports: Diabetes, type II Oncologic: Reports: Other (See Below) Other Oncologic Family History: spouse states HX of cancer in family, but unable to recall which type - Caffeine Use Caffeine Use: Reports: Soda Caffeine Use Comment: galoon of coffee and 6 pack of pop daily ED ROS GENERAL - Review of Systems Review Of Systems: Comprehensive ROS is negative, except as noted in HPI. ED EXAM, GENERAL - Physical Exam Exam: See Below Exam Limited By: No Limitations General Appearance: Alert, Mild Distress Eye Exam: Bilateral Eye: EOMI Ears: Normal External Exam Ear Exam: Bilateral Ear: TM Dull Nose: Nasal Drainage (clear) Throat/Mouth: Normal Lips, Normal Oropharynx, Normal Voice Head: Atraumatic, Normocephalic Neck: Normal Inspection, Full Range of Motion. No: Limited Range of Motion Respiratory/Chest: Decreased Breath Sounds, Rhonchi (bilateral mid ), Other ( infrequent mosit bronchial cough) Cardiovascular: Normal Peripheral Pulses, Regular Rate, Rhythm GI/Abdominal: Normal Bowel Sounds, Soft Back Exam: Full Range of Motion Neurological: Alert, Inattentive, Slow to Respond Skin Exam: Warm, Dry, Intact, Normal Color Course - Vital Signs Last Recorded V/S: Last Vital Signs Temp 100.4 F 09/21/19 00:44 Pulse 103 H 09/21/19 00:44 Resp 20 09/21/19 00:44 BP 174/87 H 09/21/19 00:44 Pulse Ox 98 09/21/19 00:44 - Orders/Labs/Meds Orders: Active Orders 24 hr Category Date Time Status EKG Documentation Completion [RC] STAT Care 09/21/19 00:38 Active Chest 1V Frontal [CR] Urgent Exams 09/21/19 00:38 Taken Head wo Cont [CT] Urgent Exams 09/21/19 00:38 Taken CULTURE BLOOD [BC] Stat Lab 09/21/19 00:45 Ordered CULTURE BLOOD [BC] Stat Lab 09/21/19 00:50 Received CULTURE STREP A CONFIRMATION [] Stat Lab 09/21/19 00:45 Results DRUG SCREEN URINE BIORAD [URCHEM] Stat Lab 09/21/19 00:38 Ordered STREP SCRN A RAPID W CULT CONF [RM] Stat Lab 09/21/19 00:45 Results UA RFX SUSI AND CULT IF INDIC [URIN] Stat Lab 09/21/19 00:38 Ordered Azithromycin [Zithromax] 500 mg Med 09/21/19 02:00 Active Sodium Chloride 0.9% [Normal Saline (AdvBag)] 250 ml IV ONETIME Blood Culture x2 Reflex Set [OM.PC] Stat Oth 09/21/19 00:45 Ordered Medication Orders Azithromycin 500 mg/ Sodium (Chloride) 250 mls @ 250 mls/hr IV ONETIME ONE Stop: 09/21/19 02:59 Last Admin: 09/21/19 02:21 Dose: 250 mls/hr Labs: Laboratory Tests 09/21/19 09/21/19 09/21/19 Range/Units 00:50 00:50 00:50 WBC 8.1 (5.0-10.0) 10^3/uL RBC 4.38 L (4.6-6.2) 10^6/uL Hgb 10.9 L (14.0-18.0) g/dL Hct 32.8 L (40.0-54.0) % MCV 74.9 L (80-100) fL MCH 24.9 L (27.0-34.0) pg MCHC 33.2 (33.0-35.0) g/dL Plt Count 209 (150-450) 10^3/uL Neut % (Auto) 67.6 (42.2-75.2) % Lymph % (Auto) 15.3 L (20.5-50.1) % [place] % (Auto) 15.0 H (2-8) % Eos % (Auto) 1.6 (1.0-3.0) % Baso % (Auto) 0.5 (0.0-1.0) % PT 9.6 (9.0-12.0) SEC INR 0.9 (0.9-1.2) Sodium 133 L (135-145) mmol/L Potassium 4.2 (3.6-5.0) mmol/L Chloride 104 (101-111) mmol/L Carbon Dioxide 21.0 (21.0-31.0) mmol/L Anion Gap 12.2 BUN 56 H (7-18) mg/dL Creatinine 3.0 H (0.6-1.3) mg/dL Est Cr Clr Drug Dosing TNP Estimated GFR (MDRD) 22 BUN/Creatinine Ratio 18.66 Glucose 131 H (74-105) mg/dL Lactic Acid (0.5-2.0) mmol/L Calcium 8.1 L (8.4-10.2) mg/dl Magnesium 1.8 (1.8-2.5) mg/dL Total Bilirubin 0.3 (0.2-1.0) mg/dL AST 37 (10-42) IU/L ALT 31 (10-60) IU/L Alkaline Phosphatase 73 (42-121) IU/L Ammonia (11-35) umol/L Troponin I 0.04 H* (0.00-0.02) ng/ml B-Natriuretic Peptide 1370 H (0-100) pg/ml Total Protein 6.6 L (6.7-8.2) g/dl Albumin 2.5 L (3.2-5.5) g/dl Globulin 4.1 Albumin/Globulin Ratio 0.61 Amylase 48 (28-100) U/L Lipase 26 (22-51) U/L Ethyl Alcohol 5 mg/dL 09/21/19 09/21/19 Range/Units 00:50 00:50 WBC (5.0-10.0) 10^3/uL RBC (4.6-6.2) 10^6/uL Hgb (14.0-18.0) g/dL Hct (40.0-54.0) % MCV (80-100) fL MCH (27.0-34.0) pg MCHC (33.0-35.0) g/dL Plt Count (150-450) 10^3/uL Neut % (Auto) (42.2-75.2) % Lymph % (Auto) (20.5-50.1) % [place] % (Auto) (2-8) % Eos % (Auto) (1.0-3.0) % Baso % (Auto) (0.0-1.0) % PT (9.0-12.0) SEC INR (0.9-1.2) Sodium (135-145) mmol/L Potassium (3.6-5.0) mmol/L Chloride (101-111) mmol/L Carbon Dioxide (21.0-31.0) mmol/L Anion Gap BUN (7-18) mg/dL Creatinine (0.6-1.3) mg/dL Est Cr Clr Drug Dosing Estimated GFR (MDRD) BUN/Creatinine Ratio Glucose (74-105) mg/dL Lactic Acid 0.7 (0.5-2.0) mmol/L Calcium (8.4-10.2) mg/dl Magnesium (1.8-2.5) mg/dL Total Bilirubin (0.2-1.0) mg/dL AST (10-42) IU/L ALT (10-60) IU/L Alkaline Phosphatase (42-121) IU/L Ammonia 26 (11-35) umol/L Troponin I (0.00-0.02) ng/ml B-Natriuretic Peptide (0-100) pg/ml Total Protein (6.7-8.2) g/dl Albumin (3.2-5.5) g/dl Globulin Albumin/Globulin Ratio Amylase (28-100) U/L Lipase (22-51) U/L Ethyl Alcohol mg/dL Meds: Medications Generic Name Dose Route Start Last Admin Trade Name Freq PRN Reason Stop Dose Admin Azithromycin 500 mg/ Sodium 250 mls @ 250 mls/hr 09/21/19 02:00 09/21/19 02: 21 Chloride IV 09/21/19 02:59 250 mls/hr ONETIME ONE Administration Discontinued Medications Generic Name Dose Route Start Last Admin Trade Name Freq PRN Reason Stop Dose Admin Acetaminophen 650 mg 09/21/19 00:54 09/21/19 01:27 Tylenol PO 09/21/19 00:55 650 mg NOW ONE Administration Furosemide 40 mg 09/21/19 01:41 09/21/19 01:52 Lasix IVPUSH 09/21/19 01:42 40 mg NOW ONE Administration Ceftriaxone Sodium 1 gm/ 50 mls @ 100 mls/hr 09/21/19 01:42 09/21/19 01:53 Sodium Chloride IV 09/21/19 02:11 100 mls/hr ONETIME ONE Administration Departure - Departure Time of Disposition: 02:31 Disposition: Home, Self-Care 01 Condition: Good Clinical Impression: CHF, Congestive heart failure, Pneumonia, Elevated brain natriuretic peptide ( BNP) level Altered mental status, unspecified Qualifiers: Altered mental status type: somnolence Qualified Code(s): R40.0 - Somnolence CKD (chronic kidney disease) Qualifiers: Chronic kidney disease stage: stage 3 (moderate) Qualified Code(s): N18.3 - Chronic kidney disease, stage 3 (moderate) - Discharge Information *PRESCRIPTION DRUG MONITORING PROGRAM REVIEWED*: No *COPY OF PRESCRIPTION DRUG MONITORING REPORT IN PATIENT LUIS: No Forms: ED Department Discharge Sepsis Event Note - Evaluation Sepsis Screening Result: Possible Severe Sepsis Risk - Focused Exam Vital Signs: Vital Signs Temp Pulse Resp BP Pulse Ox 09/21/19 00:44 100.4 F 103 H 20 174/87 H 98 Date Exam was Performed: 09/21/19 Time Exam was Performed: 02:24 - My Orders Last 24 Hours: My Active Orders 09/21/19 00:38 EKG Documentation Completion [RC] STAT Chest 1V Frontal [CR] Urgent Head wo Cont [CT] Urgent DRUG SCREEN URINE BIORAD [URCHEM] Stat UA RFX SUSI AND CULT IF INDIC [URIN] Stat 09/21/19 00:45 CULTURE BLOOD [BC] Stat CULTURE STREP A CONFIRMATION [RM] Stat STREP SCRN A RAPID W CULT CONF [RM] Stat Blood Culture x2 Reflex Set [OM.PC] Stat 09/21/19 00:50 CULTURE BLOOD [BC] Stat 09/21/19 02:00 Azithromycin [Zithromax] 500 mg Sodium Chloride 0.9% [Normal Saline (AdvBag)] 250 ml IV ONETIME - Assessment/Plan Last 24 Hours: My Active Orders 09/21/19 00:38 EKG Documentation Completion [RC] STAT Chest 1V Frontal [CR] Urgent Head wo Cont [CT] Urgent DRUG SCREEN URINE BIORAD [URCHEM] Stat UA RFX SUSI AND CULT IF INDIC [URIN] Stat 09/21/19 00:45 CULTURE BLOOD [BC] Stat CULTURE STREP A CONFIRMATION [RM] Stat STREP SCRN A RAPID W CULT CONF [RM] Stat Blood Culture x2 Reflex Set [OM.PC] Stat 09/21/19 00:50 CULTURE BLOOD [BC] Stat 09/21/19 02:00 Azithromycin [Zithromax] 500 mg Sodium Chloride 0.9% [Normal Saline (AdvBag)] 250 ml IV ONETIME
[2019-09-21 01:17] LABS: ANION GAP 12.2; CHLORIDE,CL 104 mmol/L (101-111); SODIUM,NA 133 mmol/L (135-145)
[2019-09-21] MEDS ORDERED: Furosemide 40 MG/4 ML VIAL IVPUSH ONE (01:41)
[2019-09-21] MEDS ORDERED: cefTRIAXone 1 GM in Sodium Chloride 0.9% 50 ML IV ONE (01:42)
[2019-09-21] MEDS ORDERED: Azithromycin 500 MG in Sodium Chloride 0.9% 250 ML IV ONE (02:00)
== END 2019-09-21 02:30 ==
LOC: DL.ED 00:44
DX: R40.0 Somnolence (principal); I13.0 Hypertensive heart and chronic kidney disease with heart failure and stage 1 through stage 4 chronic kidney disease, or unspecified chronic kidney disease; N18.3 Chronic kidney disease, stage 3 (moderate); I50.9 Heart failure, unspecified; J18.9 Pneumonia, unspecified organism; R79.1 Abnormal coagulation profile; E78.00 Pure hypercholesterolemia, unspecified; K21.9 Gastro-esophageal reflux disease without esophagitis; M19.90 Unspecified osteoarthritis, unspecified site; F41.9 Anxiety disorder, unspecified; Z79.82 Long term (current) use of aspirin; Z79.4 Long term (current) use of insulin; Z79.899 Other long term (current) drug therapy
CPT/HCPCS: 36415; 70450; 71045; 80053; 80305; 80307; 81001; 82140; 82150; 83605; 83690; 83735; 83880; 84484; 85025; 85610; 87040; 87081; 87430; 87804; 93005; 96365; 96375; 99285; A9270; J0456; J0696; J1940; J7050

== ENCOUNTER 2019-12-20 11:37 | Emergency (ER) | payer MEDICAID ==
[2019-12-20 12:34] VITALS: BP 159/85; PULSE 85
--- NOTE | 2019-12-20 12:36 | EDM.PDOC ---
ED HPI GENERAL MEDICAL PROBLEM - General Chief Complaint: Respiratory Problem Stated Complaint: [facility] Time Seen by Provider: 12/20/19 12:36 Source of Information: Reports: Patient, EMS, EMS Notes Reviewed, Provider ( Grant, PIPING ENGINEER at [facility]), RN, RN Notes Reviewed History Limitations: Reports: No Limitations - History of Present Illness INITIAL COMMENTS - FREE TEXT/NARRATIVE: Patient presents to ER per [place] [facility] from [facility]. Patient presented to the clinic with complaints of shortness of breath for 5 days, unable to urinate for the last 3 days, and no bowel movement for the last 2 days. Patient states he had chest pain a couple days ago, denies any chest pains at this time. Also denies cough, fever, chills, nausea, vomiting, diarrhea. Patient has a history of stage IV CKD, CHF, diabetes, hypertension, hyperlipidemia. Onset: Gradual general Pain Score (Numeric/FACES): 6 - Related Data Allergies Allergy/AdvReac Type Severity Reaction Status Date / Time No Known Allergies Allergy Verified 12/20/19 12:39 Home Meds: Home Meds Aspirin [Lo-Dose Aspirin EC] 81 mg PO DAILY 08/22/18 [History] Insulin NPH/Insulin Reg,Human [Novolin 70-30] 50 units SQ BID 08/22/18 [History] Omeprazole 20 mg PO DAILY 08/22/18 [History] Simvastatin 10 mg PO BEDTIME 08/22/18 [History] carvediloL [Carvedilol] 6.25 mg PO BIDMEALS 08/22/18 [History] Furosemide [Lasix] 40 mg PO BIDDIURETIC #30 tablet 08/24/18 [Rx] Albuterol Sulfate [Proair Hfa] 1 puff INH Q6HR PRN 11/08/18 [History] Cetirizine HCl 10 mg PO DAILY PRN 11/08/18 [History] Magnesium Oxide [Magnesium] 400 mg PO DAILY 11/08/18 [History] Tiotropium [Spiriva HandiHaler] 18 mcg INH DAILY 11/08/18 [History] Cholecalciferol (Vitamin D3) [Vitamin D3] 25 mcg PO DAILY 12/20/19 [History] metOLazone [Metolazone] 2.5 mg PO .Q48H 12/20/19 [History] Past Medical History HEENT History: Reports: None Cardiovascular History: Reports: Heart Failure, High Cholesterol, Hypertension, Other (See Below) Other Cardiovascular History: non-ischemic cardiomyopathy Respiratory History: Reports: Bronchitis, Recurrent, PE, Other (See Below) Other Respiratory History: ARDS (acute respiratory distress syndrome) Gastrointestinal History: Reports: GERD Other Gastrointestinal History: Spouse states client used to take medication for his stomach, but cannot recall why and cannot recall which medication. Genitourinary History: Reports: Diabetic Nephropathy, Other (See Below) Other Genitourinary History: Acute kidney injury Musculoskeletal History: Reports: Arthritis, Back Pain, Chronic, Fracture, Other (See Below) Other Musculoskeletal History: "Multiple fractures" Neurological History: Reports: Head Trauma, Other (See Below) Other Neuro History: fractured jody Psychiatric History: Reports: Addiction, Anxiety Endocrine/Metabolic History: Reports: Diabetes, Type II, IDDM Hematologic History: Reports: None Immunologic History: Reports: None Oncologic (Cancer) History: Reports: None Dermatologic History: Reports: Cellulitis - Infectious Disease History Infectious Disease History: Reports: Hepatitis C Other Infectious Disease History: states client has hepatitis, but unable to recall which type. - Past Surgical History Head Surgeries/Procedures: Reports: None Cardiovascular Surgical History: Reports: None, Other (See Below) Respiratory Surgical History: Reports: Thoracentesis GI Surgical History: Reports: Appendectomy Endocrine Surgical History: Reports: None Neurological Surgical History: Reports: None Musculoskeletal Surgical History: Reports: None Dermatological Surgical History: Reports: None Social & Family History - Family History Family Medical History: Noncontributory Endocrine/Metabolic: Reports: Diabetes, type II Oncologic: Reports: Other (See Below) Other Oncologic Family History: spouse states HX of cancer in family, but unable to recall which type - Caffeine Use Caffeine Use: Reports: Soda Caffeine Use Comment: galoon of coffee and 6 pack of pop daily ED ROS GENERAL - Review of Systems Review Of Systems: Comprehensive ROS is negative, except as noted in HPI. ED EXAM, GENERAL - Physical Exam Exam: See Below Exam Limited By: No Limitations General Appearance: Alert, WD/WN, No Apparent Distress Eye Exam: Right Eye: Other (Green drainage), Bilateral Eye: Conjunctival Injection, EOMI Ears: Normal External Exam, Hearing Grossly Normal Nose: Normal Inspection Throat/Mouth: Normal Inspection, Normal Voice, No Airway Compromise Head: Atraumatic, Normocephalic Neck: Normal Inspection, Supple, Non-Tender, Full Range of Motion Respiratory/Chest: No Respiratory Distress, No Accessory Muscle Use, Chest Non- Tender, Decreased Breath Sounds Cardiovascular: Normal Peripheral Pulses, Regular Rate, Rhythm, No Edema, No Gallop, No JVD, No Murmur, No Rub GI/Abdominal: Normal Bowel Sounds, Soft, Non-Tender (Male) Exam: Deferred Rectal (Males) Exam: Deferred Back Exam: Normal Inspection, Full Range of Motion Extremities: Normal Range of Motion, Normal Capillary Refill, Pedal Edema (+2 pitting) Neurological: Alert, Oriented, CN II-XII Intact, Normal Cognition, Normal Gait, Normal Reflexes, No Motor/Sensory Deficits Psychiatric: Normal Affect, Normal Mood Skin Exam: Warm, Dry, Intact, Normal Color, Other (Skin excoriated on arms and abdomen from scratching) Lymphatic: No Adenopathy Course - Vital Signs Last Recorded V/S: Last Vital Signs Temp 98.0 F 12/20/19 12:33 Pulse 85 12/20/19 12:33 Resp 24 H 12/20/19 12:33 BP 159/85 H 12/20/19 12:33 Pulse Ox 100 12/20/19 12:33 - Orders/Labs/Meds Orders: Active Orders 24 hr Category Date Time Status EKG Documentation Completion [RC] STAT Care 12/20/19 12:55 Active Peripheral IV Care [RC] . DIRECTED Care 12/20/19 12:56 Active Sodium Chloride 0.9% [Saline Flush] Med 12/20/19 12:55 Active 10 ml FLUSH ASDIRECTED PRN Peripheral IV Insertion Adult [OM.PC] Stat Oth 12/20/19 12:55 Ordered Medication Orders Sodium Chloride (Saline Flush) 10 ml FLUSH ASDIRECTED PRN PRN Reason: Keep Vein Open Last Admin: 12/20/19 13:01 Dose: 10 ml Labs: Laboratory Tests 12/20/19 12/20/19 12/20/19 Range/Units 13:01 13:01 13:01 WBC 9.4 (5.0-10.0) 10^3/uL RBC 3.43 L (4.6-6.2) 10^6/uL Hgb 8.5 L D (14.0-18.0) g/dL Hct 25.7 L (40.0-54.0) % MCV 74.9 L (80-100) fL MCH 24.8 L (27.0-34.0) pg MCHC 33.1 (33.0-35.0) g/dL Plt Count 261 (150-450) 10^3/uL Neut % (Auto) 64.6 (42.2-75.2) % Lymph % (Auto) 17.4 L (20.5-50.1) % [place] % (Auto) 12.0 H (2-8) % Eos % (Auto) 5.7 H (1.0-3.0) % Baso % (Auto) 0.3 (0.0-1.0) % PT 12.4 H (9.0-12.0) SEC INR 1.3 H (0.9-1.2) Sodium 134 L (136-145) mmol/L Potassium 6.3 H (3.5-5.1) mmol/L Chloride 102 (98-107) mmol/L Carbon Dioxide 16 L (21-32) mmol/L Anion Gap 22.3 H (7-13) mEq/L BUN 169 H (7-18) mg/dL Creatinine 14.98 H* (0.70-1.30) mg/dL Est Cr Clr Drug Dosing 4.96 mL/min Estimated GFR (MDRD) 3 BUN/Creatinine Ratio 11.3 (No establ ref range) Glucose 104 H (74-99) mg/dL Calcium 7.3 L (8.5-10.1) mg/dL Total Bilirubin 0.2 (0.2-1.0) mg/dL AST 34 (15-37) U/L ALT 38 (16-63) U/L Alkaline Phosphatase 121 H (46-116) U/L Troponin I 0.402 H* (0.000-0.056) ng/mL B-Natriuretic Peptide > 5000 H (0-100) pg/ml Total Protein 7.6 (6.4-8.2) g/dL Albumin 1.9 L (3.4-5.0) g/dL Globulin 5.7 Albumin/Globulin Ratio 0.33 Meds: Medications Generic Name Dose Route Start Last Admin Trade Name Freq PRN Reason Stop Dose Admin Sodium Chloride 10 ml 12/20/19 12:55 12/20/19 13:01 Saline Flush FLUSH 10 ml ASDIRECTED PRN Administration Keep Vein Open - Radiology Interpretation Free Text/Narrative:: Chest xray: Chronic mild congestion. No new lung mass, alveolar edema or lobar pneumonia. Radiologist report - Re-Assessments/Exams Free Text/Narrative Re-Assessment/Exam: 12/20/19 14:03 Discussed patient case with Dr. Balderas who agreed to accept the patient for transfer to [facility]. Departure - Departure Time of Disposition: 14:04 Disposition: DC/Tfer to [facility] 02 Condition: Fair Clinical Impression: SOB (shortness of breath), CHF, Congestive heart failure, NSTEMI (non-ST elevated myocardial infarction), Hyperkalemia, Elevated troponin Kidney failure Qualifiers: Renal failure chronicity: acute on chronic Acute renal failure type: unspecified Chronic kidney disease stage: stage 4 (severe) Qualified Code(s): N17.9 - Acute kidney failure, unspecified; N18.4 - Chronic kidney disease, stage 4 (severe) - Discharge Information *PRESCRIPTION DRUG MONITORING PROGRAM REVIEWED*: No *COPY OF PRESCRIPTION DRUG MONITORING REPORT IN PATIENT LUIS: No Forms: ED Department Discharge, Interfacility Transfer [facility] Sepsis Event Note - Evaluation Sepsis Screening Result: No Definite Risk - Focused Exam Vital Signs: Vital Signs Temp Pulse Resp BP Pulse Ox 12/20/19 12:33 98.0 F 85 24 H 159/85 H 100 Date Exam was Performed: 12/20/19 Time Exam was Performed: 14:00 - My Orders Last 24 Hours: My Active Orders 12/20/19 12:55 EKG Documentation Completion [RC] STAT Sodium Chloride 0.9% [Saline Flush] 10 ml FLUSH ASDIRECTED PRN Peripheral IV Insertion Adult [OM.PC] Stat 12/20/19 12:56 Peripheral IV Care [RC] . DIRECTED - Assessment/Plan Last 24 Hours: My Active Orders 12/20/19 12:55 EKG Documentation Completion [RC] STAT Sodium Chloride 0.9% [Saline Flush] 10 ml FLUSH ASDIRECTED PRN Peripheral IV Insertion Adult [OM.PC] Stat 12/20/19 12:56 Peripheral IV Care [RC] . DIRECTED
[2019-12-20] MEDS ORDERED: Sodium Chloride 0.9% 10 ML Syringe FLUSH PRN (12:55)
[2019-12-20 13:28] LABS: ANION GAP 22.3 mEq/L (7-13); CHLORIDE,CL 102 mmol/L (98-107); SODIUM,NA 134 mmol/L (136-145)
--- NOTE | 2019-12-20 13:38 | CR ---
EXAMINATION: Chest 1V Frontal SEX: Male AGE: 59 years CLINICAL HISTORY: 59-year-old male complaining of CHEST PAIN. Previous CXR for shortness of breath 08 November 2018 reported as "CHF". INTERPRETATION: 1. Borderline cardiomegaly and proximal pulmonary vascular congestion. 2. No new cephalization of flow, alveolar edema or dependent pleural fluid accumulation. 3. No new lung mass hilar lymphadenopathy or lobar pneumonia (chronic middle lobe atelectasis/fibrosis silhouetting the heart border). 4. No new atelectasis/collapse. 5. No pneumothorax or pneumomediastinum. Midline tracheal bronchial airways unremarkable. No foreign bodies. CONCLUSION: Chronic mild congestion. No new lung mass, alveolar edema or lobar pneumonia.
== END 2019-12-20 14:23 ==
LOC: DL.ED 11:37
DX: I21.4 Non-ST elevation (NSTEMI) myocardial infarction (principal); E87.5 Hyperkalemia; R74.8 Abnormal levels of other serum enzymes; I13.0 Hypertensive heart and chronic kidney disease with heart failure and stage 1 through stage 4 chronic kidney disease, or unspecified chronic kidney disease; I50.9 Heart failure, unspecified; N18.9 Chronic kidney disease, unspecified; E11.22 Type 2 diabetes mellitus with diabetic chronic kidney disease; E78.00 Pure hypercholesterolemia, unspecified; F41.9 Anxiety disorder, unspecified; E11.21 Type 2 diabetes mellitus with diabetic nephropathy; K21.9 Gastro-esophageal reflux disease without esophagitis; M19.90 Unspecified osteoarthritis, unspecified site; N17.9 Acute kidney failure, unspecified; Z79.82 Long term (current) use of aspirin; Z79.4 Long term (current) use of insulin; Z79.899 Other long term (current) drug therapy
CPT/HCPCS: 36415; 71045; 80053; 83880; 84484; 85025; 85610; 93005; 99285-25

== ENCOUNTER 2020-01-07 17:28 | Emergency (ER) | payer MEDICAID ==
[2020-01-07 17:46] VITALS: BP 141/74; PULSE 88
[2020-01-07] MEDS ORDERED: Sodium Chloride 0.9% 10 ML Syringe FLUSH PRN (17:59)
--- NOTE | 2020-01-07 18:24 | CR ---
PROCEDURE INFORMATION: Exam: XR Chest, 2 Views Exam date and time: 01/07/2020 6:03 PM Age: 59 years old Clinical indication: Shortness of breath; Additional info: Dialysis patient with shortness of breath TECHNIQUE: Imaging protocol: XR of the chest Views: 2 views. COMPARISON: CR Chest 1V Frontal 12/20/2019 1:25 PM FINDINGS: Tubes, catheters and devices: Right-sided central catheter is in place with the tip in the right atrium. Lungs: Nonspecific bibasilar consolidation is present, consistent with atelectasis, edema, or pneumonia. The lungs are hyperinflated, consistent with underlying small airways disease. Pleural space: Trace bilateral pleural effusions. Heart/Mediastinum: The heart demonstrates mild diffuse enlargement. Bones/joints: Compression deformity of a lower thoracic vertebrae present, age is indeterminate. The thoracic spine demonstrates mild degenerative changes at multiple levels. IMPRESSION: 1. Nonspecific bibasilar consolidation is present, consistent with atelectasis, edema, or pneumonia. 2. The heart demonstrates mild diffuse enlargement. 3. Trace bilateral pleural effusions. 4. Compression deformity of a lower thoracic vertebrae present, age is indeterminate. 5. The lungs are hyperinflated, consistent with underlying small airways disease.
--- NOTE | 2020-01-07 18:28 | EDM.PDOC ---
Scribed by Frnasisca Watters 01/07/20 1811 for Estefani Dalton MD ED HPI GENERAL MEDICAL PROBLEM - General Chief Complaint: Respiratory Problem Stated Complaint: HARD TIME BREATHING Time Seen by Provider: 01/07/20 17:48 Source of Information: Reports: Patient, RN, RN Notes Reviewed History Limitations: Reports: No Limitations - History of Present Illness INITIAL COMMENTS - FREE TEXT/NARRATIVE: Patient presents to ER by POV with complaint of shortness of breath that started yesterday. Patient does not appear to be in respiratory distress rate WDL and no use of accessory muscles. Patient was seen here on 12/20/19 and found to be in acute CHF and acute renal failure and transferred to [facility]. Pt reports he had a full 4 hour run of dialysis today. He says the dialysis staff told him that he is fluid overloaded and he will have to go to dialysis four times a week now rather that three. He denies cough, fever, orthopnea, increasing lower extremity edema, or chest pain. He admits to fatigue and generalized weakness. Onset: Today Duration: Getting Worse Location: Reports: Chest Severity: Moderate Improves with: Reports: None Worsens with: Reports: None Associated Symptoms: Reports: No Other Symptoms - Related Data Allergies Allergy/AdvReac Type Severity Reaction Status Date / Time No Known Allergies Allergy Verified 01/07/20 17:41 Home Meds: Home Meds Aspirin [Lo-Dose Aspirin EC] 81 mg PO DAILY 08/22/18 [History] Insulin NPH/Insulin Reg,Human [Novolin 70-30] 50 units SQ BID 08/22/18 [History] Omeprazole 20 mg PO DAILY 08/22/18 [History] Simvastatin 10 mg PO BEDTIME 08/22/18 [History] carvediloL [Carvedilol] 6.25 mg PO BIDMEALS 08/22/18 [History] Furosemide [Lasix] 40 mg PO BIDDIURETIC #30 tablet 08/24/18 [Rx] Albuterol Sulfate [Proair Hfa] 1 puff INH Q6HR PRN 11/08/18 [History] Cetirizine HCl 10 mg PO DAILY PRN 11/08/18 [History] Magnesium Oxide [Magnesium] 400 mg PO DAILY 11/08/18 [History] Tiotropium [Spiriva HandiHaler] 18 mcg INH DAILY 11/08/18 [History] Cholecalciferol (Vitamin D3) [Vitamin D3] 25 mcg PO DAILY 12/20/19 [History] metOLazone [Metolazone] 2.5 mg PO .Q48H 12/20/19 [History] Past Medical History HEENT History: Reports: None Cardiovascular History: Reports: Heart Failure, High Cholesterol, Hypertension, Other (See Below) Other Cardiovascular History: non-ischemic cardiomyopathy Respiratory History: Reports: Bronchitis, Recurrent, PE, Other (See Below) Other Respiratory History: ARDS (acute respiratory distress syndrome) Gastrointestinal History: Reports: GERD Other Gastrointestinal History: Spouse states client used to take medication for his stomach, but cannot recall why and cannot recall which medication. Genitourinary History: Reports: Diabetic Nephropathy, Other (See Below) Other Genitourinary History: Acute kidney injury Musculoskeletal History: Reports: Arthritis, Back Pain, Chronic, Fracture, Other (See Below) Other Musculoskeletal History: "Multiple fractures" Neurological History: Reports: Head Trauma, Other (See Below) Other Neuro History: fractured jody Psychiatric History: Reports: Addiction, Anxiety Endocrine/Metabolic History: Reports: Diabetes, Type II, IDDM Hematologic History: Reports: None Immunologic History: Reports: None Oncologic (Cancer) History: Reports: None Dermatologic History: Reports: Cellulitis - Infectious Disease History Infectious Disease History: Reports: Hepatitis C Other Infectious Disease History: states client has hepatitis, but unable to recall which type. - Past Surgical History Head Surgeries/Procedures: Reports: None Cardiovascular Surgical History: Reports: None, Other (See Below) Respiratory Surgical History: Reports: Thoracentesis GI Surgical History: Reports: Appendectomy Endocrine Surgical History: Reports: None Neurological Surgical History: Reports: None Musculoskeletal Surgical History: Reports: None Dermatological Surgical History: Reports: None Social & Family History - Family History Family Medical History: Noncontributory Endocrine/Metabolic: Reports: Diabetes, type II Oncologic: Reports: Other (See Below) Other Oncologic Family History: spouse states HX of cancer in family, but unable to recall which type - Caffeine Use Caffeine Use: Reports: Soda Caffeine Use Comment: galoon of coffee and 6 pack of pop daily - Living Situation & Occupation Living situation: Reports: with Family Occupation: Disabled ED ROS GENERAL - Review of Systems Review Of Systems: Comprehensive ROS is negative, except as noted in HPI. ED EXAM, GENERAL - Physical Exam Exam: See Below Exam Limited By: No Limitations General Appearance: Alert, No Apparent Distress, Other (Chronically ill appearing) Eye Exam: Bilateral Eye: Normal Inspection (No scleral icterus) Nose: Normal Inspection, Normal Mucosa, No Blood Throat/Mouth: Normal Inspection, Normal Lips, Normal Voice, No Airway Compromise Head: Atraumatic, Normocephalic Neck: Normal Inspection, Non-Tender, Full Range of Motion Respiratory/Chest: No Respiratory Distress, No Accessory Muscle Use, Chest Non- Tender, Decreased Breath Sounds. No: Rales, Rhonchi, Wheezing Cardiovascular: Regular Rate, Rhythm, Other (Trace lower extremity edema to distal 1/3 of tibia B/L) GI/Abdominal: Normal Bowel Sounds, Soft, Non-Tender, No Distention Back Exam: Normal Inspection Extremities: Normal Range of Motion, Non-Tender, Normal Capillary Refill Neurological: Alert, Oriented, CN II-XII Intact, Normal Gait Psychiatric: Depressed Mood, Flat Affect Skin Exam: Warm, Dry, Intact, Normal Color, No Rash EKG INTERPRETATION EKG Date: 01/07/20 Time: 18:13 Rhythm: Other (sinus rhythm) Rate (Beats/Min): 89 [place]: Normal P-Wave: Present QRS: LBBB ST-T: Normal QT: Normal Comparison: No Change Course - Vital Signs Last Recorded V/S: Last Vital Signs Temp 98.0 F 01/07/20 17:42 Pulse 88 01/07/20 17:42 Resp 18 01/07/20 17:42 BP 141/74 H 01/07/20 17:42 Pulse Ox 100 01/07/20 17:42 - Orders/Labs/Meds Orders: Active Orders 24 hr Category Date Time Status EKG 12 Lead [EKG Documentation Completion] [RC] STAT Care 01/07/20 17:58 Active Peripheral IV Care [RC] . DIRECTED Care 01/07/20 17:59 Active Sodium Chloride 0.9% [Saline Flush] Med 01/07/20 17:59 Active 10 ml FLUSH ASDIRECTED PRN Peripheral IV Insertion Adult [OM.PC] Stat Oth 01/07/20 17:58 Ordered Medication Orders Sodium Chloride (Saline Flush) 10 ml FLUSH ASDIRECTED PRN PRN Reason: Keep Vein Open Last Admin: 01/07/20 18:10 Dose: 10 ml Labs: Laboratory Tests 01/07/20 01/07/20 Range/Units 18:08 18:08 WBC 5.4 (5.0-10.0) 10^3/uL RBC 3.63 L (4.6-6.2) 10^6/uL Hgb 9.4 L (14.0-18.0) g/dL Hct 30.3 L (40.0-54.0) % MCV 83.5 D (80-100) fL MCH 25.9 L (27.0-34.0) pg MCHC 31.0 L (33.0-35.0) g/dL Plt Count 261 (150-450) 10^3/uL Neut % (Auto) 50.5 (42.2-75.2) % Lymph % (Auto) 22.0 (20.5-50.1) % [place] % (Auto) 16.2 H (2-8) % Eos % (Auto) 10.0 H (1.0-3.0) % Baso % (Auto) 1.3 H (0.0-1.0) % Sodium 138 (136-145) mmol/L Potassium 5.5 H (3.5-5.1) mmol/L Chloride 102 (98-107) mmol/L Carbon Dioxide 29 D (21-32) mmol/L Anion Gap 12.5 (7-13) mEq/L BUN 38 H D (7-18) mg/dL Creatinine 5.61 H* D (0.70-1.30) mg/dL Est Cr Clr Drug Dosing 11.87 mL/min Estimated GFR (MDRD) 10 BUN/Creatinine Ratio 6.8 (No establ ref range) Glucose 144 H (74-99) mg/dL Calcium 7.3 L (8.5-10.1) mg/dL Phosphorus 5.3 H (2.6-4.7) mg/dL Magnesium 1.6 L (1.8-2.4) mg/dL Total Bilirubin 0.2 (0.2-1.0) mg/dL AST 64 H (15-37) U/L ALT 49 (16-63) U/L Alkaline Phosphatase 202 H (46-116) U/L Troponin I 0.192 H* (0.000-0.056) ng/mL B-Natriuretic Peptide > 5000 H (0-100) pg/ml Total Protein 8.3 H (6.4-8.2) g/dL Albumin 2.4 L (3.4-5.0) g/dL Globulin 5.9 Albumin/Globulin Ratio 0.41 Meds: Medications Generic Name Dose Route Start Last Admin Trade Name Freq PRN Reason Stop Dose Admin Sodium Chloride 10 ml 01/07/20 17:59 01/07/20 18:10 Saline Flush FLUSH 10 ml ASDIRECTED PRN Administration Keep Vein Open - Radiology Interpretation Free Text/Narrative:: [facility] [place] [facility] Final Radiology Report Call: [phone] assistance Online chat: [email or web address] Name: ABHILASH SAHA Age: 59Years M Date: 01/07/2020 SSN: -- : [id number] Study: CR CHEST 2V Requesting Physician: ESTEFANI DALTON Images: 2 Addl Studies: Provided Clinical History: Dialysis patient with shortness of breath Contrast: Contrast Medium: Contrast Amount: Contrast Method: Page 1 of 2 PROCEDURE INFORMATION: Exam: XR Chest, 2 Views Exam date and time: 01/07/2020 6:03 PM Age: 59 years old Clinical indication: Shortness of breath; Additional info: Dialysis patient with shortness of breath TECHNIQUE: Imaging protocol: XR of the chest Views: 2 views. COMPARISON: CR Chest 1V Frontal 12/20/2019 1:25 PM FINDINGS: Tubes, catheters and devices: Right-sided central catheter is in place with the tip in the right atrium. Lungs: Nonspecific bibasilar consolidation is present, consistent with atelectasis, edema, or pneumonia. The lungs are hyperinflated, consistent with underlying small airways disease. Pleural space: Trace bilateral pleural effusions. Heart/Mediastinum: The heart demonstrates mild diffuse enlargement. Bones/joints: Compression deformity of a lower thoracic vertebrae present, age is indeterminate. The thoracic spine demonstrates mild degenerative changes at multiple levels. IMPRESSION: 1. Nonspecific bibasilar consolidation is present, consistent with atelectasis, edema, or pneumonia. 2. The heart demonstrates mild diffuse enlargement. 3. Trace bilateral pleural effusions. 4. Compression deformity of a lower thoracic vertebrae present, age is indeterminate. 5. The lungs are hyperinflated, consistent with underlying small airways disease. Thank you for allowing us to participate in the care of your patient. ABHILASH SAHA | Final Radiology Report CONFIDENTIALITY STATEMENT This report is intended only for use by the referring physician, and only in accordance with law. If you received this in error, call [phone]. Page 2 of 2 Dictated and Authenticated by: Travis Lawler DO 01/07/2020 6:24 PM Central Time ([place] & [place]) Departure - Departure Time of Disposition: 19:02 Disposition: DC/Tfer to Acute Hospital 02 Condition: Serious Clinical Impression: ESRD on hemodialysis Fluid overload Qualifiers: Hypervolemia type: unspecified Qualified Code(s): E87.70 - Fluid overload, unspecified CHF, acute on chronic Qualifiers: Heart failure type: combined systolic and diastolic Qualified Code(s): I50.43 - Acute on chronic combined systolic (congestive) and diastolic (congestive) heart failure - Discharge Information *PRESCRIPTION DRUG MONITORING PROGRAM REVIEWED*: Not Applicable *COPY OF PRESCRIPTION DRUG MONITORING REPORT IN PATIENT LUIS: Not Applicable Forms: ED Department Discharge, Interfacility Transfer [employer] Sepsis Event Note - Evaluation Sepsis Screening Result: No Definite Risk - Focused Exam Vital Signs: Vital Signs Temp Pulse Resp BP Pulse Ox 01/07/20 17:42 98.0 F 88 18 141/74 H 100 Date Exam was Performed: 01/07/20 Time Exam was Performed: 19:02 - My Orders Last 24 Hours: My Active Orders 01/07/20 17:58 EKG 12 Lead [EKG Documentation Completion] [RC] STAT Peripheral IV Insertion Adult [OM.PC] Stat 01/07/20 17:59 Peripheral IV Care [RC] . DIRECTED Sodium Chloride 0.9% [Saline Flush] 10 ml FLUSH ASDIRECTED PRN - Assessment/Plan Last 24 Hours: My Active Orders 01/07/20 17:58 EKG 12 Lead [EKG Documentation Completion] [RC] STAT Peripheral IV Insertion Adult [OM.PC] Stat 01/07/20 17:59 Peripheral IV Care [RC] . DIRECTED Sodium Chloride 0.9% [Saline Flush] 10 ml FLUSH ASDIRECTED PRN I have read and agree with the documentation that has been completed regarding this visit. By signing this record, I attest that the documentation was completed in my physical presence and is an accurate record of the encounter.
[2020-01-07 18:37] LABS: ANION GAP 12.5 mEq/L (7-13); CHLORIDE,CL 102 mmol/L (98-107); SODIUM,NA 138 mmol/L (136-145)
== END 2020-01-07 19:33 ==
LOC: DL.ED 17:28
DX: I13.2 Hypertensive heart and chronic kidney disease with heart failure and with stage 5 chronic kidney disease, or end stage renal disease (principal); E11.22 Type 2 diabetes mellitus with diabetic chronic kidney disease; I50.43 Acute on chronic combined systolic (congestive) and diastolic (congestive) heart failure; N18.6 End stage renal disease; Z99.2 Dependence on renal dialysis; E87.70 Fluid overload, unspecified; K21.9 Gastro-esophageal reflux disease without esophagitis; E78.00 Pure hypercholesterolemia, unspecified; Z79.82 Long term (current) use of aspirin; Z79.899 Other long term (current) drug therapy
CPT/HCPCS: 36415; 71046; 80053; 83735; 83880; 84100; 84484; 85025; 93005; 99285-25

== ENCOUNTER 2020-01-28 16:17 | Emergency (ER) | payer MEDICAID ==
[2020-01-28] MEDS ORDERED: Ondansetron 4 MG/2 ML SDV IV ONE (16:18)
[2020-01-28] MEDS ORDERED: Sodium Chloride 0.9% 10 ML Syringe FLUSH PRN (16:18)
--- NOTE | 2020-01-28 16:24 | EDM.PDOC ---
ED HPI GENERAL MEDICAL PROBLEM - General Chief Complaint: General Stated Complaint: AMBULANCE Time Seen by Provider: 01/28/20 16:19 Source of Information: Reports: Patient, Old Records, RN, RN Notes Reviewed History Limitations: Reports: No Limitations - History of Present Illness INITIAL COMMENTS - FREE TEXT/NARRATIVE: Pt arrives to ER from home by [facility] with c/o nausea and diaphoresis that began while sitting out in the yard watching his grandchildren play. Pt state he had a full run of dialysis earlier today. He states they have been taking extra fluid off because he was fluid overloaded. He now wonders if they took off too much fluid, because he felt like this once before after dialysis. He denies chest pain, fever, or vomiting. He states he had one loose BM today. Onset: Today, Gradual Duration: Hour(s): (2), Constant Location: Reports: Generalized Severity: Severe Improves with: Reports: None Worsens with: Reports: None Associated Symptoms: Reports: No Other Symptoms - Related Data Allergies Allergy/AdvReac Type Severity Reaction Status Date / Time No Known Allergies Allergy Verified 01/07/20 17:41 Home Meds: Home Meds Aspirin [Lo-Dose Aspirin EC] 81 mg PO DAILY 08/22/18 [History] Insulin NPH/Insulin Reg,Human [Novolin 70-30] 50 units SQ BID 08/22/18 [History] Omeprazole 20 mg PO DAILY 08/22/18 [History] Simvastatin 10 mg PO BEDTIME 08/22/18 [History] carvediloL [Carvedilol] 6.25 mg PO BIDMEALS 08/22/18 [History] Furosemide [Lasix] 40 mg PO BIDDIURETIC #30 tablet 08/24/18 [Rx] Albuterol Sulfate [Proair Hfa] 1 puff INH Q6HR PRN 11/08/18 [History] Cetirizine HCl 10 mg PO DAILY PRN 11/08/18 [History] Magnesium Oxide [Magnesium] 400 mg PO DAILY 11/08/18 [History] Tiotropium [Spiriva HandiHaler] 18 mcg INH DAILY 11/08/18 [History] Cholecalciferol (Vitamin D3) [Vitamin D3] 25 mcg PO DAILY 12/20/19 [History] metOLazone [Metolazone] 2.5 mg PO .Q48H 12/20/19 [History] Past Medical History HEENT History: Reports: None Cardiovascular History: Reports: Heart Failure, High Cholesterol, Hypertension, Other (See Below) Other Cardiovascular History: non-ischemic cardiomyopathy Respiratory History: Reports: Bronchitis, Recurrent, PE, Other (See Below) Other Respiratory History: ARDS (acute respiratory distress syndrome) Gastrointestinal History: Reports: GERD Other Gastrointestinal History: Spouse states client used to take medication for his stomach, but cannot recall why and cannot recall which medication. Genitourinary History: Reports: Diabetic Nephropathy, Other (See Below) Other Genitourinary History: Acute kidney injury Musculoskeletal History: Reports: Arthritis, Back Pain, Chronic, Fracture, Other (See Below) Other Musculoskeletal History: "Multiple fractures" Neurological History: Reports: Head Trauma, Other (See Below) Other Neuro History: fractured jody Psychiatric History: Reports: Addiction, Anxiety Endocrine/Metabolic History: Reports: Diabetes, Type II, IDDM Hematologic History: Reports: None Immunologic History: Reports: None Oncologic (Cancer) History: Reports: None Dermatologic History: Reports: Cellulitis - Infectious Disease History Infectious Disease History: Reports: Hepatitis C Other Infectious Disease History: states client has hepatitis, but unable to recall which type. - Past Surgical History Head Surgeries/Procedures: Reports: None Cardiovascular Surgical History: Reports: None, Other (See Below) Respiratory Surgical History: Reports: Thoracentesis GI Surgical History: Reports: Appendectomy Endocrine Surgical History: Reports: None Neurological Surgical History: Reports: None Musculoskeletal Surgical History: Reports: None Dermatological Surgical History: Reports: None Social & Family History - Family History Family Medical History: Noncontributory Endocrine/Metabolic: Reports: Diabetes, type II Oncologic: Reports: Other (See Below) Other Oncologic Family History: spouse states HX of cancer in family, but unable to recall which type - Caffeine Use Caffeine Use: Reports: Soda Caffeine Use Comment: galoon of coffee and 6 pack of pop daily - Living Situation & Occupation Living situation: Reports: with Family Occupation: Disabled ED ROS GENERAL - Review of Systems Review Of Systems: Comprehensive ROS is negative, except as noted in HPI. ED EXAM, GENERAL - Physical Exam Exam: See Below Exam Limited By: No Limitations General Appearance: Alert, No Apparent Distress, Other (Chronically ill but non- toxic appearing) Eye Exam: Bilateral Eye: EOMI, Normal Inspection (No scleral icterus), PERRL Ears: Hearing Grossly Normal Nose: Normal Inspection, Normal Mucosa, No Blood Throat/Mouth: Normal Lips, Normal Voice, No Airway Compromise Head: Atraumatic, Normocephalic Neck: Normal Inspection, Supple, Non-Tender, Full Range of Motion Respiratory/Chest: No Respiratory Distress, Lungs Clear, No Accessory Muscle Use, Chest Non-Tender, Decreased Breath Sounds Cardiovascular: Regular Rate, Rhythm, No Edema GI/Abdominal: Normal Bowel Sounds, Soft, Non-Tender. No: Guarding, Rigid, Rebound Back Exam: Normal Inspection Extremities: Normal Inspection Neurological: Alert, Oriented, No Motor/Sensory Deficits Psychiatric: Normal Affect, Normal Mood Skin Exam: Warm, Dry, Intact, Normal Color, No Rash EKG INTERPRETATION EKG Date: 01/28/20 Time: 16:21 Rhythm: Other (SR) Rate (Beats/Min): 71 [place]: Normal P-Wave: Present QRS: Wide (non-specific IVCD) ST-T: Normal QT: Normal Comparison: No Change Course - Vital Signs Last Recorded V/S: Last Vital Signs Temp 98.3 F 01/28/20 16:24 Pulse 71 01/28/20 16:24 Resp 18 01/28/20 16:24 BP 126/60 01/28/20 16:24 Pulse Ox 97 01/28/20 16:24 - Orders/Labs/Meds Orders: Active Orders 24 hr Category Date Time Status EKG 12 Lead [EKG Documentation Completion] [RC] STAT Care 01/28/20 16:18 Active Peripheral IV Care [RC] . DIRECTED Care 01/28/20 16:18 Active Sodium Chloride 0.9% [Saline Flush] Med 01/28/20 16:18 Active 10 ml FLUSH ASDIRECTED PRN Peripheral IV Insertion Adult [OM.PC] Stat Oth 01/28/20 16:18 Ordered Medication Orders Sodium Chloride (Saline Flush) 10 ml FLUSH ASDIRECTED PRN PRN Reason: Keep Vein Open Last Admin: 01/28/20 16:35 Dose: 10 ml Documented by: LIANET Labs: Laboratory Tests 01/28/20 01/28/20 Range/Units 16:19 16:19 WBC 6.1 (5.0-10.0) 10^3/uL RBC 4.73 (4.6-6.2) 10^6/uL Hgb 12.4 L D (14.0-18.0) g/dL Hct 38.3 L (40.0-54.0) % MCV 81.0 (80-100) fL MCH 26.2 L (27.0-34.0) pg MCHC 32.4 L (33.0-35.0) g/dL Plt Count 213 (150-450) 10^3/uL Neut % (Auto) 46.4 (42.2-75.2) % Lymph % (Auto) 22.2 (20.5-50.1) % [place] % (Auto) 17.5 H (2-8) % Eos % (Auto) 12.4 H (1.0-3.0) % Baso % (Auto) 1.5 H (0.0-1.0) % Sodium 133 L (136-145) mmol/L Potassium 4.4 (3.5-5.1) mmol/L Chloride 97 L (98-107) mmol/L Carbon Dioxide 27 (21-32) mmol/L Anion Gap 13.4 H (7-13) mEq/L BUN 39 H (7-18) mg/dL Creatinine 6.27 H* (0.70-1.30) mg/dL Est Cr Clr Drug Dosing 11.86 mL/min Estimated GFR (MDRD) 9 BUN/Creatinine Ratio 6.2 (No establ ref range) Glucose 133 H (74-99) mg/dL Calcium 7.6 L (8.5-10.1) mg/dL Phosphorus 6.2 H (2.6-4.7) mg/dL Magnesium 1.8 (1.8-2.4) mg/dL Total Bilirubin 0.3 (0.2-1.0) mg/dL AST 50 H (15-37) U/L ALT 59 (16-63) U/L Alkaline Phosphatase 136 H (46-116) U/L Troponin I 0.150 H* (0.000-0.056) ng/mL B-Natriuretic Peptide 2430 H (0-100) pg/ml Total Protein 8.6 H (6.4-8.2) g/dL Albumin 3.1 L (3.4-5.0) g/dL Globulin 5.5 Albumin/Globulin Ratio 0.56 Amylase 104 (25-115) U/L Lipase 347 (73-393) U/L Meds: Medications Generic Name Dose Route Start Last Admin Trade Name Jenny PRN Reason Stop Dose Admin Sodium Chloride 10 ml 01/28/20 16:18 01/28/20 16:35 Saline Flush FLUSH 10 ml ASDIRECTED PRN Administration Keep Vein Open Discontinued Medications Generic Name Dose Route Start Last Admin Trade Name Jenny PRN Reason Stop Dose Admin Ondansetron HCl 4 mg 01/28/20 16:18 01/28/20 16:35 Zofran IV 01/28/20 16:19 4 mg ONETIME ONE Administration - Re-Assessments/Exams Free Text/Narrative Re-Assessment/Exam: 01/28/20 17:11 Pt feels much better after Zofran 4mg IV and is drinking juice without nausea. Pt's Troponin is elevated but trending downward over the past 30 days. Departure - Departure Time of Disposition: 17:13 Disposition: Home, Self-Care 01 Condition: Good Clinical Impression: Nausea, Postdialysis syndrome - Discharge Information *PRESCRIPTION DRUG MONITORING PROGRAM REVIEWED*: Not Applicable *COPY OF PRESCRIPTION DRUG MONITORING REPORT IN PATIENT LUIS: Not Applicable Instructions: Nausea, Adult Forms: ED Department Discharge Additional Instructions: Rx: Zofran 4mg Follow up in clinic with your doctor if needed. Return to ER if worse at any time. Sepsis Event Note (ED) - Focused Exam Vital Signs: Vital Signs Temp Pulse Resp BP Pulse Ox 01/28/20 16:24 98.3 F 71 18 126/60 97 - My Orders Last 24 Hours: My Active Orders 01/28/20 16:18 EKG 12 Lead [EKG Documentation Completion] [RC] STAT Peripheral IV Care [RC] . DIRECTED Sodium Chloride 0.9% [Saline Flush] 10 ml FLUSH ASDIRECTED PRN Peripheral IV Insertion Adult [OM.PC] Stat - Assessment/Plan Last 24 Hours: My Active Orders 01/28/20 16:18 EKG 12 Lead [EKG Documentation Completion] [RC] STAT Peripheral IV Care [RC] . DIRECTED Sodium Chloride 0.9% [Saline Flush] 10 ml FLUSH ASDIRECTED PRN Peripheral IV Insertion Adult [OM.PC] Stat
[2020-01-28 16:31] VITALS: BP 126/60; PULSE 71
[2020-01-28 16:47] LABS: ANION GAP 13.4 mEq/L (7-13)
== END 2020-01-28 17:25 | disposition home or self-care (01) ==
LOC: DL.ED 16:17
DX: R11.0 Nausea (principal); I11.0 Hypertensive heart disease with heart failure; I50.9 Heart failure, unspecified; E78.00 Pure hypercholesterolemia, unspecified; K21.9 Gastro-esophageal reflux disease without esophagitis; M19.90 Unspecified osteoarthritis, unspecified site; E11.21 Type 2 diabetes mellitus with diabetic nephropathy; Z99.2 Dependence on renal dialysis; Z79.82 Long term (current) use of aspirin; Z79.4 Long term (current) use of insulin; Z79.899 Other long term (current) drug therapy
CPT/HCPCS: 36415; 80053; 82150; 83690; 83735; 83880; 84100; 84484; 85025; 93005; 96374; 99284; J2405

== ENCOUNTER 2020-03-19 20:58 | Emergency (ER) | payer MEDICAID, OTHER ==
[2020-03-19 21:44] VITALS: BP 109/70; PULSE 91
[2020-03-19] MEDS ORDERED: Ondansetron 4 MG/2 ML SDV IVPUSH ONE (21:44)
--- NOTE | 2020-03-19 21:47 | EDM.PDOC ---
ED HPI GENERAL MEDICAL PROBLEM - General Chief Complaint: Abdominal Pain Stated Complaint: STOMACH HURTING, THROWING UP Time Seen by Provider: 03/19/20 21:44 Source of Information: Reports: Patient History Limitations: Reports: No Limitations - History of Present Illness INITIAL COMMENTS - FREE TEXT/NARRATIVE: states every time he gets dialysis he get sick with vomiting and diarrhoes. got dialysis yesterday and been vomiting since. later on pt now states 2 persons in house are pos covid. Abdominal Pain Score (Numeric/FACES): 6 - Related Data Allergies Allergy/AdvReac Type Severity Reaction Status Date / Time No Known Allergies Allergy Verified 03/19/20 21:44 Home Meds: Home Meds Aspirin [Lo-Dose Aspirin EC] 81 mg PO DAILY 08/22/18 [History] Insulin NPH/Insulin Reg,Human [Novolin 70-30] 50 units SQ BID 08/22/18 [History] Omeprazole 20 mg PO DAILY 08/22/18 [History] Simvastatin 10 mg PO BEDTIME 08/22/18 [History] carvediloL [Carvedilol] 6.25 mg PO BIDMEALS 08/22/18 [History] Furosemide [Lasix] 40 mg PO BIDDIURETIC #30 tablet 08/24/18 [Rx] Albuterol Sulfate [Proair Hfa] 1 puff INH Q6HR PRN 11/08/18 [History] Cetirizine HCl 10 mg PO DAILY PRN 11/08/18 [History] Magnesium Oxide [Magnesium] 400 mg PO DAILY 11/08/18 [History] Tiotropium [Spiriva HandiHaler] 18 mcg INH DAILY 11/08/18 [History] Cholecalciferol (Vitamin D3) [Vitamin D3] 25 mcg PO DAILY 12/20/19 [History] metOLazone [Metolazone] 2.5 mg PO .Q48H 12/20/19 [History] Gabapentin [Neurontin] 100 mg PO TID 03/19/20 [History] Past Medical History HEENT History: Reports: None Cardiovascular History: Reports: Heart Failure, High Cholesterol, Hypertension, Other (See Below) Other Cardiovascular History: non-ischemic cardiomyopathy Respiratory History: Reports: Bronchitis, Recurrent, PE, Other (See Below) Other Respiratory History: ARDS (acute respiratory distress syndrome) Gastrointestinal History: Reports: GERD Other Gastrointestinal History: Spouse states client used to take medication for his stomach, but cannot recall why and cannot recall which medication. Genitourinary History: Reports: Diabetic Nephropathy, Other (See Below) Other Genitourinary History: Acute kidney injury Musculoskeletal History: Reports: Arthritis, Back Pain, Chronic, Fracture, Other (See Below) Other Musculoskeletal History: "Multiple fractures" Neurological History: Reports: Head Trauma, Other (See Below) Other Neuro History: fractured jody Psychiatric History: Reports: Addiction, Anxiety Endocrine/Metabolic History: Reports: Diabetes, Type II, IDDM Hematologic History: Reports: None Immunologic History: Reports: None Oncologic (Cancer) History: Reports: None Dermatologic History: Reports: Cellulitis - Infectious Disease History Infectious Disease History: Reports: Hepatitis C Other Infectious Disease History: states client has hepatitis, but unable to recall which type. - Past Surgical History Head Surgeries/Procedures: Reports: None Cardiovascular Surgical History: Reports: None, Other (See Below) Respiratory Surgical History: Reports: Thoracentesis GI Surgical History: Reports: Appendectomy Endocrine Surgical History: Reports: None Neurological Surgical History: Reports: None Musculoskeletal Surgical History: Reports: None Dermatological Surgical History: Reports: None Social & Family History - Family History Family Medical History: Noncontributory Endocrine/Metabolic: Reports: Diabetes, type II Oncologic: Reports: Other (See Below) Other Oncologic Family History: spouse states HX of cancer in family, but unable to recall which type - Caffeine Use Caffeine Use: Reports: Soda Caffeine Use Comment: galoon of coffee and 6 pack of pop daily - Living Situation & Occupation Living situation: Reports: with Family Occupation: Disabled ED ROS GENERAL - Review of Systems Review Of Systems: Comprehensive ROS is negative, except as noted in HPI. ED EXAM, GI/ABD - Physical Exam Exam: See Below Exam Limited By: No Limitations General Appearance: Alert, WD/WN, Mild Distress, Other (discomfort). No: Active Emesis Ears: Hearing Grossly Normal Throat/Mouth: Normal Voice, No Airway Compromise Head: Atraumatic Neck: Non-Tender, Full Range of Motion Respiratory/Chest: No Respiratory Distress Cardiovascular: Regular Rate, Rhythm GI/Abdominal Exam: Tender, Other (epig region). No: Guarding, Rigid, Rebound Neurological: Alert, Oriented, Normal Cognition, Normal Gait, No Motor/Sensory Deficits Psychiatric: Flat Affect Skin Exam: Warm, Dry, Normal Color Lymphatic: No Adenopathy Course - Vital Signs Last Recorded V/S: Last Vital Signs Temp 36.9 C 03/19/20 21:42 Pulse 91 03/19/20 21:42 Resp 18 03/19/20 21:42 BP 109/70 03/19/20 21:42 Pulse Ox 96 03/19/20 21:42 - Orders/Labs/Meds Orders: Active Orders 24 hr Category Date Time Status Pantoprazole [ProTONIX IV] Med 03/19/20 22:51 Once 40 mg IVPUSH ONETIME ONE Labs: Laboratory Tests 03/19/20 03/19/20 03/19/20 Range/Units 21:51 21:51 21:51 WBC 6.4 (5.0-10.0) 10^3/uL RBC 4.93 (4.6-6.2) 10^6/uL Hgb 12.9 L (14.0-18.0) g/dL Hct 38.9 L (40.0-54.0) % MCV 78.9 L (80-100) fL MCH 26.2 L (27.0-34.0) pg MCHC 33.2 (33.0-35.0) g/dL Plt Count 226 (150-450) 10^3/uL Neut % (Auto) 51.3 (42.2-75.2) % Lymph % (Auto) 23.7 (20.5-50.1) % [place] % (Auto) 16.2 H (2-8) % Eos % (Auto) 7.5 H (1.0-3.0) % Baso % (Auto) 1.3 H (0.0-1.0) % Sodium 136 (136-145) mmol/L Potassium 4.4 (3.5-5.1) mmol/L Chloride 98 (98-107) mmol/L Carbon Dioxide 29 (21-32) mmol/L Anion Gap 13.4 H (7-13) mEq/L BUN 22 H (7-18) mg/dL Creatinine 6.47 H* (0.70-1.30) mg/dL Est Cr Clr Drug Dosing 11.49 mL/min Estimated GFR (MDRD) 9 BUN/Creatinine Ratio 3.4 (No establ ref range) Glucose 104 H (74-99) mg/dL Lactic Acid 1.0 (0.4-2.0) mmol/L Calcium 8.3 L (8.5-10.1) mg/dL Total Bilirubin 0.4 (0.2-1.0) mg/dL AST 35 (15-37) U/L ALT 41 (16-63) U/L Alkaline Phosphatase 103 (46-116) U/L Total Protein 9.2 H (6.4-8.2) g/dL Albumin 3.6 (3.4-5.0) g/dL Globulin 5.6 Albumin/Globulin Ratio 0.6 Amylase 79 (25-115) U/L Lipase 158 (73-393) U/L Ethyl Alcohol < 3 (0) mg/dL COVID-19 (DEBBY) (NEGATIVE) 03/19/20 Range/Units 22:15 WBC (5.0-10.0) 10^3/uL RBC (4.6-6.2) 10^6/uL Hgb (14.0-18.0) g/dL Hct (40.0-54.0) % MCV (80-100) fL MCH (27.0-34.0) pg MCHC (33.0-35.0) g/dL Plt Count (150-450) 10^3/uL Neut % (Auto) (42.2-75.2) % Lymph % (Auto) (20.5-50.1) % [place] % (Auto) (2-8) % Eos % (Auto) (1.0-3.0) % Baso % (Auto) (0.0-1.0) % Sodium (136-145) mmol/L Potassium (3.5-5.1) mmol/L Chloride (98-107) mmol/L Carbon Dioxide (21-32) mmol/L Anion Gap (7-13) mEq/L BUN (7-18) mg/dL Creatinine (0.70-1.30) mg/dL Est Cr Clr Drug Dosing mL/min Estimated GFR (MDRD) BUN/Creatinine Ratio (No establ ref range) Glucose (74-99) mg/dL Lactic Acid (0.4-2.0) mmol/L Calcium (8.5-10.1) mg/dL Total Bilirubin (0.2-1.0) mg/dL AST (15-37) U/L ALT (16-63) U/L Alkaline Phosphatase (46-116) U/L Total Protein (6.4-8.2) g/dL Albumin (3.4-5.0) g/dL Globulin Albumin/Globulin Ratio Amylase (25-115) U/L Lipase (73-393) U/L Ethyl Alcohol (0) mg/dL COVID-19 (DEBBY) Negative (NEGATIVE) Meds: Medications Discontinued Medications Generic Name Dose Route Start Last Admin Trade Name Freq PRN Reason Stop Dose Admin Ondansetron HCl 4 mg 03/19/20 21:44 03/19/20 22:10 Zofran IVPUSH 03/19/20 21:45 4 mg ONETIME ONE Administration - Re-Assessments/Exams Free Text/Narrative Re-Assessment/Exam: 03/19/20 22:51 results discussed with pt. Departure - Departure Time of Disposition: 22:52 Disposition: Home, Self-Care 01 Condition: Good Clinical Impression: Postdialysis syndrome Abdominal pain Qualifiers: Abdominal location: epigastric Qualified Code(s): R10.13 - Epigastric pain - Discharge Information Forms: ED Department Discharge Additional Instructions: 1) follow up at clinic 2) avoid solid foods next 48 hours rx given; zofran 4mg ODT bid prn x 4 Sepsis Event Note (ED) - Focused Exam Vital Signs: Vital Signs Temp Pulse Resp BP Pulse Ox 03/19/20 21:42 36.9 C 91 18 109/70 96 - My Orders Last 24 Hours: My Active Orders 03/19/20 22:51 Pantoprazole [ProTONIX IV] 40 mg IVPUSH ONETIME ONE - Assessment/Plan Last 24 Hours: My Active Orders 03/19/20 22:51 Pantoprazole [ProTONIX IV] 40 mg IVPUSH ONETIME ONE
[2020-03-19 22:29] LABS: ANION GAP 13.4 mEq/L (7-13); CHLORIDE,CL 98 mmol/L (98-107); SODIUM,NA 136 mmol/L (136-145)
[2020-03-19] MEDS ORDERED: Pantoprazole 40 MG Vial IVPUSH ONE (22:51)
== END 2020-03-19 23:03 | disposition home or self-care (01) ==
LOC: DL.ED 20:58
DX: R10.13 Epigastric pain (principal); R11.2 Nausea with vomiting, unspecified; R19.7 Diarrhea, unspecified; I11.0 Hypertensive heart disease with heart failure; I50.9 Heart failure, unspecified; E78.00 Pure hypercholesterolemia, unspecified; E11.21 Type 2 diabetes mellitus with diabetic nephropathy; M19.90 Unspecified osteoarthritis, unspecified site; K21.9 Gastro-esophageal reflux disease without esophagitis; Y84.1 Kidney dialysis as the cause of abnormal reaction of the patient, or of later complication, without mention of misadventure at the time of the procedure; Z79.4 Long term (current) use of insulin; Z79.82 Long term (current) use of aspirin; Z20.828 Contact with and (suspected) exposure to other viral communicable diseases; Z99.2 Dependence on renal dialysis; Z79.899 Other long term (current) drug therapy
CPT/HCPCS: 36415; 80053; 80307; 82150; 83605; 83690; 85025; 96374; 96375; 99283; 99284-25; C9113; J2405; U0002

== ENCOUNTER 2020-11-07 15:52 | Inpatient (IN) | payer MEDICAID, OTHER, SELFPAY ==
--- NOTE | 2020-11-07 16:27 | EDM.PDOC ---
<Naun De Leon Aliyah - Last Filed: 11/07/20 17:47> ED HPI GENERAL MEDICAL PROBLEM - General Chief Complaint: Fever Stated Complaint: RIGHT FOOT INFECTION. Time Seen by Provider: 11/07/20 16:20 Source of Information: Reports: Patient - History of Present Illness INITIAL COMMENTS - FREE TEXT/NARRATIVE: 59 y/o M c/o R leg pain and swelling. [facility] [place] he was advised to go to the emergency dept. Instead of going to the [facility] ER pt decided to come to [place] ER. Yesterday he went to clinic because his right foot felt hot and painful. He states they diagnosed him with an infected foot and PNA. 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 He believes the cough and foot problem have been present for three or four days. He does not know when the fevers began. Onset: Unknown/Unsure Location: Reports: Chest, Lower Extremity, Right Quality: Reports: Ache Severity: Moderate Improves with: Reports: None Worsens with: Reports: Movement Generalized Pain Score (Numeric/FACES): 8 - Related Data Allergies Allergy/AdvReac Type Severity Reaction Status Date / Time No Known Allergies Allergy Verified 11/07/20 16:13 Home Meds: Home Meds Aspirin [Lo-Dose Aspirin EC] 81 mg PO DAILY 08/22/18 [History] Insulin NPH/Insulin Reg,Human [Novolin 70-30] 50 units SQ BID 08/22/18 [History] Omeprazole 20 mg PO DAILY 08/22/18 [History] Simvastatin 10 mg PO BEDTIME 08/22/18 [History] carvediloL [Carvedilol] 6.25 mg PO BIDMEALS 08/22/18 [History] Furosemide [Lasix] 40 mg PO BIDDIURETIC #30 tablet 08/24/18 [Rx] Albuterol Sulfate [Proair Hfa] 1 puff INH Q6HR PRN 11/08/18 [History] Cetirizine HCl 10 mg PO DAILY PRN 11/08/18 [History] Magnesium Oxide [Magnesium] 400 mg PO DAILY 11/08/18 [History] Tiotropium [Spiriva HandiHaler] 18 mcg INH DAILY 11/08/18 [History] Cholecalciferol (Vitamin D3) [Vitamin D3] 25 mcg PO DAILY 12/20/19 [History] metOLazone [Metolazone] 2.5 mg PO .Q48H 12/20/19 [History] Gabapentin [Neurontin] 100 mg PO TID 03/19/20 [History] Past Medical History HEENT History: Reports: None Cardiovascular History: Reports: Heart Failure, High Cholesterol, Hypertension, Other (See Below) Other Cardiovascular History: non-ischemic cardiomyopathy Respiratory History: Reports: Bronchitis, Recurrent, PE, Other (See Below) Other Respiratory History: ARDS (acute respiratory distress syndrome) Gastrointestinal History: Reports: GERD Other Gastrointestinal History: Spouse states client used to take medication for his stomach, but cannot recall why and cannot recall which medication. Genitourinary History: Reports: Dialysis, Diabetic Nephropathy, Other (See Below) Other Genitourinary History: Acute kidney injury Musculoskeletal History: Reports: Arthritis, Back Pain, Chronic, Fracture, Other (See Below) Other Musculoskeletal History: "Multiple fractures" Neurological History: Reports: Head Trauma, Other (See Below) Other Neuro History: fractured jody Psychiatric History: Reports: Addiction, Anxiety Endocrine/Metabolic History: Reports: Diabetes, Type II, IDDM Hematologic History: Reports: None Immunologic History: Reports: None Oncologic (Cancer) History: Reports: None Dermatologic History: Reports: Cellulitis - Infectious Disease History Infectious Disease History: Reports: Hepatitis C Other Infectious Disease History: states client has hepatitis, but unable to recall which type. - Past Surgical History Head Surgeries/Procedures: Reports: None HEENT Surgical History: Reports: Eye Surgery Cardiovascular Surgical History: Reports: None, Other (See Below) Other Cardiovascular Surgeries/Procedures: coronary angiogram Respiratory Surgical History: Reports: Thoracentesis GI Surgical History: Reports: Appendectomy Male Surgical History: Reports: None Endocrine Surgical History: Reports: None Neurological Surgical History: Reports: None Musculoskeletal Surgical History: Reports: None Dermatological Surgical History: Reports: None Social & Family History - Family History Family Medical History: No Pertinent Family History Endocrine/Metabolic: Reports: Diabetes, type II Oncologic: Reports: Other (See Below) Other Oncologic Family History: spouse states HX of cancer in family, but unable to recall which type - Caffeine Use Caffeine Use: Reports: Soda Caffeine Use Comment: galoon of coffee and 6 pack of pop daily - Living Situation & Occupation Living situation: Reports: with Family Occupation: Disabled ED ROS GENERAL - Review of Systems Review Of Systems: Comprehensive ROS is negative, except as noted in HPI. ED EXAM, GENERAL - Physical Exam Exam: See Below Exam Limited By: No Limitations General Appearance: Alert, No Apparent Distress Respiratory/Chest: Crackles, Rhonchi Cardiovascular: Normal Peripheral Pulses, Regular Rate, Rhythm, No Edema, No Gallop, No JVD, No Murmur, No Rub GI/Abdominal: Soft, Non-Tender (Male) Exam: Deferred Rectal (Males) Exam: Deferred Back Exam: Normal Inspection, Full Range of Motion, NT Extremities: Other (R lower extremity tender from the calf to the toes. 2+ pedal edema. Erythematous to mid calf) Departure - Departure Time of Disposition: 17:47 Disposition: Admitted As Inpatient 66 Condition: Fair Clinical Impression: ESRD on hemodialysis, Cellulitis of right lower extremity Sepsis Qualifiers: Sepsis type: sepsis due to unspecified organism Sepsis acute organ dysfunction status: without acute organ dysfunction Qualified Code(s): A41.9 - Sepsis, unspecified organism - Discharge Information *PRESCRIPTION DRUG MONITORING PROGRAM REVIEWED*: Not Applicable *COPY OF PRESCRIPTION DRUG MONITORING REPORT IN PATIENT LUIS: Not Applicable Forms: ED Department Discharge Sepsis Event Note (ED) - Evaluation Sepsis Screening Result: Possible Sepsis Risk <Jose Dalton - Last Filed: 11/07/20 17:51> Course - Vital Signs Last Recorded V/S: Last Vital Signs Temp 100.2 F 11/07/20 17:34 Pulse 110 H 11/07/20 16:08 Resp 14 11/07/20 16:08 BP 139/75 11/07/20 16:08 Pulse Ox 98 11/07/20 16:08 - Orders/Labs/Meds Orders: Active Orders 24 hr Category Date Time Status Admission Diagnosis [ADT] Routine ADT 11/07/20 17:42 Ordered Admission Status [Patient Status] [ADT] Routine ADT 11/07/20 17:42 Active CBC WITH AUTO DIFF [HEME] Stat Lab 11/07/20 16:24 Results CULTURE BLOOD [BC] Stat Lab 11/07/20 16:24 Received CULTURE BLOOD [BC] Stat Lab 11/07/20 17:30 Received MANUAL DIFFERENTIAL QA/NC [HEME] Stat Lab 11/07/20 16:24 Results Vancomycin 1 gm Med 11/07/20 16:56 Active Sodium Chloride 0.9% [Normal Saline (AdvBag)] 250 ml IV ONETIME Blood Culture x2 Reflex Set [OM.PC] Stat Oth 11/07/20 16:29 Ordered Medication Orders Vancomycin HCl 1 gm/ Sodium (Chloride) 250 mls @ 167 mls/hr IV ONETIME ONE Stop: 11/07/20 18:25 Last Admin: 11/07/20 17:33 Dose: 167 mls/hr Documented by: TOM Labs: Laboratory Tests 11/07/20 11/07/20 11/07/20 Range/Units 16:24 16:24 16:24 WBC 17.1 H (5.0-10.0) 10^3/uL RBC 4.30 L (4.6-6.2) 10^6/uL Hgb 11.6 L (14.0-18.0) g/dL Hct 35.4 L (40.0-54.0) % MCV 82.3 D (80-100) fL MCH 27.0 (27.0-34.0) pg MCHC 32.8 L (33.0-35.0) g/dL Plt Count 120 L D (150-450) 10^3/uL Neut % (Auto) 91.8 H (42.2-75.2) % Lymph % (Auto) 1.8 L (20.5-50.1) % [place] % (Auto) 6.1 (2-8) % Eos % (Auto) 0.1 L (1.0-3.0) % Baso % (Auto) 0.2 (0.0-1.0) % Add Manual Diff Yes Sodium 134 L (136-145) mmol/L Potassium 4.1 (3.5-5.1) mmol/L Chloride 96 L (98-107) mmol/L Carbon Dioxide 27 (21-32) mmol/L Anion Gap 15.1 H (7-13) mEq/L BUN 23 H (7-18) mg/dL Creatinine 5.59 H* (0.70-1.30) mg/dL Est Cr Clr Drug Dosing 13.77 mL/min Estimated GFR (MDRD) 10 BUN/Creatinine Ratio 4.1 (No establ ref range) Glucose 172 H (70-99) mg/dL Lactic Acid 3.5 H* (0.4-2.0) mmol/L Calcium 7.2 L (8.5-10.1) mg/dL Phosphorus 3.4 (2.6-4.7) mg/dL Magnesium 1.5 L (1.8-2.4) mg/dL Total Bilirubin 0.9 (0.2-1.0) mg/dL AST 68 H (15-37) U/L ALT 153 H (16-63) U/L Alkaline Phosphatase 127 H (46-116) U/L B-Natriuretic Peptide (0-100) pg/ml Total Protein 7.0 (6.4-8.2) g/dL Albumin 2.7 L (3.4-5.0) g/dL Globulin 4.3 Albumin/Globulin Ratio 0.63 Influenza Type A RNA (NEGATIVE) Influenza Type B RNA (NEGATIVE) SARS-CoV-2 RNA (DEBBY) (NEGATIVE) 11/07/20 11/07/20 Range/Units 16:24 16:34 WBC (5.0-10.0) 10^3/uL RBC (4.6-6.2) 10^6/uL Hgb (14.0-18.0) g/dL Hct (40.0-54.0) % MCV (80-100) fL MCH (27.0-34.0) pg MCHC (33.0-35.0) g/dL Plt Count (150-450) 10^3/uL Neut % (Auto) (42.2-75.2) % Lymph % (Auto) (20.5-50.1) % [place] % (Auto) (2-8) % Eos % (Auto) (1.0-3.0) % Baso % (Auto) (0.0-1.0) % Add Manual Diff Sodium (136-145) mmol/L Potassium (3.5-5.1) mmol/L Chloride (98-107) mmol/L Carbon Dioxide (21-32) mmol/L Anion Gap (7-13) mEq/L BUN (7-18) mg/dL Creatinine (0.70-1.30) mg/dL Est Cr Clr Drug Dosing mL/min Estimated GFR (MDRD) BUN/Creatinine Ratio (No establ ref range) Glucose (70-99) mg/dL Lactic Acid (0.4-2.0) mmol/L Calcium (8.5-10.1) mg/dL Phosphorus (2.6-4.7) mg/dL Magnesium (1.8-2.4) mg/dL Total Bilirubin (0.2-1.0) mg/dL AST (15-37) U/L ALT (16-63) U/L Alkaline Phosphatase (46-116) U/L B-Natriuretic Peptide > 5000 H (0-100) pg/ml Total Protein (6.4-8.2) g/dL Albumin (3.4-5.0) g/dL Globulin Albumin/Globulin Ratio Influenza Type A RNA Negative (NEGATIVE) Influenza Type B RNA Negative (NEGATIVE) SARS-CoV-2 RNA (DEBBY) Negative (NEGATIVE) Meds: Medications Generic Name Dose Route Start Last Admin Trade Name Freq PRN Reason Stop Dose Admin Vancomycin HCl 1 gm/ Sodium 250 mls @ 167 mls/hr 11/07/20 16:56 11/07/20 17:33 Chloride IV 11/07/20 18:25 167 mls/hr ONETIME ONE Administration Discontinued Medications Generic Name Dose Route Start Last Admin Trade Name Freq PRN Reason Stop Dose Admin Acetaminophen 650 mg 11/07/20 16:48 11/07/20 16:53 Acetaminophen 325 Mg Tab PO 11/07/20 16:49 650 mg NOW ONE Administration Hydrocodone Bitart/Acetaminophen 1 tab 11/07/20 16:47 11/07/20 16:52 Acetaminophen/Hydrocodone 325-10 Mg Tab PO 11/07/20 16:48 1 tab ONETIME ONE Administration Diphenhydramine HCl 25 mg 11/07/20 16:58 11/07/20 17:33 Diphenhydramine 50 Mg/Ml Sdv IVPUSH 11/07/20 16:59 25 mg ONETIME ONE Administration - Radiology Interpretation Free Text/Narrative:: [facility] Final Radiology Report Call: [phone] assistance Online chat: [email or web address] Name: ABHILASH SAHA Age: 59Years M Date: 11/07/2020 SSN: -- : [id number] Study: CR CHEST 1V FRONTAL Requesting Physician: Naun De Leon Images: 1 Addl Studies: Provided Clinical History: cough Contrast: Contrast Medium: Contrast Amount: Contrast Method: CONFIDENTIALITY STATEMENT This report is intended only for use by the referring physician, and only in accordance with law. If you received this in error, call [phone]. Page 1 of 1 PROCEDURE INFORMATION: Exam: XR Chest Exam date and time: 11/07/2020 4:40 PM Age: 59 years old Clinical indication: Shortness of breath; Additional info: Cough TECHNIQUE: Imaging protocol: XR of the chest. Views: 1 view. COMPARISON: CR Chest 2V 01/07/2020 6:03 PM FINDINGS: Lungs: Stable mild vascular congestion. No consolidation. Right hemodialysis catheter has been removed. There is now left hemodialysis catheter in place Pleural spaces: Unremarkable. No pleural effusion. No pneumothorax. Heart/Mediastinum: Cardiomegaly again noted. Bones/joints: Unremarkable. IMPRESSION: Stable cardiomegaly with mild vascular congestion Thank you for allowing us to participate in the care of your patient. Dictated and Authenticated by: Conrad Norton MD 11/07/2020 5:02 PM Central Time ([place] & [place]) - Re-Assessments/Exams Free Text/Narrative Re-Assessment/Exam: 11/07/20 17:42 I personally performed or re-performed the physical examination and medical decision making. I have verified all student documentation or findings, including history, physical exam and/or medical decision making. I consulted Dr. Mora via [facility]. Dr. Mora would accept the pt, however no bed is available at [facility]. As the pt had a full run of dialysis today, they ask that the pt be admitted here in [place] initially, and will consider the pt for transfer to [facility] when a bed becomes available. The case is discussed with Dr. Keen, and he agrees to admit the pt. Sepsis Event Note (ED) - Focused Exam Vital Signs: Vital Signs Temp Pulse Resp BP Pulse Ox 11/07/20 17:34 100.2 F 11/07/20 16:08 101.5 F H 110 H 14 139/75 98 - My Orders Last 24 Hours: My Active Orders 11/07/20 17:42 Admission Diagnosis [ADT] Routine Admission Status [Patient Status] [ADT] Routine - Assessment/Plan Last 24 Hours: My Active Orders 11/07/20 17:42 Admission Diagnosis [ADT] Routine Admission Status [Patient Status] [ADT] Routine
[2020-11-07] MEDS ORDERED: Acetaminophen/HYDROcodone 325-10 MG Tab PO ONE (16:47)
[2020-11-07] MEDS ORDERED: Acetaminophen 325 MG Tab PO ONE (16:48)
[2020-11-07 16:54] LABS: ANION GAP 15.1 mEq/L (7-13)
[2020-11-07] MEDS ORDERED: diphenhydrAMINE 50 MG/ML SDV IVPUSH ONE (16:58)
--- NOTE | 2020-11-07 17:03 | CR ---
PROCEDURE INFORMATION: Exam: XR Chest Exam date and time: 11/07/2020 4:40 PM Age: 59 years old Clinical indication: Shortness of breath; Additional info: Cough TECHNIQUE: Imaging protocol: XR of the chest. Views: 1 view. COMPARISON: CR Chest 2V 01/07/2020 6:03 PM FINDINGS: Lungs: Stable mild vascular congestion. No consolidation. Right hemodialysis catheter has been removed. There is now left hemodialysis catheter in place Pleural spaces: Unremarkable. No pleural effusion. No pneumothorax. Heart/Mediastinum: Cardiomegaly again noted. Bones/joints: Unremarkable. IMPRESSION: Stable cardiomegaly with mild vascular congestion
[2020-11-07 17:17] LABS: CORONAVIRUS COVID-19 NAA NEGATIVE (NEGATIVE)
[2020-11-07] MEDS ORDERED: Ibuprofen 600 MG Tab PO PRN (18:57)
[2020-11-07] MEDS ORDERED: Ondansetron 4 MG/2 ML SDV IVPUSH PRN (18:57)
[2020-11-07] MEDS ORDERED: Acetaminophen 650 MG Supp RECTAL PRN (18:57)
[2020-11-07] MEDS ORDERED: oxyCODONE 5 MG Tab PO PRN (19:03)
--- NOTE | 2020-11-07 19:18 | PCM.HP ---
H&P History of Present Illness - General Date of Service: 11/07/20 Admit Problem/Dx: Admission Diagnosis/Problem Admission Diagnosis/Problem Sepsis Source of Information: Patient, Provider (ER) - History of Present Illness Initial Comments - Free Text/Narative: 59 y/o M c/o R leg pain and swelling. Found to have a fever at [facility] today in [place] he was advised to go to the emergency dept. Instead of going to the [facility] ER pt decided to come to [place] [facility]. Yesterday he went to clinic because his right foot felt hot and painful. He states they diagnosed him with an infected foot. 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 Dr. Mora via [facility] was contacted by ER. Dr. Mora would accept the pt, however no bed is available at [facility]. As the pt had a full run of dialysis today, they ask that the pt be admitted here in [place] initially, and will consider the pt for transfer to [facility] when a bed becomes available. Pt was started on Vancomycin in ER. on the floor pt continues to complain of severe pain to his foot. His T 103 Has milf cough PMH: ESRD on HD started about 6 months ago through HD cath. Pt states that he refused AVF. CHF systolic with EF ~ 30 based on the only echo available in our system from few years ago DM type 2 PSH denies Social: Quit drinking few years ago. no drugs . He is current smoker. Generalized Pain Score (Numeric/FACES): 8 - Related Data Allergies/Adverse Reactions: Allergies Allergy/AdvReac Type Severity Reaction Status Date / Time No Known Allergies Allergy Verified 11/07/20 16:13 Home Medications: Home Meds Aspirin [Lo-Dose Aspirin EC] 81 mg PO DAILY 08/22/18 [History] Insulin NPH/Insulin Reg,Human [Novolin 70-30] 50 units SQ BID 08/22/18 [History] Omeprazole 20 mg PO DAILY 08/22/18 [History] Simvastatin 10 mg PO BEDTIME 08/22/18 [History] carvediloL [Carvedilol] 6.25 mg PO BIDMEALS 08/22/18 [History] Furosemide [Lasix] 40 mg PO BIDDIURETIC #30 tablet 08/24/18 [Rx] Albuterol Sulfate [Proair Hfa] 1 puff INH Q6HR PRN 11/08/18 [History] Cetirizine HCl 10 mg PO DAILY PRN 11/08/18 [History] Magnesium Oxide [Magnesium] 400 mg PO DAILY 11/08/18 [History] Tiotropium [Spiriva HandiHaler] 18 mcg INH DAILY 11/08/18 [History] Cholecalciferol (Vitamin D3) [Vitamin D3] 25 mcg PO DAILY 12/20/19 [History] metOLazone [Metolazone] 2.5 mg PO .Q48H 12/20/19 [History] Gabapentin [Neurontin] 100 mg PO TID 03/19/20 [History] Past Medical History HEENT History: Reports: None Cardiovascular History: Reports: Heart Failure, High Cholesterol, Hypertension, Other (See Below) Other Cardiovascular History: non-ischemic cardiomyopathy Respiratory History: Reports: Bronchitis, Recurrent, PE, Other (See Below) Other Respiratory History: ARDS (acute respiratory distress syndrome) Gastrointestinal History: Reports: GERD Other Gastrointestinal History: Spouse states client used to take medication for his stomach, but cannot recall why and cannot recall which medication. Genitourinary History: Reports: Dialysis, Diabetic Nephropathy, Other (See Below) Other Genitourinary History: Acute kidney injury Musculoskeletal History: Reports: Arthritis, Back Pain, Chronic, Fracture, Other (See Below) Other Musculoskeletal History: "Multiple fractures" Neurological History: Reports: Head Trauma, Other (See Below) Other Neuro History: fractured jody Psychiatric History: Reports: Addiction, Anxiety Endocrine/Metabolic History: Reports: Diabetes, Type II, IDDM Hematologic History: Reports: None Immunologic History: Reports: None Oncologic (Cancer) History: Reports: None Dermatologic History: Reports: Cellulitis - Infectious Disease History Infectious Disease History: Reports: Hepatitis C Other Infectious Disease History: states client has hepatitis, but unable to recall which type. - Past Surgical History Head Surgeries/Procedures: Reports: None HEENT Surgical History: Reports: Other (See Below) Other HEENT Surgeries/Procedures: Eye injections, patient unsure why Cardiovascular Surgical History: Reports: None, Other (See Below) Other Cardiovascular Surgeries/Procedures: coronary angiogram Respiratory Surgical History: Reports: Thoracentesis GI Surgical History: Reports: Appendectomy Male Surgical History: Reports: None Endocrine Surgical History: Reports: None Neurological Surgical History: Reports: None Musculoskeletal Surgical History: Reports: None Dermatological Surgical History: Reports: None Social & Family History - Family History Family Medical History: No Pertinent Family History Endocrine/Metabolic: Reports: Diabetes, type II Oncologic: Reports: Other (See Below) Other Oncologic Family History: spouse states HX of cancer in family, but unable to recall which type - Tobacco Use Tobacco Use Status *Q: Light Tobacco User Years of Tobacco use: 30 Packs/Tins Daily: 0.2 - Caffeine Use Caffeine Use: Reports: None Caffeine Use Comment: galoon of coffee and 6 pack of pop daily - Recreational Drug Use Recreational Drug Use: No - Living Situation & Occupation Living situation: Reports: with Family Occupation: Disabled H&P Review of Systems - Review of Systems: Review Of Systems: Comprehensive ROS is negative, except as noted in HPI. General: Reports: Fever, Chills Pulmonary: Reports: Cough, Sputum. Denies: Shortness of Breath, Wheezing Cardiovascular: Denies: Chest Pain Gastrointestinal: Reports: Abdominal Pain Musculoskeletal: Reports: Other (Dorsal aspect of RT foot is red , swoolen and very tender) Skin: Reports: Other (as above) Psychiatric: Denies: Confusion Neurological: Denies: Confusion Hematologic/Lymphatic: Denies: Anemia Exam - Exam Exam: See Below - Vital Signs Vital Signs: Last Vital Signs Temp 103.5 F H 11/07/20 18:03 Pulse 116 H 11/07/20 18:03 Resp 20 11/07/20 18:03 BP 142/76 H 11/07/20 18:03 Pulse Ox 98 11/07/20 16:08 Weight: 163 lb - Exam Quality Assessment: Supplemental Oxygen General: Alert, Oriented, Cooperative HEENT: Conjunctiva Clear Lungs: Clear to Auscultation Cardiovascular: Regular Rate, Regular Rhythm GI/Abdominal Exam: Soft, Non-Tender Back Exam: Full Range of Motion Extremities: Normal Range of Motion, Other (Dorsal aspect of RT foot is red, tender and swollen) Skin: Other (as above) Neurological: Cranial Nerves Intact Neuro Extensive - Mental Status: Alert, Oriented x3 Neuro Extensive - Motor, Sensory, Reflexes: CN II-XII Intact Psychiatric: Alert, Normal Affect - Patient Data Lab Results Last 24 hrs: Laboratory Results - last 24 hr 11/07/20 11/07/20 11/07/20 Range/Units 16:24 16:24 16:24 WBC 17.1 H (5.0-10.0) 10^3/uL RBC 4.30 L (4.6-6.2) 10^6/uL Hgb 11.6 L (14.0-18.0) g/dL Hct 35.4 L (40.0-54.0) % MCV 82.3 D (80-100) fL MCH 27.0 (27.0-34.0) pg MCHC 32.8 L (33.0-35.0) g/dL Plt Count 120 L D (150-450) 10^3/uL Neut % (Auto) 91.8 H (42.2-75.2) % Lymph % (Auto) 1.8 L (20.5-50.1) % Spalding % (Auto) 6.1 (2-8) % Eos % (Auto) 0.1 L (1.0-3.0) % Baso % (Auto) 0.2 (0.0-1.0) % Add Manual Diff Yes Neutrophils % (Manual) 92 H (42-75) % Band Neutrophils % 4 % Lymphocytes % (Manual) 2 L (20-50) % Monocytes % (Manual) 2 (2-8) % Sodium 134 L (136-145) mmol/L Potassium 4.1 (3.5-5.1) mmol/L Chloride 96 L (98-107) mmol/L Carbon Dioxide 27 (21-32) mmol/L Anion Gap 15.1 H (7-13) mEq/L BUN 23 H (7-18) mg/dL Creatinine 5.59 H* (0.70-1.30) mg/dL Est Cr Clr Drug Dosing 13.77 mL/min Estimated GFR (MDRD) 10 BUN/Creatinine Ratio 4.1 (No establ ref range) Glucose 172 H (70-99) mg/dL Lactic Acid 3.5 H* (0.4-2.0) mmol/L Calcium 7.2 L (8.5-10.1) mg/dL Phosphorus 3.4 (2.6-4.7) mg/dL Magnesium 1.5 L (1.8-2.4) mg/dL Total Bilirubin 0.9 (0.2-1.0) mg/dL AST 68 H (15-37) U/L ALT 153 H (16-63) U/L Alkaline Phosphatase 127 H (46-116) U/L B-Natriuretic Peptide (0-100) pg/ml Total Protein 7.0 (6.4-8.2) g/dL Albumin 2.7 L (3.4-5.0) g/dL Globulin 4.3 Albumin/Globulin Ratio 0.63 Influenza Type A RNA (NEGATIVE) Influenza Type B RNA (NEGATIVE) SARS-CoV-2 RNA (DEBBY) (NEGATIVE) 11/07/20 11/07/20 Range/Units 16:24 16:34 WBC (5.0-10.0) 10^3/uL RBC (4.6-6.2) 10^6/uL Hgb (14.0-18.0) g/dL Hct (40.0-54.0) % MCV (80-100) fL MCH (27.0-34.0) pg MCHC (33.0-35.0) g/dL Plt Count (150-450) 10^3/uL Neut % (Auto) (42.2-75.2) % Lymph % (Auto) (20.5-50.1) % Spalding % (Auto) (2-8) % Eos % (Auto) (1.0-3.0) % Baso % (Auto) (0.0-1.0) % Add Manual Diff Neutrophils % (Manual) (42-75) % Band Neutrophils % % Lymphocytes % (Manual) (20-50) % Monocytes % (Manual) (2-8) % Sodium (136-145) mmol/L Potassium (3.5-5.1) mmol/L Chloride (98-107) mmol/L Carbon Dioxide (21-32) mmol/L Anion Gap (7-13) mEq/L BUN (7-18) mg/dL Creatinine (0.70-1.30) mg/dL Est Cr Clr Drug Dosing mL/min Estimated GFR (MDRD) BUN/Creatinine Ratio (No establ ref range) Glucose (70-99) mg/dL Lactic Acid (0.4-2.0) mmol/L Calcium (8.5-10.1) mg/dL Phosphorus (2.6-4.7) mg/dL Magnesium (1.8-2.4) mg/dL Total Bilirubin (0.2-1.0) mg/dL AST (15-37) U/L ALT (16-63) U/L Alkaline Phosphatase (46-116) U/L B-Natriuretic Peptide > 5000 H (0-100) pg/ml Total Protein (6.4-8.2) g/dL Albumin (3.4-5.0) g/dL Globulin Albumin/Globulin Ratio Influenza Type A RNA Negative (NEGATIVE) Influenza Type B RNA Negative (NEGATIVE) SARS-CoV-2 RNA (DEBBY) Negative (NEGATIVE) Result Diagrams: 11/07/20 16:24 11/07/20 16:24 Problem List Initiated/Reviewed/Updated: Yes Orders Last 24hrs: Active Orders 24 hr Category Date Time Status Admission Diagnosis [ADT] Routine ADT 11/07/20 17:42 Ordered Admission Status [Patient Status] [ADT] Routine ADT 11/07/20 17:42 Active Blood Glucose Check, Bedside [RC] WITHMEALSANDBED Care 11/07/20 18:57 Active Height and Weight [RC] DAILY Care 11/07/20 18:57 Active Intake and Output [RC] QSHIFT Care 11/07/20 18:59 Active Oxygen Therapy [RC] PRN Care 11/07/20 18:57 Active VTE/DVT Education [RC] PER UNIT ROUTINE Care 11/07/20 18:57 Active Vital Signs [RC] Q4H Care 11/07/20 18:57 Active Regular Diet [DIET] Diet 11/07/20 Breakfast Active Venous Doppler Lwr Ext Rt [US] Stat Exams 11/07/20 19:07 Ordered BASIC METABOLIC PANEL,BMP [CHEM] AM Lab 11/08/20 05:11 Ordered BASIC METABOLIC PANEL,BMP [CHEM] AM Lab 11/09/20 05:11 Ordered BASIC METABOLIC PANEL,BMP [CHEM] AM Lab 11/10/20 05:11 Ordered BASIC METABOLIC PANEL,BMP [CHEM] AM Lab 11/11/20 05:11 Ordered BASIC METABOLIC PANEL,BMP [CHEM] AM Lab 11/12/20 05:11 Ordered BASIC METABOLIC PANEL,BMP [CHEM] AM Lab 11/13/20 05:11 Ordered BASIC METABOLIC PANEL,BMP [CHEM] AM Lab 11/14/20 05:11 Ordered BASIC METABOLIC PANEL,BMP [CHEM] AM Lab 11/15/20 05:11 Ordered BASIC METABOLIC PANEL,BMP [CHEM] AM Lab 11/16/20 05:11 Ordered BASIC METABOLIC PANEL,BMP [CHEM] AM Lab 11/17/20 05:11 Ordered CBC WITH AUTO DIFF [HEME] AM Lab 11/08/20 05:11 Ordered CBC WITH AUTO DIFF [HEME] AM Lab 11/09/20 05:11 Ordered CBC WITH AUTO DIFF [HEME] AM Lab 11/10/20 05:11 Ordered CBC WITH AUTO DIFF [HEME] AM Lab 11/11/20 05:11 Ordered CBC WITH AUTO DIFF [HEME] AM Lab 11/12/20 05:11 Ordered CBC WITH AUTO DIFF [HEME] AM Lab 11/13/20 05:11 Ordered CBC WITH AUTO DIFF [HEME] AM Lab 11/14/20 05:11 Ordered CBC WITH AUTO DIFF [HEME] AM Lab 11/15/20 05:11 Ordered CBC WITH AUTO DIFF [HEME] AM Lab 11/16/20 05:11 Ordered CBC WITH AUTO DIFF [HEME] AM Lab 11/17/20 05:11 Ordered CRP [C-REACTIVE PROTEIN] [CHEM] AM Lab 11/08/20 05:11 Ordered CRP [C-REACTIVE PROTEIN] [CHEM] AM Lab 11/09/20 05:11 Ordered CRP [C-REACTIVE PROTEIN] [CHEM] AM Lab 11/10/20 05:11 Ordered CRP [C-REACTIVE PROTEIN] [CHEM] AM Lab 11/11/20 05:11 Ordered CRP [C-REACTIVE PROTEIN] [CHEM] AM Lab 11/12/20 05:11 Ordered CRP [C-REACTIVE PROTEIN] [CHEM] AM Lab 11/13/20 05:11 Ordered CRP [C-REACTIVE PROTEIN] [CHEM] AM Lab 11/14/20 05:11 Ordered CRP [C-REACTIVE PROTEIN] [CHEM] AM Lab 11/15/20 05:11 Ordered CRP [C-REACTIVE PROTEIN] [CHEM] AM Lab 11/16/20 05:11 Ordered CRP [C-REACTIVE PROTEIN] [CHEM] AM Lab 11/17/20 05:11 Ordered CULTURE BLOOD [BC] Stat Lab 11/07/20 16:24 Received CULTURE BLOOD [BC] Stat Lab 11/07/20 17:30 Received Acetaminophen [Tylenol] Med 11/07/20 18:57 Active 650 mg RECTAL Q4H PRN Heparin Sodium Med 11/07/20 21:00 Ordered 5,000 units SUBCUT BID Ibuprofen [Motrin] Med 11/07/20 18:57 Active 600 mg PO Q6H PRN Ondansetron [Zofran] Med 11/07/20 18:57 Active 4 mg IVPUSH Q6H PRN cefTRIAXone [Rocephin] 1 gm Med 11/07/20 19:15 Ordered Sodium Chloride 0.9% [Normal Saline] 50 ml IV Q24H oxyCODONE Med 11/07/20 19:03 Active 5 mg PO Q4H PRN Blood Culture x2 Reflex Set [OM.PC] Stat Oth 11/07/20 16:29 Ordered Resuscitation Status Routine Resus Stat 11/07/20 18:57 Ordered Medication Orders Acetaminophen (Acetaminophen 650 Mg Supp) 650 mg RECTAL Q4H PRN PRN Reason: Pain (mild 1-3) Heparin Sodium (Porcine) (Heparin Sodium 5,000 Units/Ml Vial) 5,000 units SUBCUT BID MEGHAN Ceftriaxone Sodium 1 gm/ (Sodium Chloride) 50 mls @ 100 mls/hr IV Q24H MEGHAN Ibuprofen (Ibuprofen 600 Mg Tab) 600 mg PO Q6H PRN PRN Reason: Pain (mild 1-3) Ondansetron HCl (Ondansetron 4 Mg/2 Ml Sdv) 4 mg IVPUSH Q6H PRN PRN Reason: Nausea/Vomiting Oxycodone HCl (Oxycodone 5 Mg Tab) 5 mg PO Q4H PRN PRN Reason: Pain Assessment/Plan Comment:: Sepsis due to cellulitis: add Ceftriaxone to Vanco. repeat Lactic acid pain control Doppler to R/O DVT ESRD: just had his HD today. K is OK for reapeat in AM. For transfer once DM type : continue home treatment DVT prophylaxis Full code as per pts wishes. D/W Pt and his family.
[2020-11-07] MEDS ORDERED: Acetaminophen 325 MG Tab PO PRN (19:31)
[2020-11-07] MEDS ORDERED: cefTRIAXone 1 GM in Sodium Chloride 0.9% 50 ML IV SCH (20:00)
[2020-11-07] MEDS: Heparin Sodium 5,000 Units/ML Vial SUBCUT SCH (20:22)
--- NOTE | 2020-11-07 21:16 | US ---
PROCEDURE INFORMATION: Exam: US Duplex Right Lower Extremity Veins, Limited Exam date and time: 11/07/2020 8:47 PM Age: 59 years old Clinical indication: Pain; Edema, localized; Lower extremity, right; Leg, lower; Additional info: Cellulites. RT lower leg pain and swelling TECHNIQUE: Imaging protocol: Real-time Duplex ultrasound of the Right Lower Extremity with 2-D graham scale, color Doppler flow and spectral waveform analysis with image documentation. Limited exam was focused on the right lower extremity veins. COMPARISON: No relevant prior studies available. FINDINGS: Right deep veins: Unremarkable. The common femoral, femoral, proximal profunda femoral and popliteal veins are patent without thrombus. Normal Doppler waveforms. Normal compressibility and/or augmentation response. Right superficial veins: Unremarkable. Saphenofemoral junction is patent without thrombus. Soft tissues: Unremarkable. IMPRESSION: No evidence of deep vein thrombosis.
[2020-11-08 06:59] LABS: ANION GAP 15.9 mEq/L (7-13)
[2020-11-08 07:43] VITALS: BP 114/95; PULSE 82
[2020-11-08] MEDS: Heparin Sodium 5,000 Units/ML Vial SUBCUT SCH (08:44)
[2020-11-08] MEDS ORDERED: cefTRIAXone 2 GM in Sodium Chloride 0.9% 100 ML IV ONE (09:32)
--- NOTE | 2020-11-08 09:49 | PCM.DCSUM1 ---
Discharge Summary - Hospital Course HPI Initial Comments: 59 y/o M c/o R leg pain and swelling. Found to have a fever at [facility] today in [place] he was advised to go to the emergency dept. Instead of going to the [facility] ER pt decided to come to [place] ER. Yesterday he went to clinic because his right foot felt hot and painful. He states they diagnosed him with an infected foot but did not mixing picker tender his antibiotics . Dr. Mora via [facility] was contacted by ER. Dr. Mora would accept the pt, however no bed is available at [facility]. As the pt had a full run of dialysis today, they ask that the pt be admitted here in [place] initially, and will consider the pt for transfer to [facility] when a bed becomes available. Pt was started on Vancomycin in ER. on the floor pt continues to complain of severe pain to his foot. His T 103 Has mild cough PMH: ESRD on HD started about 6 months ago through HD cath. Pt states that he refused AVF. CHF systolic with EF ~ 30 based on the only echo available in our system from few years ago DM type 2 PSH denies Social: Quit drinking few years ago. no drugs . He is current smoker. A/P Sepsis due to cellulitis: add Ceftriaxone to Vanco. WBC is still high 17.000 but no more fever. Cult are still pending. Doppler : no DVT, Pt insisted to leave AMA today. He was informed that he is not ready for discharge. Pt was provided with a prescription for Clindamycin. He was advised to see his doctor on Tuesday and to return to ER if not better or any change ESRD: to continue with his diuretics and HD as per his health services rn. DM type : continue home treatment ( insulin sliding scale) Full code as per pts wishes. - Discharge Data Discharge Date: 11/08/20 Discharge Disposition: Against Medical Advice 07 Condition: Fair - Referral to Home Health Primary Care Physician: PCP None - Patient Instructions Diet, Other: renal diet Driving: Do Not Drive Other/Special Instructions: Follow up with your doctor on Tuesday. return to ER if not better or any change. Follow up with your dialysis as per schedule. - Discharge Plan *PRESCRIPTION DRUG MONITORING PROGRAM REVIEWED*: Not Applicable *COPY OF PRESCRIPTION DRUG MONITORING REPORT IN PATIENT LUIS: Not Applicable Prescriptions/Med Rec: Clindamycin HCl 600 mg PO TID 10 Days #30 capsule Insulin Aspart [NovoLOG] See Protocol SQ ACBREAKFAST 7 Days #7 bottle Home Medications: Home Meds Aspirin [Lo-Dose Aspirin EC] 81 mg PO DAILY 08/22/18 [History] Omeprazole 20 mg PO DAILY 08/22/18 [History] Simvastatin 10 mg PO BEDTIME 08/22/18 [History] carvediloL [Carvedilol] 6.25 mg PO BIDMEALS 08/22/18 [History] Furosemide [Lasix] 40 mg PO BIDDIURETIC #30 tablet 08/24/18 [Rx] Albuterol Sulfate [Proair Hfa] 1 puff INH Q6HR PRN 11/08/18 [History] Cetirizine HCl 10 mg PO DAILY PRN 11/08/18 [History] Tiotropium [Spiriva HandiHaler] 18 mcg INH DAILY 11/08/18 [History] Cholecalciferol (Vitamin D3) [Vitamin D3] 25 mcg PO DAILY 12/20/19 [History] Gabapentin [Neurontin] 100 mg PO TID 03/19/20 [History] Acetaminophen [Tylenol] 650 mg PO Q4H PRN tablet 11/08/20 [Rx] Clindamycin HCl 600 mg PO TID 10 Days #30 capsule 11/08/20 [Rx] Ibuprofen [Motrin] 600 mg PO Q6H PRN tablet 11/08/20 [Rx] Insulin Aspart [NovoLOG] See Protocol SQ ACBREAKFAST 7 Days #7 bottle 11/08/20 [Rx] Forms: ED Department Discharge Referrals: PCP,None [Primary Care Provider] - - Discharge Summary/Plan Comment DC Time >30 min.: No - General Info Date of Service: 11/08/20 Functional Status: Reports: Pain Controlled, Tolerating Diet - Review of Systems General: Denies: Fever Pulmonary: Denies: Shortness of Breath Cardiovascular: Denies: Chest Pain Gastrointestinal: Denies: Abdominal Pain Neurological: Denies: Confusion Psychiatric: Denies: Confusion - Patient Data Vitals - Most Recent: Last Vital Signs Temp 97.5 F 11/08/20 07:41 Pulse 82 11/08/20 07:41 Resp 16 11/08/20 07:41 BP 114/95 H 11/08/20 07:41 Pulse Ox 100 11/08/20 07:41 Weight - Most Recent: 164 lb 3.2 oz I&O - Last 24 hours: Intake & Output 11/07/20 11/08/20 11/08/20 22:59 06:59 14:59 Intake Total 50 Balance 50 Lab Results - Last 24 hrs: Laboratory Results - last 24 hr 11/07/20 11/07/20 11/07/20 Range/Units 16:24 16:24 16:24 WBC 17.1 H (5.0-10.0) 10^3/uL RBC 4.30 L (4.6-6.2) 10^6/uL Hgb 11.6 L (14.0-18.0) g/dL Hct 35.4 L (40.0-54.0) % MCV 82.3 D (80-100) fL MCH 27.0 (27.0-34.0) pg MCHC 32.8 L (33.0-35.0) g/dL Plt Count 120 L D (150-450) 10^3/uL Neut % (Auto) 91.8 H (42.2-75.2) % Lymph % (Auto) 1.8 L (20.5-50.1) % [place] % (Auto) 6.1 (2-8) % Eos % (Auto) 0.1 L (1.0-3.0) % Baso % (Auto) 0.2 (0.0-1.0) % Add Manual Diff Yes Neutrophils % (Manual) 92 H (42-75) % Band Neutrophils % 4 % Lymphocytes % (Manual) 2 L (20-50) % Monocytes % (Manual) 2 (2-8) % Sodium 134 L (136-145) mmol/L Potassium 4.1 (3.5-5.1) mmol/L Chloride 96 L (98-107) mmol/L Carbon Dioxide 27 (21-32) mmol/L Anion Gap 15.1 H (7-13) mEq/L BUN 23 H (7-18) mg/dL Creatinine 5.59 H* (0.70-1.30) mg/dL Est Cr Clr Drug Dosing 13.77 mL/min Estimated GFR (MDRD) 10 BUN/Creatinine Ratio 4.1 (No establ ref range) Glucose 172 H (70-99) mg/dL POC Glucose (70-105) mg/dl Lactic Acid 3.5 H* (0.4-2.0) mmol/L Calcium 7.2 L (8.5-10.1) mg/dL Phosphorus 3.4 (2.6-4.7) mg/dL Magnesium 1.5 L (1.8-2.4) mg/dL Total Bilirubin 0.9 (0.2-1.0) mg/dL AST 68 H (15-37) U/L ALT 153 H (16-63) U/L Alkaline Phosphatase 127 H (46-116) U/L C-Reactive Protein (0.0-0.9) mg/dL B-Natriuretic Peptide (0-100) pg/ml Total Protein 7.0 (6.4-8.2) g/dL Albumin 2.7 L (3.4-5.0) g/dL Globulin 4.3 Albumin/Globulin Ratio 0.63 Influenza Type A RNA (NEGATIVE) Influenza Type B RNA (NEGATIVE) SARS-CoV-2 RNA (DEBBY) (NEGATIVE) 11/07/20 11/07/20 11/07/20 Range/Units 16:24 16:34 20:20 WBC (5.0-10.0) 10^3/uL RBC (4.6-6.2) 10^6/uL Hgb (14.0-18.0) g/dL Hct (40.0-54.0) % MCV (80-100) fL MCH (27.0-34.0) pg MCHC (33.0-35.0) g/dL Plt Count (150-450) 10^3/uL Neut % (Auto) (42.2-75.2) % Lymph % (Auto) (20.5-50.1) % [place] % (Auto) (2-8) % Eos % (Auto) (1.0-3.0) % Baso % (Auto) (0.0-1.0) % Add Manual Diff Neutrophils % (Manual) (42-75) % Band Neutrophils % % Lymphocytes % (Manual) (20-50) % Monocytes % (Manual) (2-8) % Sodium (136-145) mmol/L Potassium (3.5-5.1) mmol/L Chloride (98-107) mmol/L Carbon Dioxide (21-32) mmol/L Anion Gap (7-13) mEq/L BUN (7-18) mg/dL Creatinine (0.70-1.30) mg/dL Est Cr Clr Drug Dosing mL/min Estimated GFR (MDRD) BUN/Creatinine Ratio (No establ ref range) Glucose (70-99) mg/dL POC Glucose (70-105) mg/dl Lactic Acid 1.6 (0.4-2.0) mmol/L Calcium (8.5-10.1) mg/dL Phosphorus (2.6-4.7) mg/dL Magnesium (1.8-2.4) mg/dL Total Bilirubin (0.2-1.0) mg/dL AST (15-37) U/L ALT (16-63) U/L Alkaline Phosphatase (46-116) U/L C-Reactive Protein (0.0-0.9) mg/dL B-Natriuretic Peptide > 5000 H (0-100) pg/ml Total Protein (6.4-8.2) g/dL Albumin (3.4-5.0) g/dL Globulin Albumin/Globulin Ratio Influenza Type A RNA Negative (NEGATIVE) Influenza Type B RNA Negative (NEGATIVE) SARS-CoV-2 RNA (DEBBY) Negative (NEGATIVE) 11/07/20 11/08/20 11/08/20 Range/Units 20:36 06:15 06:15 WBC 17.5 H (5.0-10.0) 10^3/uL RBC 4.06 L (4.6-6.2) 10^6/uL Hgb 10.8 L (14.0-18.0) g/dL Hct 33.9 L (40.0-54.0) % MCV 83.5 (80-100) fL MCH 26.6 L (27.0-34.0) pg MCHC 31.9 L (33.0-35.0) g/dL Plt Count 102 L (150-450) 10^3/uL Neut % (Auto) 89.2 H (42.2-75.2) % Lymph % (Auto) 2.7 L (20.5-50.1) % [place] % (Auto) 7.8 (2-8) % Eos % (Auto) 0.2 L (1.0-3.0) % Baso % (Auto) 0.1 (0.0-1.0) % Add Manual Diff Neutrophils % (Manual) (42-75) % Band Neutrophils % % Lymphocytes % (Manual) (20-50) % Monocytes % (Manual) (2-8) % Sodium 135 L (136-145) mmol/L Potassium 3.9 (3.5-5.1) mmol/L Chloride 98 (98-107) mmol/L Carbon Dioxide 25 (21-32) mmol/L Anion Gap 15.9 H (7-13) mEq/L BUN 35 H (7-18) mg/dL Creatinine 6.45 H* (0.70-1.30) mg/dL Est Cr Clr Drug Dosing 11.93 mL/min Estimated GFR (MDRD) 9 BUN/Creatinine Ratio (No establ ref range) Glucose 152 H (70-99) mg/dL POC Glucose 263 H (70-105) mg/dl Lactic Acid (0.4-2.0) mmol/L Calcium 7.2 L (8.5-10.1) mg/dL Phosphorus (2.6-4.7) mg/dL Magnesium (1.8-2.4) mg/dL Total Bilirubin (0.2-1.0) mg/dL AST (15-37) U/L ALT (16-63) U/L Alkaline Phosphatase (46-116) U/L C-Reactive Protein 26.5 H (0.0-0.9) mg/dL B-Natriuretic Peptide (0-100) pg/ml Total Protein (6.4-8.2) g/dL Albumin (3.4-5.0) g/dL Globulin Albumin/Globulin Ratio Influenza Type A RNA (NEGATIVE) Influenza Type B RNA (NEGATIVE) SARS-CoV-2 RNA (DEBBY) (NEGATIVE) 11/08/20 Range/Units 07:46 WBC (5.0-10.0) 10^3/uL RBC (4.6-6.2) 10^6/uL Hgb (14.0-18.0) g/dL Hct (40.0-54.0) % MCV (80-100) fL MCH (27.0-34.0) pg MCHC (33.0-35.0) g/dL Plt Count (150-450) 10^3/uL Neut % (Auto) (42.2-75.2) % Lymph % (Auto) (20.5-50.1) % [place] % (Auto) (2-8) % Eos % (Auto) (1.0-3.0) % Baso % (Auto) (0.0-1.0) % Add Manual Diff Neutrophils % (Manual) (42-75) % Band Neutrophils % % Lymphocytes % (Manual) (20-50) % Monocytes % (Manual) (2-8) % Sodium (136-145) mmol/L Potassium (3.5-5.1) mmol/L Chloride (98-107) mmol/L Carbon Dioxide (21-32) mmol/L Anion Gap (7-13) mEq/L BUN (7-18) mg/dL Creatinine (0.70-1.30) mg/dL Est Cr Clr Drug Dosing mL/min Estimated GFR (MDRD) BUN/Creatinine Ratio (No establ ref range) Glucose (70-99) mg/dL POC Glucose 153 H (70-105) mg/dl Lactic Acid (0.4-2.0) mmol/L Calcium (8.5-10.1) mg/dL Phosphorus (2.6-4.7) mg/dL Magnesium (1.8-2.4) mg/dL Total Bilirubin (0.2-1.0) mg/dL AST (15-37) U/L ALT (16-63) U/L Alkaline Phosphatase (46-116) U/L C-Reactive Protein (0.0-0.9) mg/dL B-Natriuretic Peptide (0-100) pg/ml Total Protein (6.4-8.2) g/dL Albumin (3.4-5.0) g/dL Globulin Albumin/Globulin Ratio Influenza Type A RNA (NEGATIVE) Influenza Type B RNA (NEGATIVE) SARS-CoV-2 RNA (DEBBY) (NEGATIVE) Med Orders - Current: Current Medications Acetaminophen (Acetaminophen 325 Mg Tab) 650 mg PO Q4H PRN PRN Reason: Pain/Fever Last Admin: 11/08/20 08:41 Dose: 650 mg Documented by: Heparin Sodium (Porcine) (Heparin Sodium 5,000 Units/Ml Vial) 5,000 units SUBCUT BID MEGHAN Last Admin: 11/08/20 08:44 Dose: 5,000 units Documented by: Ceftriaxone Sodium 2 gm/ (Sodium Chloride) 100 mls @ 200 mls/hr IV ONETIME ONE Stop: 11/08/20 10:01 Ibuprofen (Ibuprofen 600 Mg Tab) 600 mg PO Q6H PRN PRN Reason: Pain (mild 1-3) Last Admin: 11/07/20 19:42 Dose: 600 mg Documented by: Ondansetron HCl (Ondansetron 4 Mg/2 Ml Sdv) 4 mg IVPUSH Q6H PRN PRN Reason: Nausea/Vomiting Oxycodone HCl (Oxycodone 5 Mg Tab) 5 mg PO Q4H PRN PRN Reason: Pain Last Admin: 11/07/20 20:25 Dose: 5 mg Documented by: Discontinued Medications Acetaminophen (Acetaminophen 325 Mg Tab) 650 mg PO NOW ONE Stop: 11/07/20 16:49 Last Admin: 11/07/20 16:53 Dose: 650 mg Documented by: Acetaminophen (Acetaminophen 650 Mg Supp) 650 mg RECTAL Q4H PRN PRN Reason: Pain (mild 1-3) Hydrocodone Bitart/Acetaminophen (Acetaminophen/Hydrocodone 325-10 Mg Tab) 1 tab PO ONETIME ONE Stop: 11/07/20 16:48 Last Admin: 11/07/20 16:52 Dose: 1 tab Documented by: Diphenhydramine HCl (Diphenhydramine 50 Mg/Ml Sdv) 25 mg IVPUSH ONETIME ONE Stop: 11/07/20 16:59 Last Admin: 11/07/20 17:33 Dose: 25 mg Documented by: Vancomycin HCl 1 gm/ Sodium (Chloride) 250 mls @ 167 mls/hr IV ONETIME ONE Stop: 11/07/20 18:25 Last Admin: 11/07/20 17:33 Dose: 167 mls/hr Documented by: Ceftriaxone Sodium 1 gm/ (Sodium Chloride) 50 mls @ 100 mls/hr IV Q24H MEGHAN Last Admin: 11/07/20 19:42 Dose: 100 mls/hr Documented by: - Exam Quality Assessment: Denies: Supplemental Oxygen General: Reports: Alert, Oriented HEENT: Reports: EOMI Neck: Reports: No JVD Lungs: Reports: Clear to Auscultation Cardiovascular: Reports: Regular Rate, Regular Rhythm GI/Abdominal Exam: Soft Extremities: Other (edema and redeness to RT dorsal foot is mildly improved) Skin: Reports: Other (edema and redeness to RT dorsal foot is mildly improved) Neurological: Reports: No New Focal Deficit Psy/Mental Status: Reports: Alert, Normal Affect
== END 2020-11-08 11:30 | disposition left against medical advice (07) | DRG 871 ==
LOC: DL.ED 15:52 → DL.MS 17:42
PROVIDERS: ADMIT Internal Medicine; ATTEND Internal Medicine
DX: A41.9 Sepsis, unspecified organism (principal); N18.6 End stage renal disease; L03.115 Cellulitis of right lower limb; I13.0 Hypertensive heart and chronic kidney disease with heart failure and stage 1 through stage 4 chronic kidney disease, or unspecified chronic kidney disease; I13.2 Hypertensive heart and chronic kidney disease with heart failure and with stage 5 chronic kidney disease, or end stage renal disease; I50.9 Heart failure, unspecified; I50.22 Chronic systolic (congestive) heart failure; E11.22 Type 2 diabetes mellitus with diabetic chronic kidney disease; I42.8 Other cardiomyopathies; Z99.2 Dependence on renal dialysis; E78.00 Pure hypercholesterolemia, unspecified; Z20.822 Contact with and (suspected) exposure to COVID-19; F17.200 Nicotine dependence, unspecified, uncomplicated; E11.21 Type 2 diabetes mellitus with diabetic nephropathy; Z90.49 Acquired absence of other specified parts of digestive tract; K21.9 Gastro-esophageal reflux disease without esophagitis; Z86.711 Personal history of pulmonary embolism; F41.9 Anxiety disorder, unspecified; M19.90 Unspecified osteoarthritis, unspecified site; G89.29 Other chronic pain; M54.9 Dorsalgia, unspecified; Z79.82 Long term (current) use of aspirin; Z79.4 Long term (current) use of insulin; Z79.899 Other long term (current) drug therapy
CPT/HCPCS: 0240U; 36415; 71045; 80048; 80053; 82962; 83605; 83735; 83880; 84100; 85025; 86140; 87040; 93971; 99222; 99238; 99284; 96374; 96375; A9270-GY; J0696; J1200; J1644; J3370; J7050

== ENCOUNTER 2020-11-08 23:26 | Emergency (ER) | payer MEDICAID ==
[2020-11-09 00:46] VITALS: BP 124/69; PULSE 98
[2020-11-09 01:30] LABS: ANION GAP 16.2 mEq/L (7-13); CHLORIDE,CL 94 mmol/L (98-107); SODIUM,NA 131 mmol/L (136-145)
--- NOTE | 2020-11-09 01:56 | EDM.PDOC ---
ED HPI GENERAL MEDICAL PROBLEM - General Chief Complaint: Lower Extremity Injury/Pain Stated Complaint: LEG SWELLING Time Seen by Provider: 11/09/20 00:55 Source of Information: Reports: Patient, Old Records, RN, RN Notes Reviewed History Limitations: Reports: No Limitations - History of Present Illness INITIAL COMMENTS - FREE TEXT/NARRATIVE: Patient presents to the ED via personal vehicle with complaints of pain to his right foot. The patient was admitted to this facility two days ago, evening of 11/07/20, for sepsis due to cellulitis; he was to be transferred to [facility] in [place] once a bed became available due to hemodialysis needs. The patient left AMA from this facility yesterday morning despite education regarding sepsis related to cellulitis and need for IV antibiotics. The patient presents to the ED tonight, 11/08/20, stating the pain in his right foot has worsened since he left his inpatient admission. He attests to ongoing shaking chills and swelling to his right foot. He denies fever, palpitations, nausea, vomiting, or diarrhea. The patient has not taken any additional medications for these symptoms. - Related Data Allergies Allergy/AdvReac Type Severity Reaction Status Date / Time No Known Allergies Allergy Verified 11/07/20 19:29 Home Meds: Home Meds Aspirin [Lo-Dose Aspirin EC] 81 mg PO DAILY 08/22/18 [History] Omeprazole 20 mg PO DAILY 08/22/18 [History] Simvastatin 10 mg PO BEDTIME 08/22/18 [History] carvediloL [Carvedilol] 6.25 mg PO BIDMEALS 08/22/18 [History] Furosemide [Lasix] 40 mg PO BIDDIURETIC #30 tablet 08/24/18 [Rx] Albuterol Sulfate [Proair Hfa] 1 puff INH Q6HR PRN 11/08/18 [History] Cetirizine HCl 10 mg PO DAILY PRN 11/08/18 [History] Tiotropium [Spiriva HandiHaler] 18 mcg INH DAILY 11/08/18 [History] Cholecalciferol (Vitamin D3) [Vitamin D3] 25 mcg PO DAILY 12/20/19 [History] Gabapentin [Neurontin] 100 mg PO TID 03/19/20 [History] Acetaminophen [Tylenol] 650 mg PO Q4H PRN tablet 11/08/20 [Rx] Clindamycin HCl 600 mg PO TID 10 Days #30 capsule 11/08/20 [Rx] Ibuprofen [Motrin] 600 mg PO Q6H PRN tablet 11/08/20 [Rx] Insulin Aspart [NovoLOG] See Protocol SQ ACBREAKFAST 7 Days #7 bottle 11/08/20 [Rx] Past Medical History HEENT History: Reports: None Cardiovascular History: Reports: Heart Failure, High Cholesterol, Hypertension, Other (See Below) Other Cardiovascular History: non-ischemic cardiomyopathy Respiratory History: Reports: Bronchitis, Recurrent, PE, Other (See Below) Other Respiratory History: ARDS (acute respiratory distress syndrome) Gastrointestinal History: Reports: GERD Other Gastrointestinal History: Spouse states client used to take medication for his stomach, but cannot recall why and cannot recall which medication. Genitourinary History: Reports: Dialysis, Diabetic Nephropathy, Other (See Below) Other Genitourinary History: Acute kidney injury Musculoskeletal History: Reports: Arthritis, Back Pain, Chronic, Fracture, Other (See Below) Other Musculoskeletal History: "Multiple fractures" Neurological History: Reports: Head Trauma, Other (See Below) Other Neuro History: fractured jody Psychiatric History: Reports: Addiction, Anxiety Endocrine/Metabolic History: Reports: Diabetes, Type II, IDDM Hematologic History: Reports: None Immunologic History: Reports: None Oncologic (Cancer) History: Reports: None Dermatologic History: Reports: Cellulitis - Infectious Disease History Infectious Disease History: Reports: Hepatitis C Other Infectious Disease History: states client has hepatitis, but unable to recall which type. - Past Surgical History Head Surgeries/Procedures: Reports: None HEENT Surgical History: Reports: Other (See Below) Other HEENT Surgeries/Procedures: Eye injections, patient unsure why Cardiovascular Surgical History: Reports: None, Other (See Below) Other Cardiovascular Surgeries/Procedures: coronary angiogram Respiratory Surgical History: Reports: Thoracentesis GI Surgical History: Reports: Appendectomy Male Surgical History: Reports: None Endocrine Surgical History: Reports: None Neurological Surgical History: Reports: None Musculoskeletal Surgical History: Reports: None Dermatological Surgical History: Reports: None Social & Family History - Family History Family Medical History: No Pertinent Family History Endocrine/Metabolic: Reports: Diabetes, type II Oncologic: Reports: Other (See Below) Other Oncologic Family History: spouse states HX of cancer in family, but unable to recall which type - Tobacco Use Tobacco Use Status *Q: Never Tobacco User - Caffeine Use Caffeine Use: Reports: None Caffeine Use Comment: galoon of coffee and 6 pack of pop daily - Recreational Drug Use Recreational Drug Use: No - Living Situation & Occupation Living situation: Reports: with Family Occupation: Disabled ED ROS GENERAL - Review of Systems Review Of Systems: Comprehensive ROS is negative, except as noted in HPI. ED EXAM, SKIN/RASH Exam: See Below Exam Limited By: No Limitations General Appearance: Alert, Anxious, Mild Distress (Pain to RLE) Eye Exam: Bilateral Eye: EOMI, Normal Inspection, PERRL (3mm) Throat/Mouth: Normal Inspection, Normal Voice, No Airway Compromise Head: Atraumatic, Normocephalic Respiratory/Chest: No Respiratory Distress, Lungs Clear, Normal Breath Sounds, No Accessory Muscle Use, Chest Non-Tender Cardiovascular: Normal Peripheral Pulses, Regular Rate, Rhythm, No Edema, No Gallop, No JVD, No Murmur, No Rub Peripheral Pulses: 2+: Radial (L), Radial (R), Posterior Tibial (L), Posterior Tibial (R), Dorsalis Pedis (L), 3+: Dorsalis Pedis (R) GI/Abdominal: Normal Bowel Sounds, Soft, Non-Tender, No Distention, No Abnormal Bruit, No Mass, Pelvis Stable Extremities: Normal Capillary Refill, Pedal Edema (+1 non-pitting to right foot and ankle), Leg Pain (Erythema to circumference of R foot and ankle), Limited Range of Motion (To RLE), Increased Warmth (To circumference of right foot and ankle), Redness (To circumference of right foot and ankle) Neurological: Alert, Oriented, CN II-XII Intact, Normal Cognition, No Motor/Sensory Deficits Psychiatric: Normal Affect, Anxious Skin: Erythema, Other (As above) Location, Skin: Lower Extremity, Right Characteristics: Erythematous Associated features: Warmth, Tenderness, Swelling, Inflammation Course - Vital Signs Last Recorded V/S: Last Vital Signs Temp 97.9 F 11/09/20 00:41 Pulse 98 11/09/20 00:41 Resp 18 11/09/20 00:41 BP 124/69 11/09/20 00:41 Pulse Ox 99 11/09/20 00:41 - Orders/Labs/Meds Labs: Laboratory Tests 11/09/20 11/09/20 11/09/20 Range/Units 00:58 00:58 00:58 WBC 19.8 H (5.0-10.0) 10^3/uL RBC 4.07 L (4.6-6.2) 10^6/uL Hgb 10.9 L (14.0-18.0) g/dL Hct 33.4 L (40.0-54.0) % MCV 82.1 (80-100) fL MCH 26.8 L (27.0-34.0) pg MCHC 32.6 L (33.0-35.0) g/dL Plt Count 84 L (150-450) 10^3/uL Neut % (Auto) 88.7 H (42.2-75.2) % Lymph % (Auto) 2.6 L (20.5-50.1) % [place] % (Auto) 8.4 H (2-8) % Eos % (Auto) 0.1 L (1.0-3.0) % Baso % (Auto) 0.2 (0.0-1.0) % Add Manual Diff Yes Neutrophils % (Manual) 84 H (42-75) % Band Neutrophils % 3 % Lymphocytes % (Manual) 7 L (20-50) % Monocytes % (Manual) 6 (2-8) % Sodium 131 L (136-145) mmol/L Potassium 4.2 (3.5-5.1) mmol/L Chloride 94 L (98-107) mmol/L Carbon Dioxide 25 (21-32) mmol/L Anion Gap 16.2 H (7-13) mEq/L BUN 44 H (7-18) mg/dL Creatinine 7.63 H* (0.70-1.30) mg/dL Est Cr Clr Drug Dosing TNP Estimated GFR (MDRD) 7 BUN/Creatinine Ratio 5.8 (No establ ref range) Glucose 150 H (70-99) mg/dL Lactic Acid 1.4 (0.4-2.0) mmol/L Calcium 7.4 L (8.5-10.1) mg/dL Total Bilirubin 1.2 H (0.2-1.0) mg/dL AST 20 (15-37) U/L ALT 79 H (16-63) U/L Alkaline Phosphatase 129 H (46-116) U/L C-Reactive Protein 29.8 H (0.0-0.9) mg/dL B-Natriuretic Peptide (0-100) pg/ml Total Protein 6.3 L (6.4-8.2) g/dL Albumin 2.3 L (3.4-5.0) g/dL Globulin 4.0 Albumin/Globulin Ratio 0.58 11/09/20 Range/Units 00:58 WBC (5.0-10.0) 10^3/uL RBC (4.6-6.2) 10^6/uL Hgb (14.0-18.0) g/dL Hct (40.0-54.0) % MCV (80-100) fL MCH (27.0-34.0) pg MCHC (33.0-35.0) g/dL Plt Count (150-450) 10^3/uL Neut % (Auto) (42.2-75.2) % Lymph % (Auto) (20.5-50.1) % [place] % (Auto) (2-8) % Eos % (Auto) (1.0-3.0) % Baso % (Auto) (0.0-1.0) % Add Manual Diff Neutrophils % (Manual) (42-75) % Band Neutrophils % % Lymphocytes % (Manual) (20-50) % Monocytes % (Manual) (2-8) % Sodium (136-145) mmol/L Potassium (3.5-5.1) mmol/L Chloride (98-107) mmol/L Carbon Dioxide (21-32) mmol/L Anion Gap (7-13) mEq/L BUN (7-18) mg/dL Creatinine (0.70-1.30) mg/dL Est Cr Clr Drug Dosing Estimated GFR (MDRD) BUN/Creatinine Ratio (No establ ref range) Glucose (70-99) mg/dL Lactic Acid (0.4-2.0) mmol/L Calcium (8.5-10.1) mg/dL Total Bilirubin (0.2-1.0) mg/dL AST (15-37) U/L ALT (16-63) U/L Alkaline Phosphatase (46-116) U/L C-Reactive Protein (0.0-0.9) mg/dL B-Natriuretic Peptide > 5000 H (0-100) pg/ml Total Protein (6.4-8.2) g/dL Albumin (3.4-5.0) g/dL Globulin Albumin/Globulin Ratio Meds: Medications Discontinued Medications Generic Name Dose Route Start Last Admin Trade Name Jenny PRN Reason Stop Dose Admin Acetaminophen 500 mg 11/09/20 02:14 11/09/20 02:18 Acetaminophen 500 Mg Tab PO 11/09/20 02:15 500 mg ONETIME ONE Administration Vancomycin HCl 1.25 gm/ Sodium 250 mls @ 167 mls/hr 11/09/20 01:58 11/09/20 02:13 Chloride IV 11/09/20 03:27 167 mls/hr ONETIME ONE Administration - Re-Assessments/Exams Free Text/Narrative Re-Assessment/Exam: 11/09/20 Case discussed with [facility] regarding bed status for patient as he will need hemodialysis Tuesday morning, if not sooner,; Dillan from [facility] states PCU beds are full but [facility] beds are available. CBC reveals worsening WBC compared to labs from the morning of 11/08, 17 then and now 19. Creatinine elevated, as expected given patient history, but significantly higher when compared to previous labs; 5.5 to 7.3 Lactic Acid has reduced to 1.4 CRP and BNP remain significantly elevated at 23.9 and >5000, respectively. Case discussed with Dr. Woo who kindly agreed to accept patient for transfer for inpatient admission. Will administer Vanco en route. Findings of examination and lab work reviewed with patient, as well as plan for transfer to higher level of care. Patient verbalized understanding and agreement with the plan of care. Departure - Departure Time of Disposition: 01:54 Disposition: DC/Tfer to Acute Hospital 02 Condition: Good Clinical Impression: Cellulitis of right foot, CKD (chronic kidney disease) requiring chronic dialysis, Hyponatremia, Cellulitis of right lower extremity, Elevated brain natriuretic peptide (BNP) level, Elevated serum creatinine, Elevated C-reactive protein (CRP), Anemia in chronic kidney disease, on chronic dialysis CHF (congestive heart failure) Qualifiers: Heart failure type: unspecified Heart failure chronicity: acute on chronic Qualified Code(s): I50.9 - Heart failure, unspecified - Discharge Information Referrals: PCP,None [Primary Care Provider] - Forms: ED Department Discharge, Interfacility Transfer [facility] Sepsis Event Note (ED) - Evaluation Sepsis Screening Result: No Definite Risk
[2020-11-09] MEDS ORDERED: Acetaminophen 500 MG Tab PO ONE (02:14)
== END 2020-11-09 02:25 ==
LOC: DL.ED 23:26
DX: E11.628 Type 2 diabetes mellitus with other skin complications (principal); L03.115 Cellulitis of right lower limb; I13.0 Hypertensive heart and chronic kidney disease with heart failure and stage 1 through stage 4 chronic kidney disease, or unspecified chronic kidney disease; N18.9 Chronic kidney disease, unspecified; E11.22 Type 2 diabetes mellitus with diabetic chronic kidney disease; D63.1 Anemia in chronic kidney disease; E87.1 Hypo-osmolality and hyponatremia; M19.90 Unspecified osteoarthritis, unspecified site; R79.89 Other specified abnormal findings of blood chemistry; E78.00 Pure hypercholesterolemia, unspecified; E11.21 Type 2 diabetes mellitus with diabetic nephropathy; Z79.82 Long term (current) use of aspirin; Z79.4 Long term (current) use of insulin; Z99.2 Dependence on renal dialysis; Z79.899 Other long term (current) drug therapy
CPT/HCPCS: 36415; 80053; 83605; 83880; 85025; 86140; 96374; 99284; A9270; J3370; J7050

== ENCOUNTER 2020-11-12 19:03 | Emergency (ER) | payer MEDICAID ==
[2020-11-12 19:34] VITALS: BP 132/87; PULSE 86
--- NOTE | 2020-11-12 19:47 | EDM.PDOC ---
<Felipe Rojas - Last Filed: 11/12/20 20:41> ED HPI GENERAL MEDICAL PROBLEM - General Chief Complaint: Skin Complaint Stated Complaint: AMBULANCE Time Seen by Provider: 11/12/20 19:45 Source of Information: Reports: Patient History Limitations: Reports: No Limitations - History of Present Illness INITIAL COMMENTS - FREE TEXT/NARRATIVE: Prabhu is a 59 year old male with a significant past medical history of end stage renal disease on dialysis, diabetes, hypertention, CHF, GERD, and CAD who presents to the ED via ambulance for right foot pain. Prabhu was recently admitted and discharged from [facility] for cellulitis of the right foot, he was treated with IV antibiotics and discharged on oral antibiotics on 11/11/2020. Since discharge he has not been able to fern picker his antibiotics from the pharmacy. He admits to right foot pain, redness and tenderness. He denies any chills or fevers. Right Foot Pain Score (Numeric/FACES): 10 - Related Data Allergies Allergy/AdvReac Type Severity Reaction Status Date / Time No Known Allergies Allergy Verified 11/12/20 19:28 Home Meds: Home Meds Aspirin [Lo-Dose Aspirin EC] 81 mg PO DAILY 08/22/18 [History] Omeprazole 20 mg PO DAILY 08/22/18 [History] Simvastatin 10 mg PO BEDTIME 08/22/18 [History] carvediloL [Carvedilol] 6.25 mg PO BIDMEALS 08/22/18 [History] Furosemide [Lasix] 40 mg PO BIDDIURETIC #30 tablet 08/24/18 [Rx] Albuterol Sulfate [Proair Hfa] 1 puff INH Q6HR PRN 11/08/18 [History] Cetirizine HCl 10 mg PO DAILY PRN 11/08/18 [History] Tiotropium [Spiriva HandiHaler] 18 mcg INH DAILY 11/08/18 [History] Cholecalciferol (Vitamin D3) [Vitamin D3] 25 mcg PO DAILY 12/20/19 [History] Gabapentin [Neurontin] 100 mg PO TID 03/19/20 [History] Acetaminophen [Tylenol] 650 mg PO Q4H PRN tablet 11/08/20 [Rx] Clindamycin HCl 600 mg PO TID 10 Days #30 capsule 11/08/20 [Rx] Ibuprofen [Motrin] 600 mg PO Q6H PRN tablet 11/08/20 [Rx] Insulin Aspart [NovoLOG] See Protocol SQ ACBREAKFAST 7 Days #7 bottle 11/08/20 [Rx] Past Medical History HEENT History: Reports: None Cardiovascular History: Reports: Heart Failure, High Cholesterol, Hypertension, Other (See Below) Other Cardiovascular History: non-ischemic cardiomyopathy Respiratory History: Reports: Bronchitis, Recurrent, PE, Other (See Below) Other Respiratory History: ARDS (acute respiratory distress syndrome) Gastrointestinal History: Reports: GERD Other Gastrointestinal History: Spouse states client used to take medication for his stomach, but cannot recall why and cannot recall which medication. Genitourinary History: Reports: Dialysis, Diabetic Nephropathy, Other (See Below) Other Genitourinary History: Acute kidney injury Musculoskeletal History: Reports: Arthritis, Back Pain, Chronic, Fracture, Other (See Below) Other Musculoskeletal History: "Multiple fractures" Neurological History: Reports: Head Trauma, Other (See Below) Other Neuro History: fractured skull Psychiatric History: Reports: Addiction, Anxiety Endocrine/Metabolic History: Reports: Diabetes, Type II, IDDM Hematologic History: Reports: None Immunologic History: Reports: None Oncologic (Cancer) History: Reports: None Dermatologic History: Reports: Cellulitis - Infectious Disease History Infectious Disease History: Reports: Hepatitis C Other Infectious Disease History: states client has hepatitis, but unable to recall which type. - Past Surgical History Head Surgeries/Procedures: Reports: None HEENT Surgical History: Reports: Other (See Below) Other HEENT Surgeries/Procedures: Eye injections, patient unsure why Cardiovascular Surgical History: Reports: None, Other (See Below) Other Cardiovascular Surgeries/Procedures: coronary angiogram Respiratory Surgical History: Reports: Thoracentesis GI Surgical History: Reports: Appendectomy Male Surgical History: Reports: None Endocrine Surgical History: Reports: None Neurological Surgical History: Reports: None Musculoskeletal Surgical History: Reports: None Dermatological Surgical History: Reports: None Social & Family History - Family History Family Medical History: No Pertinent Family History Endocrine/Metabolic: Reports: Diabetes, type II Oncologic: Reports: Other (See Below) Other Oncologic Family History: spouse states HX of cancer in family, but unable to recall which type - Tobacco Use Tobacco Use Status *Q: Current Status Unknown - Caffeine Use Caffeine Use: Reports: None Caffeine Use Comment: galoon of coffee and 6 pack of pop daily - Recreational Drug Use Recreational Drug Use: Yes - Living Situation & Occupation Living situation: Reports: with Family Occupation: Disabled ED ROS GENERAL - Review of Systems Review Of Systems: See Below Constitutional: Denies: Fever, Chills Respiratory: Reports: Shortness of Breath, Cough Cardiovascular: Denies: Chest Pain, Lightheadedness, Palpitations Endocrine: Reports: Fatigue GI/Abdominal: Denies: Abdominal Pain, Diarrhea, Nausea, Vomiting : Reports: No Symptoms Musculoskeletal: Reports: Foot Pain Skin: Reports: Erythema, Wound Neurological: Reports: No Symptoms Psychiatric: Reports: No Symptoms ED EXAM, SKIN/RASH Exam: See Below Exam Limited By: No Limitations General Appearance: Alert, No Apparent Distress Eye Exam: Bilateral Eye: EOMI, PERRL Ears: Normal External Exam Nose: Normal Inspection Throat/Mouth: Normal Lips Head: Atraumatic Neck: Normal Inspection Respiratory/Chest: No Respiratory Distress, No Accessory Muscle Use, Crackles Cardiovascular: Normal Peripheral Pulses, Regular Rate, Rhythm, Systolic Murmur GI/Abdominal: Normal Bowel Sounds, Soft, Non-Tender Extremities: Pedal Edema (Right foot ), Leg Pain (right leg, mid thakkar down ) Neurological: Alert, Oriented, CN II-XII Intact Skin: Warm, Other (Erythema, edema and tenderness to right foot and mid thakkar ) Associated features: Warmth, Tenderness, Induration Departure - Departure Time of Disposition: 20:42 Disposition: Home, Self-Care 01 Condition: Fair Clinical Impression: Hyperkalemia Cellulitis Qualifiers: Site of cellulitis: extremity Site of cellulitis of extremity: lower extremity Laterality: right Qualified Code(s): L03.115 - Cellulitis of right lower limb - Discharge Information *PRESCRIPTION DRUG MONITORING PROGRAM REVIEWED*: No *COPY OF PRESCRIPTION DRUG MONITORING REPORT IN PATIENT LUIS: No Instructions: Cellulitis, Adult, [id number] Additional Instructions: Cellulitis appears stable, ensure you fern picker your antibiotics tomorrow from the pharmacy and take them as prescribed. Re-enforced the importance of going to his dialysis appointment tomorrow as his potassium is elevated. Advised that if he cannot go to dialysis tomorrow for any reason he needs to be seen by a medical provider. If tonight you develop chest pain, or abnormal palpitations you need to return to the ED to be re-evaluated. Sepsis Event Note (ED) - Evaluation Sepsis Screening Result: No Definite Risk <Dave Jj - Last Filed: 11/12/20 20:51> #1 Interpretation EKG Date: 11/12/20 Time: 20:26 Rhythm: NSR Rate (Beats/Min): 85 [place]: Normal P-Wave: Present QRS: Normal ST-T: Normal QT: Normal Comparison: No Change Course - Vital Signs Last Recorded V/S: Last Vital Signs Temp 37.1 C 11/12/20 19:28 Pulse 86 11/12/20 19:28 Resp 20 11/12/20 19:28 BP 132/87 11/12/20 19:28 Pulse Ox 100 11/12/20 19:28 - Orders/Labs/Meds Labs: Laboratory Tests 11/12/20 11/12/20 Range/Units 19:50 19:50 WBC 11.0 H (5.0-10.0) 10^3/uL RBC 4.24 L (4.6-6.2) 10^6/uL Hgb 11.3 L (14.0-18.0) g/dL Hct 34.9 L (40.0-54.0) % MCV 82.3 (80-100) fL MCH 26.7 L (27.0-34.0) pg MCHC 32.4 L (33.0-35.0) g/dL Plt Count 157 (150-450) 10^3/uL Neut % (Auto) 78.6 H (42.2-75.2) % Lymph % (Auto) 8.9 L (20.5-50.1) % [place] % (Auto) 10.1 H (2-8) % Eos % (Auto) 2.2 (1.0-3.0) % Baso % (Auto) 0.2 (0.0-1.0) % Sodium 135 L (136-145) mmol/L Potassium 6.5 H D (3.5-5.1) mmol/L Chloride 98 (98-107) mmol/L Carbon Dioxide 26 (21-32) mmol/L Anion Gap 17.5 H (7-13) mEq/L BUN 79 H D (7-18) mg/dL Creatinine 8.11 H* (0.70-1.30) mg/dL Est Cr Clr Drug Dosing 9.17 mL/min Estimated GFR (MDRD) 7 BUN/Creatinine Ratio 9.7 (No establ ref range) Glucose 155 H (70-99) mg/dL Calcium 7.5 L (8.5-10.1) mg/dL Total Bilirubin 0.7 (0.2-1.0) mg/dL AST 12 L (15-37) U/L ALT 22 (16-63) U/L Alkaline Phosphatase 251 H (46-116) U/L Total Protein 7.0 (6.4-8.2) g/dL Albumin 2.0 L (3.4-5.0) g/dL Globulin 5.0 Albumin/Globulin Ratio 0.40 Meds: Medications Discontinued Medications Generic Name Dose Route Start Last Admin Trade Name Freq PRN Reason Stop Dose Admin Amoxicillin/Clavulanate Potassium 1 tab 11/12/20 20:33 11/12/20 20:41 Amoxicillin/Clavulanate K 875-125 Mg Tab PO 11/12/20 20:34 1 tab ONETIME ONE Administration Doxycycline Monohydrate 100 mg 11/12/20 20:34 11/12/20 20:41 Doxycycline Monohydrate 100 Mg Cap PO 11/12/20 20:35 100 mg ONETIME ONE Administration Oxycodone HCl 5 mg 11/12/20 20:35 Oxycodone 5 Mg Tab PO 11/12/20 20:36 ONETIME ONE - Re-Assessments/Exams Free Text/Narrative Re-Assessment/Exam: 11/12/20 20:41 I have examined the patient. I have discussed findings and treatment plan with the Dr. Rojas. I agree with the assessment and plan in the following residents note. Sepsis Event Note (ED) - Focused Exam Vital Signs: Vital Signs Temp Pulse Resp BP Pulse Ox 11/12/20 19:28 37.1 C 86 20 132/87 100
[2020-11-12 20:13] LABS: ANION GAP 17.5 mEq/L (7-13)
[2020-11-12] MEDS ORDERED: Amoxicillin/Clavulanate K 875-125 MG Tab PO ONE (20:33)
[2020-11-12] MEDS ORDERED: Doxycycline Monohydrate 100 MG Cap PO ONE (20:34)
[2020-11-12] MEDS ORDERED: oxyCODONE 5 MG Tab PO ONE (20:35)
== END 2020-11-12 20:50 | disposition home or self-care (01) ==
LOC: DL.ED 19:03
DX: L03.115 Cellulitis of right lower limb (principal); E87.5 Hyperkalemia; E78.00 Pure hypercholesterolemia, unspecified; I11.0 Hypertensive heart disease with heart failure; I50.9 Heart failure, unspecified; E11.21 Type 2 diabetes mellitus with diabetic nephropathy; M19.90 Unspecified osteoarthritis, unspecified site; K21.9 Gastro-esophageal reflux disease without esophagitis; Z79.82 Long term (current) use of aspirin; Z79.4 Long term (current) use of insulin
CPT/HCPCS: 36415; 80053; 85025; 93005; 99284; A9270

== ENCOUNTER 2020-11-18 12:57 | Emergency (ER) | payer MEDICAID ==
[2020-11-18 13:19] VITALS: BP 159/86; PULSE 97
--- NOTE | 2020-11-18 14:14 | EDM.PDOC ---
ED HPI GENERAL MEDICAL PROBLEM - General Chief Complaint: Skin Complaint Time Seen by Provider: 11/18/20 13:15 Source of Information: Reports: Patient, Old Records, Provider ([facility]), RN, RN Notes Reviewed History Limitations: Reports: No Limitations - History of Present Illness INITIAL COMMENTS - FREE TEXT/NARRATIVE: Patient presents to the ED via personal vehicle with from [facility] at the request of his primary care provider (CRISTINE Burns) for edema to his RLE. The patient has a history of CKD requiring hemodialysis, CAD, CHF, DM II with a1C of 6.9%, and GERD. Per report from PCP, the patient was discharged from [facility] in [place] for cellulitis to the RLE on 11/11/20 and his appointment today was for post-discharge. The provider is concerned given the significant swelling to the calf of the RLE as it measures 47cm and the LLE measures 40cm; they lack US capability at this facility. Upon arrival to this facility the patient is alert and oriented. He states the pain and erythema to the RLE has improved, but he was unable to finish his last two days of antibiotics as he experienced nausea, vomiting, and diarrhea while taking Augmentin and Doxycycline; the patient states he has experienced similar symptoms while taking Augmentin. He denies fever, shaking chills, or palpitations. The patient states the nausea, vomiting, and diarrhea stopped shortly after he stopped taking his oral antibiotics. - Related Data Allergies Allergy/AdvReac Type Severity Reaction Status Date / Time No Known Allergies Allergy Verified 11/12/20 19:28 Home Meds: Home Meds Aspirin [Lo-Dose Aspirin EC] 81 mg PO DAILY 08/22/18 [History] Omeprazole 20 mg PO BID 08/22/18 [History] Simvastatin 10 mg PO BEDTIME 08/22/18 [History] carvediloL [Carvedilol] 6.25 mg PO BID 08/22/18 [History] Cetirizine HCl 10 mg PO DAILY PRN 11/08/18 [History] Tiotropium [Spiriva HandiHaler] 18 mcg INH DAILY 11/08/18 [History] Cholecalciferol (Vitamin D3) [Vitamin D3] 25 mcg PO DAILY 12/20/19 [History] Gabapentin [Neurontin] 600 mg PO BID 03/19/20 [History] Acetaminophen [Tylenol] 650 mg PO Q4H PRN tablet 11/08/20 [Rx] Ibuprofen [Motrin] 600 mg PO Q6H PRN tablet 11/08/20 [Rx] Albuterol Sulfate 3 ml INH Q4HR PRN 11/18/20 [History] Albuterol Sulfate [Proair Hfa] 1 puff IH Q6HR PRN 11/18/20 [History] Bacitracin [Bacitracin Oint] 1 applic TOP QID 11/18/20 [History] Bumetanide 4 mg PO BID 11/18/20 [History] Calcium Acetate 1,334 mg PO TIDMEALS 11/18/20 [History] Calcium Carbonate [Calcium] 1,500 mg PO TIDMEALS 11/18/20 [History] Fluticasone Propion/Salmeterol [Fluticasone-Salmeterol 500-50] 1 puff INH BID 11/18/20 [History] Hydrophilic Ointment [Aquaphilic Ointment] 1 applic TOP DAILY 11/18/20 [History] Insulin NPH/Insulin Reg,Human [Novolin 70-30] 20 units SQ BID 11/18/20 [History] Losartan [Cozaar] 50 mg PO DAILY 11/18/20 [History] Midodrine 5 mg PO ASDIRECTED 11/18/20 [History] metOLazone [Metolazone] 5 mg PO DAILY 11/18/20 [History] Past Medical History HEENT History: Reports: None Cardiovascular History: Reports: Heart Failure, High Cholesterol, Hypertension, Other (See Below) Other Cardiovascular History: non-ischemic cardiomyopathy Respiratory History: Reports: Bronchitis, Recurrent, PE, Other (See Below) Other Respiratory History: ARDS (acute respiratory distress syndrome) Gastrointestinal History: Reports: GERD Other Gastrointestinal History: Spouse states client used to take medication for his stomach, but cannot recall why and cannot recall which medication. Genitourinary History: Reports: Dialysis, Diabetic Nephropathy, Other (See Below) Other Genitourinary History: Acute kidney injury Musculoskeletal History: Reports: Arthritis, Back Pain, Chronic, Fracture, Other (See Below) Other Musculoskeletal History: "Multiple fractures" Neurological History: Reports: Head Trauma, Other (See Below) Other Neuro History: fractured skull Psychiatric History: Reports: Addiction, Anxiety Endocrine/Metabolic History: Reports: Diabetes, Type II, IDDM Hematologic History: Reports: None Immunologic History: Reports: None Oncologic (Cancer) History: Reports: None Dermatologic History: Reports: Cellulitis - Infectious Disease History Infectious Disease History: Reports: Hepatitis C Other Infectious Disease History: states client has hepatitis, but unable to recall which type. - Past Surgical History Head Surgeries/Procedures: Reports: None HEENT Surgical History: Reports: Other (See Below) Other HEENT Surgeries/Procedures: Eye injections, patient unsure why Cardiovascular Surgical History: Reports: None, Other (See Below) Other Cardiovascular Surgeries/Procedures: coronary angiogram Respiratory Surgical History: Reports: Thoracentesis GI Surgical History: Reports: Appendectomy Male Surgical History: Reports: None Endocrine Surgical History: Reports: None Neurological Surgical History: Reports: None Musculoskeletal Surgical History: Reports: None Dermatological Surgical History: Reports: None Social & Family History - Family History Family Medical History: No Pertinent Family History Endocrine/Metabolic: Reports: Diabetes, type II Oncologic: Reports: Other (See Below) Other Oncologic Family History: spouse states HX of cancer in family, but unable to recall which type - Tobacco Use Tobacco Use Status *Q: Current Some Day Tobacco User Years of Tobacco use: 20 Packs/Tins Daily: 0.2 - Caffeine Use Caffeine Use: Reports: None Caffeine Use Comment: galoon of coffee and 6 pack of pop daily - Recreational Drug Use Recreational Drug Use: No - Living Situation & Occupation Living situation: Reports: with Family Occupation: Disabled ED ROS GENERAL - Review of Systems Review Of Systems: Comprehensive ROS is negative, except as noted in HPI. ED EXAM, SKIN/RASH Exam: See Below Exam Limited By: No Limitations General Appearance: Alert, No Apparent Distress, Thin Throat/Mouth: Normal Inspection, Normal Voice, No Airway Compromise Head: Atraumatic, Normocephalic Respiratory/Chest: No Respiratory Distress, Lungs Clear, Normal Breath Sounds, No Accessory Muscle Use, Chest Non-Tender Cardiovascular: Normal Peripheral Pulses, Regular Rate, Rhythm, No Gallop, No JVD, No Rub, Diastolic Murmur (2/6, loudest over the pulmonic area) Peripheral Pulses: 1+: Posterior Tibial (L), Posterior Tibial (R), Dorsalis Pedis (R), 2+: Radial (L), Radial (R), Dorsalis Pedis (L) GI/Abdominal: Normal Bowel Sounds, Soft, Non-Tender, No Distention, No Mass, Pelvis Stable Back Exam: Normal Inspection, Full Range of Motion Extremities: Pedal Edema (+3 pitting to RLE; Trace pitting to LLE), Leg Pain (To RLE), Limited Range of Motion (To RLE), Redness (To distal aspect of RLE), Other (Flaking skin with serous drainage noted) Neurological: Alert, Oriented, CN II-XII Intact, Normal Cognition, No Motor/Sensory Deficits Psychiatric: Normal Affect, Normal Mood Skin: Warm, Erythema (To RLE), Wound/Incision (Flaking skin to RLE; Serous drainage noted to lateral right foot under flaking skin). No: Increased Warmth, Mottled, Pallor, Petechiae Location, Skin: Lower Extremity, Right Characteristics: Confluent, Erythematous Associated features: Tenderness, Swelling, Inflammation, Weeping Course - Vital Signs Last Recorded V/S: Last Vital Signs Temp 99.4 F 11/18/20 13:10 Pulse 97 11/18/20 13:10 Resp 18 11/18/20 13:10 BP 159/86 H 11/18/20 13:10 Pulse Ox 100 11/18/20 13:10 - Orders/Labs/Meds Orders: Active Orders 24 hr Category Date Time Status Venous Doppler Lwr Ext Rt [US] Urgent Exams 11/18/20 13:45 Taken Labs: Laboratory Tests 11/18/20 11/18/20 11/18/20 Range/Units 13:22 13:22 13:22 WBC 9.7 (5.0-10.0) 10^3/uL RBC 3.35 L (4.6-6.2) 10^6/uL Hgb 9.0 L D (14.0-18.0) g/dL Hct 28.7 L (40.0-54.0) % MCV 85.7 D (80-100) fL MCH 26.9 L (27.0-34.0) pg MCHC 31.4 L (33.0-35.0) g/dL Plt Count 233 D (150-450) 10^3/uL Neut % (Auto) 81.1 H (42.2-75.2) % Lymph % (Auto) 7.5 L (20.5-50.1) % [place] % (Auto) 9.2 H (2-8) % Eos % (Auto) 1.9 (1.0-3.0) % Baso % (Auto) 0.3 (0.0-1.0) % ESR 81 H (0-15) mm/hr D-Dimer, Quantitative 4840 H (0-400) ng/mL Sodium 140 (136-145) mmol/L Potassium 4.0 D (3.5-5.1) mmol/L Chloride 101 (98-107) mmol/L Carbon Dioxide 27 (21-32) mmol/L Anion Gap 16.0 H (7-13) mEq/L BUN 45 H D (7-18) mg/dL Creatinine 6.38 H* D (0.70-1.30) mg/dL Est Cr Clr Drug Dosing 11.66 mL/min Estimated GFR (MDRD) 9 BUN/Creatinine Ratio 7.1 (No establ ref range) Glucose 184 H (70-99) mg/dL Calcium 6.7 L (8.5-10.1) mg/dL Total Bilirubin 0.4 (0.2-1.0) mg/dL AST 20 (15-37) U/L ALT 19 (16-63) U/L Alkaline Phosphatase 229 H (46-116) U/L C-Reactive Protein 10.9 H (0.0-0.9) mg/dL Total Protein 7.5 (6.4-8.2) g/dL Albumin 2.0 L (3.4-5.0) g/dL Globulin 5.5 Albumin/Globulin Ratio 0.36 - Re-Assessments/Exams Free Text/Narrative Re-Assessment/Exam: 11/18/20 D-Dimer elevated at 4800; significant elevation since last D-dimer on 11/02/20. Venous doppler of RLE ordered. CMP and CBC stable for patient's baseline labs. CRP improving compared to last week 11/12/20 at 10.9. ESR 81. Venous Doppler US negative for DVT or SVT. Will continue with doxycycline, given patient's history of nausea/vomiting with Augmentin, and add clindamycin. Discussed supportive cares for skin to RLE as it heals. Patient instructed to follow up with PCP in one week, or sooner should symptoms persist. Red flag signs and symptoms which would warrant reevaluation reviewed. Patient and verbalized understanding and agreement with the plan of care. Departure - Departure Time of Disposition: 14:57 Disposition: Home, Self-Care 01 Condition: Good Clinical Impression: Elevated C-reactive protein (CRP), CKD (chronic kidney disease) requiring chronic dialysis, Cellulitis of right lower extremity, Cellulitis of right foot, ESRD on hemodialysis, CHF, Congestive heart failure Anemia Qualifiers: Anemia type: unspecified type Qualified Code(s): D64.9 - Anemia, unspecified - Discharge Information *PRESCRIPTION DRUG MONITORING PROGRAM REVIEWED*: Not Applicable *COPY OF PRESCRIPTION DRUG MONITORING REPORT IN PATIENT LUIS: Not Applicable Forms: ED Department Discharge Additional Instructions: Rx: doxycycline Rx: clindamycin 1.) Take all of your antibiotics until they are gone; if you have nausea/vomiting/diarrhea while taking these medications follow up with your primary care provider. 2.) Keep skin to right foot clean and dry. 3.) Follow up with primary care provider in one week, or sooner as warranted. Sepsis Event Note (ED) - Evaluation Sepsis Screening Result: No Definite Risk - Focused Exam Vital Signs: Vital Signs Temp Pulse Resp BP Pulse Ox 11/18/20 13:10 99.4 F 97 18 159/86 H 100 - My Orders Last 24 Hours: My Active Orders 11/18/20 13:45 Venous Doppler Lwr Ext Rt [US] Urgent - Assessment/Plan Last 24 Hours: My Active Orders 11/18/20 13:45 Venous Doppler Lwr Ext Rt [US] Urgent
--- NOTE | 2020-11-18 15:26 | US ---
EXAMINATION: Venous Doppler Lwr Ext Rt SEX: Male AGE: 59 years CLINICAL HISTORY: 59-year-old male on dialysis and bed rest with serum D dimer 4800. Significant swelling right lower extremity (calf). Rule out DVT. Interpretation: No current sonographic evidence deep vein thrombosis right lower extremity. Lymphadenopathy groin. 1. No sign of intraluminal echogenic thrombus and normal compressibility deep veins of the right groin, thigh, knee and posterior tibial vein in the right calf (employment representative unable to visualize or demonstrate peroneal vein right calf today). 2. Satisfactory augmentation and venous waveforms demonstrated respectively in the posterior tibial vein right calf, popliteal vein behind the right knee, and proximally in the femoral veins of the right thigh and groin. 3. Several echogenic solid nodules with the characteristic appearance of lymph nodes identified in the right groin. 4. No popliteal or Self's cyst behind the knee. 5. Superficial saphenous vein right lower extremity is patent.
== END 2020-11-18 15:20 | disposition home or self-care (01) ==
LOC: DL.ED 12:57
DX: L03.115 Cellulitis of right lower limb (principal); I13.2 Hypertensive heart and chronic kidney disease with heart failure and with stage 5 chronic kidney disease, or end stage renal disease; E11.22 Type 2 diabetes mellitus with diabetic chronic kidney disease; N18.6 End stage renal disease; D63.1 Anemia in chronic kidney disease; I50.9 Heart failure, unspecified; K21.9 Gastro-esophageal reflux disease without esophagitis; I25.10 Atherosclerotic heart disease of native coronary artery without angina pectoris; R60.0 Localized edema; E78.00 Pure hypercholesterolemia, unspecified; Z79.82 Long term (current) use of aspirin; Z79.899 Other long term (current) drug therapy; Z72.0 Tobacco use; R79.82 Elevated C-reactive protein (CRP)
CPT/HCPCS: 36415; 80053; 85025; 85379; 85651; 86140; 93971; 99284; 99284-25

== ENCOUNTER 2020-11-23 00:11 | Emergency (ER) | payer MEDICAID ==
[2020-11-23 00:36] VITALS: BP 149/87; PULSE 104
[2020-11-23] MEDS ORDERED: Sodium Chloride 0.9% 10 ML Syringe FLUSH PRN (00:48)
--- NOTE | 2020-11-23 00:53 | EDM.PDOC ---
ED HPI GENERAL MEDICAL PROBLEM - General Chief Complaint: Lower Extremity Injury/Pain Stated Complaint: PAIN IN LEGS WITH SWELLING Time Seen by Provider: 11/23/20 00:45 Source of Information: Reports: Patient History Limitations: Reports: No Limitations - History of Present Illness INITIAL COMMENTS - FREE TEXT/NARRATIVE: Patient comes emergency department today with complaints of increasing pain and swelling to his right lower extremity. This patient for the past 6 weeks plus has been struggling with recurrent infection and swelling in his lower extremities. He has chronic peripheral edema from his kidney failure and he is on chronic dialysis. He also has some liver failure as well. He has had recurrent cellulitis of his right lower extremity multiple times that is not resolving. Up until about a week ago he was on Augmentin and doxycycline. The Augmentin was discontinued because he was having GI symptoms. The doxycycline was continued and clindamycin was added. On 11-18-20 these changes were made in the emergency department and he had a negative right lower extremity DVT ultrasound at that time. Over the past 2 days he has complained of fever chills myalgias fatigue. Increasing pain warmth to his right lower extremity. His is doing his daily dressing changes for him. The pain is getting so severe he has been unable to sleep. No Covid exposure no Covid symptoms Right Lower Feet Pain Score (Numeric/FACES): 8 - Related Data Allergies Allergy/AdvReac Type Severity Reaction Status Date / Time No Known Allergies Allergy Verified 11/23/20 00:38 Home Meds: Home Meds Aspirin [Lo-Dose Aspirin EC] 81 mg PO DAILY 08/22/18 [History] Omeprazole 20 mg PO BID 08/22/18 [History] Simvastatin 10 mg PO BEDTIME 08/22/18 [History] carvediloL [Carvedilol] 6.25 mg PO BID 08/22/18 [History] Cetirizine HCl 10 mg PO DAILY PRN 11/08/18 [History] Tiotropium [Spiriva HandiHaler] 18 mcg INH DAILY 11/08/18 [History] Cholecalciferol (Vitamin D3) [Vitamin D3] 25 mcg PO DAILY 12/20/19 [History] Gabapentin [Neurontin] 600 mg PO BID 03/19/20 [History] Acetaminophen [Tylenol] 650 mg PO Q4H PRN tablet 11/08/20 [Rx] Ibuprofen [Motrin] 600 mg PO Q6H PRN tablet 11/08/20 [Rx] Albuterol Sulfate 3 ml INH Q4HR PRN 11/18/20 [History] Albuterol Sulfate [Proair Hfa] 1 puff IH Q6HR PRN 11/18/20 [History] Bacitracin [Bacitracin Oint] 1 applic TOP QID 11/18/20 [History] Bumetanide 4 mg PO BID 11/18/20 [History] Calcium Acetate 1,334 mg PO TIDMEALS 11/18/20 [History] Calcium Carbonate [Calcium] 1,500 mg PO TIDMEALS 11/18/20 [History] Fluticasone Propion/Salmeterol [Fluticasone-Salmeterol 500-50] 1 puff INH BID 11/18/20 [History] Hydrophilic Ointment [Aquaphilic Ointment] 1 applic TOP DAILY 11/18/20 [History] Insulin NPH/Insulin Reg,Human [Novolin 70-30] 20 units SQ BID 11/18/20 [History] Losartan [Cozaar] 50 mg PO DAILY 11/18/20 [History] Midodrine 5 mg PO ASDIRECTED 11/18/20 [History] metOLazone [Metolazone] 5 mg PO DAILY 11/18/20 [History] Past Medical History HEENT History: Reports: None Cardiovascular History: Reports: Heart Failure, High Cholesterol, Hypertension, Other (See Below) Other Cardiovascular History: non-ischemic cardiomyopathy Respiratory History: Reports: Bronchitis, Recurrent, PE, Other (See Below) Other Respiratory History: ARDS (acute respiratory distress syndrome) Gastrointestinal History: Reports: GERD Other Gastrointestinal History: Spouse states client used to take medication for his stomach, but cannot recall why and cannot recall which medication. Genitourinary History: Reports: Dialysis, Diabetic Nephropathy, Other (See Below) Other Genitourinary History: Acute kidney injury Musculoskeletal History: Reports: Arthritis, Back Pain, Chronic, Fracture, Other (See Below) Other Musculoskeletal History: "Multiple fractures" Neurological History: Reports: Head Trauma, Other (See Below) Other Neuro History: fractured skull Psychiatric History: Reports: Addiction, Anxiety Endocrine/Metabolic History: Reports: Diabetes, Type II, IDDM Hematologic History: Reports: None Immunologic History: Reports: None Oncologic (Cancer) History: Reports: None Dermatologic History: Reports: Cellulitis - Infectious Disease History Infectious Disease History: Reports: Hepatitis C Other Infectious Disease History: states client has hepatitis, but unable to recall which type. - Past Surgical History Head Surgeries/Procedures: Reports: None HEENT Surgical History: Reports: Other (See Below) Other HEENT Surgeries/Procedures: Eye injections, patient unsure why Cardiovascular Surgical History: Reports: None, Other (See Below) Other Cardiovascular Surgeries/Procedures: coronary angiogram Respiratory Surgical History: Reports: Thoracentesis GI Surgical History: Reports: Appendectomy Male Surgical History: Reports: None Endocrine Surgical History: Reports: None Neurological Surgical History: Reports: None Musculoskeletal Surgical History: Reports: None Dermatological Surgical History: Reports: None Social & Family History - Family History Family Medical History: No Pertinent Family History Endocrine/Metabolic: Reports: Diabetes, type II Oncologic: Reports: Other (See Below) Other Oncologic Family History: spouse states HX of cancer in family, but unable to recall which type - Tobacco Use Tobacco Use Status *Q: Never Tobacco User - Caffeine Use Caffeine Use: Reports: Coffee Caffeine Use Comment: galoon of coffee and 6 pack of pop daily - Recreational Drug Use Recreational Drug Use: No - Living Situation & Occupation Living situation: Reports: with Family Occupation: Disabled Review of Systems - Review of Systems Review Of Systems: Comprehensive ROS is negative, except as noted in HPI. ED EXAM, GENERAL - Physical Exam Exam: See Below Exam Limited By: No Limitations General Appearance: Alert, WD/WN, No Apparent Distress Head: Atraumatic, Normocephalic Respiratory/Chest: No Respiratory Distress, No Accessory Muscle Use Cardiovascular: Normal Peripheral Pulses (Difficult to palpate the pulses in his lower extremities due to the edema although able to obtain them with Doppler.), Regular Rate, Rhythm, Tachycardia GI/Abdominal: Normal Bowel Sounds, Soft Back Exam: Normal Inspection Extremities: Pedal Edema (His left lower extremity 3+ pitting edema up to the knees right lower extremity just as much edema but it does not pit due to the swelling and the tightness of the skin.). No: Normal Inspection (Right lower extremity with scaling from the knee down venous stasis there is some open dried plaques crusting small amount of serous drainage superficial fluctuance on the dorsum of the foot extreme warmth tightness and tenderness from the mid calf down to his foot.) Neurological: Alert, Oriented, No Motor/Sensory Deficits Psychiatric: Normal Affect, Normal Mood Course - Vital Signs Last Recorded V/S: Last Vital Signs Temp 99.3 F 11/23/20 00:35 Pulse 104 H 11/23/20 00:35 Resp 18 11/23/20 00:35 BP 149/87 H 11/23/20 00:35 Pulse Ox 99 11/23/20 00:35 - Orders/Labs/Meds Orders: Active Orders 24 hr Category Date Time Status Peripheral IV Care [RC] . DIRECTED Care 11/23/20 00:49 Active CULTURE BLOOD [BC] Stat Lab 11/23/20 01:01 Received CULTURE BLOOD [BC] Stat Lab 11/23/20 01:09 Received Sodium Chloride 0.9% [Saline Flush] Med 11/23/20 00:48 Active 10 ml FLUSH ASDIRECTED PRN VANCOmycin 1.5 GM/300 ML 1.5 gm Med 11/23/20 01:04 Active Premix Bag 1 bag IV ONETIME Blood Culture x2 Reflex Set [OM.PC] Stat Oth 11/23/20 00:48 Ordered Peripheral IV Insertion Adult [OM.PC] Stat Oth 11/23/20 00:48 Ordered Medication Orders Vancomycin HCl 1.5 gm/ Premix 300 mls @ 200 mls/hr IV ONETIME ONE Stop: 11/23/20 02:33 Last Admin: 11/23/20 02:13 Dose: 200 mls/hr Documented by: [id number] Sodium Chloride (Sodium Chloride 0.9% 10 Ml Syringe) 10 ml FLUSH ASDIRECTED PRN PRN Reason: Keep Vein Open Last Admin: 11/23/20 01:38 Dose: 10 ml Documented by: [email or web address] Labs: Laboratory Tests 11/23/20 11/23/20 11/23/20 Range/Units 01:01 01:01 01:01 WBC 8.7 (5.0-10.0) 10^3/uL RBC 3.19 L (4.6-6.2) 10^6/uL Hgb 8.5 L (14.0-18.0) g/dL Hct 26.9 L (40.0-54.0) % MCV 84.3 (80-100) fL MCH 26.6 L (27.0-34.0) pg MCHC 31.6 L (33.0-35.0) g/dL Plt Count 285 (150-450) 10^3/uL Neut % (Auto) 76.7 H (42.2-75.2) % Lymph % (Auto) 9.4 L (20.5-50.1) % [place] % (Auto) 11.5 H (2-8) % Eos % (Auto) 1.8 (1.0-3.0) % Baso % (Auto) 0.6 (0.0-1.0) % Sodium 135 L (136-145) mmol/L Potassium 4.9 (3.5-5.1) mmol/L Chloride 99 (98-107) mmol/L Carbon Dioxide 23 (21-32) mmol/L Anion Gap 17.9 H (7-13) mEq/L BUN 73 H D (7-18) mg/dL Creatinine 9.63 H* D (0.70-1.30) mg/dL Est Cr Clr Drug Dosing 7.72 mL/min Estimated GFR (MDRD) 6 BUN/Creatinine Ratio 7.6 (No establ ref range) Glucose 125 H (70-99) mg/dL Lactic Acid 1.4 (0.4-2.0) mmol/L Calcium 6.7 L (8.5-10.1) mg/dL Total Bilirubin 0.4 (0.2-1.0) mg/dL AST 23 (15-37) U/L ALT 22 (16-63) U/L Alkaline Phosphatase 204 H (46-116) U/L C-Reactive Protein 13.5 H (0.0-0.9) mg/dL Total Protein 8.2 (6.4-8.2) g/dL Albumin 2.2 L (3.4-5.0) g/dL Globulin 6.0 Albumin/Globulin Ratio 0.37 Meds: Medications Generic Name Dose Route Start Last Admin Trade Name Freq PRN Reason Stop Dose Admin Vancomycin HCl 1.5 gm/ Premix 300 mls @ 200 mls/hr 11/23/20 01:04 11/23/20 02:13 IV 11/23/20 02:33 200 mls/hr ONETIME ONE Administration Sodium Chloride 10 ml 11/23/20 00:48 11/23/20 01:38 Sodium Chloride 0.9% 10 Ml Syringe FLUSH 10 ml ASDIRECTED PRN Administration Keep Vein Open Discontinued Medications Generic Name Dose Route Start Last Admin Trade Name Jenny PRN Reason Stop Dose Admin Hydromorphone HCl 1 mg 11/23/20 01:02 11/23/20 01:36 Hydromorphone 1 Mg/Ml Syringe IVPUSH 11/23/20 01:03 1 mg ONETIME ONE Administration Piperacillin Sod/Tazobactam 50 mls @ 100 mls/hr 11/23/20 01:04 11/23/20 01:41 Sod 2.25 gm/ Sodium Chloride IV 11/23/20 01:33 100 mls/hr ONETIME ONE Administration - Re-Assessments/Exams Free Text/Narrative Re-Assessment/Exam: 11/23/20 02:23 Blood cultures were drawn as well as labs. Zosyn 2.25 g IV piggyback as well as vancomycin 1500 mg both renally dosed. White count is not elevated. His CRP is about the same as it has been. I really have concern for this patient with the risk of losing his lower extremity as well as his compliance of his outpatient antibiotic therapy that has been on for 6 weeks and has recurrence of his worsening cellulitis. He is clearly shown multiple failures of outpatient antibiotic therapy. I really think he has 2 options at this time continue with the outpatient antibiotics orally as he has shown multiple failures as well as compliance issues and end up with a amputation which she does not want. Or be aggressive with home health peripheral IV access and long-term IV antibiotics if he really wants to have the opportunity to state his lower extremity. I called and spoke with Dr. Abreu at [facility] in [place]. HPI ER course findings and concerns were relayed to him verbally over the phone. He accepted the patient in transfer at this time. The patient was comfortable with this plan and his questions were answered. Departure - Departure Time of Disposition: 02:26 Disposition: DC/Tfer to Acute Hospital 02 Clinical Impression: Recurrent cellulitis of lower extremity, Poor compliance with medication - Discharge Information Forms: ED Department Discharge Sepsis Event Note (ED) - Evaluation Sepsis Screening Result: No Definite Risk - Focused Exam Vital Signs: Vital Signs Temp Pulse Resp BP Pulse Ox 11/23/20 00:35 99.3 F 104 H 18 149/87 H 99 - My Orders Last 24 Hours: My Active Orders 11/23/20 00:48 Sodium Chloride 0.9% [Saline Flush] 10 ml FLUSH ASDIRECTED PRN Blood Culture x2 Reflex Set [OM.PC] Stat Peripheral IV Insertion Adult [OM.PC] Stat 11/23/20 00:49 Peripheral IV Care [RC] . DIRECTED 11/23/20 01:01 CULTURE BLOOD [BC] Stat 11/23/20 01:04 VANCOmycin 1.5 GM/300 ML 1.5 gm Premix Bag 1 bag IV ONETIME 11/23/20 01:09 CULTURE BLOOD [BC] Stat - Assessment/Plan Last 24 Hours: My Active Orders 11/23/20 00:48 Sodium Chloride 0.9% [Saline Flush] 10 ml FLUSH ASDIRECTED PRN Blood Culture x2 Reflex Set [OM.PC] Stat Peripheral IV Insertion Adult [OM.PC] Stat 11/23/20 00:49 Peripheral IV Care [RC] . DIRECTED 11/23/20 01:01 CULTURE BLOOD [BC] Stat 11/23/20 01:04 VANCOmycin 1.5 GM/300 ML 1.5 gm Premix Bag 1 bag IV ONETIME 11/23/20 01:09 CULTURE BLOOD [BC] Stat
[2020-11-23] MEDS ORDERED: HYDROmorphone 1 MG/ML Syringe IVPUSH ONE (01:02)
[2020-11-23] MEDS ORDERED: VANCOmycin 1.5 GM/300 ML 1.5 GM in Premix Bag 1 BAG IV ONE (01:04)
[2020-11-23] MEDS ORDERED: Piperacillin/Tazobactam 2.25 GM in Sodium Chloride 0.9% 50 ML IV ONE (01:04)
[2020-11-23 01:41] LABS: ANION GAP 17.9 mEq/L (7-13)
== END 2020-11-23 02:57 ==
LOC: DL.ED 00:11
DX: L03.115 Cellulitis of right lower limb (principal); R60.0 Localized edema; E78.00 Pure hypercholesterolemia, unspecified; I11.0 Hypertensive heart disease with heart failure; I50.9 Heart failure, unspecified; E11.21 Type 2 diabetes mellitus with diabetic nephropathy; K21.9 Gastro-esophageal reflux disease without esophagitis; Z79.899 Other long term (current) drug therapy; Z79.82 Long term (current) use of aspirin; Z79.4 Long term (current) use of insulin
CPT/HCPCS: 36415; 80053; 83605; 85025; 86140; 87040; 96365; 96367; 96375; 99284; J1170; J2543; J3370

== ENCOUNTER 2020-12-10 16:16 | Emergency (ER) | payer MEDICAID ==
[2020-12-10 16:46] VITALS: BP 152/75; PULSE 83
[2020-12-10] MEDS ORDERED: HYDROmorphone 1 MG/ML Syringe IM ONE (17:19)
[2020-12-10] MEDS ORDERED: Ondansetron 4 MG Tab.DIS PO ONE (17:19)
[2020-12-10] MEDS ORDERED: Lidocaine 5% Oint 35.44 GM Tube TOP ONE (17:20)
[2020-12-10] MEDS ORDERED: Acetaminophen/HYDROcodone 325-10 MG Tab PO ONE (18:21)
--- NOTE | 2020-12-10 18:27 | EDM.PDOC ---
Scribed by Fransisca Watters 12/10/20 [id number] for Jose Dalton MD ED HPI GENERAL MEDICAL PROBLEM - General Chief Complaint: Lower Extremity Injury/Pain Stated Complaint: RIGHT LEG IN PAIN, Time Seen by Provider: 12/10/20 16:35 Source of Information: Reports: Patient, RN, RN Notes Reviewed History Limitations: Reports: No Limitations - History of Present Illness INITIAL COMMENTS - FREE TEXT/NARRATIVE: Patient presents to ED by POV stating that 2 weeks ago he had right below amputation. Today he was getting into a vehicle and fell onto the stump. He has a lot of pain in that area. Onset: Today Duration: Getting Worse Location: Reports: Lower Extremity, Right Quality: Reports: Ache Severity: Severe Improves with: Reports: None Worsens with: Reports: None Associated Symptoms: Reports: No Other Symptoms Right Stump Pain Score (Numeric/FACES): 8 - Related Data Allergies Allergy/AdvReac Type Severity Reaction Status Date / Time No Known Allergies Allergy Verified 12/10/20 16:33 Home Meds: Home Meds Aspirin [Lo-Dose Aspirin EC] 81 mg PO DAILY 08/22/18 [History] Omeprazole 20 mg PO BID 08/22/18 [History] Simvastatin 10 mg PO BEDTIME 08/22/18 [History] carvediloL [Carvedilol] 6.25 mg PO BID 08/22/18 [History] Cetirizine HCl 10 mg PO DAILY PRN 11/08/18 [History] Tiotropium [Spiriva HandiHaler] 18 mcg INH DAILY 11/08/18 [History] Cholecalciferol (Vitamin D3) [Vitamin D3] 25 mcg PO DAILY 12/20/19 [History] Gabapentin [Neurontin] 600 mg PO BID 03/19/20 [History] Acetaminophen [Tylenol] 650 mg PO Q4H PRN tablet 11/08/20 [Rx] Ibuprofen [Motrin] 600 mg PO Q6H PRN tablet 11/08/20 [Rx] Albuterol Sulfate 3 ml INH Q4HR PRN 11/18/20 [History] Albuterol Sulfate [Proair Hfa] 1 puff IH Q6HR PRN 11/18/20 [History] Bacitracin [Bacitracin Oint] 1 applic TOP QID 11/18/20 [History] Bumetanide 4 mg PO BID 11/18/20 [History] Calcium Acetate 1,334 mg PO TIDMEALS 11/18/20 [History] Calcium Carbonate [Calcium] 1,500 mg PO TIDMEALS 11/18/20 [History] Fluticasone Propion/Salmeterol [Fluticasone-Salmeterol 500-50] 1 puff INH BID 11/18/20 [History] Hydrophilic Ointment [Aquaphilic Ointment] 1 applic TOP DAILY 11/18/20 [History] Insulin NPH/Insulin Reg,Human [Novolin 70-30] 20 units SQ BID 11/18/20 [History] Losartan [Cozaar] 50 mg PO DAILY 11/18/20 [History] Midodrine 5 mg PO ASDIRECTED 11/18/20 [History] metOLazone [Metolazone] 5 mg PO DAILY 11/18/20 [History] Past Medical History HEENT History: Reports: None Cardiovascular History: Reports: Heart Failure, High Cholesterol, Hypertension, Other (See Below) Other Cardiovascular History: non-ischemic cardiomyopathy Respiratory History: Reports: Bronchitis, Recurrent, PE, Other (See Below) Other Respiratory History: ARDS (acute respiratory distress syndrome) Gastrointestinal History: Reports: GERD Other Gastrointestinal History: Spouse states client used to take medication for his stomach, but cannot recall why and cannot recall which medication. Genitourinary History: Reports: Dialysis, Diabetic Nephropathy, Other (See Below) Other Genitourinary History: Acute kidney injury Musculoskeletal History: Reports: Arthritis, Back Pain, Chronic, Fracture, Other (See Below) Other Musculoskeletal History: "Multiple fractures" Neurological History: Reports: Head Trauma, Other (See Below) Other Neuro History: fractured skull Psychiatric History: Reports: Addiction, Anxiety Endocrine/Metabolic History: Reports: Diabetes, Type II, IDDM Hematologic History: Reports: None Immunologic History: Reports: None Oncologic (Cancer) History: Reports: None Dermatologic History: Reports: Cellulitis - Infectious Disease History Infectious Disease History: Reports: Hepatitis C Other Infectious Disease History: states client has hepatitis, but unable to recall which type. - Past Surgical History Head Surgeries/Procedures: Reports: None HEENT Surgical History: Reports: Other (See Below) Other HEENT Surgeries/Procedures: Eye injections, patient unsure why Cardiovascular Surgical History: Reports: None, Other (See Below) Other Cardiovascular Surgeries/Procedures: coronary angiogram Respiratory Surgical History: Reports: Thoracentesis GI Surgical History: Reports: Appendectomy Male Surgical History: Reports: None Endocrine Surgical History: Reports: None Neurological Surgical History: Reports: None Musculoskeletal Surgical History: Reports: None Dermatological Surgical History: Reports: None Social & Family History - Family History Family Medical History: No Pertinent Family History Endocrine/Metabolic: Reports: Diabetes, type II Oncologic: Reports: Other (See Below) Other Oncologic Family History: spouse states HX of cancer in family, but unable to recall which type - Caffeine Use Caffeine Use: Reports: Coffee Caffeine Use Comment: galoon of coffee and 6 pack of pop daily - Living Situation & Occupation Living situation: Reports: with Family Occupation: Disabled Review of Systems - Review of Systems Review Of Systems: Comprehensive ROS is negative, except as noted in HPI. 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 No: Increased Warmth, Mottled, Pallor, Redness Neurological: Alert, Oriented, CN II-XII Intact, Normal Cognition, No Motor/Sensory Deficits Psychiatric: Normal Mood Skin Exam: Warm, Dry Course - Vital Signs Last Recorded V/S: Last Vital Signs Temp 99.9 F 12/10/20 16:25 Pulse 83 12/10/20 16:25 Resp 20 12/10/20 16:25 BP 152/75 H 12/10/20 16:25 Pulse Ox 96 12/10/20 16:25 - Orders/Labs/Meds Orders: Active Orders 24 hr Category Date Time Status Acetaminophen/HYDROcodone [Gill 325-10 MG] Med 12/10/20 18:21 Once 1 tab PO ONETIME ONE Medication Orders Hydrocodone Bitart/Acetaminophen (Acetaminophen/Hydrocodone 325-10 Mg Tab) 1 tab PO ONETIME ONE Stop: 12/10/20 18:22 Meds: Medications Generic Name Dose Route Start Last Admin Trade Name Freq PRN Reason Stop Dose Admin Hydrocodone Bitart/Acetaminophen 1 tab 12/10/20 18:21 Acetaminophen/Hydrocodone 325-10 Mg Tab PO 12/10/20 18:22 ONETIME ONE Discontinued Medications Generic Name Dose Route Start Last Admin Trade Name Jenny PRN Reason Stop Dose Admin Hydromorphone HCl 1 mg 12/10/20 17:19 12/10/20 18:01 Hydromorphone 1 Mg/Ml Syringe IM 12/10/20 17:20 1 mg ONETIME ONE Administration Lidocaine HCl 30 gm 12/10/20 17:20 12/10/20 18:01 Lidocaine 5% Oint 35.44 Gm Tube TOP 12/10/20 17:21 30 gm ONETIME ONE Administration Ondansetron HCl 4 mg 12/10/20 17:19 12/10/20 18:01 Ondansetron 4 Mg Tab.Dis PO 12/10/20 17:20 4 mg ONETIME ONE Administration Departure - Departure Time of Disposition: 18:24 Disposition: Home, Self-Care 01 Condition: Good Clinical Impression: Pain of amputation stump of right lower extremity - Discharge Information *PRESCRIPTION DRUG MONITORING PROGRAM REVIEWED*: No *COPY OF PRESCRIPTION DRUG MONITORING REPORT IN PATIENT LUIS: No Instructions: Stump and Prosthesis Care Forms: ED Department Discharge Additional Instructions: Keep stump clean and dry. Elevate stump and apply ice pack to reduce pain and swelling. Follow up in clinic tomorrow for recheck and pain management. Sepsis Event Note (ED) - Focused Exam Vital Signs: Vital Signs Temp Pulse Resp BP Pulse Ox 12/10/20 16:25 99.9 F 83 20 152/75 H 96 - My Orders Last 24 Hours: My Active Orders 12/10/20 18:21 Acetaminophen/HYDROcodone [Gill 325-10 MG] 1 tab PO ONETIME ONE - Assessment/Plan Last 24 Hours: My Active Orders 12/10/20 18:21 Acetaminophen/HYDROcodone [Gill 325-10 MG] 1 tab PO ONETIME ONE I have read and agree with the documentation that has been completed regarding this visit. By signing this record, I attest that the documentation was completed in my physical presence and is an accurate record of the encounter.
== END 2020-12-10 18:45 | disposition home or self-care (01) ==
LOC: DL.ED 16:16
DX: G89.18 Other acute postprocedural pain (principal); M79.661 Pain in right lower leg; I11.0 Hypertensive heart disease with heart failure; I50.9 Heart failure, unspecified; E11.40 Type 2 diabetes mellitus with diabetic neuropathy, unspecified; K21.9 Gastro-esophageal reflux disease without esophagitis; Z79.82 Long term (current) use of aspirin; Z79.899 Other long term (current) drug therapy
CPT/HCPCS: 96372; 99283; A9270-GY; J1170

== ENCOUNTER 2020-12-21 20:28 | Emergency (ER) | payer MEDICAID ==
[2020-12-21 20:49] VITALS: BP 154/87; PULSE 92
--- NOTE | 2020-12-21 21:23 | EDM.PDOC ---
ED HPI GENERAL MEDICAL PROBLEM - General Chief Complaint: Respiratory Problem Stated Complaint: JUST NOT FEELING GOOD Time Seen by Provider: 12/21/20 21:22 Source of Information: Reports: Patient History Limitations: Reports: No Limitations - History of Present Illness INITIAL COMMENTS - FREE TEXT/NARRATIVE: Patient comes emergency department today from home with complaints of just not feeling well and shortness of breath. This patient is a Tuesday dialysis patient who has not missed any dialysis for quite some time. Over the past day or so he is really felt what he relates is just "rough". Says he is a little bit more short of breath than typical. He has not had any pain in his chest. He complains of generalized weakness but no focal neurological deficits. No headache visual acuity changes or diplopia. No palpitations syncope. He has no more cough than normal. It is nonproductive dry and hacking. No abdominal pain nausea or vomiting. Does not make any urine. No diarrhea constipation black or tarry stools. He does relate that he has quite a bit more edema to his lower extremities than he typically does. - Related Data Allergies Allergy/AdvReac Type Severity Reaction Status Date / Time No Known Allergies Allergy Verified 12/21/20 20:53 Home Meds: Home Meds Aspirin [Lo-Dose Aspirin EC] 81 mg PO DAILY 08/22/18 [History] Omeprazole 20 mg PO BID 08/22/18 [History] Simvastatin 10 mg PO BEDTIME 08/22/18 [History] carvediloL [Carvedilol] 6.25 mg PO BID 08/22/18 [History] Cetirizine HCl 10 mg PO DAILY PRN 11/08/18 [History] Tiotropium [Spiriva HandiHaler] 18 mcg INH DAILY 11/08/18 [History] Cholecalciferol (Vitamin D3) [Vitamin D3] 25 mcg PO DAILY 12/20/19 [History] Gabapentin [Neurontin] 600 mg PO BID 03/19/20 [History] Acetaminophen [Tylenol] 650 mg PO Q4H PRN tablet 11/08/20 [Rx] Ibuprofen [Motrin] 600 mg PO Q6H PRN tablet 11/08/20 [Rx] Albuterol Sulfate 3 ml INH Q4HR PRN 11/18/20 [History] Albuterol Sulfate [Proair Hfa] 1 puff IH Q6HR PRN 11/18/20 [History] Bacitracin [Bacitracin Oint] 1 applic TOP QID 11/18/20 [History] Bumetanide 4 mg PO BID 11/18/20 [History] Calcium Acetate 1,334 mg PO TIDMEALS 11/18/20 [History] Calcium Carbonate [Calcium] 1,500 mg PO TIDMEALS 11/18/20 [History] Fluticasone Propion/Salmeterol [Fluticasone-Salmeterol 500-50] 1 puff INH BID 11/18/20 [History] Hydrophilic Ointment [Aquaphilic Ointment] 1 applic TOP DAILY 11/18/20 [History] Insulin NPH/Insulin Reg,Human [Novolin 70-30] 20 units SQ BID 11/18/20 [History] Losartan [Cozaar] 50 mg PO DAILY 11/18/20 [History] Midodrine 5 mg PO ASDIRECTED 11/18/20 [History] metOLazone [Metolazone] 5 mg PO DAILY 11/18/20 [History] Past Medical History HEENT History: Reports: None Cardiovascular History: Reports: Heart Failure, High Cholesterol, Hypertension, Other (See Below) Other Cardiovascular History: non-ischemic cardiomyopathy Respiratory History: Reports: Bronchitis, Recurrent, PE, Other (See Below) Other Respiratory History: ARDS (acute respiratory distress syndrome) Gastrointestinal History: Reports: GERD Other Gastrointestinal History: Spouse states client used to take medication for his stomach, but cannot recall why and cannot recall which medication. Genitourinary History: Reports: Dialysis, Diabetic Nephropathy, Other (See Be low) Other Genitourinary History: Acute kidney injury Musculoskeletal History: Reports: Arthritis, Back Pain, Chronic, Fracture, Other (See Below) Other Musculoskeletal History: "Multiple fractures" Neurological History: Reports: Head Trauma, Other (See Below) Other Neuro History: fractured skull Psychiatric History: Reports: Addiction, Anxiety Endocrine/Metabolic History: Reports: Diabetes, Type II, IDDM Hematologic History: Reports: None Immunologic History: Reports: None Oncologic (Cancer) History: Reports: None Dermatologic History: Reports: Cellulitis - Infectious Disease History Infectious Disease History: Reports: Hepatitis C Other Infectious Disease History: states client has hepatitis, but unable to recall which type. - Past Surgical History Head Surgeries/Procedures: Reports: None HEENT Surgical History: Reports: Other (See Below) Other HEENT Surgeries/Procedures: Eye injections, patient unsure why Cardiovascular Surgical History: Reports: None, Other (See Below) Other Cardiovascular Surgeries/Procedures: coronary angiogram Respiratory Surgical History: Reports: Thoracentesis GI Surgical History: Reports: Appendectomy Male Surgical History: Reports: None Endocrine Surgical History: Reports: None Neurological Surgical History: Reports: None Musculoskeletal Surgical History: Reports: Amputation Other Musculoskeletal Surgeries/Procedures:: right b/k amputation Dermatological Surgical History: Reports: None Social & Family History - Family History Family Medical History: No Pertinent Family History Endocrine/Metabolic: Reports: Diabetes, type II Oncologic: Reports: Other (See Below) Other Oncologic Family History: spouse states HX of cancer in family, but unable to recall which type - Tobacco Use Tobacco Use Status *Q: Never Tobacco User - Caffeine Use Caffeine Use: Reports: Coffee Caffeine Use Comment: galoon of coffee and 6 pack of pop daily - Recreational Drug Use Recreational Drug Use: No - Living Situation & Occupation Living situation: Reports: with Family Occupation: Disabled ED ROS GENERAL - Review of Systems Review Of Systems: Comprehensive ROS is negative, except as noted in HPI. ED EXAM, GENERAL - Physical Exam Exam: See Below Exam Limited By: No Limitations General Appearance: Alert, WD/WN, No Apparent Distress Eye Exam: Bilateral Eye: EOMI, PERRL Ears: Normal External Exam Nose: Normal Inspection Throat/Mouth: Normal Inspection Head: Atraumatic, Normocephalic Neck: Normal Inspection, Supple, Non-Tender, Full Range of Motion Respiratory/Chest: No Respiratory Distress, No Accessory Muscle Use, Chest Non- Tender, Crackles (fine crackles bilaterally. ). No: Rhonchi, Wheezing Cardiovascular: Normal Peripheral Pulses, Regular Rate, Rhythm, No Murmur GI/Abdominal: Normal Bowel Sounds, Soft, Non-Tender, No Distention, No Abnormal Bruit, Pelvis Stable (Male) Exam: Deferred Rectal (Males) Exam: Deferred Back Exam: Normal Inspection Extremities: Normal Inspection, Pedal Edema (2+ edema to the lower extremities left greater than right which is chronic for him according to the patient. ) Neurological: Alert, Oriented, CN II-XII Intact, Normal Cognition, No Motor/Sensory Deficits Psychiatric: Normal Affect, Normal Mood Skin Exam: Warm, Dry, Intact, Normal Color, No Rash Course - Vital Signs Last Recorded V/S: Last Vital Signs Temp 98.7 F 12/21/20 20:48 Pulse 92 12/21/20 20:48 Resp 20 12/21/20 20:48 BP 154/87 H 12/21/20 20:48 Pulse Ox 100 12/21/20 20:48 - Orders/Labs/Meds Labs: Laboratory Tests 12/21/20 12/21/20 12/21/20 Range/Units 21:52 21:52 21:52 WBC 8.8 (5.0-10.0) 10^3/uL RBC 3.71 L (4.6-6.2) 10^6/uL Hgb 9.9 L (14.0-18.0) g/dL Hct 32.5 L (40.0-54.0) % MCV 87.6 D (80-100) fL MCH 26.7 L (27.0-34.0) pg MCHC 30.5 L (33.0-35.0) g/dL Plt Count 157 D (150-450) 10^3/uL Neut % (Auto) 67.2 (42.2-75.2) % Lymph % (Auto) 16.0 L (20.5-50.1) % [place] % (Auto) 11.3 H (2-8) % Eos % (Auto) 5.2 H (1.0-3.0) % Baso % (Auto) 0.3 (0.0-1.0) % Sodium 131 L (136-145) mmol/L Potassium 5.0 (3.5-5.1) mmol/L Chloride 96 L (98-107) mmol/L Carbon Dioxide 29 (21-32) mmol/L Anion Gap 11.0 (7-13) mEq/L BUN 51 H (7-18) mg/dL Creatinine 8.55 H* (0.70-1.30) mg/dL Est Cr Clr Drug Dosing 8.59 mL/min Estimated GFR (MDRD) 6 BUN/Creatinine Ratio 6.0 (No establ ref range) Glucose 138 H (70-99) mg/dL Lactic Acid 1.7 (0.4-2.0) mmol/L Calcium 8.6 D (8.5-10.1) mg/dL Total Bilirubin 0.4 (0.2-1.0) mg/dL AST 119 H (15-37) U/L ALT 192 H (16-63) U/L Alkaline Phosphatase 102 (46-116) U/L Troponin I 0.101 H* (0.000-0.056) ng/mL C-Reactive Protein 6.2 H (0.0-0.9) mg/dL B-Natriuretic Peptide > 5000 H (0-100) pg/ml Total Protein 8.3 H (6.4-8.2) g/dL Albumin 2.8 L (3.4-5.0) g/dL Globulin 5.5 Albumin/Globulin Ratio 0.51 Lipase (73-393) U/L SARS-CoV-2 RNA (DEBBY) (NEGATIVE) 12/21/20 12/21/20 Range/Units 21:52 22:35 WBC (5.0-10.0) 10^3/uL RBC (4.6-6.2) 10^6/uL Hgb (14.0-18.0) g/dL Hct (40.0-54.0) % MCV (80-100) fL MCH (27.0-34.0) pg MCHC (33.0-35.0) g/dL Plt Count (150-450) 10^3/uL Neut % (Auto) (42.2-75.2) % Lymph % (Auto) (20.5-50.1) % [place] % (Auto) (2-8) % Eos % (Auto) (1.0-3.0) % Baso % (Auto) (0.0-1.0) % Sodium (136-145) mmol/L Potassium (3.5-5.1) mmol/L Chloride (98-107) mmol/L Carbon Dioxide (21-32) mmol/L Anion Gap (7-13) mEq/L BUN (7-18) mg/dL Creatinine (0.70-1.30) mg/dL Est Cr Clr Drug Dosing mL/min Estimated GFR (MDRD) BUN/Creatinine Ratio (No establ ref range) Glucose (70-99) mg/dL Lactic Acid (0.4-2.0) mmol/L Calcium (8.5-10.1) mg/dL Total Bilirubin (0.2-1.0) mg/dL AST (15-37) U/L ALT (16-63) U/L Alkaline Phosphatase (46-116) U/L Troponin I (0.000-0.056) ng/mL C-Reactive Protein (0.0-0.9) mg/dL B-Natriuretic Peptide (0-100) pg/ml Total Protein (6.4-8.2) g/dL Albumin (3.4-5.0) g/dL Globulin Albumin/Globulin Ratio Lipase 258 (73-393) U/L SARS-CoV-2 RNA (DEBBY) Negative (NEGATIVE) Meds: Medications Discontinued Medications Generic Name Dose Route Start Last Admin Trade Name Freq PRN Reason Stop Dose Admin Albuterol 2.5 mg 12/21/20 23:13 12/21/20 23:29 Albuterol 0.083% 2.5 Mg/3 Ml Neb Soln NEB 12/21/20 23:14 2.5 mg ONETIME ONE Administration - Radiology Interpretation Free Text/Narrative:: Chest x-ray per radiology shows minimally enlarged cardiopericardial's silhouette with mild central pulmonary venous congestion and tiny effusions. - Re-Assessments/Exams Free Text/Narrative Re-Assessment/Exam: IV was established labs are drawn. EKG is unchanged from previous. Chest x-ray without any acute infiltrate hemopneumothorax. He does have some pulmonary vascular congestion centrally. And small bilateral pleural effusions. He has a quite high creatinine which is at about baseline for him. His troponin is 0.100 although this is most likely due to his chronic renal failure he does not have any chest pain. He was given a nebulizer with improvement of his shortness of breath. Not finding any other cause for his complaints of generalized malaise shortness of breath. He has quite a bit of edema on. I really think needs dialysis which he is going to in just a couple of hours he also probably needs an extra run here this week as he has quite a bit of extra fluid on his extremities as well as in his lung laboy. I would like to have him stay and repeat a troponin although the patient refuses and would like to leave. He understands the risk and choices to leave. He was discharge home to go to dialysis pretty much right away. He was comfortable with this plan and his questions answered. Departure - Departure Time of Disposition: 00:03 Disposition: Against Medical Advice 07 Clinical Impression: SOB (shortness of breath) CHF (congestive heart failure) Qualifiers: Heart failure type: unspecified Heart failure chronicity: acute on chronic Qualified Code(s): I50.9 - Heart failure, unspecified CKD (chronic kidney disease) Qualifiers: Chronic kidney disease stage: stage 3 (moderate) Qualified Code(s): N18.3 - Chronic kidney disease, stage 3 (moderate) Fluid overload Qualifiers: Hypervolemia type: unspecified Qualified Code(s): E87.70 - Fluid overload, unspecified CHF, acute on chronic Qualifiers: Heart failure type: combined systolic and diastolic Qualified Code(s): I50.43 - Acute on chronic combined systolic (congestive) and diastolic (congestive) heart failure - Discharge Information Forms: ED Department Discharge Additional Instructions: Go to dialysis this morning as planned. They may need to have an extra day this week to work on getting some of the extra fluids off. Return to the ED if new or worsening symptoms. Sepsis Event Note (ED) - Evaluation Sepsis Screening Result: No Definite Risk - Focused Exam Vital Signs: Vital Signs Temp Pulse Resp BP Pulse Ox 12/21/20 20:48 98.7 F 92 20 154/87 H 100
--- NOTE | 2020-12-21 21:38 | PCM.EKG ---
#1 Interpretation EKG Date: 12/21/20 Time: 21:16 Rhythm: NSR Rate (Beats/Min): 90 [place]: Normal P-Wave: Present QRS: LBBB ST-T: Normal QT: Normal Comparison: No Change
--- NOTE | 2020-12-21 22:03 | CR ---
PROCEDURE INFORMATION: Exam: XR Chest Exam date and time: 12/21/2020 9:35 PM Age: 60 years old Clinical indication: Shortness of breath; Additional info: SOB TECHNIQUE: Imaging protocol: XR of the chest. Views: 2 views. Total images: 3 COMPARISON: CR Chest 1V Frontal 11/07/2020 4:40 PM FINDINGS: Tubes, catheters and devices: Left venous catheter tip near the SVC right atrial junction. Lungs: Mild central pulmonary venous congestion. Pleural spaces: Tiny bilateral pleural effusions. Heart/Mediastinum: Borderline cardiomegaly. Bones/joints: Unremarkable. IMPRESSION: Minimally enlarged cardiopericardial silhouette with mild central pulmonary venous congestion and tiny effusions.
[2020-12-21 22:21] LABS: CHLORIDE,CL 96 mmol/L (98-107); SODIUM,NA 131 mmol/L (136-145)
[2020-12-21] MEDS ORDERED: Albuterol 0.083% 2.5 MG/3 ML Neb Soln NEB ONE (23:13)
== END 2020-12-22 00:04 | disposition left against medical advice (07) ==
LOC: DL.ED 20:28
DX: I13.0 Hypertensive heart and chronic kidney disease with heart failure and stage 1 through stage 4 chronic kidney disease, or unspecified chronic kidney disease (principal); I50.43 Acute on chronic combined systolic (congestive) and diastolic (congestive) heart failure; N18.30 Chronic kidney disease, stage 3 unspecified; E78.00 Pure hypercholesterolemia, unspecified; M19.90 Unspecified osteoarthritis, unspecified site; E11.21 Type 2 diabetes mellitus with diabetic nephropathy; K21.9 Gastro-esophageal reflux disease without esophagitis; Z79.82 Long term (current) use of aspirin; Z79.899 Other long term (current) drug therapy; Z86.711 Personal history of pulmonary embolism; Z79.4 Long term (current) use of insulin; Z20.822 Contact with and (suspected) exposure to COVID-19; Z99.2 Dependence on renal dialysis
CPT/HCPCS: 36415; 71046; 80053; 83605; 83690; 83880; 84484; 85025; 86140; 93005; 99284; 99285-25; J7613-GY; U0002

== ENCOUNTER 2021-01-21 22:26 | Emergency (ER) | payer MEDICAID ==
[2021-01-21] MEDS ORDERED: Acetaminophen 500 MG Tab PO ONE (22:38)
[2021-01-21] MEDS ORDERED: cefTRIAXone 1 GM in Sodium Chloride 0.9% 50 ML IV ONE (22:40)
[2021-01-21 23:16] LABS: ANION GAP 16.4 mEq/L (7-13); CHLORIDE,CL 96 mmol/L (98-107); SODIUM,NA 135 mmol/L (136-145)
--- NOTE | 2021-01-21 23:53 | EDM.PDOC ---
ED HPI GENERAL MEDICAL PROBLEM - General Chief Complaint: Respiratory Problem Stated Complaint: AMBULANCE Time Seen by Provider: 01/21/21 22:40 Source of Information: Reports: Patient, EMS, Family History Limitations: Reports: No Limitations - History of Present Illness INITIAL COMMENTS - FREE TEXT/NARRATIVE: ED with c/o not feeling well past couple of days, Dialysis today in [place], clinic appointment after, diagnosed with pneumonia and started on Levaquin. Received second COVID vaccine today. Stanton worse after. No vomiting or diarrhea. Right Shoulder Pain Score (Numeric/FACES): 6 - Related Data Allergies Allergy/AdvReac Type Severity Reaction Status Date / Time No Known Allergies Allergy Verified 01/21/21 23:24 Home Meds: Home Meds Aspirin [Lo-Dose Aspirin EC] 81 mg PO DAILY 08/22/18 [History] Omeprazole 20 mg PO BID 08/22/18 [History] Simvastatin 10 mg PO BEDTIME 08/22/18 [History] carvediloL [Carvedilol] 6.25 mg PO BID 08/22/18 [History] Cetirizine HCl 10 mg PO DAILY PRN 11/08/18 [History] Tiotropium [Spiriva HandiHaler] 18 mcg INH DAILY 11/08/18 [History] Cholecalciferol (Vitamin D3) [Vitamin D3] 25 mcg PO DAILY 12/20/19 [History] Gabapentin [Neurontin] 600 mg PO BID 03/19/20 [History] Acetaminophen [Tylenol] 650 mg PO Q4H PRN tablet 11/08/20 [Rx] Ibuprofen [Motrin] 600 mg PO Q6H PRN tablet 11/08/20 [Rx] Albuterol Sulfate 3 ml INH Q4HR PRN 11/18/20 [History] Albuterol Sulfate [Proair Hfa] 1 puff IH Q6HR PRN 11/18/20 [History] Bacitracin [Bacitracin Oint] 1 applic TOP QID 11/18/20 [History] Bumetanide 4 mg PO BID 11/18/20 [History] Calcium Acetate 1,334 mg PO TIDMEALS 11/18/20 [History] Calcium Carbonate [Calcium] 1,500 mg PO TIDMEALS 11/18/20 [History] Fluticasone Propion/Salmeterol [Fluticasone-Salmeterol 500-50] 1 puff INH BID 11/18/20 [History] Hydrophilic Ointment [Aquaphilic Ointment] 1 applic TOP DAILY 11/18/20 [History] Insulin NPH/Insulin Reg,Human [Novolin 70-30] 20 units SQ BID 11/18/20 [History] Losartan [Cozaar] 50 mg PO DAILY 11/18/20 [History] Midodrine 5 mg PO ASDIRECTED 11/18/20 [History] metOLazone [Metolazone] 5 mg PO DAILY 11/18/20 [History] Past Medical History HEENT History: Reports: None Cardiovascular History: Reports: Heart Failure, High Cholesterol, Hypertension, Other (See Below) Other Cardiovascular History: non-ischemic cardiomyopathy Respiratory History: Reports: Bronchitis, Recurrent, PE, Other (See Below) Other Respiratory History: ARDS (acute respiratory distress syndrome) Gastrointestinal History: Reports: GERD Other Gastrointestinal History: Spouse states client used to take medication for his stomach, but cannot recall why and cannot recall which medication. Genitourinary History: Reports: Dialysis, Diabetic Nephropathy, Other (See Below) Other Genitourinary History: Acute kidney injury Musculoskeletal History: Reports: Arthritis, Back Pain, Chronic, Fracture, Other (See Below) Other Musculoskeletal History: "Multiple fractures" Neurological History: Reports: Head Trauma, Other (See Below) Other Neuro History: fractured skull Psychiatric History: Reports: Addiction, Anxiety Endocrine/Metabolic History: Reports: Diabetes, Type II, IDDM Hematologic History: Reports: None Immunologic History: Reports: None Oncologic (Cancer) History: Reports: None Dermatologic History: Reports: Cellulitis - Infectious Disease History Infectious Disease History: Reports: Hepatitis C Other Infectious Disease History: states client has hepatitis, but unable to recall which type. - Past Surgical History Head Surgeries/Procedures: Reports: None HEENT Surgical History: Reports: Other (See Below) Other HEENT Surgeries/Procedures: Eye injections, patient unsure why Cardiovascular Surgical History: Reports: None, Other (See Below) Other Cardiovascular Surgeries/Procedures: coronary angiogram Respiratory Surgical History: Reports: Thoracentesis GI Surgical History: Reports: Appendectomy Male Surgical History: Reports: None Endocrine Surgical History: Reports: None Neurological Surgical History: Reports: None Musculoskeletal Surgical History: Reports: Amputation Other Musculoskeletal Surgeries/Procedures:: right b/k amputation Dermatological Surgical History: Reports: None Social & Family History - Family History Family Medical History: No Pertinent Family History Endocrine/Metabolic: Reports: Diabetes, type II Oncologic: Reports: Other (See Below) Other Oncologic Family History: spouse states HX of cancer in family, but unable to recall which type - Tobacco Use Tobacco Use Status *Q: Current Every Day Tobacco User Years of Tobacco use: 45 Packs/Tins Daily: 1 Second Hand Smoke Exposure: Yes - Caffeine Use Caffeine Use: Reports: Coffee Caffeine Use Comment: galoon of coffee and 6 pack of pop daily - Recreational Drug Use Recreational Drug Use: No - Living Situation & Occupation Living situation: Reports: with Family Occupation: Disabled ED ROS GENERAL - Review of Systems Review Of Systems: Comprehensive ROS is negative, except as noted in HPI. ED EXAM, GENERAL - Physical Exam Exam: See Below Exam Limited By: No Limitations General Appearance: Alert, Mild Distress, Thin Eye Exam: Bilateral Eye: EOMI Ears: Normal External Exam, Hearing Grossly Normal Nose: Normal Inspection Throat/Mouth: Normal Inspection Head: Atraumatic, Normocephalic Neck: Normal Inspection, Full Range of Motion Respiratory/Chest: No Respiratory Distress, Crackles (bialteral bases), Other (rare dry cough). No: Rhonchi, Wheezing Cardiovascular: Normal Peripheral Pulses, Regular Rate, Rhythm, Tachycardia GI/Abdominal: Normal Bowel Sounds, Soft Extremities: Normal Inspection, Normal Range of Motion, Other (right BKA) Neurological: Alert, Oriented, Slow to Respond (on arrival imporved with decreased temperature) Psychiatric: Normal Affect Skin Exam: Warm, Dry, Intact, Normal Color #1 Interpretation EKG Date: 01/21/21 Time: 22:42 Rhythm: Other (sinus tachycardia) Rate (Beats/Min): 114 P-Wave: Present QRS: LBBB Course - Vital Signs Last Recorded V/S: Last Vital Signs Temp 99.3 F 01/22/21 00:20 Pulse Resp 22 H 01/21/21 23:06 BP Pulse Ox 94 L 01/21/21 23:06 - Orders/Labs/Meds Orders: Active Orders 24 hr Category Date Time Status CULTURE BLOOD [BC] Stat Lab 01/21/21 22:40 Results CULTURE BLOOD [BC] Stat Lab 01/21/21 22:48 Received CULTURE URINE [RM] Stat Lab 01/21/21 23:33 Received Blood Culture x2 Reflex Set [OM.PC] Stat Oth 01/21/21 22:38 Ordered Labs: Laboratory Tests 01/21/21 01/21/21 01/21/21 Range/Units 22:48 22:49 22:49 WBC 12.2 H (5.0-10.0) 10^3/uL RBC 4.91 (4.6-6.2) 10^6/uL Hgb 12.8 L D (14.0-18.0) g/dL Hct 40.2 (40.0-54.0) % MCV 81.9 D (80-100) fL MCH 26.1 L (27.0-34.0) pg MCHC 31.8 L (33.0-35.0) g/dL Plt Count 153 (150-450) 10^3/uL Neut % (Auto) 91.1 H (42.2-75.2) % Lymph % (Auto) 3.8 L (20.5-50.1) % [place] % (Auto) 4.2 (2-8) % Eos % (Auto) 0.6 L (1.0-3.0) % Baso % (Auto) 0.3 (0.0-1.0) % PT (9.0-12.0) SEC INR (0.9-1.2) Sodium 135 L (136-145) mmol/L Potassium 5.4 H (3.5-5.1) mmol/L Chloride 96 L (98-107) mmol/L Carbon Dioxide 28 (21-32) mmol/L Anion Gap 16.4 H (7-13) mEq/L BUN 41 H (7-18) mg/dL Creatinine 6.81 H* D (0.70-1.30) mg/dL Est Cr Clr Drug Dosing TNP Estimated GFR (MDRD) 8 BUN/Creatinine Ratio 6.0 (No establ ref range) Glucose 93 (70-99) mg/dL Lactic Acid 1.3 (0.4-2.0) mmol/L Calcium 9.2 (8.5-10.1) mg/dL Total Bilirubin 0.9 (0.2-1.0) mg/dL AST 34 (15-37) U/L ALT 25 (16-63) U/L Alkaline Phosphatase 138 H (46-116) U/L Total Protein 9.5 H (6.4-8.2) g/dL Albumin 3.6 (3.4-5.0) g/dL Globulin 5.9 Albumin/Globulin Ratio 0.6 Amylase 55 (25-115) U/L Lipase 84 (73-393) U/L Urine Color (YELLOW) Urine Appearance (CLEAR) Urine pH (5.0-9.0) Ur Specific [place] (1.005-1.030) Urine Protein (NEGATIVE) Urine Glucose (UA) (NEGATIVE) Urine Ketones (NEGATIVE) Urine Occult Blood (NEGATIVE) Urine Nitrite (NEGATIVE) Urine Bilirubin (NEGATIVE) Urine Urobilinogen (0.2-1.0) mg/dL Ur Leukocyte Esterase (NEGATIVE) U Hyaline Cast (Auto) Urine RBC /HPF Urine WBC (0-5/HPF) /HPF Ur Epithelial Cells (NOT SEEN) /HPF Amorphous Sediment (NOT SEEN) /HPF Urine Bacteria (0-FEW/HPF) /HPF Fine Granular Casts (NOT SEEN) /LPF Urine Mucus (NOT SEEN) /LPF SARS-CoV-2 RNA (DEBBY) (NEGATIVE) 01/21/21 01/21/21 01/21/21 Range/Units 22:49 22:51 23:33 WBC (5.0-10.0) 10^3/uL RBC (4.6-6.2) 10^6/uL Hgb (14.0-18.0) g/dL Hct (40.0-54.0) % MCV (80-100) fL MCH (27.0-34.0) pg MCHC (33.0-35.0) g/dL Plt Count (150-450) 10^3/uL Neut % (Auto) (42.2-75.2) % Lymph % (Auto) (20.5-50.1) % [place] % (Auto) (2-8) % Eos % (Auto) (1.0-3.0) % Baso % (Auto) (0.0-1.0) % PT 13.3 H (9.0-12.0) SEC INR 1.3 H (0.9-1.2) Sodium (136-145) mmol/L Potassium (3.5-5.1) mmol/L Chloride (98-107) mmol/L Carbon Dioxide (21-32) mmol/L Anion Gap (7-13) mEq/L BUN (7-18) mg/dL Creatinine (0.70-1.30) mg/dL Est Cr Clr Drug Dosing Estimated GFR (MDRD) BUN/Creatinine Ratio (No establ ref range) Glucose (70-99) mg/dL Lactic Acid (0.4-2.0) mmol/L Calcium (8.5-10.1) mg/dL Total Bilirubin (0.2-1.0) mg/dL AST (15-37) U/L ALT (16-63) U/L Alkaline Phosphatase (46-116) U/L Total Protein (6.4-8.2) g/dL Albumin (3.4-5.0) g/dL Globulin Albumin/Globulin Ratio Amylase (25-115) U/L Lipase (73-393) U/L Urine Color Yellow (YELLOW) Urine Appearance Cloudy (CLEAR) Urine pH 6.0 (5.0-9.0) Ur Specific [place] 1.020 (1.005-1.030) Urine Protein >=300 H (NEGATIVE) Urine Glucose (UA) 100 H (NEGATIVE) Urine Ketones Negative (NEGATIVE) Urine Occult Blood Moderate H (NEGATIVE) Urine Nitrite Negative (NEGATIVE) Urine Bilirubin Small H (NEGATIVE) Urine Urobilinogen 0.2 (0.2-1.0) mg/dL Ur Leukocyte Esterase Trace H (NEGATIVE) U Hyaline Cast (Auto) Few Urine RBC >100 H /HPF Urine WBC >100 H (0-5/HPF) /HPF Ur Epithelial Cells Few (NOT SEEN) /HPF Amorphous Sediment Many (NOT SEEN) /HPF Urine Bacteria Many H (0-FEW/HPF) /HPF Fine Granular Casts Few H (NOT SEEN) /LPF Urine Mucus Moderate H (NOT SEEN) /LPF SARS-CoV-2 RNA (DEBBY) Negative (NEGATIVE) Meds: Medications Discontinued Medications Generic Name Dose Route Start Last Admin Trade Name Freq PRN Reason Stop Dose Admin Acetaminophen 500 mg 01/21/21 22:38 01/21/21 22:42 Acetaminophen 500 Mg Tab PO 01/21/21 22:39 500 mg ONETIME ONE Administration Ceftriaxone Sodium 1 gm/ 50 mls @ 100 mls/hr 01/21/21 22:40 01/21/21 23:16 Sodium Chloride IV 01/21/21 23:09 100 mls/hr ONETIME ONE Administration - Re-Assessments/Exams Free Text/Narrative Re-Assessment/Exam: Temp improved following tylenol. More alert, joking, talking with spouse. Departure - Departure Time of Disposition: 00:32 Disposition: Home, Self-Care 01 Condition: Good Clinical Impression: Malaise, RML pneumonia CHF (congestive heart failure) Qualifiers: Heart failure type: unspecified Heart failure chronicity: acute on chronic Qualified Code(s): I50.9 - Heart failure, unspecified - Discharge Information *PRESCRIPTION DRUG MONITORING PROGRAM REVIEWED*: No *COPY OF PRESCRIPTION DRUG MONITORING REPORT IN PATIENT LUIS: No Instructions: COVID-19 Vaccine Information Referrals: Mk Gonzalez [Primary Care Provider] - Forms: ED Department Discharge Additional Instructions: rest tylenol 500mg every 4 hours as needed for fever/ discomfort continue antibiotic clinic follow up this week dialysis as scheduled. urgent follow up if symptoms worsen, uncontrolled fever, or difficulty breathing Sepsis Event Note (ED) - Evaluation Sepsis Screening Result: Possible Sepsis Risk - Focused Exam Vital Signs: Vital Signs Temp Temp Resp Pulse Ox 01/22/21 00:20 99.3 F 01/21/21 23:06 101.9 F H 22 H 94 L 01/21/21 22:42 101.9 F H - My Orders Last 24 Hours: My Active Orders 01/21/21 22:38 Blood Culture x2 Reflex Set [OM.PC] Stat 01/21/21 22:40 CULTURE BLOOD [BC] Stat 01/21/21 22:48 CULTURE BLOOD [BC] Stat 01/21/21 23:33 CULTURE URINE [RM] Stat - Assessment/Plan Last 24 Hours: My Active Orders 01/21/21 22:38 Blood Culture x2 Reflex Set [OM.PC] Stat 01/21/21 22:40 CULTURE BLOOD [BC] Stat 01/21/21 22:48 CULTURE BLOOD [BC] Stat 01/21/21 23:33 CULTURE URINE [RM] Stat
--- NOTE | 2021-01-22 00:20 | CR ---
PROCEDURE INFORMATION: Exam: XR Chest Exam date and time: 01/21/2021 10:54 PM Age: 60 years old Clinical indication: Cough and fever and shortness of breath; Additional info: Cough fever TECHNIQUE: Imaging protocol: XR of the chest. Views: 1 view. COMPARISON: 1. CR Chest 2V 12/21/2020 9:35 PM 2. CR Chest 1V Frontal 11/07/2020 4:40 PM 3. CR Chest 2V 01/07/2020 6:03 PM 4. CR Chest 2V 12/11/2017 9:41 PM FINDINGS: Tubes, catheters and devices: There is a left-sided dialysis catheter with the tip in the distal superior vena cava. Lungs: There is enlargement of the pulmonary vascularity. There is thickening of the interstitial markings. Patchy opacity in the right infrahilar region which could be secondary to atelectasis, edema or pneumonia. Pleural spaces: Unremarkable. No pleural effusion. No pneumothorax. Heart/Mediastinum: The heart is mildly enlarged. Bones/joints: Unremarkable. IMPRESSION: 1. Congestive heart failure. 2. Patchy opacity in the right infrahilar region which could be secondary to atelectasis, edema or pneumonia.
== END 2021-01-22 00:50 | disposition home or self-care (01) ==
LOC: DL.ED 22:26
DX: J18.9 Pneumonia, unspecified organism (principal); R53.81 Other malaise; I11.0 Hypertensive heart disease with heart failure; I50.9 Heart failure, unspecified; E11.21 Type 2 diabetes mellitus with diabetic nephropathy; Z79.4 Long term (current) use of insulin; Z79.899 Other long term (current) drug therapy; Z72.0 Tobacco use; Z20.822 Contact with and (suspected) exposure to COVID-19
CPT/HCPCS: 36415; 71045; 80053; 81001; 82150; 83605; 83690; 85025; 85610; 87040; 87086; 87635; 93005; 93010; 96365; 99284; 99285; A9270; J0696; U0002

== ENCOUNTER 2021-02-15 18:28 | Emergency (ER) | payer MEDICAID ==
[2021-02-15 18:36] VITALS: BP 153/79; PULSE 94
--- NOTE | 2021-02-15 19:22 | EDM.PDOC ---
ED HPI GENERAL MEDICAL PROBLEM - General Chief Complaint: General Stated Complaint: NOT FEELING GOOD NOTHING SPECIFIC Time Seen by Provider: 02/15/21 19:06 Source of Information: Reports: Patient, Family, RN - History of Present Illness INITIAL COMMENTS - FREE TEXT/NARRATIVE: 60 male who presents the ER with his for complaints of sleep. Patient reports fragmented sleep for the past 1 month and reports Benadryl and Tylenol PM is not helping. Patient states he has visited with his primary care provider and was told to try Benadryl. He reports a history of CHF, COPD, end-stage renal disease on dialysis 3 times a week. Patient reports he sleeps sitting in his wheelchair at home even though he has a recliner. He states he sleeps with his head bent in front and will have occasional shortness of breath. Admits to being compliant with his medications. He states he cannot sleep in the recliner as he feels like his neck veins will "pop". He is requesting for sleeping medication. He denies any shortness of breath, chest pain, palpitation, fevers or chills at this time. Right Leg Pain Score (Numeric/FACES): 3 - Related Data Allergies Allergy/AdvReac Type Severity Reaction Status Date / Time No Known Allergies Allergy Verified 02/15/21 18:41 Home Meds: Home Meds Aspirin [Lo-Dose Aspirin EC] 81 mg PO DAILY 08/22/18 [History] Omeprazole 20 mg PO BID 08/22/18 [History] Simvastatin 10 mg PO BEDTIME 08/22/18 [History] carvediloL [Carvedilol] 6.25 mg PO BID 08/22/18 [History] Cetirizine HCl 10 mg PO DAILY PRN 11/08/18 [History] Tiotropium [Spiriva HandiHaler] 18 mcg INH DAILY 11/08/18 [History] Cholecalciferol (Vitamin D3) [Vitamin D3] 25 mcg PO DAILY 12/20/19 [History] Gabapentin [Neurontin] 600 mg PO BID 03/19/20 [History] Acetaminophen [Tylenol] 650 mg PO Q4H PRN tablet 11/08/20 [Rx] Ibuprofen [Motrin] 600 mg PO Q6H PRN tablet 11/08/20 [Rx] Albuterol Sulfate 3 ml INH Q4HR PRN 11/18/20 [History] Albuterol Sulfate [Proair Hfa] 1 puff IH Q6HR PRN 11/18/20 [History] Bacitracin [Bacitracin Oint] 1 applic TOP QID 11/18/20 [History] Bumetanide 4 mg PO BID 11/18/20 [History] Calcium Acetate 1,334 mg PO TIDMEALS 11/18/20 [History] Calcium Carbonate [Calcium] 1,500 mg PO TIDMEALS 11/18/20 [History] Fluticasone Propion/Salmeterol [Fluticasone-Salmeterol 500-50] 1 puff INH BID 11/18/20 [History] Hydrophilic Ointment [Aquaphilic Ointment] 1 applic TOP DAILY 11/18/20 [History] Insulin NPH/Insulin Reg,Human [Novolin 70-30] 20 units SQ BID 11/18/20 [History] Losartan [Cozaar] 50 mg PO DAILY 11/18/20 [History] Midodrine 5 mg PO ASDIRECTED 11/18/20 [History] metOLazone [Metolazone] 5 mg PO DAILY 11/18/20 [History] Past Medical History HEENT History: Reports: None Cardiovascular History: Reports: Heart Failure, High Cholesterol, Hypertension, Other (See Below) Other Cardiovascular History: non-ischemic cardiomyopathy Respiratory History: Reports: Bronchitis, Recurrent, PE, Other (See Below) Other Respiratory History: ARDS (acute respiratory distress syndrome) Gastrointestinal History: Reports: GERD Other Gastrointestinal History: Spouse states client used to take medication for his stomach, but cannot recall why and cannot recall which medication. Genitourinary History: Reports: Dialysis, Diabetic Nephropathy, Other (See Below) Other Genitourinary History: Acute kidney injury Musculoskeletal History: Reports: Arthritis, Back Pain, Chronic, Fracture, Other (See Below) Other Musculoskeletal History: "Multiple fractures" Neurological History: Reports: Head Trauma, Other (See Below) Other Neuro History: fractured skull Psychiatric History: Reports: Addiction, Anxiety Endocrine/Metabolic History: Reports: Diabetes, Type II, IDDM Hematologic History: Reports: None Immunologic History: Reports: None Oncologic (Cancer) History: Reports: None Dermatologic History: Reports: Cellulitis - Infectious Disease History Infectious Disease History: Reports: Hepatitis C Other Infectious Disease History: states client has hepatitis, but unable to recall which type. - Past Surgical History Head Surgeries/Procedures: Reports: None HEENT Surgical History: Reports: Other (See Below) Other HEENT Surgeries/Procedures: Eye injections, patient unsure why Cardiovascular Surgical History: Reports: None, Other (See Below) Other Cardiovascular Surgeries/Procedures: coronary angiogram Respiratory Surgical History: Reports: Thoracentesis GI Surgical History: Reports: Appendectomy Male Surgical History: Reports: None Endocrine Surgical History: Reports: None Neurological Surgical History: Reports: None Musculoskeletal Surgical History: Reports: Amputation Other Musculoskeletal Surgeries/Procedures:: right b/k amputation Dermatological Surgical History: Reports: None Social & Family History - Family History Family Medical History: No Pertinent Family History Endocrine/Metabolic: Reports: Diabetes, type II Oncologic: Reports: Other (See Below) Other Oncologic Family History: spouse states HX of cancer in family, but unable to recall which type - Tobacco Use Tobacco Use Status *Q: Former Tobacco User Used Tobacco, but Quit: Yes Month/Year Tobacco Last Used: 02/12/21 - Caffeine Use Caffeine Use: Reports: Coffee Caffeine Use Comment: galoon of coffee and 6 pack of pop daily - Recreational Drug Use Recreational Drug Use: No - Living Situation & Occupation Living situation: Reports: with Family Occupation: Disabled ED ROS GENERAL - Review of Systems Review Of Systems: Comprehensive ROS is negative, except as noted in HPI. ED EXAM, GENERAL - Physical Exam Exam: See Below Exam Limited By: Physical Impairment General Appearance: Alert, No Apparent Distress Throat/Mouth: Other (no teeth) Head: Atraumatic Neck: Normal Inspection, Supple, Non-Tender, Full Range of Motion Respiratory/Chest: No Accessory Muscle Use, Chest Non-Tender, Decreased Breath Sounds Cardiovascular: Regular Rate, Rhythm, No Edema, No Gallop, No JVD, No Murmur, No Rub GI/Abdominal: Normal Bowel Sounds, Soft, Non-Tender, No Organomegaly, No Distention, No Abnormal Bruit, No Mass (Male) Exam: Deferred Rectal (Males) Exam: Deferred Neurological: Alert, Oriented Psychiatric: Normal Affect, Normal Mood Skin Exam: Warm, Intact Lymphatic: No Adenopathy Course - Vital Signs Last Recorded V/S: Last Vital Signs Temp 96.4 F L 02/15/21 18:35 Pulse 94 02/15/21 18:35 Resp 20 02/15/21 18:35 BP 153/79 H 02/15/21 18:35 Pulse Ox 100 02/15/21 18:35 - Re-Assessments/Exams Free Text/Narrative Re-Assessment/Exam: Reviewed exam findings with patient and his . Vitals are stable at this time. Strongly recommend the patient follows up with PCP in the clinic and also referral for possible sleep study. Encourage sleep hygiene. Patient and verbalized understanding. Departure - Departure Time of Disposition: 19:25 Disposition: Home, Self-Care 01 Condition: Good Clinical Impression: Sleep disturbance, unspecified - Discharge Information Referrals: Mk Gonzalez [Primary Care Provider] - Forms: ED Department Discharge Additional Instructions: Strongly recommend the patient follows up with PCP in the clinic and also referral for possible sleep study. Encourage sleep hygiene. Patient and verbalized understanding. Sepsis Event Note (ED) - Evaluation Sepsis Screening Result: No Definite Risk - Focused Exam Vital Signs: Vital Signs Temp Pulse Resp BP Pulse Ox 02/15/21 18:35 96.4 F L 94 20 153/79 H 100
== END 2021-02-15 19:20 | disposition home or self-care (01) ==
LOC: DL.ED 18:28
DX: G47.9 Sleep disorder, unspecified (principal); I11.0 Hypertensive heart disease with heart failure; I50.9 Heart failure, unspecified; K21.9 Gastro-esophageal reflux disease without esophagitis; E11.21 Type 2 diabetes mellitus with diabetic nephropathy; E78.00 Pure hypercholesterolemia, unspecified; Z87.891 Personal history of nicotine dependence; Z79.899 Other long term (current) drug therapy; Z79.82 Long term (current) use of aspirin; Z79.4 Long term (current) use of insulin
CPT/HCPCS: 99283

== ENCOUNTER 2021-02-28 18:30 | Emergency (ER) | payer MEDICAID ==
[2021-02-28] MEDS ORDERED: Azithromycin 250 MG Tab PO ONE (18:31)
[2021-02-28] MEDS ORDERED: Acetaminophen 500 MG Tab PO ONE (20:54)
--- NOTE | 2021-02-28 20:57 | EDM.PDOC ---
ED HPI GENERAL MEDICAL PROBLEM - General Chief Complaint: Respiratory Problem Stated Complaint: COUGH, TWO WEEKS Time Seen by Provider: 02/28/21 20:50 Source of Information: Reports: Patient History Limitations: Reports: No Limitations - History of Present Illness INITIAL COMMENTS - FREE TEXT/NARRATIVE: This 60 yo male patient reports to the ED with an increased shortness of breath and cough. The patient reports his cough started about 1 week ago and has been getting worse. The patient is a dialysis patient with his last dialysis being yesterday. The patient has not been taking any medications for his current symptoms. Onset: Today Duration: Constant Location: Reports: Chest Quality: Reports: Other Severity: Moderate Improves with: Reports: None Worsens with: Reports: None Context: Reports: Other Associated Symptoms: Reports: Cough, Shortness of Breath Treatments [employer]: Reports: Acetaminophen . Abd pain with coughing. Pain Score (Numeric/FACES): 6 - Related Data Allergies Allergy/AdvReac Type Severity Reaction Status Date / Time No Known Allergies Allergy Verified 02/28/21 19:06 Home Meds: Home Meds Aspirin [Lo-Dose Aspirin EC] 81 mg PO DAILY 08/22/18 [History] Omeprazole 20 mg PO BID 08/22/18 [History] Simvastatin 10 mg PO BEDTIME 08/22/18 [History] carvediloL [Carvedilol] 6.25 mg PO BID 08/22/18 [History] Cetirizine HCl 10 mg PO DAILY PRN 11/08/18 [History] Tiotropium [Spiriva HandiHaler] 18 mcg INH DAILY 11/08/18 [History] Cholecalciferol (Vitamin D3) [Vitamin D3] 25 mcg PO DAILY 12/20/19 [History] Acetaminophen [Tylenol] 650 mg PO Q4H PRN tablet 11/08/20 [Rx] Ibuprofen [Motrin] 600 mg PO Q6H PRN tablet 11/08/20 [Rx] Albuterol Sulfate 3 ml INH Q4HR PRN 11/18/20 [History] Albuterol Sulfate [Proair Hfa] 1 puff IH Q6HR PRN 11/18/20 [History] Bacitracin [Bacitracin Oint] 1 applic TOP QID 11/18/20 [History] Bumetanide 4 mg PO BID 11/18/20 [History] Calcium Acetate 1,334 mg PO TIDMEALS 04/20/21 [History] Calcium Carbonate [Calcium] 1,500 mg PO TIDMEALS 11/18/20 [History] Fluticasone Propion/Salmeterol [Fluticasone-Salmeterol 500-50] 1 puff INH BID 11/18/20 [History] Insulin NPH/Insulin Reg,Human [Novolin 70-30] 10 units SQ BID 11/18/20 [History] Losartan [Cozaar] 50 mg PO DAILY 11/18/20 [History] Midodrine 5 mg PO ASDIRECTED 11/18/20 [History] metOLazone [Metolazone] 5 mg PO DAILY 11/18/20 [History] Past Medical History HEENT History: Reports: None Cardiovascular History: Reports: Heart Failure, High Cholesterol, Hypertension, Other (See Below) Other Cardiovascular History: non-ischemic cardiomyopathy Respiratory History: Reports: Bronchitis, Recurrent, PE, Pneumonia, Recurrent, Other (See Below) Other Respiratory History: ARDS (acute respiratory distress syndrome) Gastrointestinal History: Reports: GERD Other Gastrointestinal History: Spouse states client used to take medication for his stomach, but cannot recall why and cannot recall which medication. Genitourinary History: Reports: Dialysis, Diabetic Nephropathy, Other (See Below) Other Genitourinary History: Acute kidney injury Musculoskeletal History: Reports: Arthritis, Back Pain, Chronic, Fracture, Other (See Below) Other Musculoskeletal History: "Multiple fractures" Neurological History: Reports: Head Trauma, Other (See Below) Other Neuro History: fractured skull Psychiatric History: Reports: Addiction, Anxiety Endocrine/Metabolic History: Reports: Diabetes, Type II, IDDM Hematologic History: Reports: None Immunologic History: Reports: None Oncologic (Cancer) History: Reports: None Dermatologic History: Reports: Cellulitis - Infectious Disease History Infectious Disease History: Reports: Hepatitis C Other Infectious Disease History: states client has hepatitis, but unable to recall which type. - Past Surgical History Head Surgeries/Procedures: Reports: None HEENT Surgical History: Reports: Other (See Below) Other HEENT Surgeries/Procedures: Eye injections, patient unsure why Cardiovascular Surgical History: Reports: None, Other (See Below) Other Cardiovascular Surgeries/Procedures: coronary angiogram Respiratory Surgical History: Reports: Thoracentesis GI Surgical History: Reports: Appendectomy Male Surgical History: Reports: None Endocrine Surgical History: Reports: None Neurological Surgical History: Reports: None Musculoskeletal Surgical History: Reports: Amputation Other Musculoskeletal Surgeries/Procedures:: right b/k amputation Dermatological Surgical History: Reports: None Social & Family History - Family History Family Medical History: No Pertinent Family History Endocrine/Metabolic: Reports: Diabetes, type II Oncologic: Reports: Other (See Below) Other Oncologic Family History: spouse states HX of cancer in family, but unable to recall which type - Tobacco Use Tobacco Use Status *Q: Former Tobacco User Used Tobacco, but Quit: Yes Month/Year Tobacco Last Used: November 2020 Second Hand Smoke Exposure: No - Caffeine Use Caffeine Use: Reports: None Caffeine Use Comment: galoon of coffee and 6 pack of pop daily - Recreational Drug Use Recreational Drug Use: Yes Recreational Drug Type: Reports: Methamphetamine Recreational Drug Use Frequency: Weekly - Living Situation & Occupation Living situation: Reports: with Family Occupation: Disabled ED ROS GENERAL - Review of Systems Review Of Systems: Comprehensive ROS is negative, except as noted in HPI. ED EXAM, GENERAL - Physical Exam Exam: See Below Exam Limited By: No Limitations General Appearance: Alert, WD/WN, Moderate Distress Eye Exam: Bilateral Eye: EOMI, Normal Inspection, PERRL Ears: Normal External Exam, Normal Canal, Hearing Grossly Normal, Normal TMs Nose: Normal Inspection, Normal Mucosa, No Blood Throat/Mouth: Normal Inspection, Normal Lips, Normal Teeth, Normal Gums, Normal Oropharynx, Normal Voice, No Airway Compromise Head: Atraumatic, Normocephalic Neck: Normal Inspection, Supple, Non-Tender, Full Range of Motion Respiratory/Chest: Lungs Clear, No Accessory Muscle Use, Chest Non-Tender, Decreased Breath Sounds Cardiovascular: Normal Peripheral Pulses, Regular Rate, Rhythm, No Edema, No Gallop, No JVD, No Murmur, No Rub GI/Abdominal: Normal Bowel Sounds, Soft, Non-Tender, No Organomegaly, No Distention, No Abnormal Bruit, No Mass (Male) Exam: Deferred Rectal (Males) Exam: Deferred Back Exam: Normal Inspection Extremities: Normal Inspection, Normal Range of Motion, Non-Tender, Normal Capillary Refill, No Pedal Edema Neurological: Alert, Oriented, CN II-XII Intact, Normal Cognition, Normal Gait, Normal Reflexes, No Motor/Sensory Deficits Psychiatric: Normal Affect, Normal Mood Skin Exam: Warm, Dry, Intact, Normal Color, No Rash Lymphatic: No Adenopathy Course - Vital Signs Last Recorded V/S: Last Vital Signs Temp 98 F 02/28/21 21:04 Pulse 101 H 02/28/21 21:04 Resp 22 H 02/28/21 21:04 BP 141/71 H 02/28/21 21:04 Pulse Ox 100 02/28/21 21:04 - Orders/Labs/Meds Orders: Active Orders 24 hr Category Date Time Status COVID-19/FLU A+B [[facility]LEC] Urgent Lab 02/28/21 20:22 Ordered CULTURE BLOOD [BC] Stat Lab 02/28/21 20:22 Ordered cefTRIAXone [Rocephin] 1 gm Med 02/28/21 21:29 Ordered Sodium Chloride 0.9% [Normal Saline] 50 ml IV ONETIME Medication Orders Ceftriaxone Sodium 1 gm/ (Sodium Chloride) 50 mls @ 100 mls/hr IV ONETIME ONE Stop: 02/28/21 21:58 Labs: Laboratory Tests 02/28/21 02/28/21 02/28/21 Range/Units 20:33 20:33 20:33 WBC 7.9 (5.0-10.0) 10^3/uL RBC 4.71 (4.6-6.2) 10^6/uL Hgb 12.4 L (14.0-18.0) g/dL Hct 37.7 L (40.0-54.0) % MCV 80.0 (80-100) fL MCH 26.3 L (27.0-34.0) pg MCHC 32.9 L (33.0-35.0) g/dL Plt Count 238 D (150-450) 10^3/uL Neut % (Auto) 67.2 (42.2-75.2) % Lymph % (Auto) 16.2 L (20.5-50.1) % [place] % (Auto) 12.0 H (2-8) % Eos % (Auto) 4.1 H (1.0-3.0) % Baso % (Auto) 0.5 (0.0-1.0) % Sodium 135 L (136-145) mmol/L Potassium 4.2 (3.5-5.1) mmol/L Chloride 95 L (98-107) mmol/L Carbon Dioxide 27 (21-32) mmol/L Anion Gap 17.2 H (7-13) mEq/L BUN 41 H (7-18) mg/dL Creatinine 7.03 H* (0.70-1.30) mg/dL Est Cr Clr Drug Dosing 10.45 mL/min Estimated GFR (MDRD) 8 BUN/Creatinine Ratio 5.8 (No establ ref range) Glucose 104 H (70-99) mg/dL Lactic Acid 1.8 (0.4-2.0) mmol/L Calcium 8.1 L (8.5-10.1) mg/dL Total Bilirubin 0.4 (0.2-1.0) mg/dL AST 29 (15-37) U/L ALT 16 (16-63) U/L Alkaline Phosphatase 142 H (46-116) U/L B-Natriuretic Peptide > 5000 H (0-100) pg/ml Total Protein 8.3 H (6.4-8.2) g/dL Albumin 3.0 L (3.4-5.0) g/dL Globulin 5.3 Albumin/Globulin Ratio 0.57 Meds: Medications Generic Name Dose Route Start Last Admin Trade Name Freq PRN Reason Stop Dose Admin Ceftriaxone Sodium 1 gm/ 50 mls @ 100 mls/hr 02/28/21 21:29 Sodium Chloride IV 02/28/21 21:58 ONETIME ONE Discontinued Medications Generic Name Dose Route Start Last Admin Trade Name Freq PRN Reason Stop Dose Admin Acetaminophen 1,000 mg 02/28/21 20:54 02/28/21 21:02 Acetaminophen 500 Mg Tab PO 02/28/21 20:55 1,000 mg ONETIME ONE Administration Departure - Departure Time of Disposition: 21:33 Disposition: Home, Self-Care 01 Condition: Fair Clinical Impression: URI (upper respiratory infection) Qualifiers: URI type: unspecified URI Qualified Code(s): J06.9 - Acute upper respiratory infection, unspecified - Discharge Information *PRESCRIPTION DRUG MONITORING PROGRAM REVIEWED*: Not Applicable *COPY OF PRESCRIPTION DRUG MONITORING REPORT IN PATIENT LUIS: Not Applicable Instructions: Upper Respiratory Infection, Adult, [id number] Forms: ED Department Discharge Care Plan Goals: The patient was advised of the examination, lab and x-ray results during the visit. The patient was given an IV dose of Rocephin while in the ED. The patient was discharged with Azithromycin (250 mg) #2 to take 2 by mouth in the morning and a script for Azithromycin (250 mg) #4 to take 1 by mouth daily for 4 days (starting 03/02/21). The patient may take [id number] medications for temporary symptom relief. If the patient has any additional symptoms or concerns, the patient should either return to the emergency department or visit his primary care facility. Sepsis Event Note (ED) - Evaluation Sepsis Screening Result: Possible Sepsis Risk - Focused Exam Vital Signs: Vital Signs Temp Pulse Resp BP Pulse Ox 02/28/21 21:04 98 F 101 H 22 H 141/71 H 100 02/28/21 20:39 98.4 F 102 H 24 H 142/79 H 100 02/28/21 18:58 98.5 F 96 24 H 128/70 99 - My Orders Last 24 Hours: My Active Orders 02/28/21 20:22 COVID-19/FLU A+B [MOLEC] Urgent CULTURE BLOOD [BC] Stat 02/28/21 21:29 cefTRIAXone [Rocephin] 1 gm Sodium Chloride 0.9% [Normal Saline] 50 ml IV ONETIME - Assessment/Plan Last 24 Hours: My Active Orders 02/28/21 20:22 COVID-19/FLU A+B [MOLEC] Urgent CULTURE BLOOD [BC] Stat 02/28/21 21:29 cefTRIAXone [Rocephin] 1 gm Sodium Chloride 0.9% [Normal Saline] 50 ml IV ONETIME
--- NOTE | 2021-02-28 21:02 | CR ---
PROCEDURE INFORMATION: Exam: XR Chest Exam date and time: 02/28/2021 8:28 PM Age: 60 years old Clinical indication: Cough and shortness of breath; Additional info: Cough with shortness of breath TECHNIQUE: Imaging protocol: XR of the chest. Views: 1 view. Total images: 1 COMPARISON: CR Chest 1V Frontal 01/21/2021 10:54 PM FINDINGS: Tubes, catheters and devices: Left jugular catheter with tip in the right atrium unchanged. Lungs: Normal pulmonary expansion. Mild central vascular congestion. Bilateral perihilar interstitial prominence and peribronchial thickening which may relate to bronchitis, interstitial edema, or interstitial pneumonitis. No nikunj consolidations. Pleural spaces: Minimal blunting of the costophrenic angles and slight minor fissural thickening. Possible trace pleural effusions, versus pleural scarring. No pneumothorax. Heart/Mediastinum: Mild cardiomegaly. No tracheal/mediastinal shift. Bones/joints: No acute osseous abnormalities are identified. Osteopenia. IMPRESSION: 1. Peribronchial thickening and perihilar interstitial prominence which may relate to bronchitis and interstitial pneumonitis versus mild CHF and mild interstitial edema. No consolidative infiltrates. 2. Mild cardiomegaly and central vascular congestion suggesting an element of chronic CHF. Possible trace pleural effusions versus chronic pleural scarring.
[2021-02-28 21:04] VITALS: BP 141/71; PULSE 101
[2021-02-28 21:21] LABS: CORONAVIRUS COVID-19 NAA NEGATIVE (NEGATIVE)
[2021-02-28] MEDS ORDERED: cefTRIAXone 1 GM in Sodium Chloride 0.9% 50 ML IV ONE (21:29)
[2021-02-28 21:30] LABS: ANION GAP 17.2 mEq/L (7-13); CHLORIDE,CL 95 mmol/L (98-107); SODIUM,NA 135 mmol/L (136-145)
[2021-02-28] MEDS ORDERED: Azithromycin 250 MG Tab ONE (21:33)
== END 2021-02-28 21:45 | disposition home or self-care (01) ==
LOC: DL.ED 18:30
DX: J06.9 Acute upper respiratory infection, unspecified (principal); I11.0 Hypertensive heart disease with heart failure; I50.9 Heart failure, unspecified; E78.00 Pure hypercholesterolemia, unspecified; K21.9 Gastro-esophageal reflux disease without esophagitis; E11.21 Type 2 diabetes mellitus with diabetic nephropathy; Z87.891 Personal history of nicotine dependence; Z79.82 Long term (current) use of aspirin; Z79.899 Other long term (current) drug therapy; Z20.822 Contact with and (suspected) exposure to COVID-19
CPT/HCPCS: 0240U; 36415; 71045; 80053; 83605; 83880; 85025; 87040; 96374; 99283; 99285; A9270; J0696

== ENCOUNTER 2021-03-01 14:57 | Emergency (ER) | payer MEDICAID ==
[2021-03-01 15:08] VITALS: BP 151/65; PULSE 106
[2021-03-01] MEDS ORDERED: Bumetanide 1 MG Tab PO ONE (15:19)
[2021-03-01] MEDS ORDERED: Codeine/Promethazine 10-6.25 MG/5 ML Syrup 5 ML UD Cup PO ONE (15:19)
[2021-03-01] MEDS ORDERED: Benzonatate 100 MG Cap PO ONE (15:19)
--- NOTE | 2021-03-01 16:13 | EDM.PDOC ---
Scribed by Fransisca Watters 03/01/21 1528 for Jose Dalton MD ED HPI GENERAL MEDICAL PROBLEM - General Chief Complaint: Chest Pain Stated Complaint: can't breathing, pain in chest Time Seen by Provider: 03/01/21 15:14 Source of Information: Reports: Patient, Family, Old Records, RN, RN Notes Reviewed History Limitations: Reports: No Limitations - History of Present Illness INITIAL COMMENTS - FREE TEXT/NARRATIVE: Patient presents to ED by POV with c/o cough x2 weeks, and now has rib pain. Pt states he slipped in the yard this morning and his crutch went out from under him causing his to fall and land on his chest. Pt c/o B/L rib pain, cough, and shortness of breath. He was seen here in ER yesterday for cough, and found to be COVID and influenza negative, non-elevated WBC, and CXR consistent with mild fluid overload. Pt denies having missed any dialysis. He is due for dialysis at [facility] in [place] this morning. Denies fever or chills. Denies sputum production. Onset: Gradual Duration: Constant Location: Reports: Chest Quality: Reports: Ache Severity: Severe Improves with: Reports: None Worsens with: Reports: Breathing (and cough) Associated Symptoms: Reports: No Other Symptoms Thoracic Pain Score (Numeric/FACES): 9 - Related Data Allergies Allergy/AdvReac Type Severity Reaction Status Date / Time No Known Allergies Allergy Verified 03/01/21 15:10 Home Meds: Home Meds Aspirin [Lo-Dose Aspirin EC] 81 mg PO DAILY 08/22/18 [History] Omeprazole 20 mg PO BID 08/22/18 [History] Simvastatin 10 mg PO BEDTIME 08/22/18 [History] carvediloL [Carvedilol] 6.25 mg PO BID 08/22/18 [History] Cetirizine HCl 10 mg PO DAILY PRN 11/08/18 [History] Tiotropium [Spiriva HandiHaler] 18 mcg INH DAILY 11/08/18 [History] Cholecalciferol (Vitamin D3) [Vitamin D3] 25 mcg PO DAILY 12/20/19 [History] Acetaminophen [Tylenol] 650 mg PO Q4H PRN tablet 11/08/20 [Rx] Ibuprofen [Motrin] 600 mg PO Q6H PRN tablet 11/08/20 [Rx] Albuterol Sulfate 3 ml INH Q4HR PRN 11/18/20 [History] Albuterol Sulfate [Proair Hfa] 1 puff IH Q6HR PRN 11/18/20 [History] Bacitracin [Bacitracin Oint] 1 applic TOP QID 11/18/20 [History] Bumetanide 4 mg PO BID 11/18/20 [History] Calcium Acetate 1,334 mg PO TIDMEALS 11/18/20 [History] Calcium Carbonate [Calcium] 1,500 mg PO TIDMEALS 11/18/20 [History] Fluticasone Propion/Salmeterol [Fluticasone-Salmeterol 500-50] 1 puff INH BID 11/18/20 [History] Insulin NPH/Insulin Reg,Human [Novolin 70-30] 10 units SQ BID 11/18/20 [History] Losartan [Cozaar] 50 mg PO DAILY 11/18/20 [History] Midodrine 5 mg PO ASDIRECTED 11/18/20 [History] metOLazone [Metolazone] 5 mg PO DAILY 11/18/20 [History] Past Medical History HEENT History: Reports: None Cardiovascular History: Reports: Heart Failure, High Cholesterol, Hypertension, Other (See Below) Other Cardiovascular History: non-ischemic cardiomyopathy Respiratory History: Reports: Bronchitis, Recurrent, PE, Pneumonia, Recurrent, Other (See Below) Other Respiratory History: ARDS (acute respiratory distress syndrome) Gastrointestinal History: Reports: GERD Other Gastrointestinal History: Spouse states client used to take medication for his stomach, but cannot recall why and cannot recall which medication. Genitourinary History: Reports: Dialysis, Diabetic Nephropathy, Other (See Below) Other Genitourinary History: Acute kidney injury Musculoskeletal History: Reports: Arthritis, Back Pain, Chronic, Fracture, Other (See Below) Other Musculoskeletal History: "Multiple fractures" Neurological History: Reports: Head Trauma, Other (See Below) Other Neuro History: fractured skull Psychiatric History: Reports: Addiction, Anxiety Endocrine/Metabolic History: Reports: Diabetes, Type II, IDDM Hematologic History: Reports: None Immunologic History: Reports: None Oncologic (Cancer) History: Reports: None Dermatologic History: Reports: Cellulitis - Infectious Disease History Infectious Disease History: Reports: Hepatitis C Other Infectious Disease History: states client has hepatitis, but unable to recall which type. - Past Surgical History Head Surgeries/Procedures: Reports: None HEENT Surgical History: Reports: Other (See Below) Other HEENT Surgeries/Procedures: Eye injections, patient unsure why Cardiovascular Surgical History: Reports: None, Other (See Below) Other Cardiovascular Surgeries/Procedures: coronary angiogram Respiratory Surgical History: Reports: Thoracentesis GI Surgical History: Reports: Appendectomy Male Surgical History: Reports: None Endocrine Surgical History: Reports: None Neurological Surgical History: Reports: None Musculoskeletal Surgical History: Reports: Amputation Other Musculoskeletal Surgeries/Procedures:: right b/k amputation Dermatological Surgical History: Reports: None Social & Family History - Family History Family Medical History: No Pertinent Family History Endocrine/Metabolic: Reports: Diabetes, type II Oncologic: Reports: Other (See Below) Other Oncologic Family History: spouse states HX of cancer in family, but unable to recall which type - Tobacco Use Tobacco Use Status *Q: Former Tobacco User Used Tobacco, but Quit: Yes Month/Year Tobacco Last Used: 0 - Caffeine Use Caffeine Use: Reports: Soda Caffeine Use Comment: galoon of coffee and 6 pack of pop daily - Recreational Drug Use Recreational Drug Use: No - Living Situation & Occupation Living situation: Reports: with Family Occupation: Disabled ED ROS GENERAL - Review of Systems Review Of Systems: Comprehensive ROS is negative, except as noted in HPI. ED EXAM, GENERAL - Physical Exam Exam: See Below Exam Limited By: No Limitations General Appearance: Alert, No Apparent Distress, Anxious, Other (Chronically ill, non-toxic appearing) Eye Exam: Bilateral Eye: Normal Inspection Nose: Normal Inspection, Normal Mucosa, No Blood Throat/Mouth: Normal Lips, Normal Voice, No Airway Compromise Head: Atraumatic, Normocephalic Neck: Normal Inspection, Supple, Non-Tender, Full Range of Motion Respiratory/Chest: No Respiratory Distress, No Accessory Muscle Use, Crackles, Rales, Other (B/L anterior/lat. chest tenderness, no visible bruising or deformity. Dry cough.). No: Rhonchi, Wheezing Cardiovascular: Regular Rate, Rhythm, Tachycardia GI/Abdominal: Normal Bowel Sounds, Soft, Non-Tender Back Exam: Full Range of Motion. No: Vertebral Tenderness Extremities: Other (Right BKA) Neurological: Alert, Oriented, No Motor/Sensory Deficits Psychiatric: Anxious, Depressed Mood, Flat Affect Skin Exam: Warm, Dry, Normal Color, No Rash Course - Vital Signs Last Recorded V/S: Last Vital Signs Temp 99.5 F 03/01/21 15:07 Pulse 106 H 03/01/21 15:07 Resp 22 H 03/01/21 15:07 BP 151/65 H 03/01/21 15:07 Pulse Ox 100 03/01/21 15:07 - Orders/Labs/Meds Orders: Active Orders 24 hr Category Date Time Status Chest wo Cont [CT] Urgent Exams 03/01/21 15:20 Taken Meds: Medications Discontinued Medications Generic Name Dose Route Start Last Admin Trade Name Jenny PRN Reason Stop Dose Admin Benzonatate 200 mg 03/01/21 15:19 03/01/21 15:31 Benzonatate 100 Mg Cap PO 03/01/21 15:20 200 mg ONETIME ONE Administration Bumetanide 2 mg 03/01/21 15:19 03/01/21 15:31 Bumetanide 1 Mg Tab PO 03/01/21 15:20 2 mg ONETIME ONE Administration Promethazine HCl/Codeine 5 ml 03/01/21 15:19 03/01/21 15:31 Codeine/Promethazine 10-6.25 Mg/5 Ml Syrup 5 Ml Ud Cup PO 03/01/21 15:20 5 ml ONETIME ONE Administration - Re-Assessments/Exams Free Text/Narrative Re-Assessment/Exam: 03/01/21 15:29 ER chart note from 02/28/21 including lab results and chest x-ray reviewed. Departure - Departure Time of Disposition: 16:10 Disposition: Home, Self-Care 01 Condition: Good Clinical Impression: Chest wall pain, Cough, ESRD on hemodialysis Fluid overload Qualifiers: Hypervolemia type: unspecified Qualified Code(s): E87.70 - Fluid overload, unspecified CHF, acute on chronic Qualifiers: Heart failure type: combined systolic and diastolic Qualified Code(s): I50.43 - Acute on chronic combined systolic (congestive) and diastolic (congestive) heart failure Instructions: Cough, Adult, [id number], Heart Failure, Self Care, Chest Wall Pain Forms: ED Department Discharge Additional Instructions: Rx: Tessalon Perles 200mg Continue Zithromax (antibiotic) as previously prescribed. Follow up this morning with dialysis. Inform the dialysis nurse that your chest x-ray shows fluid overload, your BNP lab is >5000, that you have a cough, and your COVID test was negative. Sepsis Event Note (ED) - Evaluation Sepsis Screening Result: No Definite Risk - Focused Exam Vital Signs: Vital Signs Temp Pulse Resp BP Pulse Ox 03/01/21 15:07 99.5 F 106 H 22 H 151/65 H 100 - My Orders Last 24 Hours: My Active Orders 03/01/21 15:20 Chest wo Cont [CT] Urgent - Assessment/Plan Last 24 Hours: My Active Orders 03/01/21 15:20 Chest wo Cont [CT] Urgent I have read and agree with the documentation that has been completed regarding this visit. By signing this record, I attest that the documentation was completed in my physical presence and is an accurate record of the encounter.
--- NOTE | 2021-03-01 16:29 | CT ---
PROCEDURE INFORMATION: Exam: CT Chest Without Contrast; Diagnostic Exam date and time: 03/01/2021 3:51 PM Age: 60 years old Clinical indication: Other: Dialysis patient; Patient HX: Unable to hold his breath; Additional info: Cough, rales, chest wall pain S/P fall TECHNIQUE: Imaging protocol: Diagnostic computed tomography of the chest without contrast. Radiation optimization: All CT scans at this facility use at least one of these dose optimization techniques: automated exposure control; mA and/or kV adjustment per patient size (includes targeted exams where dose is matched to clinical indication); or iterative reconstruction. COMPARISON: CT Chest wo Cont 08/02/2018 9:48 AM FINDINGS: Tubes, catheters and devices: Dialysis catheter terminates at the cavoatrial junction. Lungs: Mild interstitial prominence over the bases likely due to edema. Mild bilateral dependent atelectasis. Pleural spaces: Small layering right effusion. Trace left effusion. Heart: Mild cardiac enlargement. Coronary artery calcifications are seen. Aorta: Unremarkable. No aortic aneurysm. Lymph nodes: Mildly prominent mediastinal lymph nodes. Intraperitoneal space: Mild thickening of the left fissure could be due to fluid are edema. Bones/joints: Unremarkable. No acute fracture. Soft tissues: Mild gynecomastia. IMPRESSION: Constellation of findings compatible with CHF and/or fluid overload.
== END 2021-03-01 16:36 | disposition home or self-care (01) ==
LOC: DL.ED 14:57
DX: I13.2 Hypertensive heart and chronic kidney disease with heart failure and with stage 5 chronic kidney disease, or end stage renal disease (principal); E11.22 Type 2 diabetes mellitus with diabetic chronic kidney disease; N18.6 End stage renal disease; I50.43 Acute on chronic combined systolic (congestive) and diastolic (congestive) heart failure; E87.70 Fluid overload, unspecified; E78.00 Pure hypercholesterolemia, unspecified; K21.9 Gastro-esophageal reflux disease without esophagitis; E11.21 Type 2 diabetes mellitus with diabetic nephropathy; M19.90 Unspecified osteoarthritis, unspecified site; Z99.2 Dependence on renal dialysis; Z87.891 Personal history of nicotine dependence; Z79.82 Long term (current) use of aspirin; Z79.4 Long term (current) use of insulin; Z79.899 Other long term (current) drug therapy
CPT/HCPCS: 71250; 99285; A9270

== ENCOUNTER 2021-03-09 23:52 | Emergency (ER) | payer MEDICAID ==
[2021-03-10 00:06] VITALS: BP 138/58; PULSE 91
[2021-03-10] MEDS ORDERED: HYDROmorphone 1 MG/ML Syringe IM ONE (00:30)
--- NOTE | 2021-03-10 00:42 | EDM.PDOC ---
ED HPI GENERAL MEDICAL PROBLEM - General Chief Complaint: Lower Extremity Injury/Pain Stated Complaint: RIGHT LEG PAIN HAD AMPUTATED Time Seen by Provider: 03/10/21 00:10 Source of Information: Reports: Patient, RN, RN Notes Reviewed History Limitations: Reports: No Limitations - History of Present Illness INITIAL COMMENTS - FREE TEXT/NARRATIVE: Prabhu is a 60 y/o male with a history of ESRD on hemodialysis and right AKA who presents to the ED via personal vehicle with for complaints of pain to his right stump. The patient reports he underwent revision of his right AKA five days ago at [facility] in [place]. He has been hospitalized up until two hours ago, at which time he left AMA from [facility] due to family constraints. He states he was not prescribed pain medication as he left [place]. He states he has no plans for post-surgery follow up. He denies recent fever, shaking chills, palpitations, nausea, vomiting, or diarrhea. He is concerned he will not be able to sleep tonight due to pain. He has taken acetaminophen 2gm x1 which offered him no alleviation of his pain. Right Lower Leg Pain Score (Numeric/FACES): 8 - Related Data Allergies Allergy/AdvReac Type Severity Reaction Status Date / Time No Known Allergies Allergy Verified 03/01/21 15:10 Home Meds: Home Meds Aspirin [Lo-Dose Aspirin EC] 81 mg PO DAILY 08/22/18 [History] Omeprazole 20 mg PO BID 08/22/18 [History] Simvastatin 10 mg PO BEDTIME 08/22/18 [History] carvediloL [Carvedilol] 6.25 mg PO BID 08/22/18 [History] Cetirizine HCl 10 mg PO DAILY PRN 11/08/18 [History] Tiotropium [Spiriva HandiHaler] 18 mcg INH DAILY 11/08/18 [History] Cholecalciferol (Vitamin D3) [Vitamin D3] 25 mcg PO DAILY 12/20/19 [History] Acetaminophen [Tylenol] 650 mg PO Q4H PRN tablet 11/08/20 [Rx] Ibuprofen [Motrin] 600 mg PO Q6H PRN tablet 11/08/20 [Rx] Albuterol Sulfate 3 ml INH Q4HR PRN 11/18/20 [History] Albuterol Sulfate [Proair Hfa] 1 puff IH Q6HR PRN 11/18/20 [History] Bacitracin [Bacitracin Oint] 1 applic TOP QID 11/18/20 [History] Bumetanide 4 mg PO BID 11/18/20 [History] Calcium Acetate 1,334 mg PO TIDMEALS 11/18/20 [History] Calcium Carbonate [Calcium] 1,500 mg PO TIDMEALS 11/18/20 [History] Fluticasone Propion/Salmeterol [Fluticasone-Salmeterol 500-50] 1 puff INH BID 11/18/20 [History] Insulin NPH/Insulin Reg,Human [Novolin 70-30] 10 units SQ BID 11/18/20 [History] Losartan [Cozaar] 50 mg PO DAILY 11/18/20 [History] Midodrine 5 mg PO ASDIRECTED 11/18/20 [History] metOLazone [Metolazone] 5 mg PO DAILY 11/18/20 [History] Past Medical History HEENT History: Reports: None Cardiovascular History: Reports: Heart Failure, High Cholesterol, Hypertension, Other (See Below) Other Cardiovascular History: non-ischemic cardiomyopathy Respiratory History: Reports: Bronchitis, Recurrent, PE, Pneumonia, Recurrent, Other (See Below) Other Respiratory History: ARDS (acute respiratory distress syndrome) Gastrointestinal History: Reports: GERD Other Gastrointestinal History: Spouse states client used to take medication for his stomach, but cannot recall why and cannot recall which medication. Genitourinary History: Reports: Dialysis, Diabetic Nephropathy, Other (See Below) Other Genitourinary History: Acute kidney injury Musculoskeletal History: Reports: Arthritis, Back Pain, Chronic, Fracture, Other (See Below) Other Musculoskeletal History: "Multiple fractures" Neurological History: Reports: Head Trauma, Other (See Below) Other Neuro History: fractured skull Psychiatric History: Reports: Addiction, Anxiety Endocrine/Metabolic History: Reports: Diabetes, Type II, IDDM Hematologic History: Reports: None Immunologic History: Reports: None Oncologic (Cancer) History: Reports: None Dermatologic History: Reports: Cellulitis - Infectious Disease History Infectious Disease History: Reports: Hepatitis C Other Infectious Disease History: states client has hepatitis, but unable to recall which type. - Past Surgical History Head Surgeries/Procedures: Reports: None HEENT Surgical History: Reports: Other (See Below) Other HEENT Surgeries/Procedures: Eye injections, patient unsure why Cardiovascular Surgical History: Reports: None, Other (See Below) Other Cardiovascular Surgeries/Procedures: coronary angiogram Respiratory Surgical History: Reports: Thoracentesis GI Surgical History: Reports: Appendectomy Male Surgical History: Reports: None Endocrine Surgical History: Reports: None Neurological Surgical History: Reports: None Musculoskeletal Surgical History: Reports: Amputation Other Musculoskeletal Surgeries/Procedures:: right b/k amputation Dermatological Surgical History: Reports: None Social & Family History - Family History Family Medical History: No Pertinent Family History Endocrine/Metabolic: Reports: Diabetes, type II Oncologic: Reports: Other (See Below) Other Oncologic Family History: spouse states HX of cancer in family, but unable to recall which type - Tobacco Use Tobacco Use Status *Q: Current Every Day Tobacco User Years of Tobacco use: 30 Packs/Tins Daily: 0.1 Second Hand Smoke Exposure: Yes - Caffeine Use Caffeine Use: Reports: Soda Caffeine Use Comment: galoon of coffee and 6 pack of pop daily - Recreational Drug Use Recreational Drug Use: No - Living Situation & Occupation Living situation: Reports: with Family Occupation: Disabled Review of Systems - Review of Systems Review Of Systems: Comprehensive ROS is negative, except as noted in HPI. ED EXAM, GENERAL - Physical Exam Exam: See Below Exam Limited By: No Limitations General Appearance: Alert, No Apparent Distress, Thin Ears: Normal External Exam, Hearing Grossly Normal Nose: Normal Inspection, Normal Mucosa, No Blood Throat/Mouth: Normal Inspection, Normal Oropharynx, Normal Voice, No Airway Compromise Head: Atraumatic, Normocephalic Neck: Normal Inspection, Supple, Non-Tender, Full Range of Motion Respiratory/Chest: No Respiratory Distress, Lungs Clear, Normal Breath Sounds, No Accessory Muscle Use Cardiovascular: Normal Peripheral Pulses, Regular Rate, Rhythm, No Edema, No Gallop, No JVD, No Murmur, No Rub Peripheral Pulses: 2+: Radial (L), Radial (R) GI/Abdominal: Normal Bowel Sounds, Soft, Non-Tender, No Distention, No Abnormal Bruit, No Mass, Pelvis Stable (Male) Exam: Deferred Rectal (Males) Exam: Deferred Back Exam: Normal Inspection, Full Range of Motion Extremities: Normal Range of Motion, Normal Capillary Refill, Leg Pain (To right AKA stump), Other (Surgical dressing in place to right stump) Neurological: Alert, Oriented, CN II-XII Intact, Normal Cognition, No Motor/Sensory Deficits, Abnormal Gait (Right AKA) Psychiatric: Normal Affect, Normal Mood Skin Exam: Warm, Dry, Intact, Normal Color, No Rash. No: Cyanosis, Ecchymosis, Erythema, Jaundice, Mottled, Pallor, Petechiae Course - Vital Signs Last Recorded V/S: Last Vital Signs Temp 98.4 F 03/10/21 00:01 Pulse 91 03/10/21 00:01 Resp 18 03/10/21 00:01 BP 138/58 L 03/10/21 00:01 Pulse Ox 99 03/10/21 00:01 - Orders/Labs/Meds Meds: Medications Discontinued Medications Generic Name Dose Route Start Last Admin Trade Name Freq PRN Reason Stop Dose Admin Hydromorphone HCl 1 mg 03/10/21 00:30 03/10/21 00:36 Hydromorphone 1 Mg/Ml Syringe IM 03/10/21 00:31 1 mg ONETIME ONE Administration - Re-Assessments/Exams Free Text/Narrative Re-Assessment/Exam: 03/10/21 Will treat acute pain with Dilaudid 1mg IM. Patient instructed to follow up with primary care provider and surgeon regarding ongoing plan of post-surgical care, including pain management. Discussed supportive cares for post-op wound. Red flag signs and symptoms which would warrant reevaluation reviewed. Patient verbalized understanding and agreement with the plan of care. Departure - Departure Time of Disposition: 00:44 Disposition: Home, Self-Care 01 Condition: Good Clinical Impression: Right above-knee amputee, Pain of amputation stump of right lower extremity - Discharge Information *PRESCRIPTION DRUG MONITORING PROGRAM REVIEWED*: Not Applicable *COPY OF PRESCRIPTION DRUG MONITORING REPORT IN PATIENT LUIS: Not Applicable Instructions: Living With an Amputation Forms: ED Department Discharge Additional Instructions: 1.) Follow up with your primary care provider tomorrow regarding hospitalization and today's ER visit. 2.) Follow up with your surgeon regarding ongoing care for post-operative wound. 3.) Keep dressing clean and dry; discuss plan for wound care with surgeon. 4.) Keep leg elevated on pillows to help with swelling. 5.) You may take acetaminophen (Tylenol) 1000mg every six hours, as pain persists. Sepsis Event Note (ED) - Evaluation Sepsis Screening Result: No Definite Risk - Focused Exam Vital Signs: Vital Signs Temp Pulse Resp BP Pulse Ox 03/10/21 00:01 98.4 F 91 18 138/58 L 99
== END 2021-03-10 00:55 | disposition home or self-care (01) ==
LOC: DL.ED 23:52
DX: T87.89 Other complications of amputation stump (principal); M79.604 Pain in right leg; I12.0 Hypertensive chronic kidney disease with stage 5 chronic kidney disease or end stage renal disease; E11.9 Type 2 diabetes mellitus without complications; N18.6 End stage renal disease; Z79.82 Long term (current) use of aspirin; Z79.4 Long term (current) use of insulin; Z79.899 Other long term (current) drug therapy; Z72.0 Tobacco use; Z89.611 Acquired absence of right leg above knee
CPT/HCPCS: 96372; 99283; J1170

== ENCOUNTER 2021-04-15 19:15 | Emergency (ER) | payer MEDICAID ==
--- NOTE | 2021-04-15 19:44 | EDM.PDOC ---
ED HPI GENERAL MEDICAL PROBLEM - General Chief Complaint: General Stated Complaint: fall Time Seen by Provider: 04/15/21 19:40 Source of Information: Reports: Patient, EMS History Limitations: Reports: No Limitations - History of Present Illness INITIAL COMMENTS - FREE TEXT/NARRATIVE: Patient comes emergency department today from home by ambulance with concerns of a fall and head injury. This patient is right lower extremity amputee who was sitting on the floor today who went to get up from the floor and he lost his balance and fell from a half standing position striking the right side of his head on the ground. There was no loss of consciousness according to the patient as well as bystanders. This happened about 3 hours prior to arrival. There is some question of confusion with the family at home following this incident. Although according to EMS this patient is typically somewhat pleasantly confused or disoriented. He is a dialysis patient who is to be at dialysis in the morning is not missed any recent runs of dialysis. When he arrives he is only complaining of some pain to his right church. He had a headache earlier today but does not have it now. When he had his fall he had no chest pain no shortness of breath or difficulty breathing nor does he have it now. He has had no palpitations weakness dizziness lightheadedness or syncope. He has had no fever or chills. No abdominal pain nausea or vomiting. He is only complaining of pain to his right church region. He has no visual acuity changes. No diplopia. No paresthesias of his upper or lower extremities. He is unsure if he is on any long-term anticoagulants. He denies any neck pain. This happened at noon today didn't come in till now because he needed a nap before he came to the emergency department. Treatments MODEL [employer]KER: Reports: IV/IO - Related Data Allergies Allergy/AdvReac Type Severity Reaction Status Date / Time No Known Allergies Allergy Verified 03/01/21 15:10 Home Meds: Home Meds Aspirin [Lo-Dose Aspirin EC] 81 mg PO DAILY 08/22/18 [History] Omeprazole 20 mg PO BID 08/22/18 [History] Simvastatin 10 mg PO BEDTIME 08/22/18 [History] carvediloL [Carvedilol] 6.25 mg PO BID 08/22/18 [History] Cetirizine HCl 10 mg PO DAILY PRN 11/08/18 [History] Tiotropium [Spiriva HandiHaler] 18 mcg INH DAILY 11/08/18 [History] Cholecalciferol (Vitamin D3) [Vitamin D3] 25 mcg PO DAILY 12/20/19 [History] Acetaminophen [Tylenol] 650 mg PO Q4H PRN tablet 11/08/20 [Rx] Ibuprofen [Motrin] 600 mg PO Q6H PRN tablet 11/08/20 [Rx] Albuterol Sulfate 3 ml INH Q4HR PRN 11/18/20 [History] Albuterol Sulfate [Proair Hfa] 1 puff IH Q6HR PRN 11/18/20 [History] Bacitracin [Bacitracin Oint] 1 applic TOP QID 11/18/20 [History] Bumetanide 4 mg PO BID 11/18/20 [History] Calcium Acetate 1,334 mg PO TIDMEALS 11/18/20 [History] Calcium Carbonate [Calcium] 1,500 mg PO TIDMEALS 11/18/20 [History] Fluticasone Propion/Salmeterol [Fluticasone-Salmeterol 500-50] 1 puff INH BID 11/18/20 [History] Insulin NPH/Insulin Reg,Human [Novolin 70-30] 10 units SQ BID 11/18/20 [History] Losartan [Cozaar] 50 mg PO DAILY 11/18/20 [History] Midodrine 5 mg PO ASDIRECTED 11/18/20 [History] metOLazone [Metolazone] 5 mg PO DAILY 11/18/20 [History] Past Medical History HEENT History: Reports: None Cardiovascular History: Reports: Heart Failure, High Cholesterol, Hypertension, Other (See Below) Other Cardiovascular History: non-ischemic cardiomyopathy Respiratory History: Reports: Bronchitis, Recurrent, PE, Pneumonia, Recurrent, Other (See Below) Other Respiratory History: ARDS (acute respiratory distress syndrome) Gastrointestinal History: Reports: GERD Other Gastrointestinal History: Spouse states client used to take medication for his stomach, but cannot recall why and cannot recall which medication. Genitourinary History: Reports: Dialysis, Diabetic Nephropathy, Other (See Below) Other Genitourinary History: Acute kidney injury Musculoskeletal History: Reports: Arthritis, Back Pain, Chronic, Fracture, Other (See Below) Other Musculoskeletal History: "Multiple fractures" Neurological History: Reports: Head Trauma, Other (See Below) Other Neuro History: fractured skull Psychiatric History: Reports: Addiction, Anxiety Endocrine/Metabolic History: Reports: Diabetes, Type II, IDDM Hematologic History: Reports: None Immunologic History: Reports: None Oncologic (Cancer) History: Reports: None Dermatologic History: Reports: Cellulitis - Infectious Disease History Infectious Disease History: Reports: Hepatitis C Other Infectious Disease History: states client has hepatitis, but unable to recall which type. - Past Surgical History Head Surgeries/Procedures: Reports: None HEENT Surgical History: Reports: Other (See Below) Other HEENT Surgeries/Procedures: Eye injections, patient unsure why Cardiovascular Surgical History: Reports: None, Other (See Below) Other Cardiovascular Surgeries/Procedures: coronary angiogram Respiratory Surgical History: Reports: Thoracentesis GI Surgical History: Reports: Appendectomy Male Surgical History: Reports: None Endocrine Surgical History: Reports: None Neurological Surgical History: Reports: None Musculoskeletal Surgical History: Reports: Amputation Other Musculoskeletal Surgeries/Procedures:: right b/k amputation Dermatological Surgical History: Reports: None Social & Family History - Family History Family Medical History: No Pertinent Family History Endocrine/Metabolic: Reports: Diabetes, type II Oncologic: Reports: Other (See Below) Other Oncologic Family History: spouse states HX of cancer in family, but unable to recall which type - Caffeine Use Caffeine Use: Reports: Soda Caffeine Use Comment: galoon of coffee and 6 pack of pop daily - Living Situation & Occupation Living situation: Reports: with Family Occupation: Disabled ED ROS GENERAL - Review of Systems Review Of Systems: Comprehensive ROS is negative, except as noted in HPI. ED EXAM, GENERAL - Physical Exam Exam: See Below Free Text/Narrative:: He is alert and appropriate. When visiting with him there appears to be no confusion when I ask him what the date or the year is he is unsure but he states that he typically does not know them anyways because it does not matter to him the only thing he needs to know is when he goes to dialysis. Nursing staff states this is his typical neurological status. Exam Limited By: No Limitations General Appearance: Alert, WD/WN, No Apparent Distress Eye Exam: Bilateral Eye: EOMI, PERRL Ears: Normal External Exam Ear Exam: Bilateral Ear: TM normal Nose: Normal Inspection Throat/Mouth: Normal Inspection Head: Normocephalic, Other (He does have some tenderness to the right temporal region. There is no overt bony deformity crepitus bruising swelling ecchymosis. The rest of the head is atraumatic.) Neck: Normal Inspection, Supple, Non-Tender, Full Range of Motion. No: Tender Lateral, Tender Midline Respiratory/Chest: No Respiratory Distress, Lungs Clear, Normal Breath Sounds, No Accessory Muscle Use, Chest Non-Tender Cardiovascular: Normal Peripheral Pulses, Regular Rate, Rhythm GI/Abdominal: Normal Bowel Sounds, Soft, Non-Tender Back Exam: Normal Inspection. No: Paraspinal Tenderness, Vertebral Tenderness Extremities: Normal Inspection (Normal inspection other than a right BKA which is unremarkable.) Neurological: Alert, CN II-XII Intact, Normal Cognition, Normal Reflexes, No Motor/Sensory Deficits (Other than his not knowing what date or year it is) Psychiatric: Flat Affect Skin Exam: Warm, Dry, Intact, Normal Color, No Rash Course - Vital Signs Last Recorded V/S: Last Vital Signs Temp 98.4 F 04/15/21 19: Pulse 88 04/15/21 19: Resp 16 04/15/21 19: BP 153/77 H 04/15/21 19:21 Pulse Ox 96 04/15/21 19:21 - Orders/Labs/Meds Labs: Laboratory Tests 04/15/21 04/15/21 04/15/21 Range/Units 20:07 20:07 20:07 WBC 6.4 (5.0-10.0) 10^3/uL RBC 3.90 L (4.6-6.2) 10^6/uL Hgb 10.2 L D (14.0-18.0) g/dL Hct 32.3 L (40.0-54.0) % MCV 82.8 (80-100) fL MCH 26.2 L (27.0-34.0) pg MCHC 31.6 L (33.0-35.0) g/dL Plt Count 178 (150-450) 10^3/uL Neut % (Auto) 63.9 (42.2-75.2) % Lymph % (Auto) 20.7 (20.5-50.1) % Woods % (Auto) 11.0 H (2-8) % Eos % (Auto) 4.1 H (1.0-3.0) % Baso % (Auto) 0.3 (0.0-1.0) % Sodium 137 (136-145) mmol/L Potassium 3.7 (3.5-5.1) mmol/L Chloride 100 (98-107) mmol/L Carbon Dioxide 30 (21-32) mmol/L Anion Gap 10.7 (7-13) mEq/L BUN 29 H (7-18) mg/dL Creatinine 6.44 H* (0.70-1.30) mg/dL Est Cr Clr Drug Dosing TNP Estimated GFR (MDRD) 9 Glucose 152 H (70-99) mg/dL Calcium 9.5 (8.5-10.1) mg/dL Ammonia 15 (11-32) umol/L Ethyl Alcohol < 3 (0) mg/dL - Radiology Interpretation Free Text/Narrative:: [facility] Final Radiology Report Call: [phone] assistance Online chat: [email or web address] Name: ABHILASH SAHA Age: 60Years M Date: 04/15/2021 SSN: -- : 1960 Study: CT HEAD WO CONT Requesting Physician: ANGELA HANCOCK Images: 147 Addl Studies: Provided Clinical History: fall head injury Contrast: Without Contrast Medium: Contrast Amount: Contrast Method: Page 1 of 2 PROCEDURE INFORMATION: Exam: CT Head Without Contrast Exam date and time: 04/15/2021 7:45 PM Age: 60 years old Clinical indication: Injury or trauma; Fall; Blunt trauma (contusions or hematomas); Consciousness not specified; Additional info: Fall head injury TECHNIQUE: Imaging protocol: Computed tomography of the head without contrast. Radiation optimization: All CT scans at this facility use at least one of these dose optimization techniques: automated exposure control; mA and/or kV adjustment per patient size (includes targeted exams where dose is matched to clinical indication); or iterative reconstruction. COMPARISON: CT Head wo Cont 09/21/2019 1:08 AM FINDINGS: Brain: There is mild parenchymal volume loss. Mild confluent matter changes are demonstrated in the subcortical, centrum semiovale and periventricular white matter consistent with chronic age related small vessel ischemic changes. [id number] cerebellar atrophy. Cerebral ventricles: No ventriculomegaly. Paranasal sinuses: Visualized sinuses are unremarkable. No fluid levels. Mastoid air cells: Visualized mastoid air cells are well aerated. Vasculature: Atherosclerotic calcifications are demonstrated in the intracranial carotid arteries bilaterally as well as in the vertebral basilar system. Bones/joints: Age-indeterminate nasal fracture. Finding unchanged in comparison the prior study of 09/21/2019. Soft tissues: Unremarkable. IMPRESSION: ABHILASH SAHA | Final Radiology Report CONFIDENTIALITY STATEMENT This report is intended only for use by the referring physician, and only in accordance with law. If you received this in error, call [phone]. Page 2 of 2 1. There is mild parenchymal volume loss. Mild confluent matter changes are demonstrated in the subcortical, centrum semiovale and periventricular white matter consistent with chronic age related small vessel ischemic changes. 2. Jyvf-fq-lsriyhpe cerebellar atrophy. 3. No acute intracranial findings. - Re-Assessments/Exams Free Text/Narrative Re-Assessment/Exam: 04/15/21 21:08 CT of the head is unremarkable. This patient has met his period of time of observation following a head injury. His laboratory evaluation is at baseline. This is the patient's typical neurological status with the nursing staff who knows him well as well as his family. We will discharge him home with symptomatic management and rest for close head injury. Is comfortable with this plan and his questions are answered. Departure - Departure Time of Disposition: 20:44 Disposition: Home, Self-Care 01 Clinical Impression: Fall Qualifiers: Encounter type: initial encounter Qualified Code(s): W19.XXXA - Unspecified fall, initial encounter Closed head injury Qualifiers: Encounter type: initial encounter Qualified Code(s): S09.90XA - Unspecified injury of head, initial encounter - Discharge Information Instructions: Head Injury, Adult, [id number] Forms: ED Department Discharge Additional Instructions: Careful with movements. Rest the next few days. Decrease stimulation to the brain from lights sounds and irritants. Return to the ED if new or worsening symptoms. Follow up with PCP as needed. Sepsis Event Note (ED) - Focused Exam Vital Signs: Vital Signs Temp Pulse Resp BP Pulse Ox 04/15/21 19:21 98.4 F 88 16 153/77 H 96
[2021-04-15 19:46] VITALS: BP 153/77; PULSE 88
--- NOTE | 2021-04-15 20:22 | CT ---
PROCEDURE INFORMATION: Exam: CT Head Without Contrast Exam date and time: 04/15/2021 7:45 PM Age: 60 years old Clinical indication: Injury or trauma; Fall; Blunt trauma (contusions or hematomas); Consciousness not specified; Additional info: Fall head injury TECHNIQUE: Imaging protocol: Computed tomography of the head without contrast. Radiation optimization: All CT scans at this facility use at least one of these dose optimization techniques: automated exposure control; mA and/or kV adjustment per patient size (includes targeted exams where dose is matched to clinical indication); or iterative reconstruction. COMPARISON: CT Head wo Cont 09/21/2019 1:08 AM FINDINGS: Brain: There is mild parenchymal volume loss. Mild confluent matter changes are demonstrated in the subcortical, centrum semiovale and periventricular white matter consistent with chronic age related small vessel ischemic changes. Jrnq-sx-oskdfjiw cerebellar atrophy. Cerebral ventricles: No ventriculomegaly. Paranasal sinuses: Visualized sinuses are unremarkable. No fluid levels. Mastoid air cells: Visualized mastoid air cells are well aerated. Vasculature: Atherosclerotic calcifications are demonstrated in the intracranial carotid arteries bilaterally as well as in the vertebral basilar system. Bones/joints: Age-indeterminate nasal fracture. Finding unchanged in comparison the prior study of 09/21/2019. Soft tissues: Unremarkable. IMPRESSION: 1. There is mild parenchymal volume loss. Mild confluent matter changes are demonstrated in the subcortical, centrum semiovale and periventricular white matter consistent with chronic age related small vessel ischemic changes. 2. Jfpk-[id number] cerebellar atrophy. 3. No acute intracranial findings.
[2021-04-15 20:25] LABS: ANION GAP 10.7 mEq/L (7-13); CHLORIDE,CL 100 mmol/L (98-107); SODIUM,NA 137 mmol/L (136-145)
== END 2021-04-15 21:04 | disposition home or self-care (01) ==
LOC: DL.ED 19:15
DX: S09.90XA Unspecified injury of head, initial encounter (principal); I11.0 Hypertensive heart disease with heart failure; I50.9 Heart failure, unspecified; E78.00 Pure hypercholesterolemia, unspecified; E11.21 Type 2 diabetes mellitus with diabetic nephropathy; Z79.82 Long term (current) use of aspirin; Z79.899 Other long term (current) drug therapy; W18.09XA Striking against other object with subsequent fall, initial encounter
CPT/HCPCS: 36415; 70450; 80048; 80307; 82140; 85025; 99284-25

== ENCOUNTER 2021-04-19 14:32 | Emergency (ER) | payer MEDICAID ==
[2021-04-19] MEDS ORDERED: Ondansetron 4 MG Tab.DIS PO ONE (14:33)
[2021-04-19 15:16] VITALS: BP 153/92; PULSE 96
[2021-04-19 16:26] LABS: ANION GAP 13.7 mEq/L (7-13); CHLORIDE,CL 98 mmol/L (98-107); SODIUM,NA 135 mmol/L (136-145)
--- NOTE | 2021-04-19 16:54 | EDM.PDOC ---
ED HPI GENERAL MEDICAL PROBLEM - General Chief Complaint: Abdominal Pain Stated Complaint: AMBULANCE Time Seen by Provider: 04/19/21 15:30 Source of Information: Reports: Patient, RN, RN Notes Reviewed History Limitations: Reports: No Limitations - History of Present Illness INITIAL COMMENTS - FREE TEXT/NARRATIVE: Prabhu is a 60 y/o male with a history of ESRD on hemodialysis, who presents to the ED via [facility] with complaints of general malaise, abdominal pain, and nausea. The patient states his symptoms began yesterday following dialysis and have maintained in severity over that time; he states he has not missed any dialysis runs, lately. He characterizes the pain diffuse to his abdomen as a dull ache. He denies fever, shaking chills, cough, chest pain, shortness of breath, palpitations, dyspepsia, constipation, or diarrhea. His last meal was at noon. He denies tobacco, and recent alcohol or recreational drug use. abdomen Pain Score (Numeric/FACES): 10 - Related Data Allergies Allergy/AdvReac Type Severity Reaction Status Date / Time No Known Allergies Allergy Verified 04/16/21 02:46 Home Meds: Home Meds Aspirin [Lo-Dose Aspirin EC] 81 mg PO DAILY 08/22/18 [History] Omeprazole 20 mg PO BID 08/22/18 [History] Simvastatin 10 mg PO BEDTIME 08/22/18 [History] carvediloL [Carvedilol] 6.25 mg PO BID 08/22/18 [History] Cetirizine HCl 10 mg PO DAILY PRN 11/08/18 [History] Tiotropium [Spiriva HandiHaler] 18 mcg INH DAILY 11/08/18 [History] Cholecalciferol (Vitamin D3) [Vitamin D3] 25 mcg PO DAILY 12/20/19 [History] Acetaminophen [Tylenol] 650 mg PO Q4H PRN tablet 11/08/20 [Rx] Ibuprofen [Motrin] 600 mg PO Q6H PRN tablet 11/08/20 [Rx] Albuterol Sulfate 3 ml INH Q4HR PRN 11/18/20 [History] Albuterol Sulfate [Proair Hfa] 1 puff IH Q6HR PRN 11/18/20 [History] Bacitracin [Bacitracin Oint] 1 applic TOP QID 11/18/20 [History] Bumetanide 4 mg PO BID 11/18/20 [History] Calcium Acetate 1,334 mg PO TIDMEALS 11/18/20 [History] Calcium Carbonate [Calcium] 1,500 mg PO TIDMEALS 11/18/20 [History] Fluticasone Propion/Salmeterol [Fluticasone-Salmeterol 500-50] 1 puff INH BID 11/18/20 [History] Insulin NPH/Insulin Reg,Human [Novolin 70-30] 10 units SQ BID 11/18/20 [History] Losartan [Cozaar] 50 mg PO DAILY 11/18/20 [History] Midodrine 5 mg PO ASDIRECTED 11/18/20 [History] metOLazone [Metolazone] 5 mg PO DAILY 11/18/20 [History] Past Medical History HEENT History: Reports: None Cardiovascular History: Reports: Heart Failure, High Cholesterol, Hypertension, Other (See Below) Other Cardiovascular History: non-ischemic cardiomyopathy Respiratory History: Reports: Bronchitis, Recurrent, PE, Pneumonia, Recurrent, Other (See Below) Other Respiratory History: ARDS (acute respiratory distress syndrome) Gastrointestinal History: Reports: GERD Other Gastrointestinal History: Spouse states client used to take medication for his stomach, but cannot recall why and cannot recall which medication. Genitourinary History: Reports: Dialysis, Diabetic Nephropathy, Other (See Below) Other Genitourinary History: Acute kidney injury Musculoskeletal History: Reports: Arthritis, Back Pain, Chronic, Fracture, Other (See Below) Other Musculoskeletal History: "Multiple fractures" Neurological History: Reports: Head Trauma, Other (See Below) Other Neuro History: fractured skull Psychiatric History: Reports: Addiction, Anxiety Endocrine/Metabolic History: Reports: Diabetes, Type II, IDDM Hematologic History: Reports: None Immunologic History: Reports: None Oncologic (Cancer) History: Reports: None Dermatologic History: Reports: Cellulitis - Infectious Disease History Infectious Disease History: Reports: Hepatitis C Other Infectious Disease History: states client has hepatitis, but unable to recall which type. - Past Surgical History Head Surgeries/Procedures: Reports: None HEENT Surgical History: Reports: Other (See Below) Other HEENT Surgeries/Procedures: Eye injections, patient unsure why Cardiovascular Surgical History: Reports: None, Other (See Below) Other Cardiovascular Surgeries/Procedures: coronary angiogram Respiratory Surgical History: Reports: Thoracentesis GI Surgical History: Reports: Appendectomy Male Surgical History: Reports: None Endocrine Surgical History: Reports: None Neurological Surgical History: Reports: None Musculoskeletal Surgical History: Reports: Amputation Other Musculoskeletal Surgeries/Procedures:: right b/k amputation Dermatological Surgical History: Reports: None Social & Family History - Family History Family Medical History: No Pertinent Family History Endocrine/Metabolic: Reports: Diabetes, type II Oncologic: Reports: Other (See Below) Other Oncologic Family History: spouse states HX of cancer in family, but unable to recall which type - Caffeine Use Caffeine Use: Reports: Soda Caffeine Use Comment: galoon of coffee and 6 pack of pop daily - Living Situation & Occupation Living situation: Reports: with Family Occupation: Disabled ED ROS GENERAL - Review of Systems Review Of Systems: Comprehensive ROS is negative, except as noted in HPI. ED EXAM, GI/ABD - Physical Exam Exam: See Below Exam Limited By: No Limitations General Appearance: Alert, No Apparent Distress, Thin, Active Emesis (100cc bilious) Eyes: Bilateral: Normal Appearance, EOMI Ears: Normal External Exam, Hearing Grossly Normal Nose: Normal Inspection, Normal Mucosa, No Blood Throat/Mouth: Normal Inspection, Normal Oropharynx, Normal Voice, No Airway Compromise Head: Atraumatic, Normocephalic Neck: Normal Inspection, Supple, Non-Tender, Full Range of Motion Respiratory/Chest: No Respiratory Distress, Lungs Clear, Normal Breath Sounds, No Accessory Muscle Use, Chest Non-Tender Cardiovascular: Normal Peripheral Pulses, Regular Rate, Rhythm, No Gallop, No Murmur, No Rub GI/Abdominal Exam: Normal Bowel Sounds, Soft, No Distention, No Abnormal Bruit, No Mass, Pelvis Stable, Tender (Diffuse to palpation). No: Guarding, Rigid, Nely ound (Male) Exam: Deferred Rectal (Males) Exam: Deferred Back Exam: Normal Inspection, Full Range of Motion. No: CVA Tenderness (L), CVA Tenderness (R) Extremities: Normal Range of Motion, Non-Tender, No Pedal Edema (Trace, bilaterally), Normal Capillary Refill, Other (Fistula to left upper arm with bruit and thrill present) Neurological: Alert, Oriented, CN II-XII Intact, Normal Cognition, No Motor/Sensory Deficits, Abnormal Gait (In wheelchair, per patient request) Psychiatric: Normal Mood, Flat Affect Skin Exam: Warm, Dry, Intact, Normal Color, No Rash, Ecchymosis (To left chest from dialysis catheter removal). No: Cyanosis, Diaphoretic, Erythema, Jaundice, Mottled, Pallor, Petechiae Course - Vital Signs Last Recorded V/S: Last Vital Signs Temp 97.3 F 04/19/21 15:04 Pulse 96 04/19/21 15:04 Resp 20 04/19/21 15:04 BP 153/92 H 04/19/21 15:04 Pulse Ox 97 04/19/21 15:04 - Orders/Labs/Meds Labs: Laboratory Tests 04/19/21 04/19/21 04/19/21 Range/Units 15:54 15:54 15:54 WBC 4.9 L (5.0-10.0) 10^3/uL RBC 4.11 L (4.6-6.2) 10^6/uL Hgb 10.8 L (14.0-18.0) g/dL Hct 34.1 L (40.0-54.0) % MCV 83.0 (80-100) fL MCH 26.3 L (27.0-34.0) pg MCHC 31.7 L (33.0-35.0) g/dL Plt Count 165 (150-450) 10^3/uL Neut % (Auto) 64.6 (42.2-75.2) % Lymph % (Auto) 17.3 L (20.5-50.1) % [place] % (Auto) 15.7 H (2-8) % Eos % (Auto) 2.0 (1.0-3.0) % Baso % (Auto) 0.4 (0.0-1.0) % Sodium 135 L (136-145) mmol/L Potassium 4.7 (3.5-5.1) mmol/L Chloride 98 (98-107) mmol/L Carbon Dioxide 28 (21-32) mmol/L Anion Gap 13.7 H (7-13) mEq/L BUN 35 H (7-18) mg/dL Creatinine 8.52 H* D (0.70-1.30) mg/dL Est Cr Clr Drug Dosing 7.72 mL/min Estimated GFR (MDRD) 6 BUN/Creatinine Ratio 4.1 (No establ ref range) Glucose 96 (70-99) mg/dL Lactic Acid 1.8 (0.4-2.0) mmol/L Calcium 9.3 (8.5-10.1) mg/dL Phosphorus 3.0 (2.6-4.7) mg/dL Magnesium 1.9 (1.8-2.4) mg/dL Total Bilirubin 0.7 (0.2-1.0) mg/dL AST 34 (15-37) U/L ALT 18 (16-63) U/L Alkaline Phosphatase 99 (46-116) U/L C-Reactive Protein 4.0 H (0.0-0.9) mg/dL B-Natriuretic Peptide > 5000 H (0-100) pg/ml Total Protein 8.6 H (6.4-8.2) g/dL Albumin 3.0 L (3.4-5.0) g/dL Globulin 5.6 Albumin/Globulin Ratio 0.54 Meds: Medications Discontinued Medications Generic Name Dose Route Start Last Admin Trade Name Freq PRN Reason Stop Dose Admin Ondansetron HCl Confirm 04/19/21 17:01 04/19/21 17:11 Ondansetron 4 Mg Tab.Dis Administered 04/19/21 17:02 Not Given Dose 16 mg .ROUTE .STK-MED ONE Ondansetron HCl 4 mg 04/19/21 14:33 Ondansetron 4 Mg Tab.Dis PO 04/19/21 14:34 .STK-MED ONE - Re-Assessments/Exams Free Text/Narrative Re-Assessment/Exam: 04/19/21 Zofran ODT 4mg administered while labs pending. Throughout interview and examination patient requesting transfer to [facility]; discussed need for workup and indications for transfer with patient. Informed patient of bed capacity throughout the state but will appropriately care for patient, but initial work- up is required. While labs pending, patient requests to discharge home stating his pain is gone and his nausea is improved. [employer] discussed waiting for baseline labs to finish. Findings of examination and lab work reviewed with patient. He again states he would like to go home. Will discharge home with Zofran. Patient instructed to follow up with PCP and continue with dialysis. Red flag signs and symptoms which would warrant reevaluation reviewed. Patient verbalized understanding and agreement with the plan of care. Departure - Departure Time of Disposition: 17:00 Disposition: Home, Self-Care 01 Condition: Fair Clinical Impression: Nausea, Malaise, History of chronic kidney disease, Hemodialysis patient - Discharge Information *PRESCRIPTION DRUG MONITORING PROGRAM REVIEWED*: Not Applicable *COPY OF PRESCRIPTION DRUG MONITORING REPORT IN PATIENT LUIS: Not Applicable Instructions: Nausea, Adult Referrals: PCP,None [Primary Care Provider] - Forms: ED Department Discharge Additional Instructions: Rx: Zofran ODT 1.) Continue of previously prescribed medications. 2.) Do not miss hemodialysis appointments. 3.) Follow up with your primary care provider, or return to the emergency department, with any persistent or worsening symptoms. Sepsis Event Note (ED) - Evaluation Sepsis Screening Result: No Definite Risk
[2021-04-19] MEDS ORDERED: Ondansetron 4 MG Tab.DIS ONE (17:01)
== END 2021-04-19 17:04 | disposition home or self-care (01) ==
LOC: DL.ED 14:32
DX: R53.81 Other malaise (principal); R11.0 Nausea; I13.2 Hypertensive heart and chronic kidney disease with heart failure and with stage 5 chronic kidney disease, or end stage renal disease; E11.22 Type 2 diabetes mellitus with diabetic chronic kidney disease; N18.6 End stage renal disease; I50.9 Heart failure, unspecified; E78.00 Pure hypercholesterolemia, unspecified; K21.9 Gastro-esophageal reflux disease without esophagitis; E11.21 Type 2 diabetes mellitus with diabetic nephropathy; M19.90 Unspecified osteoarthritis, unspecified site; Z99.2 Dependence on renal dialysis; Z79.82 Long term (current) use of aspirin; Z79.899 Other long term (current) drug therapy; Z79.4 Long term (current) use of insulin
CPT/HCPCS: 36415; 80053; 83605; 83735; 83880; 84100; 85025; 86140; 99284; A9270

== ENCOUNTER 2021-05-09 16:53 | Emergency (ER) | payer MEDICAID | END 2021-05-09 18:02 | disposition left against medical advice (07) | LOC: DL.ED 16:53 | DX: Z53.21 Procedure and treatment not carried out due to patient leaving prior to being seen by health care provider (principal) ==

== ENCOUNTER 2021-05-18 15:30 | Emergency (ER) | payer MEDICAID ==
[2021-05-18 15:54] VITALS: BP 138/64; PULSE 89
== END 2021-05-18 16:15 | disposition left against medical advice (07) ==
LOC: DL.ED 15:30
DX: Z53.21 Procedure and treatment not carried out due to patient leaving prior to being seen by health care provider (principal)

== ENCOUNTER 2021-05-26 14:32 | Emergency (ER) | payer MEDICAID ==
[2021-05-26 15:10] VITALS: BP 168/77; PULSE 80
--- NOTE | 2021-05-26 15:21 | EDM.PDOC ---
ED HPI GENERAL MEDICAL PROBLEM - General Stated Complaint: [id number] BACK PAIN Time Seen by Provider: 05/26/21 15:05 Source of Information: Reports: Patient History Limitations: Reports: No Limitations - History of Present Illness INITIAL COMMENTS - FREE TEXT/NARRATIVE: This 60 yo male patient reports to the ED with lower back pain. The patient reports he has been having pain for a "couple of days". The patient reports he has been taking Tylenol (last dose a "couple of hours ago") and ibuprofen (last dose was yesterday). The patient reports he does drink alcohol on a regular basis and reports his last drug use was a "couple of months ago". The patient was moving about during the entire visit. The patient was itching and scratching at his arms and head. Duration: Day(s): (2), Constant Location: Reports: Back Quality: Reports: Other Severity: Moderate Improves with: Reports: None Worsens with: Reports: None Context: Reports: Other Associated Symptoms: Reports: No Other Symptoms Back Pain Score (Numeric/FACES): 10 - Related Data Allergies Allergy/AdvReac Type Severity Reaction Status Date / Time No Known Allergies Allergy Verified 05/18/21 15:54 Home Meds: Home Meds Aspirin [Lo-Dose Aspirin EC] 81 mg PO DAILY 08/22/18 [History] Omeprazole 20 mg PO BID 08/22/18 [History] Simvastatin 10 mg PO BEDTIME 08/22/18 [History] carvediloL [Carvedilol] 6.25 mg PO BID 08/22/18 [History] Cetirizine HCl 10 mg PO DAILY PRN 11/08/18 [History] Tiotropium [Spiriva HandiHaler] 18 mcg INH DAILY 11/08/18 [History] Cholecalciferol (Vitamin D3) [Vitamin D3] 25 mcg PO DAILY 12/20/19 [History] Acetaminophen [Tylenol] 650 mg PO Q4H PRN tablet 11/08/20 [Rx] Ibuprofen [Motrin] 600 mg PO Q6H PRN tablet 11/08/20 [Rx] Albuterol Sulfate 3 ml INH Q4HR PRN 11/18/20 [History] Albuterol Sulfate [Proair Hfa] 1 puff IH Q6HR PRN 11/18/20 [History] Bacitracin [Bacitracin Oint] 1 applic TOP QID 11/18/20 [History] Bumetanide 4 mg PO BID 11/18/20 [History] Calcium Acetate 1,334 mg PO TIDMEALS 11/18/20 [History] Calcium Carbonate [Calcium] 1,500 mg PO TIDMEALS 11/18/20 [History] Fluticasone Propion/Salmeterol [Fluticasone-Salmeterol 500-50] 1 puff INH BID 11/18/20 [History] Insulin NPH/Insulin Reg,Human [Novolin 70-30] 10 units SQ BID 11/18/20 [History] Losartan [Cozaar] 50 mg PO DAILY 11/18/20 [History] Midodrine 5 mg PO ASDIRECTED 11/18/20 [History] metOLazone [Metolazone] 5 mg PO DAILY 11/18/20 [History] Past Medical History HEENT History: Reports: None Cardiovascular History: Reports: Heart Failure, High Cholesterol, Hypertension, Other (See Below) Other Cardiovascular History: non-ischemic cardiomyopathy Respiratory History: Reports: Bronchitis, Recurrent, PE, Pneumonia, Recurrent, Other (See Below) Other Respiratory History: ARDS (acute respiratory distress syndrome) Gastrointestinal History: Reports: GERD Other Gastrointestinal History: Spouse states client used to take medication for his stomach, but cannot recall why and cannot recall which medication. Genitourinary History: Reports: Dialysis, Diabetic Nephropathy, Other (See Below) Other Genitourinary History: Acute kidney injury Musculoskeletal History: Reports: Arthritis, Back Pain, Chronic, Fracture, Other (See Below) Other Musculoskeletal History: "Multiple fractures" Neurological History: Reports: Head Trauma, Other (See Below) Other Neuro History: fractured skull Psychiatric History: Reports: Addiction, Anxiety Endocrine/Metabolic History: Reports: Diabetes, Type II, IDDM Hematologic History: Reports: None Immunologic History: Reports: None Oncologic (Cancer) History: Reports: None Dermatologic History: Reports: Cellulitis - Infectious Disease History Infectious Disease History: Reports: Hepatitis C Other Infectious Disease History: states client has hepatitis, but unable to recall which type. - Past Surgical History Head Surgeries/Procedures: Reports: None HEENT Surgical History: Reports: Other (See Below) Other HEENT Surgeries/Procedures: Eye injections, patient unsure why Cardiovascular Surgical History: Reports: None, Other (See Below) Other Cardiovascular Surgeries/Procedures: coronary angiogram Respiratory Surgical History: Reports: Thoracentesis GI Surgical History: Reports: Appendectomy Male Surgical History: Reports: None Endocrine Surgical History: Reports: None Neurological Surgical History: Reports: None Musculoskeletal Surgical History: Reports: Amputation Other Musculoskeletal Surgeries/Procedures:: right b/k amputation Dermatological Surgical History: Reports: None Social & Family History - Family History Family Medical History: No Pertinent Family History Endocrine/Metabolic: Reports: Diabetes, type II Oncologic: Reports: Other (See Below) Other Oncologic Family History: spouse states HX of cancer in family, but unable to recall which type - Caffeine Use Caffeine Use: Reports: None Caffeine Use Comment: galoon of coffee and 6 pack of pop daily - Living Situation & Occupation Living situation: Reports: with Family Occupation: Disabled ED ROS GENERAL - Review of Systems Review Of Systems: Comprehensive ROS is negative, except as noted in HPI. ED EXAM,LOWER BACK PAIN/INJURY - Physical Exam Exam: See Below Exam Limited By: No Limitations General Appearance: Alert, Moderate Distress, Thin Eye Exam: Bilateral Eye: EOMI, Normal Inspection, PERRL Ears: Normal External Exam, Normal Canal, Hearing Grossly Normal, Normal TMs Nose: Normal Inspection, Normal Mucosa, No Blood Throat/Mouth: Normal Inspection, Normal Lips, Normal Teeth, Normal Gums, Normal Oropharynx, Normal Voice, No Airway Compromise Head: Atraumatic, Normocephalic Neck: Normal Inspection Respiratory/Chest: No Respiratory Distress, Lungs Clear, Normal Breath Sounds, No Accessory Muscle Use, Chest Non-Tender Cardiovascular: Normal Peripheral Pulses, Regular Rate, Rhythm GI/Abdominal: Normal Bowel Sounds, Soft, Non-Tender (Male) Exam: Deferred Rectal (Males) Exam: Deferred Back Exam: Paraspinal Tenderness, Vertebral Tenderness Extremities: No Pedal Edema, Normal Capillary Refill Neurological: Alert, Normal Dorsiflexion, Normal Plantar Flexion, Normal Reflexes Psychiatric: Normal Affect Skin Exam: Other (The patient has multiple abrasions to his upper extremities. The patient was itching and scratching throughout the visit. ) Course - Vital Signs Last Recorded V/S: Last Vital Signs Temp 97.9 F 05/26/21 15:07 Pulse 80 05/26/21 15:07 Resp 14 05/26/21 15:07 BP 168/77 H 05/26/21 15:07 Pulse Ox 97 05/26/21 15:07 Departure - Departure Time of Disposition: 15:26 Disposition: Against Medical Advice 07 Condition: Fair Clinical Impression: Left against medical advice - Discharge Information *PRESCRIPTION DRUG MONITORING PROGRAM REVIEWED*: Not Applicable *COPY OF PRESCRIPTION DRUG MONITORING REPORT IN PATIENT LUIS: Not Applicable Forms: ED Department Discharge Care Plan Goals: The patient left prior to lab draws without complete evaluation of his symptoms and before any treatments could be initiated. Sepsis Event Note (ED) - Evaluation Sepsis Screening Result: No Definite Risk - Focused Exam Vital Signs: Vital Signs Temp Pulse Resp BP Pulse Ox 05/26/21 15:07 97.9 F 80 14 168/77 H 97
== END 2021-05-26 15:48 | disposition left against medical advice (07) ==
LOC: DL.ED 14:32
DX: M54.50 Low back pain, unspecified (principal); E78.00 Pure hypercholesterolemia, unspecified; I11.0 Hypertensive heart disease with heart failure; I50.9 Heart failure, unspecified; K21.9 Gastro-esophageal reflux disease without esophagitis; E11.21 Type 2 diabetes mellitus with diabetic nephropathy; E11.9 Type 2 diabetes mellitus without complications; M19.90 Unspecified osteoarthritis, unspecified site; Z79.4 Long term (current) use of insulin; Z79.82 Long term (current) use of aspirin; Z79.899 Other long term (current) drug therapy
CPT/HCPCS: 99283

== ENCOUNTER 2021-07-06 10:31 | Inpatient (IN) | payer MEDICAID ==
--- NOTE | 2021-07-06 10:44 | EDM.PDOC ---
ED HPI GENERAL MEDICAL PROBLEM - General Chief Complaint: General Stated Complaint: AMBULANCE Time Seen by Provider: 07/06/21 10:44 Source of Information: Reports: Patient, EMS, Old Records, RN, RN Notes Reviewed History Limitations: Reports: No Limitations - History of Present Illness INITIAL COMMENTS - FREE TEXT/NARRATIVE: Pt arrives to ER from home by ambulance with EMS reporting the pt was found to be difficulty to arouse by family this morning. EMS found the pt with blood glucose of 56. EMS gave a bolus of Dextrose 10% IV, blood glucose increased to 117, and on arrival to ER it had dropped to 107. Pt reported to have a fever, cough, and at least one episode of brown emesis which EMS thought might have been from GI bleeding. Unknown if any aspiration. Pt arrives awake, alert, and confused. Denies pain. He missed his 0400HR dialysis this morning. Onset: Unknown/Unsure Duration: Constant Location: Reports: Chest, Generalized Severity: Severe Improves with: Reports: None Worsens with: Reports: None Associated Symptoms: Reports: No Other Symptoms Treatments REIMBURSEMENT CONSULTANT: Reports: IV/IO - Related Data Allergies Allergy/AdvReac Type Severity Reaction Status Date / Time No Known Allergies Allergy Verified 05/18/21 15:54 Home Meds: Home Meds Aspirin [Lo-Dose Aspirin EC] 81 mg PO DAILY 08/22/18 [History] Omeprazole 20 mg PO BID 08/22/18 [History] Simvastatin 10 mg PO BEDTIME 08/22/18 [History] carvediloL [Carvedilol] 6.25 mg PO BID 08/22/18 [History] Cetirizine HCl 10 mg PO DAILY PRN 11/08/18 [History] Tiotropium [Spiriva HandiHaler] 18 mcg INH DAILY 11/08/18 [History] Cholecalciferol (Vitamin D3) [Vitamin D3] 25 mcg PO DAILY 12/20/19 [History] Acetaminophen [Tylenol] 650 mg PO Q4H PRN tablet 11/08/20 [Rx] Ibuprofen [Motrin] 600 mg PO Q6H PRN tablet 11/08/20 [Rx] Albuterol Sulfate 3 ml INH Q4HR PRN 11/18/20 [History] Albuterol Sulfate [Proair Hfa] 1 puff IH Q6HR PRN 11/18/20 [History] Bacitracin [Bacitracin Oint] 1 applic TOP QID 11/18/20 [History] Bumetanide 4 mg PO BID 11/18/20 [History] Calcium Acetate 1,334 mg PO TIDMEALS 11/18/20 [History] Calcium Carbonate [Calcium] 1,500 mg PO TIDMEALS 11/18/20 [History] Fluticasone Propion/Salmeterol [Fluticasone-Salmeterol 500-50] 1 puff INH BID 11/18/20 [History] Insulin NPH/Insulin Reg,Human [Novolin 70-30] 10 units SQ BID 11/18/20 [History] Losartan [Cozaar] 50 mg PO DAILY 11/18/20 [History] Midodrine 5 mg PO ASDIRECTED 11/18/20 [History] metOLazone [Metolazone] 5 mg PO DAILY 11/18/20 [History] Past Medical History HEENT History: Reports: None Cardiovascular History: Reports: Heart Failure, High Cholesterol, Hypertension, Other (See Below) Other Cardiovascular History: non-ischemic cardiomyopathy Respiratory History: Reports: Bronchitis, Recurrent, PE, Pneumonia, Recurrent, Other (See Below) Other Respiratory History: ARDS (acute respiratory distress syndrome) Gastrointestinal History: Reports: GERD Other Gastrointestinal History: Spouse states client used to take medication for his stomach, but cannot recall why and cannot recall which medication. Genitourinary History: Reports: Dialysis, Diabetic Nephropathy, Other (See Below) Other Genitourinary History: Acute kidney injury Musculoskeletal History: Reports: Arthritis, Back Pain, Chronic, Fracture, Other (See Below) Other Musculoskeletal History: "Multiple fractures" Neurological History: Reports: Head Trauma, Other (See Below) Other Neuro History: fractured skull Psychiatric History: Reports: Addiction, Anxiety Endocrine/Metabolic History: Reports: Diabetes, Type II, IDDM Hematologic History: Reports: None Immunologic History: Reports: None Oncologic (Cancer) History: Reports: None Dermatologic History: Reports: Cellulitis - Infectious Disease History Infectious Disease History: Reports: Hepatitis C Other Infectious Disease History: states client has hepatitis, but unable to recall which type. - Past Surgical History Head Surgeries/Procedures: Reports: None HEENT Surgical History: Reports: Other (See Below) Other HEENT Surgeries/Procedures: Eye injections, patient unsure why Cardiovascular Surgical History: Reports: None, Other (See Below) Other Cardiovascular Surgeries/Procedures: coronary angiogram Respiratory Surgical History: Reports: Thoracentesis GI Surgical History: Reports: Appendectomy Male Surgical History: Reports: None Endocrine Surgical History: Reports: None Neurological Surgical History: Reports: None Musculoskeletal Surgical History: Reports: Amputation Other Musculoskeletal Surgeries/Procedures:: right b/k amputation Dermatological Surgical History: Reports: None Social & Family History - Family History Family Medical History: No Pertinent Family History Endocrine/Metabolic: Reports: Diabetes, type II Oncologic: Reports: Other (See Below) Other Oncologic Family History: spouse states HX of cancer in family, but unable to recall which type - Caffeine Use Caffeine Use: Reports: Coffee Caffeine Use Comment: galoon of coffee and 6 pack of pop daily - Living Situation & Occupation Living situation: Reports: with Family Occupation: Disabled ED ROS GENERAL - Review of Systems Review Of Systems: Unable To Obtain Reason Not Obtained: Altered mental status ED EXAM, GENERAL - Physical Exam Exam: See Below Exam Limited By: Altered Mental Status General Appearance: Alert, Thin, Other (Chronically ill appearing) Eye Exam: Bilateral Eye: Normal Inspection Nose: Normal Inspection, No Blood Throat/Mouth: No Airway Compromise, Other (Dry oral mucosa) Head: Atraumatic, Normocephalic Neck: Normal Inspection, Non-Tender Respiratory/Chest: No Respiratory Distress, No Accessory Muscle Use, Decreased Breath Sounds, Rales, Rhonchi (Rt base and mid-chest). No: Wheezing Cardiovascular: No Edema, Tachycardia GI/Abdominal: Normal Bowel Sounds, Soft, Non-Tender. No: Guarding, Rigid, Rebound Rectal (Males) Exam: Normal Rectal Tone, Heme + Stool Back Exam: Full Range of Motion Extremities: No Pedal Edema, Other (Rt AKA) Neurological: Alert, No Motor/Sensory Deficits, Confused Skin Exam: Warm, Dry #1 Interpretation EKG Date: 07/06/21 Time: 11:11 Rhythm: Other (Sinus tach) Rate (Beats/Min): 104 Franklin: LAD-Left Franklin Deviation P-Wave: Present QRS: LBBB (chronic) Comparison: No Change Course - Vital Signs Last Recorded V/S: Last Vital Signs Temp 101 F H 07/06/21 11:45 Pulse 107 H 07/06/21 10:59 Resp 24 H 07/06/21 10:59 BP 137/61 07/06/21 10:59 Pulse Ox 94 L 07/06/21 10:59 - Orders/Labs/Meds Orders: Active Orders 24 hr Category Date Time Status Blood Glucose Check, Bedside [RC] ONETIME Care 07/06/21 10:36 Active CULTURE BLOOD [BC] Stat Lab 07/06/21 10:45 Received CULTURE BLOOD [BC] Stat Lab 07/06/21 11:30 Results REFLEX LACTIC ACID YES OR NO [CHEM] Routine Lab 07/06/21 11:34 Received Pantoprazole [ProTONIX IV] 40 mg Med 07/06/21 12:00 Active Sodium Chloride 0.9% [Normal Saline] 100 ml IV .CONTINUOS Blood Culture x2 Reflex Set [OM.PC] Stat Oth 07/06/21 10:36 Ordered Medication Orders Pantoprazole Sodium 40 mg/ (Sodium Chloride) 100 mls @ 20 mls/hr IV .CONTINUOS MEGHAN Last Admin: 07/06/21 12:38 Dose: 20 mls/hr Documented by: TOM Labs: Laboratory Tests 07/06/21 07/06/21 07/06/21 Range/Units 10:45 10:45 10:45 WBC 24.2 H (5.0-10.0) 10^3/uL RBC 4.39 L (4.6-6.2) 10^6/uL Hgb 11.3 L (14.0-18.0) g/dL Hct 35.7 L (40.0-54.0) % MCV 81.3 (80-100) fL MCH 25.7 L (27.0-34.0) pg MCHC 31.7 L (33.0-35.0) g/dL Plt Count 147 L (150-450) 10^3/uL Neut % (Auto) 92.9 H (42.2-75.2) % Lymph % (Auto) 3.5 L (20.5-50.1) % Gila % (Auto) 3.6 (2-8) % Eos % (Auto) 0.0 L (1.0-3.0) % Baso % (Auto) 0.0 (0.0-1.0) % PT 16.1 H (9.0-12.0) SEC INR 1.6 H (0.9-1.2) APTT 26.7 (22.0-34.0) SEC Sodium 135 L (136-145) mmol/L Potassium 5.2 H (3.5-5.1) mmol/L Chloride 95 L (98-107) mmol/L Carbon Dioxide 31 (21-32) mmol/L Anion Gap 14.2 H (7-13) mEq/L BUN 54 H (7-18) mg/dL Creatinine 8.60 H* (0.70-1.30) mg/dL Est Cr Clr Drug Dosing 8.24 mL/min Estimated GFR (MDRD) 6 BUN/Creatinine Ratio 6.3 (No establ ref range) Glucose 104 H (70-99) mg/dL POC Glucose (70-99) mg/dL Lactic Acid (0.4-2.0) mmol/L Calcium 13.0 H D (8.5-10.1) mg/dL Phosphorus 1.6 L (2.6-4.7) mg/dL Magnesium 1.9 (1.8-2.4) mg/dL Total Bilirubin 0.7 (0.2-1.0) mg/dL AST 204 H (15-37) U/L ALT 51 (16-63) U/L Alkaline Phosphatase 97 (46-116) U/L Troponin I High Sens 5328 H* (<=76) pg/mL C-Reactive Protein 18.6 H (0.0-0.9) mg/dL B-Natriuretic Peptide > 5000 H (0-100) pg/ml Total Protein 8.8 H (6.4-8.2) g/dL Albumin 2.7 L (3.4-5.0) g/dL Globulin 6.1 Albumin/Globulin Ratio 0.44 Amylase 30 (25-115) U/L Lipase < 10 L (73-393) U/L Influenza Type A RNA (NEGATIVE) Influenza Type B RNA (NEGATIVE) SARS-CoV-2 RNA (DEBBY) (NEGATIVE) 07/06/21 07/06/21 07/06/21 Range/Units 10:45 10:48 11:08 WBC (5.0-10.0) 10^3/uL RBC (4.6-6.2) 10^6/uL Hgb (14.0-18.0) g/dL Hct (40.0-54.0) % MCV (80-100) fL MCH (27.0-34.0) pg MCHC (33.0-35.0) g/dL Plt Count (150-450) 10^3/uL Neut % (Auto) (42.2-75.2) % Lymph % (Auto) (20.5-50.1) % Gila % (Auto) (2-8) % Eos % (Auto) (1.0-3.0) % Baso % (Auto) (0.0-1.0) % PT (9.0-12.0) SEC INR (0.9-1.2) APTT (22.0-34.0) SEC Sodium (136-145) mmol/L Potassium (3.5-5.1) mmol/L Chloride (98-107) mmol/L Carbon Dioxide (21-32) mmol/L Anion Gap (7-13) mEq/L BUN (7-18) mg/dL Creatinine (0.70-1.30) mg/dL Est Cr Clr Drug Dosing mL/min Estimated GFR (MDRD) BUN/Creatinine Ratio (No establ ref range) Glucose (70-99) mg/dL POC Glucose 101 H (70-99) mg/dL Lactic Acid 3.0 H* (0.4-2.0) mmol/L Calcium (8.5-10.1) mg/dL Phosphorus (2.6-4.7) mg/dL Magnesium (1.8-2.4) mg/dL Total Bilirubin (0.2-1.0) mg/dL AST (15-37) U/L ALT (16-63) U/L Alkaline Phosphatase (46-116) U/L Troponin I High Sens (<=76) pg/mL C-Reactive Protein (0.0-0.9) mg/dL B-Natriuretic Peptide (0-100) pg/ml Total Protein (6.4-8.2) g/dL Albumin (3.4-5.0) g/dL Globulin Albumin/Globulin Ratio Amylase (25-115) U/L Lipase (73-393) U/L Influenza Type A RNA Negative (NEGATIVE) Influenza Type B RNA Negative (NEGATIVE) SARS-CoV-2 RNA (DEBBY) Negative (NEGATIVE) 07/06/21 Range/Units 11:56 WBC (5.0-10.0) 10^3/uL RBC (4.6-6.2) 10^6/uL Hgb (14.0-18.0) g/dL Hct (40.0-54.0) % MCV (80-100) fL MCH (27.0-34.0) pg MCHC (33.0-35.0) g/dL Plt Count (150-450) 10^3/uL Neut % (Auto) (42.2-75.2) % Lymph % (Auto) (20.5-50.1) % Gila % (Auto) (2-8) % Eos % (Auto) (1.0-3.0) % Baso % (Auto) (0.0-1.0) % PT (9.0-12.0) SEC INR (0.9-1.2) APTT (22.0-34.0) SEC Sodium (136-145) mmol/L Potassium (3.5-5.1) mmol/L Chloride (98-107) mmol/L Carbon Dioxide (21-32) mmol/L Anion Gap (7-13) mEq/L BUN (7-18) mg/dL Creatinine (0.70-1.30) mg/dL Est Cr Clr Drug Dosing mL/min Estimated GFR (MDRD) BUN/Creatinine Ratio (No establ ref range) Glucose (70-99) mg/dL POC Glucose 125 H (70-99) mg/dL Lactic Acid (0.4-2.0) mmol/L Calcium (8.5-10.1) mg/dL Phosphorus (2.6-4.7) mg/dL Magnesium (1.8-2.4) mg/dL Total Bilirubin (0.2-1.0) mg/dL AST (15-37) U/L ALT (16-63) U/L Alkaline Phosphatase (46-116) U/L Troponin I High Sens (<=76) pg/mL C-Reactive Protein (0.0-0.9) mg/dL B-Natriuretic Peptide (0-100) pg/ml Total Protein (6.4-8.2) g/dL Albumin (3.4-5.0) g/dL Globulin Albumin/Globulin Ratio Amylase (25-115) U/L Lipase (73-393) U/L Influenza Type A RNA (NEGATIVE) Influenza Type B RNA (NEGATIVE) SARS-CoV-2 RNA (DEBBY) (NEGATIVE) Hemoccult Stool: POSITIVE Meds: Medications Generic Name Dose Route Start Last Admin Trade Name Freq PRN Reason Stop Dose Admin Pantoprazole Sodium 40 mg/ 100 mls @ 20 mls/hr 07/06/21 12:00 07/06/21 12:38 Sodium Chloride IV 20 mls/hr .CONTINUOS MEGHAN Administration Discontinued Medications Generic Name Dose Route Start Last Admin Trade Name Freq PRN Reason Stop Dose Admin Acetaminophen 650 mg 07/06/21 11:46 07/06/21 11:50 Acetaminophen 650 Mg Supp RECTAL 07/06/21 11:47 650 mg NOW STA Administration Dextrose/Water 50 ml 07/06/21 10:50 07/06/21 11:16 50% Dextrose In Water 50 Ml Syringe IVPUSH 07/06/21 10:51 50 ml ONETIME ONE Administration Vancomycin HCl 1 gm/ Sodium 250 mls @ 166.667 mls/hr 07/06/21 11:30 07/06/21 11:22 Chloride IV 07/06/21 12:59 166.667 mls/hr ONETIME ONE Administration Piperacillin Sod/Tazobactam 100 mls @ 200 mls/hr 07/06/21 11:16 07/06/21 11:51 Sod 3.375 gm/ Sodium Chloride IV 07/06/21 11:45 200 mls/hr ONETIME ONE Administration - Radiology Interpretation Free Text/Narrative:: XR Chest: Pulmonary vascular congestion (fluid overload). Underlying lower lobe atelectasis/infiltrates at B/L bases per Rad. report. CT Head: no acute findings per Rad. report. - Re-Assessments/Exams Free Text/Narrative Re-Assessment/Exam: 07/06/21 13:26 After a detailed and thorough explanation of the seriousness and grave nature of the pt's condition, the ([facility]) chooses to decline transfer of the pt and change him to DNR/DNI status for comfort care/end of life care here in [place]. Dr. Aden agrees to admit the pt. Departure - Departure Time of Disposition: 13:29 (admitted to Dr. Aden) Disposition: Admitted As Inpatient 66 Condition: Poor, Critical Clinical Impression: Upper GI bleed, Non-STEMI (non-ST elevated myocardial infarction), Acute on chronic diastolic CHF (congestive heart failure), ESRD on hemodialysis Sepsis Qualifiers: Sepsis type: sepsis due to unspecified organism Sepsis acute organ dysfunction status: without acute organ dysfunction Qualified Code(s): A41.9 - Sepsis, unspecified organism Pneumonia Qualifiers: Pneumonia type: due to unspecified organism Laterality: right Lung location: upper lobe of lung Qualified Code(s): J18.9 - Pneumonia, unspecified organism Fluid overload Qualifiers: Hypervolemia type: unspecified Qualified Code(s): E87.70 - Fluid overload, unspecified Altered mental status Qualifiers: Altered mental status type: somnolence Qualified Code(s): R40.0 - Somnolence - Discharge Information *PRESCRIPTION DRUG MONITORING PROGRAM REVIEWED*: Not Applicable *COPY OF PRESCRIPTION DRUG MONITORING REPORT IN PATIENT LUIS: Not Applicable Forms: ED Department Discharge Sepsis Event Note (ED) - Focused Exam Vital Signs: Vital Signs Temp Pulse Resp BP Pulse Ox 07/06/21 11:45 101 F H 07/06/21 10:59 100.6 F 107 H 24 H 137/61 94 L - My Orders Last 24 Hours: My Active Orders 07/06/21 10:36 Blood Glucose Check, Bedside [RC] ONETIME Blood Culture x2 Reflex Set [OM.PC] Stat 07/06/21 10:45 CULTURE BLOOD [BC] Stat 07/06/21 11:30 CULTURE BLOOD [BC] Stat 07/06/21 11:34 REFLEX LACTIC ACID YES OR NO [CHEM] Routine 07/06/21 12:00 Pantoprazole [ProTONIX IV] 40 mg Sodium Chloride 0.9% [Normal Saline] 100 ml IV .CONTINUOS - Assessment/Plan Last 24 Hours: My Active Orders 07/06/21 10:36 Blood Glucose Check, Bedside [RC] ONETIME Blood Culture x2 Reflex Set [OM.PC] Stat 07/06/21 10:45 CULTURE BLOOD [BC] Stat 07/06/21 11:30 CULTURE BLOOD [BC] Stat 07/06/21 11:34 REFLEX LACTIC ACID YES OR NO [CHEM] Routine 07/06/21 12:00 Pantoprazole [ProTONIX IV] 40 mg Sodium Chloride 0.9% [Normal Saline] 100 ml IV .CONTINUOS
[2021-07-06] MEDS ORDERED: 50% Dextrose in Water 50 ML Syringe IVPUSH ONE (10:50)
[2021-07-06 11:11] LABS: PTT,PARTIAL THROMBOPLSTIN TIME 26.7 SEC (22.0-34.0)
[2021-07-06] MEDS ORDERED: Piperacillin/Tazobactam 3.375 GM in Sodium Chloride 0.9% 100 ML IV ONE (11:16)
[2021-07-06 11:19] LABS: ANION GAP 14.2 mEq/L (7-13); CHLORIDE,CL 95 mmol/L (98-107); SODIUM,NA 135 mmol/L (136-145)
--- NOTE | 2021-07-06 11:43 | CR ---
EXAMINATION: Chest 1V Frontal SEX: Male AGE: 60 years CLINICAL HISTORY: 60-year-old male dialysis patient with cough and fever. Comparison CXRs 21 January and 28 February. INTERPRETATION: Abnormal. 1. Large cardiac silhouette, generalized pulmonary vascular congestion with cephalization, and bibasilar dependent, subpulmonic pleural effusions. 2. Underlying lower lobe (basilar) atelectasis or infiltrate particularly evident on the left new since 28 February/21 January films. 3. Large bore left supraclavicular central venous (dialysis?) Catheter has been removed. External monitor and storage bin tender leads. Oxygen cannula. 4. No new lung mass or hilar lymphadenopathy. Conclusion: Pulmonary vascular congestion (fluid overload). Underlying lower lobe atelectasis/infiltrates.
[2021-07-06] MEDS ORDERED: Acetaminophen 650 MG Supp RECTAL STA (11:46)
[2021-07-06] MEDS ORDERED: Pantoprazole 40 MG in Sodium Chloride 0.9% 100 ML IV SCH (12:00)
[2021-07-06 12:17] LABS: CORONAVIRUS COVID-19 NAA NEGATIVE (NEGATIVE)
--- NOTE | 2021-07-06 13:12 | CT ---
EXAMINATION: Head wo Cont SEX: Male AGE: 60 years CLINICAL HISTORY: 60-year-old dialysis patient with "pulmonary fluid overload" and ALTERED MENTAL STATUS. Rule out intracranial abnormality. Comparison CT head 15 April 2021. Scan technique: Volume acquisition of data emergency unenhanced CT scan of the head and brain obtained with patient lying supine on the Siemens multislice scanner [place], [place]. All data archived in the PACS system for storage, reformatting axial/sagittal/coronal planes and study (bone/brain windows). Interpretation: No new intracranial abnormality (comparison CT head April 2021) 1. Uniformly thick bony calvarium and symmetric clear pneumatization of the paranasal/mastoid sinuses. No sign of skull fracture, underlying brain contusion or epidural/subdural hematoma. 2. Generalized atrophy pattern symmetric and unchanged with underlying mirror-image normal ventricular system. 3. Midline falx/pineal and symmetric choroid plexus calcifications. 4. No new supratentorial or posterior fossa mass lesion. 5. Chronic microvascular ischemic changes periventricular white matter. No new signs of cerebral edema or infarct. 6. No sign of acute intracerebral, intraventricular or subarachnoid bleed. 7. Cerebellum and brainstem unremarkable.
[2021-07-06] MEDS ORDERED: Ondansetron 4 MG/2 ML SDV IVPUSH PRN (15:09)
--- NOTE | 2021-07-06 15:16 | PCM.HP ---
H&P History of Present Illness - General Date of Service: 07/06/21 Admit Problem/Dx: Admission Diagnosis/Problem Admission Diagnosis/Problem Non-ST elevation (NSTEMI) myocardial infarction Source of Information: Patient, Family, Old Records, Provider - History of Present Illness Initial Comments - Free Text/Narative: Prabhu alonso is a 60 year old man with PMH significant for ESRD on HD, DMII arrives to ER from home by ambulance with EMS reporting the pt was found to be difficulty to arouse by family this morning. EMS found the pt with blood glucose of 56. EMS gave a bolus of Dextrose 10% IV, blood glucose increased to 117, and on arrival to ER it had dropped to 107. Pt reported to have a fever, cough, and at least one episode of brown emesis which EMS thought might have been from GI bleeding. Unknown if any aspiration. Pt arrives awake, alert, and confused. Denies pain. He missed his 0400HR dialysis this morning. - Related Data Allergies/Adverse Reactions: Allergies Allergy/AdvReac Type Severity Reaction Status Date / Time No Known Allergies Allergy Verified 07/06/21 15:40 Home Medications: Home Meds Aspirin [Lo-Dose Aspirin EC] 81 mg PO DAILY 08/22/18 [History] Omeprazole 20 mg PO BID 08/22/18 [History] carvediloL [Carvedilol] 6.25 mg PO BID 08/22/18 [History] Tiotropium [Spiriva HandiHaler] 18 mcg INH DAILY 11/08/18 [History] Cholecalciferol (Vitamin D3) [Vitamin D3] 25 mcg PO DAILY 12/20/19 [History] Albuterol Sulfate 3 ml INH Q4HR PRN 11/18/20 [History] Albuterol Sulfate [Proair Hfa] 1 puff IH Q6HR PRN 11/18/20 [History] Bumetanide 4 mg PO BID 11/18/20 [History] Calcium Carbonate [Calcium] 1,500 mg PO TIDMEALS 11/18/20 [History] Fluticasone Propion/Salmeterol [Fluticasone-Salmeterol 500-50] 1 puff INH BID 11/18/20 [History] Insulin NPH/Insulin Reg,Human [Novolin 70-30] 20 units SQ BID 11/18/20 [History] Losartan [Cozaar] 50 mg PO DAILY 11/18/20 [History] Midodrine 5 mg PO ASDIRECTED 11/18/20 [History] Acetaminophen [Tylenol] 325 mg PO Q6H PRN 07/06/21 [History] Capsaicin [Capzasin] 1 applic TOP QID 07/06/21 [History] Menthol/Methyl Salicylate [Icy Hot Cream] 1 applic TOP TID 07/06/21 [History] QUEtiapine Fumarate [Seroquel] 50 mg PO BID 07/06/21 [History] atorvaSTATin Calcium [Atorvastatin Calcium] 10 mg PO BEDTIME 07/06/21 [History] Past Medical History HEENT History: Reports: None Cardiovascular History: Reports: Heart Failure, High Cholesterol, Hypertension, Other (See Below) Other Cardiovascular History: non-ischemic cardiomyopathy Respiratory History: Reports: Bronchitis, Recurrent, PE, Pneumonia, Recurrent, Other (See Below) Other Respiratory History: ARDS (acute respiratory distress syndrome) Gastrointestinal History: Reports: GERD Other Gastrointestinal History: Spouse states client used to take medication for his stomach, but cannot recall why and cannot recall which medication. Genitourinary History: Reports: Dialysis, Diabetic Nephropathy, Other (See Below) Other Genitourinary History: Acute kidney injury Musculoskeletal History: Reports: Arthritis, Back Pain, Chronic, Fracture, Other (See Below) Other Musculoskeletal History: "Multiple fractures" Neurological History: Reports: Head Trauma, Other (See Below) Other Neuro History: fractured skull Psychiatric History: Reports: Addiction, Anxiety Endocrine/Metabolic History: Reports: Diabetes, Type II Hematologic History: Reports: None Immunologic History: Reports: None Oncologic (Cancer) History: Reports: None Dermatologic History: Reports: Cellulitis - Infectious Disease History Infectious Disease History: Reports: Hepatitis C Other Infectious Disease History: states client has hepatitis, but unable to recall which type. - Past Surgical History Head Surgeries/Procedures: Reports: None HEENT Surgical History: Reports: Other (See Below) Other HEENT Surgeries/Procedures: Eye injections, patient unsure why Cardiovascular Surgical History: Reports: None, Other (See Below) Other Cardiovascular Surgeries/Procedures: coronary angiogram Respiratory Surgical History: Reports: Thoracentesis GI Surgical History: Reports: Appendectomy Male Surgical History: Reports: None Endocrine Surgical History: Reports: None Neurological Surgical History: Reports: None Musculoskeletal Surgical History: Reports: Amputation Other Musculoskeletal Surgeries/Procedures:: right b/k amputation Dermatological Surgical History: Reports: None Social & Family History - Family History Family Medical History: No Pertinent Family History Endocrine/Metabolic: Reports: Diabetes, type II Oncologic: Reports: Other (See Below) Other Oncologic Family History: spouse states HX of cancer in family, but unable to recall which type - Caffeine Use Caffeine Use: Reports: Coffee Caffeine Use Comment: galoon of coffee and 6 pack of pop daily - Living Situation & Occupation Living situation: Reports: with Family Occupation: Disabled H&P Review of Systems - Review of Systems: Review Of Systems: Unable To Obtain Reason Not Obtained: acute mental status change. encephalopathic. Exam - Exam Exam: See Below - Vital Signs Vital Signs: Last Vital Signs Temp 103.6 F H 07/06/21 14:09 Pulse 92 07/06/21 14:09 Resp 28 H 07/06/21 14:09 BP 141/60 H 07/06/21 14:09 Pulse Ox 97 07/06/21 14:09 Weight: 144 lb - Exam Quality Assessment: Other (comfortable. ) General: Mild Distress, Lethargic Lungs: Decreased Breath Sounds, Crackles. No: Stridor, Wheezing Cardiovascular: Regular Rate, Regular Rhythm, Tachycardia. No: Systolic Murmur, Diastolic Murmur GI/Abdominal Exam: Soft, Non-Tender (Male) Exam: Deferred Rectal (Males) Exam: Deferred Skin: Warm, Dry Neuro Extensive - Mental Status: Inattentive, Opens Eyes to Commands - Patient Data Lab Results Last 24 hrs: Laboratory Results - last 24 hr 07/06/21 07/06/21 07/06/21 Range/Units 10:45 10:45 10:45 WBC 24.2 H (5.0-10.0) 10^3/uL RBC 4.39 L (4.6-6.2) 10^6/uL Hgb 11.3 L (14.0-18.0) g/dL Hct 35.7 L (40.0-54.0) % MCV 81.3 (80-100) fL MCH 25.7 L (27.0-34.0) pg MCHC 31.7 L (33.0-35.0) g/dL Plt Count 147 L (150-450) 10^3/uL Neut % (Auto) 92.9 H (42.2-75.2) % Lymph % (Auto) 3.5 L (20.5-50.1) % [place] % (Auto) 3.6 (2-8) % Eos % (Auto) 0.0 L (1.0-3.0) % Baso % (Auto) 0.0 (0.0-1.0) % PT 16.1 H (9.0-12.0) SEC INR 1.6 H (0.9-1.2) APTT 26.7 (22.0-34.0) SEC Sodium 135 L (136-145) mmol/L Potassium 5.2 H (3.5-5.1) mmol/L Chloride 95 L (98-107) mmol/L Carbon Dioxide 31 (21-32) mmol/L Anion Gap 14.2 H (7-13) mEq/L BUN 54 H (7-18) mg/dL Creatinine 8.60 H* (0.70-1.30) mg/dL Est Cr Clr Drug Dosing 8.24 mL/min Estimated GFR (MDRD) 6 BUN/Creatinine Ratio 6.3 (No establ ref range) Glucose 104 H (70-99) mg/dL POC Glucose (70-99) mg/dL Lactic Acid (0.4-2.0) mmol/L Calcium 13.0 H D (8.5-10.1) mg/dL Phosphorus 1.6 L (2.6-4.7) mg/dL Magnesium 1.9 (1.8-2.4) mg/dL Total Bilirubin 0.7 (0.2-1.0) mg/dL AST 204 H (15-37) U/L ALT 51 (16-63) U/L Alkaline Phosphatase 97 (46-116) U/L Troponin I High Sens 5328 H* (<=76) pg/mL C-Reactive Protein 18.6 H (0.0-0.9) mg/dL B-Natriuretic Peptide > 5000 H (0-100) pg/ml Total Protein 8.8 H (6.4-8.2) g/dL Albumin 2.7 L (3.4-5.0) g/dL Globulin 6.1 Albumin/Globulin Ratio 0.44 Amylase 30 (25-115) U/L Lipase < 10 L (73-393) U/L Influenza Type A RNA (NEGATIVE) Influenza Type B RNA (NEGATIVE) SARS-CoV-2 RNA (DEBBY) (NEGATIVE) 07/06/21 07/06/21 07/06/21 Range/Units 10:45 10:48 11:08 WBC (5.0-10.0) 10^3/uL RBC (4.6-6.2) 10^6/uL Hgb (14.0-18.0) g/dL Hct (40.0-54.0) % MCV (80-100) fL MCH (27.0-34.0) pg MCHC (33.0-35.0) g/dL Plt Count (150-450) 10^3/uL Neut % (Auto) (42.2-75.2) % Lymph % (Auto) (20.5-50.1) % [place] % (Auto) (2-8) % Eos % (Auto) (1.0-3.0) % Baso % (Auto) (0.0-1.0) % PT (9.0-12.0) SEC INR (0.9-1.2) APTT (22.0-34.0) SEC Sodium (136-145) mmol/L Potassium (3.5-5.1) mmol/L Chloride (98-107) mmol/L Carbon Dioxide (21-32) mmol/L Anion Gap (7-13) mEq/L BUN (7-18) mg/dL Creatinine (0.70-1.30) mg/dL Est Cr Clr Drug Dosing mL/min Estimated GFR (MDRD) BUN/Creatinine Ratio (No establ ref range) Glucose (70-99) mg/dL POC Glucose 101 H (70-99) mg/dL Lactic Acid 3.0 H* (0.4-2.0) mmol/L Calcium (8.5-10.1) mg/dL Phosphorus (2.6-4.7) mg/dL Magnesium (1.8-2.4) mg/dL Total Bilirubin (0.2-1.0) mg/dL AST (15-37) U/L ALT (16-63) U/L Alkaline Phosphatase (46-116) U/L Troponin I High Sens (<=76) pg/mL C-Reactive Protein (0.0-0.9) mg/dL B-Natriuretic Peptide (0-100) pg/ml Total Protein (6.4-8.2) g/dL Albumin (3.4-5.0) g/dL Globulin Albumin/Globulin Ratio Amylase (25-115) U/L Lipase (73-393) U/L Influenza Type A RNA Negative (NEGATIVE) Influenza Type B RNA Negative (NEGATIVE) SARS-CoV-2 RNA (DEBBY) Negative (NEGATIVE) 07/06/21 Range/Units 11:56 WBC (5.0-10.0) 10^3/uL RBC (4.6-6.2) 10^6/uL Hgb (14.0-18.0) g/dL Hct (40.0-54.0) % MCV (80-100) fL MCH (27.0-34.0) pg MCHC (33.0-35.0) g/dL Plt Count (150-450) 10^3/uL Neut % (Auto) (42.2-75.2) % Lymph % (Auto) (20.5-50.1) % [place] % (Auto) (2-8) % Eos % (Auto) (1.0-3.0) % Baso % (Auto) (0.0-1.0) % PT (9.0-12.0) SEC INR (0.9-1.2) APTT (22.0-34.0) SEC Sodium (136-145) mmol/L Potassium (3.5-5.1) mmol/L Chloride (98-107) mmol/L Carbon Dioxide (21-32) mmol/L Anion Gap (7-13) mEq/L BUN (7-18) mg/dL Creatinine (0.70-1.30) mg/dL Est Cr Clr Drug Dosing mL/min Estimated GFR (MDRD) BUN/Creatinine Ratio (No establ ref range) Glucose (70-99) mg/dL POC Glucose 125 H (70-99) mg/dL Lactic Acid (0.4-2.0) mmol/L Calcium (8.5-10.1) mg/dL Phosphorus (2.6-4.7) mg/dL Magnesium (1.8-2.4) mg/dL Total Bilirubin (0.2-1.0) mg/dL AST (15-37) U/L ALT (16-63) U/L Alkaline Phosphatase (46-116) U/L Troponin I High Sens (<=76) pg/mL C-Reactive Protein (0.0-0.9) mg/dL B-Natriuretic Peptide (0-100) pg/ml Total Protein (6.4-8.2) g/dL Albumin (3.4-5.0) g/dL Globulin Albumin/Globulin Ratio Amylase (25-115) U/L Lipase (73-393) U/L Influenza Type A RNA (NEGATIVE) Influenza Type B RNA (NEGATIVE) SARS-CoV-2 RNA (DEBBY) (NEGATIVE) Result Diagrams: 07/06/21 10:45 07/06/21 10:45 [place] Results Last 24 hrs: Microbiology 07/06/21 11:26 Stool Occult Blood (MILAN) - Final Stool / Feces 07/06/21 11:30 Anaerobic Blood Culture - Final Blood - Arm, Right Problem List Initiated/Reviewed/Updated: Yes Orders Last 24hrs: Active Orders 24 hr Category Date Time Status Admission Diagnosis [ADT] Stat ADT 07/06/21 13:34 Ordered Admission Status [Patient Status] [ADT] Routine ADT 07/06/21 13:34 Active Communication Order [RC] STAT Care 07/06/21 15:09 Ordered Turn and Reposition [RC] Q2H Care 07/06/21 15:12 Ordered Up With Assistance [RC] ASDIRECTED Care 07/06/21 15:09 Ordered Vital Signs [RC] Q4H Care 07/06/21 15:10 Ordered Regular Diet [DIET] Diet 07/06/21 Breakfast Ordered CULTURE BLOOD [BC] Stat Lab 07/06/21 10:45 Received CULTURE BLOOD [BC] Stat Lab 07/06/21 11:30 Results LORazepam [Ativan] Med 07/06/21 15:09 Ordered 1 mg IV Q4H PRN Morphine Med 07/06/21 15:09 Ordered 2 mg IV Q1H PRN Ondansetron [Zofran] Med 07/06/21 15:09 Ordered 4 mg IVPUSH Q4H PRN Pantoprazole [ProTONIX IV] 40 mg Med 07/06/21 12:00 Active Sodium Chloride 0.9% [Normal Saline] 100 ml IV .CONTINUOS QUEtiapine [SEROqueL] Med 07/06/21 21:00 Ordered 25 mg PO BID Blood Culture x2 Reflex Set [OM.PC] Stat Oth 07/06/21 10:36 Ordered DME for Inpatients [OM.PC] Per Unit Routine Oth 07/06/21 15:12 Ordered Resuscitation Status Routine Resus Stat 07/06/21 15:09 Ordered Medication Orders Pantoprazole Sodium 40 mg/ (Sodium Chloride) 100 mls @ 20 mls/hr IV .CONTINUOS MEGHAN Last Admin: 07/06/21 12:38 Dose: 20 mls/hr Documented by: TOM Lorazepam (Lorazepam 2 Mg/Ml Sdv) 1 mg IV Q4H PRN PRN Reason: Other Morphine Sulfate (Morphine 2 Mg/Ml Syringe) 2 mg IV Q1H PRN PRN Reason: Other Ondansetron HCl (Ondansetron 4 Mg/2 Ml Sdv) 4 mg IVPUSH Q4H PRN PRN Reason: Nausea Quetiapine Fumarate (Quetiapine 25 Mg Tab) 25 mg PO BID [facility] Assessment/Plan Comment:: acute on chronic combined systolic and diastolic heart failure acute respiratory failure with hypoxia ESRD on HD NSTEMI type 1 vs type 2 lactic acidosis acute metabolic acidosis anemia of chronic disease leukocytosis hypophosphatemia acute metabolic encephalopathy - While in ED WBC 24.2, phos 1.6, AG14.2, creatinine 8.6, lactic acid 3.0, BNP >5000, trop 5328 - given acuity of illness and overall poor prognosis pts family opted for comfort cares only. they decided to DC hemodialysis and focus on quality for end of life cares. was called for last rights. family rotating presence at bedside. will likely be end of life inpatient. not stable for transfer - PRN morphine and ativan for comfort - DC all labs and tests - regular diet for comfort - maximum 2L oxygen via NC for comfort only Chronic conditions: - essential HTN - Mixed HLD - Hx of PE - DMII with diabetic polyneuropathy - chronic back pain - unspecified anxiety Advanced care planning today with discussion of end of life care options discussed with patients and daughter.
[2021-07-06] MEDS: LORazepam 2 MG/ML SDV IV PRN (16:10)
[2021-07-06] MEDS: QUEtiapine 25 MG Tab PO SCH (20:48)
[2021-07-06] MEDS: Morphine 2 MG/ML SYRINGE IV PRN (21:15)
[2021-07-07] MEDS: QUEtiapine 25 MG Tab PO SCH ×2 (09:22→20:29)
[2021-07-07] MEDS: LORazepam 2 MG/ML SDV IV PRN ×2 (09:41→15:02)
--- NOTE | 2021-07-07 13:55 | PCM.PN ---
- General Info Date of Service: 07/07/21 Admission Dx/Problem (Free Text): Admission Diagnosis/Problem Admission Diagnosis/Problem Non-ST elevation (NSTEMI) myocardial infarction Subjective Update: resting comfortably with family at bedside. will be end of life inpatient Functional Status: Reports: Pain Controlled - Review of Systems General: Reports: No Symptoms HEENT: Reports: No Symptoms Pulmonary: Reports: No Symptoms Cardiovascular: Reports: No Symptoms Gastrointestinal: Reports: No Symptoms Genitourinary: Reports: No Symptoms Musculoskeletal: Reports: No Symptoms Skin: Reports: No Symptoms Neurological: Reports: No Symptoms Psychiatric: Reports: No Symptoms - Patient Data Vitals - Most Recent: Last Vital Signs Temp 98.6 F 07/07/21 08:44 Pulse 92 07/07/21 08:44 Resp 16 07/07/21 08:44 BP 123/56 L 07/07/21 08:44 Pulse Ox 97 07/07/21 08:44 Weight - Most Recent: 144 lb I&O - Last 24 Hours: Intake & Output 07/06/21 07/07/21 07/07/21 22:59 06:59 14:59 Intake Total 0 0 Output Total 0 Balance 0 0 [place] Results Last 24 Hours: Microbiology 07/06/21 11:30 Aerobic Blood Culture - Preliminary Blood - Arm, Right Anaerobic Blood Culture - Final 07/06/21 10:45 Aerobic Blood Culture - Preliminary Blood - Arm, Right Anaerobic Blood Culture - Preliminary 07/06/21 11:26 Stool Occult Blood (MILAN) - Final Stool / Feces Med Orders - Current: Current Medications Lorazepam (Lorazepam 2 Mg/Ml Sdv) 1 mg IV Q4H PRN PRN Reason: Other Last Admin: 07/07/21 09:41 Dose: 1 mg Documented by: Morphine Sulfate (Morphine 2 Mg/Ml Syringe) 2 mg IV Q1H PRN PRN Reason: Other Last Admin: 07/06/21 21:15 Dose: 2 mg Documented by: Ondansetron HCl (Ondansetron 4 Mg/2 Ml Sdv) 4 mg IVPUSH Q4H PRN PRN Reason: Nausea Quetiapine Fumarate (Quetiapine 25 Mg Tab) 25 mg PO BID MEGHAN Last Admin: 07/07/21 09:22 Dose: Not Given Documented by: Discontinued Medications Acetaminophen (Acetaminophen 650 Mg Supp) 650 mg RECTAL NOW STA Stop: 07/06/21 11:47 Last Admin: 07/06/21 11:50 Dose: 650 mg Documented by: Dextrose/Water (50% Dextrose In Water 50 Ml Syringe) 50 ml IVPUSH ONETIME ONE Stop: 07/06/21 10:51 Last Admin: 07/06/21 11:16 Dose: 50 ml Documented by: Vancomycin HCl 1 gm/ Sodium (Chloride) 250 mls @ 166.667 mls/hr IV ONETIME ONE Stop: 07/06/21 12:59 Last Admin: 07/06/21 11:22 Dose: 166.667 mls/hr Documented by: Piperacillin Sod/Tazobactam (Sod 3.375 gm/ Sodium Chloride) 100 mls @ 200 mls/hr IV ONETIME ONE Stop: 07/06/21 11:45 Last Admin: 07/06/21 11:51 Dose: 200 mls/hr Documented by: Pantoprazole Sodium 40 mg/ (Sodium Chloride) 100 mls @ 20 mls/hr IV .CONTINUOS MEGHAN Last Admin: 07/06/21 12:38 Dose: 20 mls/hr Documented by: - Exam Quality Assessment: Supplemental Oxygen (2L for comfort). No: Urine Catheter, DVT Prophylaxis, Skin Breakdown General: Lethargic, Other (minimally responsive) Lungs: Decreased Breath Sounds (throughout) GI/Abdominal Exam: Soft Skin: Warm, Dry - Patient Data Result Diagrams: 07/06/21 10:45 07/06/21 10:45 [place] Results Last 24 hrs: Microbiology 07/06/21 11:30 Aerobic Blood Culture - Preliminary Blood - Arm, Right Anaerobic Blood Culture - Final 07/06/21 10:45 Aerobic Blood Culture - Preliminary Blood - Arm, Right Anaerobic Blood Culture - Preliminary 07/06/21 11:26 Stool Occult Blood (MILAN) - Final Stool / Feces Sepsis Event Note - Evaluation Sepsis Screening Result: Severe Sepsis Risk - Focused Exam Vital Signs: Vital Signs Temp Pulse Resp BP Pulse Ox 07/07/21 08:44 98.6 F 92 16 123/56 L 97 07/07/21 04:00 98.3 F 92 20 133/60 98 - Problem List Review Problem List Initiated/Reviewed/Updated: Yes - My Orders Last 24 Hours: My Active Orders 07/06/21 15:09 Up With Assistance [RC] ASDIRECTED LORazepam [Ativan] 1 mg IV Q4H PRN Morphine 2 mg IV Q1H PRN Ondansetron [Zofran] 4 mg IVPUSH Q4H PRN 07/06/21 15:10 Vital Signs [RC] Q4H 07/06/21 15:12 Turn and Reposition [RC] Q2H DME for Inpatients [OM.PC] Per Unit Routine 07/06/21 21:00 QUEtiapine [SEROqueL] 25 mg PO BID 07/07/21 11:54 Resuscitation Status Routine - Plan Plan:: acute on chronic combined systolic and diastolic heart failure acute respiratory failure with hypoxia ESRD on HD NSTEMI type 1 vs type 2 lactic acidosis acute metabolic acidosis anemia of chronic disease leukocytosis hypophosphatemia acute metabolic encephalopathy - While in ED WBC 24.2, phos 1.6, AG14.2, creatinine 8.6, lactic acid 3.0, BNP >5000, trop 5328 - given acuity of illness and overall poor prognosis pts family opted for comfo rt cares only. they decided to DC hemodialysis and focus on quality for end of life cares. was called for last rights. family rotating presence at bedside. will likely be end of life inpatient. not stable for transfer - PRN morphine and ativan for comfort - DC all labs and tests - regular diet for comfort - maximum 2L oxygen via NC for comfort only Chronic conditions: - essential HTN - Mixed HLD - Hx of PE - DMII with diabetic polyneuropathy - chronic back pain - unspecified anxiety Code status: DNR/DNI DVT prophylaxis: none. end of life MDM/Interval Hx: resting comfortably with family at bedside. PRN morphine and ativan controlling any symptoms. will be end of life inpatient. not stable for transfer.
[2021-07-07] MEDS: Morphine 2 MG/ML SYRINGE IV PRN ×3 (15:05→20:19)
--- NOTE | 2021-07-08 00:23 | PCM.PN ---
- General Info Date of Service: 07/08/21 Subjective Update: Informed by nursing staff that patient was nonresponsive, had no respirations or heart rate. Went to bedside and confirmed patient at 0737. Functional Status: Reports: Pain Controlled - Patient Data Vitals - Most Recent: Last Vital Signs Temp 97.4 F 07/07/21 19:56 Pulse 90 07/07/21 19:56 Resp 20 07/07/21 19:56 BP 105/52 L 07/07/21 19:56 Pulse Ox 99 07/07/21 19:56 Weight - Most Recent: 144 lb I&O - Last 24 Hours: Intake & Output 07/07/21 07/07/21 07/08/21 14:59 22:59 06:59 Intake Total 0 Output Total 0 Balance 0 [place] Results Last 24 Hours: Microbiology 07/06/21 11:30 Aerobic Blood Culture - Preliminary Blood - Arm, Right Anaerobic Blood Culture - Final 07/06/21 10:45 Aerobic Blood Culture - Preliminary Blood - Arm, Right Anaerobic Blood Culture - Preliminary Med Orders - Current: Current Medications Lorazepam (Lorazepam 2 Mg/Ml Sdv) 1 mg IV Q4H PRN PRN Reason: Other Last Admin: 07/07/21 15:02 Dose: 1 mg Documented by: Morphine Sulfate (Morphine 2 Mg/Ml Syringe) 2 mg IV Q1H PRN PRN Reason: Other Last Admin: 07/07/21 20:19 Dose: 2 mg Documented by: Ondansetron HCl (Ondansetron 4 Mg/2 Ml Sdv) 4 mg IVPUSH Q4H PRN PRN Reason: Nausea Quetiapine Fumarate (Quetiapine 25 Mg Tab) 25 mg PO BID [facility] Last Admin: 07/07/21 20:29 Dose: Not Given Documented by: Discontinued Medications Acetaminophen (Acetaminophen 650 Mg Supp) 650 mg RECTAL NOW STA Stop: 07/06/21 11:47 Last Admin: 07/06/21 11:50 Dose: 650 mg Documented by: Dextrose/Water (50% Dextrose In Water 50 Ml Syringe) 50 ml IVPUSH ONETIME ONE Stop: 07/06/21 10:51 Last Admin: 07/06/21 11:16 Dose: 50 ml Documented by: Vancomycin HCl 1 gm/ Sodium (Chloride) 250 mls @ 166.667 mls/hr IV ONETIME ONE Stop: 07/06/21 12:59 Last Admin: 07/06/21 11:22 Dose: 166.667 mls/hr Documented by: Piperacillin Sod/Tazobactam (Sod 3.375 gm/ Sodium Chloride) 100 mls @ 200 mls/hr IV ONETIME ONE Stop: 07/06/21 11:45 Last Admin: 07/06/21 11:51 Dose: 200 mls/hr Documented by: Pantoprazole Sodium 40 mg/ (Sodium Chloride) 100 mls @ 20 mls/hr IV .CONTINUOS MEGHAN Last Admin: 07/06/21 12:38 Dose: 20 mls/hr Documented by: - Exam Physical Findings Comments:: Generalno respirations noted for 1 minute, no pulse noted for 1 minute, no corneal reflex. Patient at 737, family at bedside - Patient Data Result Diagrams: 07/06/21 10:45 07/06/21 10:45 [place] Results Last 24 hrs: Microbiology 07/06/21 11:30 Aerobic Blood Culture - Preliminary Blood - Arm, Right Anaerobic Blood Culture - Final 07/06/21 10:45 Aerobic Blood Culture - Preliminary Blood - Arm, Right Anaerobic Blood Culture - Preliminary Sepsis Event Note - Evaluation Sepsis Screening Result: Possible Sepsis Risk - Focused Exam Vital Signs: Vital Signs Temp Pulse Resp BP Pulse Ox 07/07/21 19:56 97.4 F 90 20 105/52 L 99 - Problem List & Annotations (1) ALEC (acute kidney injury) SNOMED Code(s): 73066673, 06609143 Code(s): N17.9 - ACUTE KIDNEY FAILURE, UNSPECIFIED Status: Acute Current Visit: No (2) ARDS (adult respiratory distress syndrome) SNOMED Code(s): 26679579, 60791919 Code(s): J80 - ACUTE RESPIRATORY DISTRESS SYNDROME Status: Acute Current Visit: No (3) Abdominal pain SNOMED Code(s): 22303196 Code(s): R10.9 - UNSPECIFIED ABDOMINAL PAIN Status: Acute Current Visit: No (4) Acute on chronic diastolic CHF (congestive heart failure) SNOMED Code(s): 217661437, 551224787 Code(s): I50.33 - ACUTE ON CHRONIC DIASTOLIC (CONGESTIVE) HEART FAILURE Status: Acute Current Visit: No (5) Alcoholic gastritis with bleeding SNOMED Code(s): 3632708, 87300799 Code(s): K29.21 - ALCOHOLIC GASTRITIS WITH BLEEDING Status: Acute Current Visit: No Qualifiers: Chronicity: acute Qualified Code(s): K29.21 - Alcoholic gastritis with bleeding (6) Altered mental status, unspecified SNOMED Code(s): 355246653 Code(s): R41.82 - ALTERED MENTAL STATUS, UNSPECIFIED Status: Acute Current Visit: No Qualifiers: Altered mental status type: somnolence Qualified Code(s): R40.0 - Somnolence - Problem List Review Problem List Initiated/Reviewed/Updated: Yes - Plan Plan:: acute on chronic combined systolic and diastolic heart failure acute respiratory failure with hypoxia ESRD on HD NSTEMI type 1 vs type 2 lactic acidosis acute metabolic acidosis anemia of chronic disease leukocytosis hypophosphatemia acute metabolic encephalopathy - Patient this a.m. at 737. Confirmed no respirations and no pulse at bedside. Family members present. Patient was on comfort measures.
[2021-07-08] MEDS: Morphine 2 MG/ML SYRINGE IV PRN ×2 (03:26→06:34)
[2021-07-08] MEDS: LORazepam 2 MG/ML SDV IV PRN (04:17)
[2021-07-08] MEDS ORDERED: Atropine 1% Ophth Soln 5 ML BOTTLE SL SCH (06:00)
[2021-07-08 06:48] VITALS: BP 126/56; PULSE 100
--- NOTE | 2021-07-08 07:45 | PCM.DCSUM1 ---
Discharge Summary - Hospital Course Free Text/Narrative:: Prabhu alonso is a 60 year old man with PMH significant for ESRD on HD, DMII arrives to ER from home by ambulance with EMS reporting the pt was found to be difficulty to arouse by family this morning. EMS found the pt with blood glucose of 56. EMS gave a bolus of Dextrose 10% IV, blood glucose increased to 117, and on arrival to ER it had dropped to 107. Pt reported to have a fever, cough, and at least one episode of brown emesis which EMS thought might have been from GI bleeding. Unknown if any aspiration. Pt arrives awake, alert, and confused. Denies pain. He missed his 0400HR dialysis this morning. While in ED WBC 24.2, phos 1.6, AG14.2, creatinine 8.6, lactic acid 3.0, BNP >5000, trop 5328. Physician at the time had prolonged discussion with patient's family given his acute illness and overall poor prognosis they opted for comfort cares. Family decided to discontinue hemodialysis and focus on quality of life. As needed morphine and Ativan were given, was called for last rights. Family was present at bedside. Patient at 737 on 07-08-21 with family at bedside. - Discharge Data Discharge Date: 07/08/21 Discharge Disposition: 20 Preliminary Cause of *Q: Cardiac Arrest (Myocardial infaraction) Event(s) Leading to Patient's *Q: ESRD, acute hypoxic respiratory failure secondary to ESRD and NSTEMI Condition: - Referral to Home Health Primary Care Physician: PCP None - Discharge Diagnosis/Problem(s) (1) ALEC (acute kidney injury) SNOMED Code(s): 93008680, 01100224 ICD Code: N17.9 - ACUTE KIDNEY FAILURE, UNSPECIFIED Status: Acute Current Visit: No (2) ARDS (adult respiratory distress syndrome) SNOMED Code(s): 31625571, 76814083 ICD Code: J80 - ACUTE RESPIRATORY DISTRESS SYNDROME Status: Acute Current Visit: No (3) Abdominal pain SNOMED Code(s): 43005609 ICD Code: R10.9 - UNSPECIFIED ABDOMINAL PAIN Status: Acute Current Visit: No (4) Acute on chronic diastolic CHF (congestive heart failure) SNOMED Code(s): 835576996, 523337719 ICD Code: I50.33 - ACUTE ON CHRONIC DIASTOLIC (CONGESTIVE) HEART FAILURE Status: Acute Current Visit: No (5) Alcoholic gastritis with bleeding SNOMED Code(s): 7282920, 10562579 ICD Code: K29.21 - ALCOHOLIC GASTRITIS WITH BLEEDING Status: Acute Current Visit: No Qualifiers: Chronicity: acute Qualified Code(s): K29.21 - Alcoholic gastritis with bleeding (6) Altered mental status, unspecified SNOMED Code(s): 748514538 ICD Code: R41.82 - ALTERED MENTAL STATUS, UNSPECIFIED Status: Acute Current Visit: No Qualifiers: Altered mental status type: somnolence Qualified Code(s): R40.0 - Somnolence - Discharge Plan *PRESCRIPTION DRUG MONITORING PROGRAM REVIEWED*: Not Applicable *COPY OF PRESCRIPTION DRUG MONITORING REPORT IN PATIENT LUIS: Not Applicable Home Medications: Home Meds Aspirin [Lo-Dose Aspirin EC] 81 mg PO DAILY 08/22/18 [History] Omeprazole 20 mg PO BID 08/22/18 [History] carvediloL [Carvedilol] 6.25 mg PO BID 08/22/18 [History] Tiotropium [Spiriva HandiHaler] 18 mcg INH DAILY 11/08/18 [History] Cholecalciferol (Vitamin D3) [Vitamin D3] 25 mcg PO DAILY 12/20/19 [History] Albuterol Sulfate 3 ml INH Q4HR PRN 11/18/20 [History] Albuterol Sulfate [Proair Hfa] 1 puff IH Q6HR PRN 11/18/20 [History] Bumetanide 4 mg PO BID 11/18/20 [History] Calcium Carbonate [Calcium] 1,500 mg PO TIDMEALS 11/18/20 [History] Fluticasone Propion/Salmeterol [Fluticasone-Salmeterol 500-50] 1 puff INH BID 11/18/20 [History] Insulin NPH/Insulin Reg,Human [Novolin 70-30] 20 units SQ BID 11/18/20 [History] Losartan [Cozaar] 50 mg PO DAILY 11/18/20 [History] Midodrine 5 mg PO ASDIRECTED 11/18/20 [History] Acetaminophen [Tylenol] 325 mg PO Q6H PRN 07/06/21 [History] Capsaicin [Capzasin] 1 applic TOP QID 07/06/21 [History] Menthol/Methyl Salicylate [Icy Hot Cream] 1 applic TOP TID 07/06/21 [History] QUEtiapine Fumarate [Seroquel] 50 mg PO BID 07/06/21 [History] atorvaSTATin Calcium [Atorvastatin Calcium] 10 mg PO BEDTIME 07/06/21 [History] Forms: ED Department Discharge - Discharge Summary/Plan Comment DC Time >30 min.: Yes Total # of Minutes for Discharge Time: 30 - Patient Data Vitals - Most Recent: Last Vital Signs Temp 98.3 F 07/08/21 04:00 Pulse 100 07/08/21 04:00 Resp 10 L 07/08/21 04:00 BP 126/56 L 07/08/21 04:00 Pulse Ox 90 L 07/08/21 04:00 Weight - Most Recent: 144 lb I&O - Last 24 hours: Intake & Output 07/07/21 07/08/21 07/08/21 22:59 06:59 14:59 Intake Total 0 0 Output Total 0 0 Balance 0 0 SUSI Results - Last 24 hrs: Microbiology 07/06/21 10:45 Aerobic Blood Culture - Preliminary Blood - Arm, Right Anaerobic Blood Culture - Preliminary 07/06/21 11:30 Aerobic Blood Culture - Preliminary Blood - Arm, Right Anaerobic Blood Culture - Final Med Orders - Current: Current Medications Atropine Sulfate (Atropine 1% Ophth Soln 5 Ml Bottle) 1 ml SL Q2H [facility] Last Admin: 07/08/21 06:03 Dose: 1 ml Documented by: Lorazepam (Lorazepam 2 Mg/Ml Sdv) 1 mg IV Q4H PRN PRN Reason: Other Last Admin: 07/08/21 04:17 Dose: 1 mg Documented by: Morphine Sulfate (Morphine 2 Mg/Ml Syringe) 2 mg IV Q1H PRN PRN Reason: Other Last Admin: 07/08/21 06:34 Dose: 2 mg Documented by: Ondansetron HCl (Ondansetron 4 Mg/2 Ml Sdv) 4 mg IVPUSH Q4H PRN PRN Reason: Nausea Quetiapine Fumarate (Quetiapine 25 Mg Tab) 25 mg PO BID [facility] Last Admin: 07/07/21 20:29 Dose: Not Given Documented by: Discontinued Medications Acetaminophen (Acetaminophen 650 Mg Supp) 650 mg RECTAL NOW STA Stop: 07/06/21 11:47 Last Admin: 07/06/21 11:50 Dose: 650 mg Documented by: Dextrose/Water (50% Dextrose In Water 50 Ml Syringe) 50 ml IVPUSH ONETIME ONE Stop: 07/06/21 10:51 Last Admin: 07/06/21 11:16 Dose: 50 ml Documented by: Vancomycin HCl 1 gm/ Sodium (Chloride) 250 mls @ 166.667 mls/hr IV ONETIME ONE Stop: 07/06/21 12:59 Last Admin: 07/06/21 11:22 Dose: 166.667 mls/hr Documented by: Piperacillin Sod/Tazobactam (Sod 3.375 gm/ Sodium Chloride) 100 mls @ 200 mls/hr IV ONETIME ONE Stop: 07/06/21 11:45 Last Admin: 07/06/21 11:51 Dose: 200 mls/hr Documented by: Pantoprazole Sodium 40 mg/ (Sodium Chloride) 100 mls @ 20 mls/hr IV .CONTINUOS MEGHAN Last Admin: 07/06/21 12:38 Dose: 20 mls/hr Documented by:
== END 2021-07-08 10:45 | disposition expired | DRG 951 ==
LOC: DL.ED 10:31 → DL.MS 14:08
PROVIDERS: ADMIT Hospitalist; ATTEND Hospitalist
DX: Z51.5 Encounter for palliative care (principal); J80 Acute respiratory distress syndrome; E87.70 Fluid overload, unspecified; K92.2 Gastrointestinal hemorrhage, unspecified; I21.4 Non-ST elevation (NSTEMI) myocardial infarction; A41.9 Sepsis, unspecified organism; I50.9 Heart failure, unspecified; K29.21 Alcoholic gastritis with bleeding; N18.6 End stage renal disease; G93.41 Metabolic encephalopathy; I50.43 Acute on chronic combined systolic (congestive) and diastolic (congestive) heart failure; J18.9 Pneumonia, unspecified organism; N17.9 Acute kidney failure, unspecified; I42.8 Other cardiomyopathies; E87.2 Acidosis; I13.2 Hypertensive heart and chronic kidney disease with heart failure and with stage 5 chronic kidney disease, or end stage renal disease; Z66 Do not resuscitate; E78.2 Mixed hyperlipidemia; R40.0 Somnolence; E83.39 Other disorders of phosphorus metabolism; Z20.822 Contact with and (suspected) exposure to COVID-19; E11.22 Type 2 diabetes mellitus with diabetic chronic kidney disease; E78.00 Pure hypercholesterolemia, unspecified; K21.9 Gastro-esophageal reflux disease without esophagitis; E11.21 Type 2 diabetes mellitus with diabetic nephropathy; F41.9 Anxiety disorder, unspecified; M19.90 Unspecified osteoarthritis, unspecified site; M54.9 Dorsalgia, unspecified; D63.1 Anemia in chronic kidney disease; E11.42 Type 2 diabetes mellitus with diabetic polyneuropathy; G89.29 Other chronic pain; Z86.19 Personal history of other infectious and parasitic diseases; Z90.49 Acquired absence of other specified parts of digestive tract; Z99.2 Dependence on renal dialysis; Z79.82 Long term (current) use of aspirin; Z79.4 Long term (current) use of insulin; Z79.899 Other long term (current) drug therapy; Z89.511 Acquired absence of right leg below knee; Z83.3 Family history of diabetes mellitus; Z86.711 Personal history of pulmonary embolism; Z79.01 Long term (current) use of anticoagulants; Z79.51 Long term (current) use of inhaled steroids; Z87.01 Personal history of pneumonia (recurrent); Z87.81 Personal history of (healed) traumatic fracture
CPT/HCPCS: 0240U; 36415; 70450; 71045; 80053; 82150; 82272; 82947; 83605; 83690; 83735; 83880; 84100; 84484; 85025; 85610; 85730; 86140; 87040; 87077; 93005; 96365; 96367; 96368; 96375; 99285-25; A9270-GY; C9113; J2060; J2270; J2543; J3370; J7050